=== PATIENT | female | born 1945 | race Caucasian/White ===

== ENCOUNTER → 2017-11-20 11:19 | Outpatient (BNVA) | payer MEDICARE, SELFPAY | PROVIDERS: PCP Nurse Practitioner Family; Visit Provider Surgery | DX: D64.9 Anemia, unspecified (principal); K31.89 Other diseases of stomach and duodenum | CPT/HCPCS: 99212 ==

== ENCOUNTER 2017-12-06 09:11 | Outpatient (CLI) | payer MEDICARE, SELFPAY ==
[2017-12-06 10:09] LABS: Abs Immature Grans 0.01 k/cumm (0.0-0.09); Absolute Basophil Count 0.03 k/cumm (0.0-0.2); Absolute Eosinophil Count 0.07 k/cumm (0.0-0.7); Absolute Lymphocyte Count 1.39 k/cumm (1.2-3.4); Absolute Monocyte Count 0.58 k/cumm (0.11-0.7); Absolute Neutrophil Count 5.96 k/cumm (1.2-6.7); Basophils % 0.4; Eosinophils % 0.9; HGB 12.4 g/dL (12.0-15.5); Immature Grans % 0.1; Lymphocytes % 17.3; Mean Corpuscular Hemoglobin 28.9 pg (27.0-33.0); Mean Corpuscular Volume 93.2 fL (80-95); Mean Platelet Volume 9.9 fL (8.0-11.0); Monocytes % 7.2; Neutrophils % 74.1; Platelet Count 228 x1000/uL (130-400); RBC 4.29 m/cumm (4.00-5.20); RBC Distribution Width 13.8 % (11.7-14.6); White Blood Cell Count 8.04 k/cumm (4.4-10.8)
[2017-12-06 10:49] LABS: Iron 101 ug/dL (50-175); Total Iron Binding Capacity 350 ug/dL (250-450); Transferrin Sat 29 % (15-50)
[2017-12-06 11:02] LABS: Ferritin 69 ng/mL (8-388)
== END 2017-12-06 09:31 ==
PROVIDERS: PCP Nurse Practitioner Family; Visit Provider Nurse Practitioner Family
DX: D50.9 Iron deficiency anemia, unspecified (principal)
CPT/HCPCS: 36415; 82728; 83540; 83550; 85025

== ENCOUNTER 2017-12-07 00:27 | Outpatient (CLI) | payer MEDICARE, SELFPAY ==
--- NOTE | 2017-12-07 14:25 | DI.MAMMO_ITS ---
SYMPTOM/DIAGNOSIS: SCREENING FOR BREAST CANCER, Z12.31 MAMMOGRAMS: Mammograms were interpreted according to the usual protocol including computer analysis with CAD system, tomosynthesis and C view imaging. Comparison is with the prior examinations. No masses or microcalcifications are seen. There is nothing to suggest malignancy. IMPRESSION: Negative mammogram. Routine screening is recommended. Category 1 , breast density B. MQSA ASSESSMENT OF FINDINGS: Negative. Category 1. Patient will receive a letter notifying them of these results. BI-RADS category B. There are scattered areas of fibroglandular density.
== END 2017-12-07 00:47 ==
PROVIDERS: PCP Nurse Practitioner Family; Visit Provider Nurse Practitioner Family
DX: Z12.31 Encounter for screening mammogram for malignant neoplasm of breast (principal)
CPT/HCPCS: 77063; 77067

== ENCOUNTER 2018-06-06 08:46 | Outpatient (CLI) | payer MEDICARE, SELFPAY ==
[2018-06-06 09:16] LABS: RBC 4.21 m/cumm (4.00-5.20); White Blood Cell Count 8.28 k/cumm (4.4-10.8)
[2018-06-06 09:17] LABS: Abs Immature Grans 0.02 k/cumm (0.0-0.09); Absolute Basophil Count 0.03 k/cumm (0.0-0.2); Absolute Eosinophil Count 0.04 k/cumm (0.0-0.7); Absolute Lymphocyte Count 1.41 k/cumm (1.2-3.4); Absolute Monocyte Count 0.55 k/cumm (0.11-0.7); Absolute Neutrophil Count 6.23 k/cumm (1.2-6.7); Basophils % 0.4; Eosinophils % 0.5; HCT 38.4 % (36.0-46.0); Immature Grans % 0.2; Mean Corp. HGB Concentration 31.3 g/dL (32.0-36.0); Mean Corpuscular Hemoglobin 28.5 pg (27.0-33.0); Mean Corpuscular Volume 91.2 fL (80-95); Mean Platelet Volume 9.7 fL (8.0-11.0); Monocytes % 6.6; Neutrophils % 75.3; Platelet Count 228 x1000/uL (130-400)
[2018-06-06 10:22] LABS: Iron 84 ug/dL (50-175); Total Iron Binding Capacity 332 ug/dL (250-450); Transferrin Sat 25 % (15-50)
[2018-06-06 10:35] LABS: Ferritin 68 ng/mL (8-388)
== END 2018-06-06 09:06 ==
PROVIDERS: PCP Nurse Practitioner Family; Visit Provider Nurse Practitioner Family
DX: D50.9 Iron deficiency anemia, unspecified (principal)
CPT/HCPCS: 36415; 82728; 83540; 83550; 85025

== ENCOUNTER 2018-11-04 08:44 | Outpatient (CLI) | payer MEDICARE, SELFPAY | END 2018-11-04 09:04 | PROVIDERS: PCP Nurse Practitioner Family; Visit Provider Internal Medicine Interventional Cardiology | DX: Z95.3 Presence of xenogenic heart valve (principal); I48.0 Paroxysmal atrial fibrillation; Z79.01 Long term (current) use of anticoagulants; I42.9 Cardiomyopathy, unspecified; I50.9 Heart failure, unspecified; I13.0 Hypertensive heart and chronic kidney disease with heart failure and stage 1 through stage 4 chronic kidney disease, or unspecified chronic kidney disease; N18.9 Chronic kidney disease, unspecified | CPT/HCPCS: 93005; 93010; 99213 ==

== ENCOUNTER 2018-12-06 07:41 | Outpatient (CLI) | payer MEDICARE, SELFPAY ==
[2018-12-06 08:42] LABS: HCT 39.9 % (36.0-46.0); HGB 12.9 g/dL (12.0-15.5)
[2018-12-06 09:12] LABS: Hemoglobin A1C 6.1 % (4.5-6.2)
[2018-12-06 09:49] LABS: Anion Gap 9.8 mmol/L (3-11); BUN 19 mg/dL (7-18); CO2 28.2 mmol/L (21.0-32.0); CREATININE 1.15 mg/dL (0.55-1.02); Calcium 8.8 mg/dL (8.5-10.1); Calculated LDL 60 mg/dL; Chloride 105 mmol/L (98-107); Cholesterol 133 mg/dL (50-200); Estimated GFR 46.52 (mL/min/1.73m2); Glucose 126 mg/dL (70-100); HDL Cholesterol 46 mg/dL (40-60); Potassium 4.1 mmol/L (3.5-5.1); Sodium 143 mmol/L (136-145); Triglyceride 135 mg/dL (30-150)
== END 2018-12-06 08:01 ==
PROVIDERS: PCP Nurse Practitioner Family; Visit Provider Nurse Practitioner Family
DX: I10 Essential (primary) hypertension (principal); E78.5 Hyperlipidemia, unspecified; R73.01 Impaired fasting glucose; Z51.81 Encounter for therapeutic drug level monitoring
CPT/HCPCS: 36415; 80048; 80061; 83036; 85014; 85018

== ENCOUNTER 2019-12-08 01:56 | Outpatient (CLI) | payer MEDICARE, OTHER, SELFPAY ==
--- NOTE | 2019-12-08 07:16 | DI.MAMMO_ITS ---
EXAM: MAMMO SCREENING CLINICAL HISTORY: screening,z12.39 TECHNIQUE: Mammograms were interpreted according to the usual protocol including computer analysis w [employer] CAD system, tomosynthesis and C-view imaging. COMPARISON: 2010 through 2017 FINDINGS: The breasts are composed of scattered fibroglandular densities, Breast Density category B. No suspicious masses or suspicious microcalcifications are seen. Two biopsy marker clips are seen in the upper outer quadrant of the right breast. No skin thickening or abnormal axillary lymph nodes are seen. There has been no significant change from prior exams. IMPRESSION: BI-RADS Category 1, Negative mammogram Yearly screening mammography is recommended. Breast Density - Category B, scattered fibroglandular densities. A negative radiographic report should not delay biopsy if a dominant or clinically suspicious mass is present. Up to ten percent of cancers are not identified on mammography. A negative report may reinforce clinical impression. Adenosis and dense breasts may obscure an underlying neoplasm. False positive reports average 6 to 10%. Patient will receive a letter notifying them of these results.
== END 2019-12-08 02:16 ==
PROVIDERS: PCP Nurse Practitioner Family; Visit Provider Nurse Practitioner Family
DX: Z12.31 Encounter for screening mammogram for malignant neoplasm of breast (principal)
CPT/HCPCS: 77063; 77067

== ENCOUNTER 2020-01-22 02:18 | Outpatient (CLI) | payer MEDICARE, OTHER, SELFPAY ==
[2020-01-22 07:40] LABS: HGB 12.4 g/dL (11.2-15.7); MCH 29.8 pg (27.0-33.0); MCHC 32.6 % (32.0-36.0); MCV 91.3 fL (80-95); MPV 9.4 fL (8.0-11.0); Platelet Count 277 10^3/uL (130-400); RBC 4.16 10^6/uL (3.93-5.22); RDW 13.2 % (11.7-14.6); WBC 9.01 10^3/uL (4.4-10.8)
[2020-01-22 07:55] LABS: Hemoglobin A1C 5.7 % (<5.7)
[2020-01-22 08:30] LABS: ALT 22 U/L (14-59); AST 17 U/L (15-37); Albumin 4.4 g/dL (3.4-5.0); Alkaline Phosphatase 70 U/L (46-116); Anion Gap 1.3 mmol/L (3-11); BUN 32 mg/dL (7-18); Bilirubin, Total 0.5 mg/dL (0.2-1.0); CO2 29.7 mmol/L (21.0-32.0); CREATININE 1.21 mg/dL (0.55-1.02); Calculated LDL 79 mg/dL (<100); Chloride 102 mmol/L (98-107); Cholesterol 163 mg/dL (<200); Estimated GFR 43.74 (mL/min/1.73m2); Glucose 102 mg/dL (74-106); HDL Cholesterol 53 mg/dL (40-60); Sodium 133 mmol/L (136-145); Total Protein 7.5 g/dL (6.4-8.2); Triglyceride 155 mg/dL (<150)
== END 2020-01-22 02:38 ==
PROVIDERS: PCP Nurse Practitioner Family; Visit Provider Nurse Practitioner Family
DX: I10 Essential (primary) hypertension (principal); E78.5 Hyperlipidemia, unspecified; R73.01 Impaired fasting glucose
CPT/HCPCS: 36415; 80053; 80061; 85027; 83036

== ENCOUNTER 2020-04-01 12:18 | Inpatient (IN) | payer MEDICARE, OTHER, SELFPAY ==
[2020-04-01] VITALS (88 sets, daily range): BP systolic 76–143; BP diastolic 48–124; PULSE 72–156; RESP 13–34; TEMP 36.3–36.5; O2SAT 94–100
--- NOTE | 2020-04-01 12:15 | RT.EKG_ITS ---
APPROVED REPORT Exam: Resting ECG Patient Location: E HR:150 bpm ECG Measurements Heart Rate 150 AXIS MT 68 P 0 QRSd 97 QRS 39 QT 313 T 142 QTc 495 Conclusion Supraventricular tachycardia...V-rate>(220-age), QRSd<120 Nonspecific T abnormalities, lateral leads...T <-0.10mV, I aVL V5 V6. P waves visible, SVT? Regular rhythm. T wave inversion in I and aVL. No STEMI.
[2020-04-01 12:47] LABS: Abs Immature Grans 0.03 10^3/uL (0.0-0.06); Absolute Basophil Count 0.05 10^3/uL (0.0-0.2); Absolute Eosinophil Count 0.01 10^3/uL (0.0-0.7); Absolute Lymphocyte Count 2.42 10^3/uL (1.2-3.4); Absolute Monocyte Count 0.81 10^3/uL (0.1-0.8); Basophils % 0.4; Eosinophils % 0.1; HCT 37.1 % (36.0-46.0); HGB 11.8 g/dL (11.2-15.7); Immature Grans % 0.2; Lymphocytes % 20.1; MCH 29.7 pg (27.0-33.0); MCHC 31.8 % (32.0-36.0); MCV 93.5 fL (80-95); MPV 9.8 fL (8.0-11.0); Monocytes % 6.7; Neutrophils % 72.5; Nucleated RBC 0 %; Platelet Count 296 10^3/uL (130-400); RBC 3.97 10^6/uL (3.93-5.22); RDW-SD 44.7 fL; WBC 12.05 10^3/uL (4.4-10.8)
[2020-04-01 12:49] LABS: Absolute Neutrophil Count 8.74 10^3/uL (1.2-6.7)
--- NOTE | 2020-04-01 13:00 | RT.EKG_ITS ---
APPROVED REPORT Exam: Resting ECG Patient Location: E HR:150 bpm ECG Measurements Heart Rate 150 AXIS UT 77 P 0 QRSd 99 QRS 0 QT 308 T 153 QTc 487 Conclusion Supraventricular tachycardia...V-rate>(220-age), QRSd<120 ST elevation secondary to high heart rate. SVT vs atrial flutter. No STEMI.
[2020-04-01 13:02] LABS: ALT 54 U/L (14-59); AST 37 U/L (15-37); Albumin 4.2 g/dL (3.4-5.0); Alkaline Phosphatase 82 U/L (46-116); Anion Gap 10.3 mmol/L (3-11); BUN 27 mg/dL (7-18); Bilirubin, Total 0.7 mg/dL (0.2-1.0); CO2 24.7 mmol/L (21.0-32.0); CREATININE 1.52 mg/dL (0.55-1.02); Calcium 8.9 mg/dL (8.5-10.1); Chloride 104 mmol/L (98-107); Estimated GFR 33.62 (mL/min/1.73m2); Glucose 130 mg/dL (74-106); Potassium 3.8 mmol/L (3.5-5.1); Sodium 139 mmol/L (136-145); Total Protein 7.6 g/dL (6.4-8.2); Troponin I < 0.05 ng/mL (<0.06)
[2020-04-01] MEDS: Adenosine 6 MG/2 ML VIAL ×3 (13:05→13:14)
[2020-04-01] MEDS: Metoprolol 5 MG/5 ML VIAL IVP (13:15)
[2020-04-01 13:18] LABS: INR 1.3 (0.9-1.1); PTT Activated 24.6 sec (21.0-27.5); Prothrombin Time 13.2 sec (9.3-11.0)
--- NOTE | 2020-04-01 13:35 | W.ED.GENAD ---
Discharge Plan Disposition Patient Disposition: [facility] INPATIENT Condition: Stable Discharge Details Clinical Impression: Atrial fibrillation with rapid ventricular response Admit Date/Time: 04/01/20 15:00 Admit Provider: Vinay Enriquez Attending Provider: Vinay Enriquez Primary Care Provider: Jessica Ochoa ED Provider: Katalina Cedeno Discharge Data Discharge Date/Time-TO BE ENTERED AT DEPARTURE: 04/01/20 16:15 Medical Decision Making 74-year-old female with a history of atrial fibrillation on metoprolol and apixaban, CHF, hyperlipidemia, aortic valve replacement, hypertension with diarrhea and weakness for the past 2 days sent by the PCP office for tachycardia into the 150s and ST depressions on EKG in the office today. EKG on arrival notes a rate of 150, questionable SVT but no acute ST ischemic findings. Heart rate 150 blood pressure within normal limits. Attempted modified Valsalva at bedside without change in heart rate. Patient was given 6 mg and 12 mg x 1 then 12 mg x 1 of adenosine with very brief decrease in heart rate but then increased back up to 150s. A dose of 5 mg metoprolol IV given without change. Case discussed with Dr. Naidu who reviewed EKGs and states that this possibly could be a flutter. She states patient has had resistant atrial flutter and fibrillation that has previously been treated with amiodarone by Dr. Chiang. She recommends continued beta-blockers or Cardizem. A dose of 50 mg Cardizem x1 given without change in heart rate. We will start a Cardizem drip. A bedside guaiac done which noted dark brown stool but negative for blood. Screening labs obtained. Blood cell count 12. INR 1.3. Troponin negative. Urinalysis notes 5-10 WBCs, urine culture sent. CXR notes Upper limits of normal heart, pulmonary venous congestion and prominent interstitial markings raising the question of fluid overload/congestive heart failure. Please correlate clinically. Patient has no complaint of shortness of breath, chest pain with normal lung exam, oxygen saturation and no leg swelling clinically do not suspect fluid overload. Patient had very brief decrease in heart rate to 110s while on Cardizem drip but this increased back up to 140s. Her blood pressure continued to trend down to as low as a systolic of 89 and Cardizem drip was stopped. She initially had already been given V 15 mg Cardizem and then once her blood pressure improved she was given the other half of 7.5 mg but this did not improve her heart rate. Attempted to reach cardiology but Dr. aNidu has gone for the day. Case discussed with hospitalist and informed him that we have been unable to decrease her heart rate and her blood pressure is soft. It was discussed that she may need amiodarone restarted as she has been on this in the past for atrial flutter and fibrillation that has been resistant to other medications. Just prior to transfer to the floor, blood pressure 110/78. She has been on the Cardizem drip at 5 mg an hour. We will increase to 7.5 mg. Medical Records Medical records reviewed: Yes I reviewed the patient's medical records. Imaging Data Radiologic Study: Radiologist's impression: XR PORTABLE CHEST AP CLINICAL HISTORY: tachycardia, r/o acute disease TECHNIQUE: 2D digital imaging was performed. COMPARISON: CR CHEST 2 VIEWS PA,LAT from 08/28/2017 FINDINGS: MEDIASTINUM: Normal. HEART: Upper limits of normal. There again seen cardiac valvular replacement. PULMONARY VASCULATURE: There is prominence of the pulmonary vasculature. LUNGS: There is prominence of the interstitium bilaterally. PLEURAL SPACE: No pleural effusion or pneumothorax. BONE:Within normal limits for the patient's age. OTHER FINDINGS:Normal. IMPRESSION: Upper limits of normal heart, pulmonary venous congestion and prominent interstitial markings raising the question of fluid overload/congestive heart failure. Please correlate clinically. Lab Data Lab results reviewed: Yes I reviewed the patient's lab results. Labs: 04/01/20 13:40 Urine - Reflex from Ua Urine Culture - Pending Laboratory Tests Range/Units 04/01/20 04/01/20 04/01/20 12:40 12:40 12:40 WBC (4.4-10.8) 10^3/uL 12.05 H RBC (3.93-5.22) 10^6/uL 3.97 Hgb (11.2-15.7) g/dL 11.8 Hct (36.0-46.0) % 37.1 MCV (80-95) fL 93.5 MCH (27.0-33.0) pg 29.7 MCHC (32.0-36.0) % 31.8 L RDW (11.7-14.6) % 13.0 Plt Count (130-400) 10^3/uL 296 MPV (8.0-11.0) fL 9.8 Immature Gran % 0.2 Neutrophils % 72.5 Lymphocytes % 20.1 Monocytes % 6.7 Eosinophils % 0.1 Basophils % 0.4 Nucleated RBC % % 0 Absolute Neutrophils (1.2-6.7) 10^3/uL 8.74 H Absolute Lymphocytes (1.2-3.4) 10^3/uL 2.42 Absolute Monocytes (0.1-0.8) 10^3/uL 0.81 H Absolute Eosinophils (0.0-0.7) 10^3/uL 0.01 Absolute Basophils (0.0-0.2) 10^3/uL 0.05 PT (9.3-11.0) sec 13.2 H INR (0.9-1.1) 1.3 H APTT (21.0-27.5) sec 24.6 Sodium (136-145) mmol/L 139 Potassium (3.5-5.1) mmol/L 3.8 Chloride (98-107) mmol/L 104 Carbon Dioxide (21.0-32.0) mmol/L 24.7 Anion Gap (3-11) mmol/L 10.3 BUN (7-18) mg/dL 27 H Creatinine (0.55-1.02) mg/dL 1.52 H Estimated GFR/1.73 m2 (mL/min/1.73m2) 33.62 Glucose (74-106) mg/dL 130 H Calcium (8.5-10.1) mg/dL 8.9 Magnesium (1.8-2.4) mg/dL 2.0 Total Bilirubin (0.2-1.0) mg/dL 0.7 AST (15-37) U/L 37 ALT (14-59) U/L 54 Alkaline Phosphatase (46-116) U/L 82 Troponin I (<0.06) ng/mL < 0.05 Total Protein (6.4-8.2) g/dL 7.6 Albumin (3.4-5.0) g/dL 4.2 Urine Color (Yellow) Urine Clarity (Clear) Urine pH (5-8) Ur Specific [place] (1.005-1.025) Urine Protein (Negative) mg/dL Urine Ketones (Negative) mg/dL Urine Blood (Negative) Urine Nitrite (Negative) Urine Bilirubin (Negative) Urine Urobilinogen (Up TO 0.2) EU/dL Ur Leukocyte Esterase (Negative) Urine RBC (0-2) HPF Urine WBC (0-5) HPF Ur Epithelial Cells (Negative) HPF Urine Crystals (Negative) HPF Urine Bacteria (Negative) HPF Urine Casts (Negative) LPF Urine Mucus (Negative) Urine Other (Negative) Ur Culture Indicated? Urine Glucose (Negative) mg/dL Range/Units 04/01/20 13:40 WBC (4.4-10.8) 10^3/uL RBC (3.93-5.22) 10^6/uL Hgb (11.2-15.7) g/dL Hct (36.0-46.0) % MCV (80-95) fL MCH (27.0-33.0) pg MCHC (32.0-36.0) % RDW (11.7-14.6) % Plt Count (130-400) 10^3/uL MPV (8.0-11.0) fL Immature Gran % Neutrophils % Lymphocytes % Monocytes % Eosinophils % Basophils % Nucleated RBC % % Absolute Neutrophils (1.2-6.7) 10^3/uL Absolute Lymphocytes (1.2-3.4) 10^3/uL Absolute Monocytes (0.1-0.8) 10^3/uL Absolute Eosinophils (0.0-0.7) 10^3/uL Absolute Basophils (0.0-0.2) 10^3/uL PT (9.3-11.0) sec INR (0.9-1.1) APTT (21.0-27.5) sec Sodium (136-145) mmol/L Potassium (3.5-5.1) mmol/L Chloride (98-107) mmol/L Carbon Dioxide (21.0-32.0) mmol/L Anion Gap (3-11) mmol/L BUN (7-18) mg/dL Creatinine (0.55-1.02) mg/dL Estimated GFR/1.73 m2 (mL/min/1.73m2) Glucose (74-106) mg/dL Calcium (8.5-10.1) mg/dL Magnesium (1.8-2.4) mg/dL Total Bilirubin (0.2-1.0) mg/dL AST (15-37) U/L ALT (14-59) U/L Alkaline Phosphatase (46-116) U/L Troponin I (<0.06) ng/mL Total Protein (6.4-8.2) g/dL Albumin (3.4-5.0) g/dL Urine Color (Yellow) Yellow Urine Clarity (Clear) Clear Urine pH (5-8) 6.0 Ur Specific [place] (1.005-1.025) 1.025 Urine Protein (Negative) mg/dL 100 H Urine Ketones (Negative) mg/dL Negative Urine Blood (Negative) Negative Urine Nitrite (Negative) Negative Urine Bilirubin (Negative) Negative Urine Urobilinogen (Up TO 0.2) EU/dL 0.2 Ur Leukocyte Esterase (Negative) Small H Urine RBC (0-2) HPF 0-2 Urine WBC (0-5) HPF 5-10 Ur Epithelial Cells (Negative) HPF Few Urine Crystals (Negative) HPF Negative Urine Bacteria (Negative) HPF Moderate Urine Casts (Negative) LPF Negative Urine Mucus (Negative) Negative Urine Other (Negative) Few renal Ur Culture Indicated? Yes Urine Glucose (Negative) mg/dL Negative ECG Data Attestation: I personally reviewed and interpreted this ECG (s) as follows: Interpretation: #1 --Rate of 150. Rhythm appears regular. P waves visible. Read as SVT. No obvious sawtooth pattern. T wave inversion in [address]VL[address] No [address] ischemic findings. #2 --Rate of 150, rhythm appears regular, P waves visible. No sawtooth pattern. T wave inversion in 1 and aVL. Questionable increase in ST in V2 but no STEMI. NM 77. QRS 99. QTc 47. HPI General Mode of arrival: ambulatory. Date/Time Provider Initiated Documentation: 04/01/20 12:21. Limitations to Documentation: no limitations. Information obtained by: patient. HPI Narrative: Pt is a 74yo F who presents to the ED with a complaint of watery brown diarrhea and generalized weakness for the past 3 days. Patient was seen at the primary care doctor's office with a complaint today and was noted to have a heart rate in the 140s to 150s and was sent here for further evaluation. An EKG was done which noted ST depression. Patient does admit to some nausea but denies any concerns of fever, chest pain, shortness of breath, vomiting, abdominal pain, urinary symptoms, recent travel, recent known sick contacts. She denies any recent antibiotics. She states today she noted that it seemed like her stools were black but she denies any bright red rectal bleeding. Patient is on apixaban for her history of atrial fibrillation. Related Data Home Medications Medication Instructions Recorded Confirmed acetaminophen 500 mg PO Q6H PRN 08/12/14 04/01/20 biotin 10,000 mcg PO DAILY 09/20/15 04/01/20 calcium carbonate [Calcium 500] 1,000 mg PO DAILY 08/28/17 04/01/20 cholecalciferol (vitamin D3) 1,000 unit PO DAILY cap 08/28/17 04/01/20 varicella-zoster glycoE [id number] 50 mcg IM .COMPLEX #1 each 12/06/17 01/29/20 adj(PF) 50 mcg/0.5 mL IM susp, kit aspirin 81 mg tablet,delayed 81 mg PO DAILY 12/05/18 04/01/20 release sertraline 25 mg tablet 25 mg PO DAILY #90 tab-cap 03/21/19 04/01/20 metoprolol tartrate 25 mg tablet 25 mg PO BID #180 tab-cap 04/08/19 04/01/20 losartan 25 mg tablet 25 mg PO DAILY #90 tab-cap 04/25/19 04/01/20 ascorbate calcium (vitamin C) 500 500 mg PO DAILY 07/31/19 04/01/20 mg tablet hydralazine 25 mg tablet 25 mg PO BID #180 tab-cap 08/07/19 04/01/20 potassium chloride 10 mEq 10 meq PO DAILY #90 tab-cap 08/28/19 04/01/20 tablet,extended release atorvastatin 20 mg tablet 20 mg PO DAILY #90 tab-cap 09/15/19 04/01/20 furosemide 20 mg tablet 20 mg PO BID #180 tab-cap 09/15/19 04/01/20 apixaban 5 mg tablet 5 mg PO BID #180 tab-cap 01/29/20 04/01/20 Previous Rx's Medication Instructions Recorded varicella-zoster glycoE [id number] 50 mcg IM .COMPLEX #1 each 12/06/17 adj(PF) 50 mcg/0.5 mL IM susp, kit sertraline 25 mg tablet 25 mg PO DAILY #90 tab-cap 03/21/19 metoprolol tartrate 25 mg tablet 25 mg PO BID #180 tab-cap 04/08/19 losartan 25 mg tablet 25 mg PO DAILY #90 tab-cap 04/25/19 hydralazine 25 mg tablet 25 mg PO BID #180 tab-cap 08/07/19 potassium chloride 10 mEq 10 meq PO DAILY #90 tab-cap 08/28/19 tablet,extended release atorvastatin 20 mg tablet 20 mg PO DAILY #90 tab-cap 09/15/19 furosemide 20 mg tablet 20 mg PO BID #180 tab-cap 09/15/19 apixaban 5 mg tablet 5 mg PO BID #180 tab-cap 01/29/20 Allergies Allergy/AdvReac Type Severity Reaction Status Date / Time dofetilide AdvReac Severe Prolonged Unverified 04/01/20 11:37 QTc heparin AdvReac Severe thrombocyto Unverified 04/01/20 11:37 penia lisinopril AdvReac Cough Unverified 04/01/20 11:37 General Stated Complaint: GI Bleed MARIS: 3 Review of Systems All systems reviewed & are unremarkable except as noted in HPI and below Constitutional Constitutional: Reports as per HPI, Denies chills, Denies fever(s) and Reports weakness Eyes Eyes: Denies blurry vision ENT Ears, Nose, Mouth, and Throat: Denies dizziness, Denies sore throat and Denies throat swelling Cardiovascular Cardiovascular: Denies chest pain and Denies dyspnea Respiratory Respiratory: Denies cough and Denies dyspnea Gastrointestinal Gastrointestinal: Denies abdominal pain, Reports diarrhea and Denies vomiting Genitourinary Genitourinary: Denies hematuria and Denies dysuria Musculoskeletal Musculoskeletal: Denies back pain and Denies numbness Integumentary/Breasts Skin/Breast: Denies lesions and Denies rash Neurologic Neurologic: Denies dizziness, Denies localized weakness, Denies numbness and Reports weakness Allergic/Immunologic Allergic/Immunologic: Denies throat swelling [facility] Medical History Aortic regurgitation a. moderate by echo 12/2011 S/p repair Atrial fibrillation (07/31/14) S/p MAZE. adverse rxn dofetilide; amiodarone begun 08/2014 Switched to apixaban by cardiology (Dr. 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) due to rheumatic valvular disease, dx'ed 1990s per pt Duodenal ulcer Hospitalization for GI bleed 08/2017 Duodenal ulcer (09/05/17) Hospitalization 08/2017 for acute GI bleed Essential hypertension Family history of breast cancer Family history of colon cancer History of abnormal mammogram HLD (hyperlipidemia) Hyperlipidemia (05/12/13) LDL 144 2012; Risk calculated 13.3% soft CV risk; CV risk 06/2014: 11.6% IFG (impaired fasting glucose) (08/21/15) Insomnia, unspecified (06/01/11) 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 Chiang) following hospitalization for GI bleed Mitral regurgitation Rheumatic; s/p repair Osteopenia (06/14/17) 06/14/17 DEXA: femoral neck T-score -1.1 WHO FRAX score: 10-year major osteoporotic fx risk of 8.9% and hip fx risk of 0.9% --> tx with Ca/vitamin D Restrictive lung disease (05/03/16) apt with Dr. Us [facility] pulmonary Rheumatic heart disease S/P aortic valve and mitral valve replacement (~07/2014) [facility]. Severe AR & MR, bovine prosthesis. 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) Surgical History Biopsy of breast (~2008) Left breast [facility] Colonoscopy - MAC (08/28/17) EGD - MAC (08/28/17) History of section (~1976) History of toe surgery (~2003) Removal of bone chip Radiofrequency Maze Procedure (08/04/14) done at [facility] Replacement of aortic valve (08/04/14) AV and MV both replaced with tissue valves at [facility] S/P aortic valve and mitral valve replacement (08/04/14) Bovine prosthetic valves, plus MAZE, [facility] Valve Replacement (08/04/14) Both AV and Mitral Valve replacement at [facility] plus MAZE; Tissue valves Family History Mother , Age 87, peritonitis Diabetes Essential hypertension Breast cancer Father , Age 45, colon cancer Colon cancer Sister Heart disease [place] at age 49 Brother Diabetes Colon cancer Brother No problems noted. Brother Heart disease CABG Other Family history of colon cancer Social History Smoking/Tobacco Use Status: Former Tobacco Use Smoking risk assessment performed?: Yes Alcohol Intake: former Drug use: Never Substance use type: does not use Counseling given: No Counseling provided: none Adopted: No Caregiver/Support person: No Foster care: No Housing: house Number of Children: 1 number of grandchildren: 2 Communication Needs: None Education Level: high school Do you need help understanding health information?: Rarely Pets and animals: No Current gender identity: female What type of physical activity do you participate in: walking Duration: 60-90 minutes/day Frequency: daily Seatbelt use: always Helmet use: No Drive intox or ride w/intox dumpster driver: No Water heater temp set <120 deg: Yes Working smoke detector in home: No Fire extinguisher in home: No Carbon monox detector in home: No Firearms in home: No Do you feel safe at home: Yes Do you feel safe in your relationship?: Yes Exam Const General: cooperative, healthy appearing and no acute distress HENMT Head: normal to inspection Face and sinus: normal facial exam Eyes General: appearance normal, both eyes and all related structures EOM: EOM intact bilaterally Neck Neck: normal visual inspection and No submandibular swelling Lymphatic: no lymphadenopathy noted Chest Chest: normal inspection of the chest and no tenderness Resp Effort & Inspection: normal respiratory effort and able to speak in complete sentences Auscultation: clear to auscultation bilaterally Cardio Rate: regular rate Rhythm: regular rhythm GI Inspection: normal to inspection Palpation: soft, not firm, not rigid and nontender Auscultation: normal bowel sounds Skin General skin exam: no rashes or lesions noted Neuro General: patient alert, patient awake and patient oriented x3 Cognition: normal cognition Speech: speech normal Motor: muscle tone normal throughout Sensory Exam: no sensory deficits noted Extrem General: normal to inspection, full ROM, capillary refill normal, no calf tenderness bilaterally and no edema Psych Appearance: grossly normal Mental Status: mental status grossly normal Speech and Movement: speech and movement normal Affect: normal affect Course Vital Signs Vital signs: Vital Signs Temperature 97.7 F 04/01/20 12:23 Pulse 152 H 04/01/20 12:23 Blood Pressure 127/80 04/01/20 12:23 Pulse Oximetry 94 04/01/20 12:23 Temperature 97.7 F 04/01/20 12:23 Temperature Source Oral 04/01/20 12:23 Pulse 150 H 04/01/20 13:15 Respiratory Effort Non-Labored 04/01/20 12:48 Blood Pressure 119/79 04/01/20 13:15 Blood Pressure Position Sitting 04/01/20 12:23 Pulse Oximetry 94 04/01/20 12:23 Oxygen Delivery Method Room Air 04/01/20 12:23 Oxygen Flow Rate 0 04/01/20 12:23 Lab/Test Results Lab/Test Results: Laboratory Tests Range/Units 04/01/20 04/01/20 04/01/20 12:40 12:40 12:40 WBC (4.4-10.8) 10^3/uL 12.05 H RBC (3.93-5.22) 10^6/uL 3.97 Hgb (11.2-15.7) g/dL 11.8 Hct (36.0-46.0) % 37.1 MCV (80-95) fL 93.5 MCH (27.0-33.0) pg 29.7 MCHC (32.0-36.0) % 31.8 L RDW (11.7-14.6) % 13.0 Plt Count (130-400) 10^3/uL 296 MPV (8.0-11.0) fL 9.8 Immature Gran % 0.2 Neutrophils % 72.5 Lymphocytes % 20.1 Monocytes % 6.7 Eosinophils % 0.1 Basophils % 0.4 Nucleated RBC % % 0 Absolute Neutrophils (1.2-6.7) 10^3/uL 8.74 H Absolute Lymphocytes (1.2-3.4) 10^3/uL 2.42 Absolute Monocytes (0.1-0.8) 10^3/uL 0.81 H Absolute Eosinophils (0.0-0.7) 10^3/uL 0.01 Absolute Basophils (0.0-0.2) 10^3/uL 0.05 PT (9.3-11.0) sec 13.2 H INR (0.9-1.1) 1.3 H APTT (21.0-27.5) sec 24.6 Sodium (136-145) mmol/L 139 Potassium (3.5-5.1) mmol/L 3.8 Chloride (98-107) mmol/L 104 Carbon Dioxide (21.0-32.0) mmol/L 24.7 Anion Gap (3-11) mmol/L 10.3 BUN (7-18) mg/dL 27 H Creatinine (0.55-1.02) mg/dL 1.52 H Estimated GFR/1.73 m2 (mL/min/1.73m2) 33.62 Glucose (74-106) mg/dL 130 H Calcium (8.5-10.1) mg/dL 8.9 Magnesium (1.8-2.4) mg/dL 2.0 Total Bilirubin (0.2-1.0) mg/dL 0.7 AST (15-37) U/L 37 ALT (14-59) U/L 54 Alkaline Phosphatase (46-116) U/L 82 Troponin I (<0.06) ng/mL < 0.05 Total Protein (6.4-8.2) g/dL 7.6 Albumin (3.4-5.0) g/dL 4.2
--- NOTE | 2020-04-01 13:45 | DI.RAD_ITS ---
EXAM: XR PORTABLE CHEST AP CLINICAL HISTORY: tachycardia, r/o acute disease TECHNIQUE: 2D digital imaging was performed. COMPARISON: CR CHEST 2 VIEWS PA,LAT from 08/28/2017 FINDINGS: MEDIASTINUM: Normal. HEART: Upper limits of normal. There again seen cardiac valvular replacement. PULMONARY VASCULATURE: There is prominence of the pulmonary vasculature. LUNGS: There is prominence of the interstitium bilaterally. PLEURAL SPACE: No pleural effusion or pneumothorax. BONE:Within normal limits for the patient's age. OTHER FINDINGS:Normal. IMPRESSION: Upper limits of normal heart, pulmonary venous congestion and prominent interstitial markings raising the question of fluid overload/congestive heart failure. Please correlate clinically. DATA REPOSITORY: RADIATION DOSE DELIVERED:
[2020-04-01 13:56] LABS: Bilirubin Negative (Negative); Blood Negative (Negative); Clarity Clear (Clear); Glucose Negative (Negative); Ketones Negative (Negative); Leukocyte Esterase Small (Negative); Nitrite Negative (Negative); Specific Gravity 1.025 (1.005-1.025); Urobilinogen 0.2 EU/dL (Up TO 0.2)
[2020-04-01] MEDS: dilTIAZem 25 MG/5 ML VIAL 15 MG IVP (14:00)
[2020-04-01 14:08] LABS: Bacteria Moderate HPF (Negative); C & S Indicated? Yes; Casts Negative LPF (Negative); Crystals Negative HPF (Negative); Epithelial Cells Few HPF (Negative); Mucus Negative (Negative); Other Cells Few Renal (Negative); RBC 0-2 HPF (0-2)
[2020-04-01] MEDS: Normal Saline 1,000 ML 125 ML IV (14:10)
[2020-04-01] MEDS: dilTIAZem 125 MG in Normal Saline 100 ML IV (14:10)
[2020-04-01] MEDS: dilTIAZem 25 MG/5 ML VIAL 10 MG IVP (14:43)
[2020-04-01] MEDS: Digoxin 0.5 MG/2 ML AMP 0.3 MG IVP (17:29)
--- NOTE | 2020-04-01 18:15 | W.PM.HP.N ---
Date of service: 04/01/20 Time of Service: 18:15 Assessment and Plan Assessment and plan (1) Restrictive lung disease: Status: Chronic Assessment and plan: No current medications. Oxygenating on RA (2) Hyperlipidemia: Status: Chronic Assessment and plan: Cont Lipitor Qualifiers: Hyperlipidemia type: unspecified Qualified Code(s): E78.5 - Hyperlipidemia, unspecified (3) Atrial flutter: Status: Acute Assessment and plan: Diltazem drip. Valsalva maneuvers decrease HR but only very temporarily. Digoxin loading initiated. Pt w/o CP, palpitations. (4) Pulmonary edema: Status: Acute Assessment and plan: She is on lasix 20mg po BID. No SOA. (5) UTI (urinary tract infection): Status: Acute Assessment and plan: Culture pending. Cont ceftriaxone. History of Present Illness History of Present Illness Chief Complaint: Weakness and loose stools Narrative: This is a 74 yo female with a PMH of Afib, CHF, restrictive lung disease, Insomnia, impaired fasting glucose, CKD. She presented at the prompting of her PCP with c/o diarrhea and generalized weakness for 3 days. Her HR at her PCP was in the 140-150's. She denied CP, palpitations, SOA. No F/C, cough, N/V/abd pain. No dysuria/frequency. EKG indicated possible SVT. Adenosine 6mg given, followed july 12mg x 2 w/o improvement in her HR except for a very brief period. A dose of 5mg IV metoprolol given w/o results. Dr. Naidu with cardiology was contacted by the ED physician and suggested this could be aflutter. She recommended continued BB or CCB. A dose of Cardizem given w/o improvement. A cardizem drip was then initiated and she was admitted to the ICU. K and Mg were normal. WBC count was elevated at 12.05. CXR showed pulmonary vasc congestion / prominent interstitial markings. UA positive and sent for cx. Troponin negative. Review of Systems All systems reviewed & are unremarkable except as noted in HPI and below [facility] Medical History Aortic regurgitation a. moderate by echo 12/2011 S/p repair Atrial fibrillation (07/31/14) S/p MAZE. adverse rxn dofetilide; amiodarone begun 08/2014 Switched to apixaban by cardiology (Dr. 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) due to rheumatic valvular disease, dx'ed 1990s per pt Duodenal ulcer Hospitalization for GI bleed 08/2017 Duodenal ulcer (09/05/17) Hospitalization 08/2017 for acute GI bleed Essential hypertension Family history of breast cancer Family history of colon cancer History of abnormal mammogram HLD (hyperlipidemia) Hyperlipidemia (05/12/13) LDL 144 2012; Risk calculated 13.3% soft CV risk; CV risk 06/2014: 11.6% IFG (impaired fasting glucose) (08/21/15) Insomnia, unspecified (06/01/11) halfway current use of anticoagulant therapy (08/15/14) [facility] for afib 08/2017: Switched from Warfarin to apixaban by cardiology (Dr. Chiang) following hospitalization for GI bleed Mitral regurgitation Rheumatic; s/p repair Osteopenia (06/14/17) 06/14/17 DEXA: femoral neck T-score -1.1 WHO FRAX score: 10-year major osteoporotic fx risk of 8.9% and hip fx risk of 0.9% --> tx with Ca/vitamin D Restrictive lung disease (05/03/16) apt with Dr. Us [facility] pulmonary Rheumatic heart disease S/P aortic valve and mitral valve replacement (~07/2014) [facility]. Severe AR & MR, bovine prosthesis. 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 Colonoscopy - MAC (08/28/17) EGD - MAC (08/28/17) History of section (~1976) History of toe surgery (~2003) Removal of bone chip Radiofrequency Maze Procedure (08/04/14) done at [facility] Replacement of aortic valve (08/04/14) AV and MV both replaced with tissue valves at [facility] S/P aortic valve and mitral valve replacement (08/04/14) Bovine prosthetic valves, plus MAZE, [facility] Valve Replacement (08/04/14) Both AV and Mitral Valve replacement at [facility] plus MAZE; Tissue valves Family History Mother , Age 87, peritonitis Diabetes Essential hypertension Breast cancer Father , Age 45, colon cancer Colon cancer Sister Heart disease [place] at age 49 Brother Diabetes Colon cancer Brother No problems noted. Brother Heart disease CABG Other Family history of colon cancer Social History Smoking/Tobacco Use Status: Former Tobacco Use Smoking risk assessment performed?: Yes Alcohol Intake: former Drug use: Never Substance use type: does not use Counseling given: No Counseling provided: none Adopted: No Caregiver/Support person: No Foster care: No Housing: house Number of Children: 1 number of grandchildren: 2 Communication Needs: None Education Level: high school Do you need help understanding health information?: Rarely Pets and animals: No Current gender identity: female What type of physical activity do you participate in: walking Duration: 60-90 minutes/day Frequency: daily Seatbelt use: always Helmet use: No Drive 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 or ride w/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 Water heater temp set <120 deg: Yes Working smoke detector in home: No Fire extinguisher in home: No Carbon monox detector in home: No Firearms in home: No Do you feel safe at home: Yes Do you feel safe in your relationship?: Yes Meds Home Medications and Allergies Home Medications Medication Instructions Recorded Confirmed Type acetaminophen 500 mg PO Q6H PRN 08/12/14 04/01/20 History biotin 10,000 mcg PO DAILY 09/20/15 04/01/20 History calcium carbonate [Calcium 500] 1,000 mg PO DAILY 08/28/17 04/01/20 History cholecalciferol (vitamin D3) 1,000 unit PO DAILY cap 08/28/17 04/01/20 History varicella-zoster glycoE [id number] 50 mcg IM .COMPLEX #1 each 12/06/17 01/29/20 Rx adj(PF) 50 mcg/0.5 mL IM susp, kit aspirin 81 mg tablet,delayed 81 mg PO DAILY 12/05/18 04/01/20 History release sertraline 25 mg tablet 25 mg PO DAILY #90 tab-cap 03/21/19 04/01/20 Rx metoprolol tartrate 25 mg tablet 25 mg PO BID #180 tab-cap 04/08/19 04/01/20 Rx losartan 25 mg tablet 25 mg PO DAILY #90 tab-cap 04/25/19 04/01/20 Rx ascorbate calcium (vitamin C) 500 500 mg PO DAILY 07/31/19 04/01/20 History mg tablet hydralazine 25 mg tablet 25 mg PO BID #180 tab-cap 08/07/19 04/01/20 Rx potassium chloride 10 mEq 10 meq PO DAILY #90 tab-cap 08/28/19 04/01/20 Rx tablet,extended release atorvastatin 20 mg tablet 20 mg PO DAILY #90 tab-cap 09/15/19 04/01/20 Rx furosemide 20 mg tablet 20 mg PO BID #180 tab-cap 09/15/19 04/01/20 Rx apixaban 5 mg tablet 5 mg PO BID #180 tab-cap 01/29/20 04/01/20 Rx Allergies Allergy/AdvReac Type Severity Reaction Status Date / Time dofetilide AdvReac Severe Prolonged Unverified 04/01/20 11:37 QTc heparin AdvReac Severe thrombocyto Unverified 04/01/20 11:37 penia lisinopril AdvReac Cough Unverified 04/01/20 11:37 Exam Const General: cooperative and no acute distress Nutritional Appearance: average body habitus Orientation: alert and oriented x3 Eyes General: appearance normal, both eyes and all related structures Sclera: sclerae normal Pupils: PERRL Resp Effort & Inspection: normal respiratory effort Auscultation: clear to auscultation bilaterally Cardio Rate: tachycardic Rhythm: regular rhythm Heart Sounds: S1 normal and S2 normal GI Palpation: soft and nontender Skin General skin exam: no rashes or lesions noted Extrem General: no pedal edema and no calf tenderness Psych Appearance: grossly normal Mental Status: mental status grossly normal Speech and Movement: speech and movement normal Results Labs Result diagrams: 04/01/20 12:40 04/01/20 12:40 Labs: Laboratory Results - last 24 hr 04/01/20 04/01/20 04/01/20 12:40 12:40 12:40 WBC 12.05 H RBC 3.97 Hgb 11.8 Hct 37.1 MCV 93.5 MCH 29.7 MCHC 31.8 L RDW 13.0 Plt Count 296 MPV 9.8 Immature Gran % 0.2 Neutrophils % 72.5 Lymphocytes % 20.1 Monocytes % 6.7 Eosinophils % 0.1 Basophils % 0.4 Nucleated RBC % 0 Absolute Neutrophils 8.74 H Absolute Lymphocytes 2.42 Absolute Monocytes 0.81 H Absolute Eosinophils 0.01 Absolute Basophils 0.05 PT 13.2 H INR 1.3 H APTT 24.6 Sodium 139 Potassium 3.8 Chloride 104 Carbon Dioxide 24.7 Anion Gap 10.3 BUN 27 H Creatinine 1.52 H Estimated GFR/1.73 m2 33.62 Glucose 130 H Calcium 8.9 Magnesium 2.0 Total Bilirubin 0.7 AST 37 ALT 54 Alkaline Phosphatase 82 Troponin I < 0.05 Total Protein 7.6 Albumin 4.2 Urine Color Urine Clarity Urine pH Ur Specific [place] Urine Protein Urine Ketones Urine Blood Urine Nitrite Urine Bilirubin Urine Urobilinogen Ur Leukocyte Esterase Urine RBC Urine WBC Ur Epithelial Cells Urine Crystals Urine Bacteria Urine Casts Urine Mucus Urine Other Ur Culture Indicated? Urine Glucose 04/01/20 13:40 WBC RBC Hgb Hct MCV MCH MCHC RDW Plt Count MPV Immature Gran % Neutrophils % Lymphocytes % Monocytes % Eosinophils % Basophils % Nucleated RBC % Absolute Neutrophils Absolute Lymphocytes Absolute Monocytes Absolute Eosinophils Absolute Basophils PT INR APTT Sodium Potassium Chloride Carbon Dioxide Anion Gap BUN Creatinine Estimated GFR/1.73 m2 Glucose Calcium Magnesium Total Bilirubin AST ALT Alkaline Phosphatase Troponin I Total Protein Albumin Urine Color Yellow Urine Clarity Clear Urine pH 6.0 Ur Specific [place] 1.025 Urine Protein 100 H Urine Ketones Negative Urine Blood Negative Urine Nitrite Negative Urine Bilirubin Negative Urine Urobilinogen 0.2 Ur Leukocyte Esterase Small H Urine RBC 0-2 Urine WBC 5-10 Ur Epithelial Cells Few Urine Crystals Negative Urine Bacteria Moderate Urine Casts Negative Urine Mucus Negative Urine Other Few renal Ur Culture Indicated? Yes Urine Glucose Negative Last Vital Signs Temp 36.5 C 04/01/20 17:04 Pulse 145 H 04/01/20 17:29 Resp 16 04/01/20 17:04 BP 94/58 L 04/01/20 15:45 Pulse Ox 97 04/01/20 17:04 COVID-19 Screening Have you, or household traveled for leisure in last 14 days?: No Had IN PERSON contact w/suspected or confirmed C-19 person: No
[2020-04-01 19:39] LABS: NT-proBNP 6580 pg/mL (<300)
[2020-04-01] MEDS: cefTRIAXone 1 GM/50 ML BAG IVPB (19:47)
[2020-04-01] MEDS: Apixaban 5 MG TAB PO (20:13)
[2020-04-01] MEDS: Furosemide 20 MG TAB PO (20:13)
[2020-04-01] MEDS: Digoxin 0.5 MG/2 ML AMP 0.125 MG IVP (23:58)
[2020-04-02] VITALS (87 sets, daily range): BP systolic 86–132; BP diastolic 44–99; PULSE 67–149; RESP 16–31; TEMP 36.3–36.6; O2SAT 96–98
[2020-04-02] MEDS: dilTIAZem 125 MG in Normal Saline 100 ML IV (00:25)
[2020-04-02 00:38] LABS: COVID-19 RT-PCR UVMMC Result Negative (Negative)
[2020-04-02] MEDS: Normal Saline 1,000 ML 125 ML IV (00:46)
[2020-04-02] MEDS: Digoxin 0.5 MG/2 ML AMP 0.125 MG IVP (05:31)
[2020-04-02] MEDS: dilTIAZem 125 MG in Normal Saline 100 ML 15 MG IV (07:15)
[2020-04-02] MEDS: Atorvastatin 20 MG TAB PO (09:25)
[2020-04-02] MEDS: Apixaban 5 MG TAB PO ×2 (09:25→19:15)
[2020-04-02] MEDS: Aspirin E.C. 81 MG TABEC PO (09:25)
[2020-04-02] MEDS: Calcium Carbonate 1.25 GM TAB PO (09:26)
[2020-04-02] MEDS: Sertraline 25 MG TAB PO (09:26)
[2020-04-02] MEDS: Potassium Chloride 10 MEQ TABCR PO (09:26)
[2020-04-02] MEDS: Cholecalciferol (Vitamin D3) 1,000 UNIT TAB 1000 UNITS PO (09:26)
[2020-04-02] MEDS: Furosemide 20 MG TAB PO ×2 (09:26→19:15)
[2020-04-02] MEDS: Metoprolol 25 MG TAB PO ×2 (10:06→17:34)
--- NOTE | 2020-04-02 10:32 | CCONE_ITS ---
Date of service: 04/02/20 Time of Service: 10:32 Assessment and Plan Assessment and plan (1) Atrial flutter: Status: Acute (2) Atrial fibrillation with rapid ventricular response: Status: Acute (3) S/P aortic valve and mitral valve replacement: Status: Chronic (4) Pulmonary edema: Status: Acute (5) [employer] current use of anticoagulant therapy: Status: Chronic Assessment and plan: Patient's heart rate is improved but not entirely controlled. At this point I would recommend restarting amiodarone. I would advise amiodarone 400 mg twice daily for 1 week, then 200 mg twice daily for 2 weeks, then down to 200 mg daily Other rate control medication such as metoprolol should be continued. I would not recommend long-term use of digoxin She should continue apixaban for stroke prevention She should follow with Dr. Chiang within 1 to 2 weeks post discharge. This was discussed and the patient will try and arrange an appointment For the opportunity to participate in the care of this patient History of Present Illness History of Present Illness Chief Complaint: Atrial flutter Narrative: This is a 74-year-old woman who was admitted to the hospital because of atrial flutter with an uncontrolled rate. She has a longstanding and moderately complicated cardiac history which includes rheumatic heart disease, mitral and aortic valve replacement done in 2015 at the [facility], with associated Maze procedure and left atrial appendage amputation. She does not have any history of coronary artery disease. She does have a history of prior atrial flutter/fibrillation with very difficult to control rates. In 2014 she was given amiodarone and achieved chemical cardioversion to sinus rhythm. She previously did not tolerate dofetilide because of a prolonged QT interval. She was maintained on amiodarone until approximately 2017 when it was discontinued. She had no further documented a trial flutter until this presentation. She has no symptoms referable to the dysrhythmia in terms of palpitations dizziness or lightheadedness and never did in the past She presented to primary care because of general malaise and diarrhea. She was found to have a heart rate of 150, EKG confirmed atrial flutter and she was sent to the ER. She has been treated with rate control strategy and her heart rate currently is running between 101 110 though she is still in atrial flutter/fibrillation. She feels much better than yesterday She has been followed by Dr. Chiang, currently in [facility]. She had an echocardiogram there last week and is scheduled to see him next week Consults Consult date: 04/02/20 Requesting physician: Vinay Enriuqez Review of Systems Constitutional Constitutional: Reports weakness and Reports other Cardiovascular Cardiovascular: Denies chest pain, Denies chest pain at rest, Denies rapid heart rate, Denies palpitations, Denies dyspnea on exertion, Denies orthopnea and Denies paroxysmal nocturnal dyspnea Respiratory Respiratory: Denies dyspnea on exertion Gastrointestinal Gastrointestinal: Reports diarrhea Neurologic Neurologic: Reports weakness Endocrine Endocrine: Denies palpitations [facility] Medical History Aortic regurgitation a. moderate by echo 12/2011 S/p repair Atrial fibrillation (07/31/14) S/p MAZE. adverse rxn dofetilide; amiodarone begun 08/2014 Switched to apixaban by cardiology (Dr. 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) due to rheumatic valvular disease, dx'ed 1990s per pt Duodenal ulcer Hospitalization for GI bleed 08/2017 Duodenal ulcer (09/05/17) Hospitalization 08/2017 for acute GI bleed Essential hypertension Family history of breast cancer Family history of colon cancer History of abnormal mammogram HLD (hyperlipidemia) Hyperlipidemia (05/12/13) LDL 144 2012; Risk calculated 13.3% soft CV risk; CV risk 06/2014: 11.6% IFG (impaired fasting glucose) (08/21/15) Insomnia, unspecified (06/01/11) halfway current use of anticoagulant therapy (08/15/14) [facility] for afib 08/2017: Switched from Warfarin to apixaban by cardiology (Dr. Chiang) following hospitalization for GI bleed Mitral regurgitation Rheumatic; s/p repair Osteopenia (06/14/17) 06/14/17 DEXA: femoral neck T-score -1.1 WHO FRAX score: 10-year major osteoporotic fx risk of 8.9% and hip fx risk of 0.9% --> tx with Ca/vitamin D Restrictive lung disease (05/03/16) apt with Dr. Us [facility] pulmonary Rheumatic heart disease S/P aortic valve and mitral valve replacement (~07/2014) [facility]. Severe AR & MR, bovine prosthesis. 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) Surgical History Biopsy of breast (~2008) Left breast [facility] Colonoscopy - MAC (08/28/17) EGD - MAC (08/28/17) History of section (~1976) History of toe surgery (~2003) Removal of bone chip Radiofrequency Maze Procedure (08/04/14) done at [facility] Replacement of aortic valve (08/04/14) AV and MV both replaced with tissue valves at [facility] S/P aortic valve and mitral valve replacement (08/04/14) Bovine prosthetic valves, plus MAZE, [facility] Valve Replacement (08/04/14) Both AV and Mitral Valve replacement at [facility] plus MAZE; Tissue valves Family History Mother , Age 87, peritonitis Diabetes Essential hypertension Breast cancer Father , Age 45, colon cancer Colon cancer Sister Heart disease [place] at age 49 Brother Diabetes Colon cancer Brother No problems noted. Brother Heart disease CABG Other Family history of colon cancer Social History Smoking/Tobacco Use Status: Former Tobacco Use Smoking risk assessment performed?: Yes Alcohol Intake: former Drug use: Never Substance use type: does not use Counseling given: No Counseling provided: none Adopted: No Caregiver/Support person: No Foster care: No Housing: house Number of Children: 1 number of grandchildren: 2 Communication Needs: None Education Level: high school Do you need help understanding health information?: Rarely Pets and animals: No Current gender identity: female What type of physical activity do you participate in: walking Duration: 60-90 minutes/day Frequency: daily Seatbelt use: always Helmet use: No Drive intox or ride w/intox 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 Water heater temp set <120 deg: Yes Working smoke detector in home: No Fire extinguisher in home: No Carbon monox detector in home: No Firearms in home: No Do you feel safe at home: Yes Do you feel safe in your relationship?: Yes Exam Narrative Exam Narrative: Well-developed well-nourished looks younger than stated age no acute distress Eyes Pupils: PERRL EOM: EOM intact bilaterally Neck Other: No neck vein distention, no V waves, normal carotid upstrokes no bruits appreciated Resp Auscultation: clear to auscultation bilaterally Cardio Jugular venous pressure: no JVD Other: Irregular mildly tachycardic 2/6 systolic ejection quality murmur Skin Other: Warm and dry Extrem Other: No peripheral edema Results Last Vital Signs Temp 36.3 C L 04/02/20 04:24 Pulse 120 H 04/02/20 05:31 Resp 18 04/02/20 05:30 BP 91/70 L 04/02/20 05:31 Pulse Ox 96 04/02/20 04:24 Labs Result diagrams: 04/01/20 12:40 04/01/20 12:40 Labs: Laboratory Results - last 24 hr 04/01/20 04/01/20 04/01/20 12:40 12:40 12:40 WBC 12.05 H RBC 3.97 Hgb 11.8 Hct 37.1 MCV 93.5 MCH 29.7 MCHC 31.8 L RDW 13.0 Plt Count 296 MPV 9.8 Immature Gran % 0.2 Neutrophils % 72.5 Lymphocytes % 20.1 Monocytes % 6.7 Eosinophils % 0.1 Basophils % 0.4 Nucleated RBC % 0 Absolute Neutrophils 8.74 H Absolute Lymphocytes 2.42 Absolute Monocytes 0.81 H Absolute Eosinophils 0.01 Absolute Basophils 0.05 PT 13.2 H INR 1.3 H APTT 24.6 Sodium 139 Potassium 3.8 Chloride 104 Carbon Dioxide 24.7 Anion Gap 10.3 BUN 27 H Creatinine 1.52 H Estimated GFR/1.73 m2 33.62 Glucose 130 H Calcium 8.9 Magnesium 2.0 Total Bilirubin 0.7 AST 37 ALT 54 Alkaline Phosphatase 82 Troponin I < 0.05 NT-Pro-B Natriuret Pep Total Protein 7.6 Albumin 4.2 Urine Color Urine Clarity Urine pH Ur Specific [place] Urine Protein Urine Ketones Urine Blood Urine Nitrite Urine Bilirubin Urine Urobilinogen Ur Leukocyte Esterase Urine RBC Urine WBC Ur Epithelial Cells Urine Crystals Urine Bacteria Urine Casts Urine Mucus Urine Other Ur Culture Indicated? Urine Glucose SARS-CoV-2 (PCR) Nasopharyn COVID-19 PCR Ref Test Perform Site 04/01/20 04/01/20 04/01/20 12:40 13:40 15:20 WBC RBC Hgb Hct MCV MCH MCHC RDW Plt Count MPV Immature Gran % Neutrophils % Lymphocytes % Monocytes % Eosinophils % Basophils % Nucleated RBC % Absolute Neutrophils Absolute Lymphocytes Absolute Monocytes Absolute Eosinophils Absolute Basophils PT INR APTT Sodium Potassium Chloride Carbon Dioxide Anion Gap BUN Creatinine Estimated GFR/1.73 m2 Glucose Calcium Magnesium Total Bilirubin AST ALT Alkaline Phosphatase Troponin I NT-Pro-B Natriuret Pep 6580 H Total Protein Albumin Urine Color Yellow Urine Clarity Clear Urine pH 6.0 Ur Specific [place] 1.025 Urine Protein 100 H Urine Ketones Negative Urine Blood Negative Urine Nitrite Negative Urine Bilirubin Negative Urine Urobilinogen 0.2 Ur Leukocyte Esterase Small H Urine RBC 0-2 Urine WBC 5-10 Ur Epithelial Cells Few Urine Crystals Negative Urine Bacteria Moderate Urine Casts Negative Urine Mucus Negative Urine Other Few renal Ur Culture Indicated? Yes Urine Glucose Negative SARS-CoV-2 (PCR) Negative Nasopharyn COVID-19 PCR Not Applicable Ref Test Perform Site [facility] lab
[2020-04-02] MEDS: Normal Saline 1,000 ML 30 ML IV (11:47)
[2020-04-02] MEDS: Amiodarone 200 MG TAB 400 MG PO ×2 (11:47→19:15)
--- NOTE | 2020-04-02 13:30 | RT.EKG_ITS ---
APPROVED REPORT Exam: Resting ECG Patient Location: I HR:73 bpm ECG Measurements Heart Rate 73 AXIS NJ 208 P 244 QRSd 89 QRS 48 QT 376 T 226 QTc 413 Conclusion atrial flutter , rate decreased since previous Nonspecific ST-T changes Low voltage, extremity leads...all extremity leads <0.5mV Consider anteroseptal infarct...Q >30mS, dimin R, V1-V2
--- NOTE | 2020-04-02 14:15 | CHAPLAIN ---
Maira was resting in bed when I visited. She said she's feeling better as test are being completed and she getting information back about next steps. She's in touch with her sister and daughter and has been able to have three-way conversations with them.
--- NOTE | 2020-04-02 14:47 | PGE_ITS ---
Date of Service Date of service: 04/02/20 Time of Service: 08:06 Assessment and Plan Assessment and plan (1) UTI (urinary tract infection): Status: Acute Assessment and plan: Ruled out: culture growing mixed gram neg and gram pos fanny both in 10,000-50,000 cfu range. Stop Rocephin. (2) Pulmonary edema: Status: Acute Assessment and plan: Diastolic CHF likely driven by aflutter. Echo on 02/25/2020 at [facility] showed an EF of 55-65%. Bioprosthetic aortic valve and mitral valve. PA pressure est at 25-30 mmHg. Diastolic function was unable to be assessed due to mitral valve prosthesis. Cont home dose of lasix; 20mg po BID. Holding losartan d/t low to low normal BP. (3) Atrial flutter: Status: Acute Assessment and plan: On diltiazem drip and s/p loading dose of digoxin. HR slowed into the low 100's, then she converted to Afib with a rate in the 90's to low 100's. Cardiology consulted and Amiodarone 400mg po BID initiated. She later converted to NSR. Her metoprolol has been held but will resume. Cont Apixaban for AC Amiodarone dosinmg BID for 1 week, then 200mg BID for 2 weeks, then 200mg daily. She is followed by Dr Chiang at [facility]; f/u after d/c in 1-2 weeks. (4) Restrictive lung disease: Status: Chronic Assessment and plan: Stable. (5) Essential hypertension: Status: Chronic Assessment and plan: Losartan and metoprolol have been held d/t BP in the 100-110's range. Restart metoprolol tonight. Monitor. Subjective Subjective Patient reports: no new complaints, tolerating a regular diet and afebrile; denies nausea, vomiting and shortness of breath Interval history since last seen: Denies CP. Denies palpitations, racing heart. No dysuria/frequency. Exam Narrative Exam Narrative: Sitting in chair. Pleasant and conversant. Const General: cooperative and no acute distress Nutritional Appearance: average body habitus Orientation: alert and oriented x3 Neck Neck: full ROM and no JVD Resp Effort & Inspection: normal respiratory effort Auscultation: clear to auscultation bilaterally Cardio Other: Irreg Irreg. Rate in the 90's to low 100's. GI Palpation: soft and nontender Skin General skin exam: no rashes or lesions noted Extrem General: no pedal edema and no calf tenderness Objective Last Vital Signs Temp 36.3 C L 04/02/20 13:02 Pulse 67 04/02/20 14:03 Resp 27 H 04/02/20 14:03 BP 112/49 L 04/02/20 14:03 Pulse Ox 96 04/02/20 04:24 Laboratory Results - last 24 hr 04/01/20 04/01/20 12:40 15:20 NT-Pro-B Natriuret Pep 6580 H SARS-CoV-2 (PCR) Negative Nasopharyn COVID-19 PCR Not Applicable Ref Test Perform Site [facility] lab
--- NOTE | 2020-04-02 16:58 | PDOC.CMIN ---
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 Her sister and daughter reside locally and are supportive. She is independent at baseline. CURRENT FUNCTIONAL STATUS:: Maiar is up independently in her room with standby assist. CM attempted multiple times to connect with Maira without success. Has patient been provided with info about the portal/API?: No Did the patient sign up for the portal?: No CODE STATUS:: Full Code INSURANCE COVERAGE / FINANCIAL ISSUES[facility] CURRENT HOME/COMMUNITY SERVICES/EQUIPMENT:: None, currently. PRIMARY CARE PHYSICIAN:: Jessica Ochoa NP POTENTIAL DISCHARGE NEEDS:: Follow up appointments, likely outpatient follow up with Cardiology. PATIENT/FAMILY EDUCATION NEEDS:: Review discharge instructions, discuss Ask Me Three. ANTICIPATED BARRIERS TO DISCHARGE:: None identified. TRANSPORTATION:: Via private vehicle with family. PLAN:: Maira will return home when ready per MD. She will follow up with her PCP and plan of care as prescribed. She will transport via private vehicle with family.
[2020-04-02] MEDS: Metoprolol 5 MG/5 ML VIAL IVP (21:09)
[2020-04-02] MEDS: Normal Saline Flush 10 ML SYR IVP ×2 (21:09→23:16)
[2020-04-02] MEDS: Verapamil 5 MG/2 ML VIAL IVP (23:15)
[2020-04-02] MEDS: Verapamil 80 MG TAB 40 MG PO (23:26)
[2020-04-03] VITALS (66 sets, daily range): BP systolic 104–160; BP diastolic 45–129; PULSE 51–118; RESP 16–31; TEMP 36–36.7; O2SAT 91–98
--- NOTE | 2020-04-03 05:45 | RT.EKG_ITS ---
APPROVED REPORT Exam: Resting ECG Patient Location: I HR:61 bpm ECG Measurements Heart Rate 61 AXIS SC 186 P 63 QRSd 90 QRS 55 QT 383 T [id number] QTc 388 Conclusion Sinus rhythm...normal P axis, V-rate 60- 99 Low voltage, extremity leads...all extremity leads <0.5mV Nonspecific T abnormalities, lateral leads...T <-0.10mV, I aVL V5 V6
[2020-04-03] MEDS: Normal Saline Flush 10 ML SYR IVP ×5 (07:51→16:10)
--- NOTE | 2020-04-03 08:16 | NUR.NOTE ---
research instrumentation technician draws morning labs.Nursing Note:
--- NOTE | 2020-04-03 08:22 | PGE_ITS ---
Date of Service Date of service: 04/03/20 Time of Service: 13:57 Assessment and Plan Assessment and plan (1) Atrial flutter: Status: Acute Assessment and plan: Presently in NSR, though did require switching to verapamil with continuation of amiodarone. Continue cardiac monitoring. Can likely be transferred to medsurg floor later today. (2) Pulmonary edema: Status: Acute Assessment and plan: Agree that this is likely being driven by rapid ventricular response. Echo on 02/25/2020 at [facility] w/ EF of 55-65%. PA pressures 25- 30 mmHg. Continue home lasix (20 mg PO BID). Agree with continuing to hold losartan. (3) UTI (urinary tract infection): Status: Ruled-out Assessment and plan: Ruled out; off of abx (4) Restrictive lung disease: Status: Chronic Assessment and plan: Stable. Follow up as outpatient (5) Essential hypertension: Status: Chronic Assessment and plan: BPs ok with verapamil on board. Not requiring additional BP meds at this time. Continue to monitor. (6) DVT prophylaxis: Status: Acute Assessment and plan: On therapeutic eliquis (7) Discharge planning issues: Status: Acute Assessment and plan: Full code. Can likely be transferred out of ICU later today. 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 Subjective Subjective Interval history since last seen: Ms Mcdermott states she is feeling well, but she is worried that her Afib will recur and does not feel ready to go home today yet. Denies dizziness, chest pain, shortness of breath, nausea, vomiting. Aflutter to 142 overnight. Metoprolol IV did not work, but IV Verapamil did. She was initiated on PO verapamil. Converted to NSR at midnight. 5 beat run of VTach at 3:15 am. Doing well. BNP 6580. On PO lasix. 750 cc out overnight. Allergic to heparin: reaction anaphylaxis. No diarrhea. VSS 127/63, 93% on RA. HR 68-70s. Exam Narrative Exam Narrative: General: Very pleasant middle-aged female, A&Ox3, looks comfortable sitting at the edge of the bed, very slightly dyspneic HEENT: EOMI, MMM Heart: RRR, + JT Lungs: CTAB/diminished at B bases Abdomen: soft, nontender, nondistended Extremities: trace edema BLEs Objective Last Vital Signs Temp 36.0 C L 04/03/20 07:59 Pulse 68 04/03/20 07:59 Resp 16 04/03/20 07:59 BP 127/63 04/03/20 07:59 Pulse Ox 93 04/03/20 07:59
[2020-04-03 08:32] LABS: Abs Immature Grans 0.02 10^3/uL (0.0-0.06); Absolute Basophil Count 0.05 10^3/uL (0.0-0.2); Absolute Eosinophil Count 0.06 10^3/uL (0.0-0.7); Absolute Lymphocyte Count 1.52 10^3/uL (1.2-3.4); Absolute Monocyte Count 0.64 10^3/uL (0.1-0.8); Absolute Neutrophil Count 7.73 10^3/uL (1.2-6.7); Basophils % 0.5; Eosinophils % 0.6; HCT 32.3 % (36.0-46.0); HGB 10.4 g/dL (11.2-15.7); Immature Grans % 0.2; Lymphocytes % 15.2; MCHC 32.2 % (32.0-36.0); MCV 93.1 fL (80-95); MPV 9.5 fL (8.0-11.0); Monocytes % 6.4; Neutrophils % 77.1; Nucleated RBC 0 %; Platelet Count 245 10^3/uL (130-400); RBC 3.47 10^6/uL (3.93-5.22); RDW 13.2 % (11.7-14.6); RDW-SD 44.4 fL; WBC 10.02 10^3/uL (4.4-10.8)
[2020-04-03 08:53] LABS: Anion Gap 11.9 mmol/L (3-11); CO2 23.1 mmol/L (21.0-32.0); CREATININE 1.26 mg/dL (0.55-1.02); Calcium 8.6 mg/dL (8.5-10.1); Chloride 107 mmol/L (98-107); Estimated GFR 41.74 (mL/min/1.73m2); Glucose 124 mg/dL (74-106); Magnesium 1.9 mg/dL (1.8-2.4); Potassium 3.7 mmol/L (3.5-5.1); Sodium 142 mmol/L (136-145); TSH (W/Ref FT4) 2.26 uIU/mL (0.36-3.74)
[2020-04-03 09:00] LABS: BUN 18 mg/dL (7-18); Troponin I < 0.05 ng/mL (<0.06)
[2020-04-03] MEDS: Amiodarone 200 MG TAB 400 MG PO ×2 (09:37→19:43)
[2020-04-03] MEDS: Apixaban 5 MG TAB PO ×2 (09:38→19:43)
[2020-04-03] MEDS: Furosemide 20 MG TAB PO ×2 (09:39→16:09)
[2020-04-03] MEDS: Cholecalciferol (Vitamin D3) 1,000 UNIT TAB 1000 UNITS PO (09:39)
[2020-04-03] MEDS: Aspirin E.C. 81 MG TABEC PO (09:39)
[2020-04-03] MEDS: Calcium Carbonate 1.25 GM TAB PO (09:39)
[2020-04-03] MEDS: Atorvastatin 20 MG TAB PO (09:39)
[2020-04-03] MEDS: Sertraline 25 MG TAB PO (09:40)
[2020-04-03] MEDS: Potassium Chloride 10 MEQ TABCR PO (09:40)
[2020-04-03] MEDS: Verapamil 80 MG TAB 40 MG PO ×3 (09:40→19:43)
--- NOTE | 2020-04-03 10:04 | NUR.NOTE ---
Patient speaks with her daughter on the phone much to her delight.Nursing Note:
--- NOTE | 2020-04-03 11:22 | PDOC.CMPRO ---
- If Service Date Differs Date of service: 04/03/20 Time of Service: 11:22 Care Management Progress Note S/O: Maira was sitting up in bed when CM met with her. She was pleasant and engaged readily with CM. Maira informed CM that she would be staying one more night and that she was happy about that. She stated that she wants to be sure her heart rate is controlled since she has afib. Maira also informed CM that although she lives alone, that her daughter offered to stay with for for a couple of days when she returns home and that she would likely accept her offer. A: Maira is a 74 year old woman admitted on 04/01/20 with Afib/flutter with RVR P:Maira will likely return home with no new services when ready. She will follow up with her PCP and plan of care as prescribed. Maira will transport via private vehicle with family. CM will continue to support Maira and assess for discharge planning needs.
--- NOTE | 2020-04-03 12:04 | NUR.NOTE ---
Patient is set up with her lunch tray. MD changes next Lasix dose from 20:00 to 16:00.Nursing Note:
--- NOTE | 2020-04-03 14:44 | NUR.NOTE ---
Dressing is taken down on left AC IV. Hub is tightened and tape applied to secure IV. IV flushes well. Sheets changed out on patient's bed. Patient comfortable in bed. Vital signs are stable.
[2020-04-04] VITALS (24 sets, daily range): BP systolic 114–125; BP diastolic 51–77; PULSE 63–91; RESP 13–27; TEMP 36.4; O2SAT 91–97
[2020-04-04 06:41] LABS: Abs Immature Grans 0.04 10^3/uL (0.0-0.06); Absolute Basophil Count 0.04 10^3/uL (0.0-0.2); Absolute Eosinophil Count 0.06 10^3/uL (0.0-0.7); Absolute Lymphocyte Count 2.09 10^3/uL (1.2-3.4); Absolute Monocyte Count 0.74 10^3/uL (0.1-0.8); Absolute Neutrophil Count 6.62 10^3/uL (1.2-6.7); Basophils % 0.4; Eosinophils % 0.6; HCT 32.5 % (36.0-46.0); HGB 10.6 g/dL (11.2-15.7); Immature Grans % 0.4; Lymphocytes % 21.8; MCH 30.1 pg (27.0-33.0); MCHC 32.6 % (32.0-36.0); MCV 92.3 fL (80-95); MPV 9.6 fL (8.0-11.0); Monocytes % 7.7; Neutrophils % 69.1; Nucleated RBC 0 %; Platelet Count 245 10^3/uL (130-400); RBC 3.52 10^6/uL (3.93-5.22); RDW 13.5 % (11.7-14.6); WBC 9.59 10^3/uL (4.4-10.8)
[2020-04-04 06:51] LABS: Anion Gap 11.1 mmol/L (3-11); BUN 18 mg/dL (7-18); CO2 24.9 mmol/L (21.0-32.0); CREATININE 1.32 mg/dL (0.55-1.02); Calcium 8.6 mg/dL (8.5-10.1); Chloride 106 mmol/L (98-107); Estimated GFR 39.56 (mL/min/1.73m2); Glucose 100 mg/dL (74-106); Magnesium 1.9 mg/dL (1.8-2.4); Potassium 3.2 mmol/L (3.5-5.1); Sodium 142 mmol/L (136-145)
[2020-04-04] MEDS: Potassium Chloride 20 MEQ TABCR 40 MEQ PO ×2 (08:05→13:20)
[2020-04-04] MEDS: Verapamil 80 MG TAB 40 MG PO ×2 (08:06→13:20)
[2020-04-04] MEDS: Apixaban 5 MG TAB PO (08:07)
[2020-04-04] MEDS: Cholecalciferol (Vitamin D3) 1,000 UNIT TAB 1000 UNITS PO (08:07)
[2020-04-04] MEDS: Atorvastatin 20 MG TAB PO (08:08)
[2020-04-04] MEDS: Calcium Carbonate 1.25 GM TAB PO (08:08)
[2020-04-04] MEDS: Sertraline 25 MG TAB PO (08:09)
[2020-04-04] MEDS: Furosemide 20 MG TAB PO (08:09)
[2020-04-04] MEDS: Aspirin E.C. 81 MG TABEC PO (08:10)
[2020-04-04] MEDS: Amiodarone 200 MG TAB 400 MG PO (08:17)
--- NOTE | 2020-04-04 09:52 | W.PM.DS.N ---
Date of service: 04/04/20 Time of Service: 09:53 DS: Diagnosis Discharge Diagnosis (1) Atrial fibrillation with rapid ventricular response: Status: Resolved (2) Atrial flutter: Status: Resolved (3) Pulmonary edema: Status: Resolved Asessment and Plan: rate dependent CHF (4) Restrictive lung disease: Status: Chronic (5) Essential hypertension: Status: Chronic (6) Hypokalemia: Status: Acute (7) CKD (chronic kidney disease) stage 3, GFR 30-59 ml/min: Status: Chronic (8) COVID-19 ruled out by laboratory testing: Status: Acute (9) UTI (urinary tract infection): Status: Ruled-out Discharge Plan Disposition Patient Disposition: HOME Condition: Stable Discharge Details Reason For Visit: ATRIAL FIBRILLATION W/ RVR, DIARRHEA, GENERALIZED Admit Date/Time: 04/01/20 15:00 Admit Provider: Vinay Enriquez Attending Provider: Vinay Enriquez Primary Care Provider: Jessica Ochoa [place] [facility] Hospital Course: Ms Mcdermott is a 74 year old female with PMHx of Atrial fibrillation s/p Maze procedure, on apixaban and metoprolol as outpatient, as well as h/o of bioprosthetic aortic and mitral valve replacements, HTN, CKD 3, hyperlipidemia, who was admitted to [facility] ICU under the hospitalist service on 04/01/2020 after presenting with rapid Atrial flutter/fibrillation with failure to respond to adenosine, IV metoprolol and diltiazem in the ED. The patient was started on diltiazem drip, to which she also did not respond. She did slow down somewhat with digoxin. She was evaluated by cardiology, who recommended loading her with amiodarone orally and continuing metoprolol. The patient's rapid aflutter recurred, however, again not responding to IV metoprolol and verapamil was initiated with adequate rate control, following which the patient converted to NSR on 04/03/2019. There was evidence of mild rate-dependent pulmonary edema (EF 55-65% on echo in 02/2020), which resolved with diuresis. She has remained in NSR since being initiated on verapamil and is being discharged home today on combination of amiodarone and verapamil, as metoprolol appeared to have little effect. She is being discharged home with a cardiac event recorder and follow up with Dr Chiang in 1-2 weeks. Her oral hydralazine was discontinued and should not be restarted (could result in reflex tachycardia). Her losartan was also discontinued as her BP does not require an additional agent at this time. Her potassium was repleted at our facility but will need outpatient follow up on 04/06/2019 to ensure that supplementation with 20 MEQ daily is enough, now that her ARB is discontinued. The patient is medically ready for discharge home today. Care for patient as well as completion of her discharge summary on day of discharge took 45 minutes. Home Meds and New Rx's Prescriptions: New amiodarone 200 mg Tablet See Rx Instructions .ROUTE .COMPLEX Qty: 56 RF: 0 verapamil 40 mg tablet 40 mg PO TID Qty: 90 RF: 0 potassium chloride 20 mEq tablet extended release 20 meq PO DAILY Qty: 10 RF: 0 Continued ascorbate calcium (vitamin C) 500 mg tablet 500 mg PO DAILY RF: 0 Shingrix (PF) 50 mcg/0.5 mL suspension for reconstitution 50 mcg IM .COMPLEX Qty: 1 RF: 1 aspirin 81 mg tablet,delayed release (DR/EC) 81 mg PO DAILY RF: 0 Eliquis 5 mg tablet 5 mg PO BID Qty: 180 RF: 3 acetaminophen 500 MG tablet 500 mg PO Q6H PRN RF: 0 biotin 10,000 MCG capsule 10,000 mcg PO DAILY RF: 0 cholecalciferol (vitamin D3) 1,000 UNIT capsule 1,000 unit PO DAILY RF: 0 atorvastatin 20 mg tablet 20 mg PO DAILY Qty: 90 RF: 3 furosemide [Lasix] 20 mg tablet 20 mg PO BID Qty: 180 RF: 3 sertraline 25 mg tablet 25 mg PO DAILY Qty: 90 RF: 3 calcium carbonate [Calcium 500] 500 MG tablet 1,000 mg PO DAILY RF: 0 Discontinued metoprolol tartrate 25 mg tablet 25 mg PO BID Qty: 180 RF: 3 losartan 25 mg tablet 25 mg PO DAILY Qty: 90 RF: 3 hydralazine 25 mg tablet 25 mg PO BID Qty: 180 RF: 3 potassium chloride 10 mEq tablet extended release 10 meq PO DAILY Qty: 90 RF: 3 Discharge Instructions Instructions: Verapamil (By mouth), Amiodarone (By mouth), A-fib (Atrial Fibrillation) (DC) Additional Instructions: Return to the hospital with any fever, bleeding, chest pain, palpitations, malaise/feeling like your Afib has returned, shortness of breath. Follow up with your PCP and with Dr Chiang in 1-2 weeks. Blood work 04/06/2019, results to PCP. Call to make a lab bloodwork appointment first! Referrals: Jessica Ochoa NP [Primary Care Provider] - Erik Chiang MD [MD NON-[facility] STAFF PHYSICIAN] - Activity:: Activity as Tolerated Equipment/Supplies:: cardiac event recorder Diet:: heart healthy Discharge Orders Discharge Orders: Discharge Order (Routine); Ordered 04/04/20 Ordered By: Denita Pacheco Other Ambulatory Orders: Basic Metabolic Panel (Routine) Timeframe: 20200406 Facility: [facility] - Location: Laboratory Outpatient Ordered By: Denita Pacheco Cardiac Event Recorder (Outpt) (ONCE) Timeframe: 20200405 Facility: [facility] - Location: Respiratory Therapy Ordered By: Denita Pacheco DS: Summary Status at Discharge Functional status at discharge: independent ambulation Overall status at discharge: patient is back to baseline Mental Status: mental status grossly normal Speech and Movement: speech and movement normal Mood: congruent mood Affect: normal affect Exam Narrative Exam Narrative: General: Very pleasant middle-aged female, A&Ox3, looks well laying flat in bed, no dyspnea/tachypnea HEENT: EOMI, MMM Heart: RRR, + JT Lungs: CTAB Abdomen: soft, nontender, nondistended Extremities: no edema BLEs Psych Mental Status: mental status grossly normal Speech and Movement: speech and movement normal Mood: congruent mood Affect: normal affect DS: Data Vitals/I&O Vitals and I&O: Vital Signs Temperature 36.4 C L 04/04/20 08:31 Temperature Source Temporal Artery Scan 04/04/20 08:31 Pulse 78 04/04/20 08:31 Pulse 67 04/04/20 07:04 Respiratory Rate 13 04/04/20 08:31 Respiratory Effort Non-Labored 04/04/20 08:31 Respiratory Depth Normal 04/04/20 08:31 Respiratory Pattern Normal 04/04/20 08:31 Blood Pressure 123/51 L 04/04/20 08:31 Blood Pressure Mean 75 04/04/20 08:31 Blood Pressure Position Supine 04/04/20 08:31 Pulse Oximetry 97 04/04/20 08:31 Oxygen Delivery Method Room Air 04/04/20 08:31 Oxygen Flow Rate 0 04/04/20 08:31 Pain Level 0 04/04/20 08:31 Intake & Output 04/03/20 04/03/20 04/04/20 11:59 23:59 11:59 Intake Total 480 / 920 440 / 920 370 / 370 Output Total 450 / 1450 1000 / 1450 400 / 400 Balance 30 / -530 -560 / -530 -30 / -30 Weight 67.2 kg 66.6 kg Intake: IV Oral 480 / 920 440 / 920 360 / 360 Output: Urine 450 / 1450 1000 / 1450 400 / 400 Other: Urine Color Yellow Pale Light Tiffany Urine Appearance Clear Clear Clear Urine Odor Normal None None Comment voids on commode-urine clear tiffany voids on commode-urine clear tiffany Stool Occult Blood Negative Stool Size Moderate Stool Characteristics Soft Formed Voiding Methods Bedside Commode Toilet Bedside Commode Data Completed and Pending Completed studies during hospitalization [Text1]: CXR 04/01/2020: Upper limits of normal heart, pulmonary venous congestion and prominent interstitial markings raising the question of fluid overload/congestive heart failure. Please correlate clinically. Labs on day of discharge: Labs from last 24 hours 04/04/20 04/04/20 06:20 06:20 WBC 9.59 RBC 3.52 L Hgb 10.6 L Hct 32.5 L MCV 92.3 MCH 30.1 MCHC 32.6 RDW 13.5 Plt Count 245 MPV 9.6 Immature Gran % 0.4 Neutrophils % 69.1 Lymphocytes % 21.8 Monocytes % 7.7 Eosinophils % 0.6 Basophils % 0.4 Nucleated RBC % 0 Absolute Neutrophils 6.62 Absolute Lymphocytes 2.09 Absolute Monocytes 0.74 Absolute Eosinophils 0.06 Absolute Basophils 0.04 Sodium 142 Potassium 3.2 L Chloride 106 Carbon Dioxide 24.9 Anion Gap 11.1 H BUN 18 Creatinine 1.32 H Estimated GFR/1.73 m2 39.56 Glucose 100 Calcium 8.6 Magnesium 1.9 PFSH Medical History Aortic regurgitation a. moderate by echo 12/2011 S/p repair Atrial fibrillation (07/31/14) S/p MAZE. adverse rxn dofetilide; amiodarone begun 08/2014 Switched to apixaban by cardiology (Dr. 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) due to rheumatic valvular disease, dx'ed 1990s per pt Duodenal ulcer Hospitalization for GI bleed 08/2017 Duodenal ulcer (09/05/17) Hospitalization 08/2017 for acute GI bleed Essential hypertension Family history of breast cancer Family history of colon cancer History of abnormal mammogram HLD (hyperlipidemia) Hyperlipidemia (05/12/13) LDL 144 2012; Risk calculated 13.3% soft CV risk; CV risk 06/2014: 11.6% IFG (impaired fasting glucose) (08/21/15) Insomnia, unspecified (06/01/11) shelter current use of anticoagulant therapy (08/15/14) [facility] for afib 08/2017: Switched from Warfarin to apixaban by cardiology (Dr. Chiang) following hospitalization for GI bleed Mitral regurgitation Rheumatic; s/p repair Osteopenia (06/14/17) 06/14/17 DEXA: femoral neck T-score -1.1 WHO FRAX score: 10-year major osteoporotic fx risk of 8.9% and hip fx risk of 0.9% --> tx with Ca/vitamin D Restrictive lung disease (05/03/16) apt with Dr. Us [facility] pulmonary Rheumatic heart disease S/P aortic valve and mitral valve replacement (~07/2014) [facility]. Severe AR & MR, bovine prosthesis. 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) Surgical History Biopsy of breast (~2008) Left breast [facility] [place] Colonoscopy - MAC (08/28/17) EGD - MAC (08/28/17) History of section (~1976) History of toe surgery (~2003) Removal of bone chip Radiofrequency Maze Procedure (08/04/14) done at [facility] Replacement of aortic valve (08/04/14) AV and MV both replaced with tissue valves at [facility] S/P aortic valve and mitral valve replacement (08/04/14) Bovine prosthetic valves, plus MAZE, [facility] Valve Replacement (08/04/14) Both AV and Mitral Valve replacement at [facility] plus MAZE; Tissue valves Family History Mother , Age 87, peritonitis Diabetes Essential hypertension Breast cancer Father , Age 45, colon cancer Colon cancer Sister Heart disease [place] at age 49 Brother Diabetes Colon cancer Brother No problems noted. Brother Heart disease CABG Other Family history of colon cancer Social History Smoking/Tobacco Use Status: Former Tobacco Use Smoking risk assessment performed?: Yes Alcohol Intake: former Drug use: Never Substance use type: does not use Counseling given: No Counseling provided: none Adopted: No Caregiver/Support person: No Foster care: No Housing: house Number of Children: 1 number of grandchildren: 2 Communication Needs: None Education Level: high school Do you need help understanding health information?: Rarely Pets and animals: No Current gender identity: female What type of physical activity do you participate in: walking Duration: 60-90 minutes/day Frequency: daily Seatbelt use: always Helmet use: No Drive intox or ride w/intox courtesy driver: No Water heater temp set <120 deg: Yes Working smoke detector in home: No Fire extinguisher in home: No Carbon monox detector in home: No Firearms in home: No Do you feel safe at home: Yes Do you feel safe in your relationship?: Yes
--- NOTE | 2020-04-04 13:50 | PDOC.CMDIS ---
- If Service Date Differs Date of service: 04/04/20 Time of Service: 13:50 LACE Index Scoring Tool - Questions: Length of Stay (in days): 3 Acuity (Admit via E.D.?): Yes Comorbidities: Liver or Renal Disease E.D. Visits: 1 - Answers: Total Score: 12 Risk of Readmission: High Risk Care Management Discharge Reason for Hospitalization: Afib with RVR, generalized weakness Discharge Plan: Maira will return home with no new services. 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 Maira will transport via private vehicle with family. Patient/Family Education Needs: Review discharge instructions, discuss Ask Me Three, explain limitations
== END 2020-04-04 14:05 | disposition home or self-care (01) | DRG 308 ==
LOC: ER 16:16 → ICU 16:19
PROVIDERS: Internal Medicine; Admitting Provider Family Medicine; Emergency Provider Physician Assistant; PCP Nurse Practitioner Family; Visit Provider Family Medicine
DX: I48.92 Unspecified atrial flutter (principal); I50.31 Acute diastolic (congestive) heart failure; I13.0 Hypertensive heart and chronic kidney disease with heart failure and stage 1 through stage 4 chronic kidney disease, or unspecified chronic kidney disease; I48.91 Unspecified atrial fibrillation; I50.9 Heart failure, unspecified; E78.5 Hyperlipidemia, unspecified; Z95.2 Presence of prosthetic heart valve; N18.30 Chronic kidney disease, stage 3 unspecified; E87.6 Hypokalemia; R53.1 Weakness; R19.7 Diarrhea, unspecified; G47.00 Insomnia, unspecified; R73.01 Impaired fasting glucose; J98.4 Other disorders of lung; Z79.01 Long term (current) use of anticoagulants; F17.210 Nicotine dependence, cigarettes, uncomplicated; Z11.52 Encounter for screening for COVID-19
CPT/HCPCS: 36415; 80048; 80053; 93005; 93270; 96361; 96365; 96366; 96375; 96376; 99222; 99223; 99232; 99239; 99253; 99285; U0003; 71045; 81003; 81015; 83735; 83880; 84443; 84484; 85025; 85610; 85730; 87086; 93010; J0153; J0696; J1160

== ENCOUNTER → 2020-04-02 09:02 | Outpatient (BNVA) | payer MEDICARE, OTHER, SELFPAY ==
--- NOTE | 2020-05-25 08:44 | W.CARDEVENT ---
Date of service: 05/25/20 Time of Service: 08:44 Cardiac Event Recorder Referring Provider:: Denita Pacheco Indications:: Paroxysmal atrial fibrillation Cardiac Event Note: This is a 30-day event monitor ordered for paroxysmal atrial fibrillation Rhythm throughout with sinus There were rare ventricular ectopic beats and 1 5 beat run of nonsustained ventricular tachycardia There was no atrial fibrillation There were no pauses ;there was no high-grade AV block
== END ==
PROVIDERS: PCP Nurse Practitioner Family; Referring Provider Nurse Practitioner Family; Visit Provider Internal Medicine Cardiovascular Disease
DX: R69 Illness, unspecified (principal)

== ENCOUNTER 2020-04-06 04:03 | Outpatient (CLI) | payer MEDICARE, OTHER, SELFPAY ==
[2020-04-06 09:41] LABS: Anion Gap 9.5 mmol/L (3-11); BUN 18 mg/dL (7-18); CO2 26.5 mmol/L (21.0-32.0); CREATININE 1.28 mg/dL (0.55-1.02); Calcium 9.3 mg/dL (8.5-10.1); Chloride 104 mmol/L (98-107); Estimated GFR 40.99 (mL/min/1.73m2); Glucose 104 mg/dL (74-106); Potassium 3.9 mmol/L (3.5-5.1); Sodium 140 mmol/L (136-145)
== END 2020-04-06 04:23 ==
PROVIDERS: PCP Nurse Practitioner Family; Visit Provider Internal Medicine
DX: E87.6 Hypokalemia (principal); N18.30 Chronic kidney disease, stage 3 unspecified
CPT/HCPCS: 36415; 80048

== ENCOUNTER 2020-05-25 08:44 | Outpatient (CLI) | payer MEDICARE, OTHER, SELFPAY | END 2020-05-25 08:45 | LOC: CARDO 05-26 10:25 | PROVIDERS: PCP Nurse Practitioner Family; Referring Provider Internal Medicine; Visit Provider Internal Medicine Cardiovascular Disease | DX: I48.0 Paroxysmal atrial fibrillation (principal); I47.2 Ventricular tachycardia; I49.3 Ventricular premature depolarization | CPT/HCPCS: 93272 ==

== ENCOUNTER 2020-06-02 09:17 | Outpatient (CLI) | payer MEDICARE, OTHER, SELFPAY ==
[2020-06-03 14:23] LABS: COVID-19 RT-PCR UVMMC Result Negative (Negative)
== END 2020-06-02 09:18 | disposition home or self-care (01) ==
PROVIDERS: PCP Nurse Practitioner Family; Visit Provider Nurse Practitioner Family
DX: Z20.822 Contact with and (suspected) exposure to COVID-19 (principal)
CPT/HCPCS: U0003; U0005

== ENCOUNTER 2020-06-07 03:40 | Outpatient (CLI) | payer MEDICARE, OTHER, SELFPAY ==
[2020-06-08 13:50] LABS: COVID-19 RT-PCR UVMMC Result Negative (Negative)
== END 2020-06-07 03:41 | disposition home or self-care (01) ==
LOC: LBO 03:40
PROVIDERS: PCP Nurse Practitioner Family; Visit Provider Nurse Practitioner Family
DX: Z20.822 Contact with and (suspected) exposure to COVID-19 (principal)
CPT/HCPCS: U0003; U0005

== ENCOUNTER 2020-07-12 02:38 | Outpatient (CLI) | payer MEDICARE, OTHER, SELFPAY ==
[2020-07-12 08:06] LABS: Abs Immature Grans 0.01 10^3/uL (0.0-0.06); Absolute Basophil Count 0.06 10^3/uL (0.0-0.2); Absolute Eosinophil Count 0.02 10^3/uL (0.0-0.7); Absolute Lymphocyte Count 1.84 10^3/uL (1.2-3.4); Absolute Monocyte Count 0.43 10^3/uL (0.1-0.8); Absolute Neutrophil Count 4.84 10^3/uL (1.2-6.7); Basophils % 0.8; Eosinophils % 0.3; HCT 39.5 % (36.0-46.0); Immature Grans % 0.1; Lymphocytes % 25.6; MCH 27.6 pg (27.0-33.0); MCHC 30.4 % (32.0-36.0); MCV 90.8 fL (80-95); MPV 9.3 fL (8.0-11.0); Neutrophils % 67.2; Nucleated RBC 0 %; Platelet Count 289 10^3/uL (130-400); RBC 4.35 10^6/uL (3.93-5.22); RDW 13.8 % (11.7-14.6); RDW-SD 46.1 fL
[2020-07-12 09:06] LABS: ALT 27 U/L (14-59); AST 23 U/L (15-37); Albumin 4.5 g/dL (3.4-5.0); Alkaline Phosphatase 86 U/L (46-116); Anion Gap 11.2 mmol/L (3-11); BUN 29 mg/dL (7-18); Bilirubin, Total 0.5 mg/dL (0.2-1.0); CO2 30.8 mmol/L (21.0-32.0); CREATININE 1.6 mg/dL (0.55-1.02); Calcium 9.3 mg/dL (8.5-10.1); Chloride 105 mmol/L (98-107); Estimated GFR 31.68 (mL/min/1.73m2); Glucose 109 mg/dL (74-106); Magnesium 2.2 mg/dL (1.8-2.4); Sodium 147 mmol/L (136-145); TSH (W/Ref FT4) 10.78 uIU/mL (0.36-3.74)
[2020-07-12 09:26] LABS: FREE T4 0.92 ng/dL (0.76-1.46)
== END 2020-07-12 02:39 | disposition home or self-care (01) ==
LOC: LBO 02:38
PROVIDERS: PCP Nurse Practitioner Family; Visit Provider Nurse Practitioner Family
DX: D50.9 Iron deficiency anemia, unspecified (principal); I10 Essential (primary) hypertension; I50.9 Heart failure, unspecified; E87.6 Hypokalemia; I48.0 Paroxysmal atrial fibrillation; Z79.899 Other long term (current) drug therapy
CPT/HCPCS: 36415; 80053; 83735; 84439; 84443; 85025

== ENCOUNTER 2020-09-16 02:48 | Outpatient (CLI) | payer MEDICARE, OTHER, SELFPAY ==
[2020-09-16 12:18] LABS: TSH (W/Ref FT4) 4.73 uIU/mL (0.36-3.74)
== END 2020-09-16 02:49 | disposition home or self-care (01) ==
LOC: LBO 02:49
PROVIDERS: PCP Nurse Practitioner Family; Visit Provider Nurse Practitioner Family
DX: N18.9 Chronic kidney disease, unspecified (principal); E87.6 Hypokalemia; R73.01 Impaired fasting glucose; E78.5 Hyperlipidemia, unspecified; E03.9 Hypothyroidism, unspecified
CPT/HCPCS: 36415; 80048; 80061; 83036; 84439; 84443

== ENCOUNTER 2020-10-14 04:35 | Outpatient (CLI) | payer MEDICARE, OTHER, SELFPAY ==
[2020-10-14 11:41] LABS: TSH (W/Ref FT4) 4.97 uIU/mL (0.36-3.74)
[2020-10-14 11:57] LABS: FREE T4 1.26 ng/dL (0.76-1.46)
== END 2020-10-14 04:36 | disposition home or self-care (01) ==
LOC: LBO 04:35
PROVIDERS: PCP Nurse Practitioner Family; Visit Provider Nurse Practitioner Family
DX: E03.9 Hypothyroidism, unspecified (principal)
CPT/HCPCS: 36415; 84439; 84443

== ENCOUNTER 2020-10-26 03:34 | Outpatient (CLI) | payer MEDICARE, OTHER, SELFPAY ==
[2020-10-26 11:50] LABS: Abs Immature Grans 0.02 10^3/uL (0.0-0.06); Absolute Basophil Count 0.03 10^3/uL (0.0-0.2); Absolute Eosinophil Count 0.01 10^3/uL (0.0-0.7); Absolute Lymphocyte Count 1.14 10^3/uL (1.2-3.4); Absolute Monocyte Count 0.39 10^3/uL (0.1-0.8); Absolute Neutrophil Count 5.85 10^3/uL (1.2-6.7); Basophils % 0.4; Eosinophils % 0.1; HCT 30.6 % (36.0-46.0); Immature Grans % 0.3; Lymphocytes % 15.3; MCH 25.1 pg (27.0-33.0); MCHC 29.4 % (32.0-36.0); MCV 85.5 fL (80-95); Monocytes % 5.2; Neutrophils % 78.7; Nucleated RBC 0 %; Platelet Count 317 10^3/uL (130-400); RBC 3.58 10^6/uL (3.93-5.22); RDW 14.2 % (11.7-14.6); RDW-SD 44.1 fL; WBC 7.44 10^3/uL (4.4-10.8)
[2020-10-26 13:23] LABS: Iron 23 ug/dL (50-170); Total Iron Binding Capacity 445 ug/dL (250-450); Transferrin Sat 5 % (15-50)
[2020-10-26 13:49] LABS: Vitamin B12 266 pg/mL (193-986)
== END 2020-10-26 03:35 | disposition home or self-care (01) ==
LOC: LBO 03:35
PROVIDERS: PCP Nurse Practitioner Family; Visit Provider Family Medicine
DX: D50.9 Iron deficiency anemia, unspecified (principal)
CPT/HCPCS: 36415; 82607; 83540; 83550; 85025

== ENCOUNTER 2020-11-04 02:33 | Outpatient (RCR) | payer MEDICARE, OTHER, SELFPAY ==
[2020-11-04] MEDS: IRON SUCROSE COMPLEX 300 MG in Normal Saline 250 ML 176.667 MG IVPB (08:09)
[2020-11-04] MEDS: Normal Saline Flush 10 ML SYR IVP (08:13)
== END 2020-11-09 23:59 | disposition home or self-care (01) ==
LOC: INF 02:33
PROVIDERS: PCP Nurse Practitioner Family; Visit Provider Family Medicine
DX: D50.9 Iron deficiency anemia, unspecified (principal)
CPT/HCPCS: 96365; 96366; J1756

== ENCOUNTER 2020-11-18 02:18 | Outpatient (RCR) | payer MEDICARE, OTHER, SELFPAY ==
[2020-11-11] MEDS: Normal Saline Flush 10 ML SYR IVP (08:07)
[2020-11-11] MEDS: IRON SUCROSE COMPLEX 300 MG in Normal Saline 250 ML 176.667 MG IVPB (08:07)
[2020-11-18] MEDS: Normal Saline Flush 10 ML SYR IVP (07:54)
[2020-11-18] MEDS: IRON SUCROSE COMPLEX 300 MG in Normal Saline 250 ML 176.667 MG IVPB (08:04)
[2020-11-18 11:13] LABS: Iron 742 ug/dL (50-170); Total Iron Binding Capacity 709 ug/dL (250-450); Transferrin Sat 105 % (15-50)
== END 2020-12-09 23:59 | disposition home or self-care (01) ==
LOC: INF 02:18
PROVIDERS: PCP Nurse Practitioner Family; Visit Provider Family Medicine
DX: D50.9 Iron deficiency anemia, unspecified (principal)
CPT/HCPCS: 36415; 96365; 96366; 83540; 83550; J1756

== ENCOUNTER 2020-12-30 02:47 | Outpatient (CLI) | payer MEDICARE, OTHER, SELFPAY ==
[2020-12-30 13:26] LABS: HCT 37.4 % (36.0-46.0); HGB 11.1 g/dL (11.2-15.7)
[2020-12-30 14:26] LABS: Iron 40 ug/dL (50-170); Total Iron Binding Capacity 355 ug/dL (250-450); Transferrin Sat 11 % (15-50)
[2020-12-30 14:44] LABS: Ferritin 100 ng/mL (8-252)
== END 2020-12-30 02:48 | disposition home or self-care (01) ==
LOC: LBO 02:47
PROVIDERS: PCP Nurse Practitioner Family; Visit Provider Nurse Practitioner Family
DX: D50.9 Iron deficiency anemia, unspecified (principal)
CPT/HCPCS: 36415; 82728; 83540; 83550; 85014; 85018

== ENCOUNTER 2021-01-22 09:42 | Emergency (ER) | payer MEDICARE, OTHER, SELFPAY ==
[2021-01-22] VITALS (15 sets, daily range): BP systolic 131–159; BP diastolic 58–76; PULSE 68–87; RESP 14–33; TEMP 36.8; O2SAT 96–99
--- NOTE | 2021-01-22 09:45 | RT.EKG_ITS ---
APPROVED REPORT Exam: Resting ECG Reason for Exam: left side rib pain Patient Location: E HR:78 bpm ECG Measurements Heart Rate 78 AXIS SD 92 P 0 QRSd 118 QRS 49 QT 433 T 125 QTc 493 Conclusion Sinus rhythm...normal P axis, V-rate 60- 99 Incomplete left bundle branch block...QRSd>110mS, terminal axis(-90,-1) new incomplete LBBB compared to 04/01
[2021-01-22] MEDS: Aspirin 81 MG CHEW 243 MG CH (10:18)
[2021-01-22 10:26] LABS: HCT 41.4 % (36.0-46.0); HGB 12.2 g/dL (11.2-15.7); MCH 26.5 pg (27.0-33.0); MCHC 29.5 % (32.0-36.0); RDW-SD 60.2 fL; WBC 9.79 10^3/uL (4.4-10.8)
[2021-01-22 10:27] LABS: Abs Immature Grans 0.03 10^3/uL (0.0-0.06); Absolute Basophil Count 0.06 10^3/uL (0.0-0.2); Absolute Eosinophil Count 0.01 10^3/uL (0.0-0.7); Absolute Lymphocyte Count 1.47 10^3/uL (1.2-3.4); Absolute Monocyte Count 0.54 10^3/uL (0.1-0.8); Absolute Neutrophil Count 7.69 10^3/uL (1.2-6.7); Basophils % 0.6; Eosinophils % 0.1; Immature Grans % 0.3; MPV 9.4 fL (8.0-11.0); Monocytes % 5.5; Neutrophils % 78.5; Platelet Count 353 10^3/uL (130-400); RDW 18.2 % (11.7-14.6)
--- NOTE | 2021-01-22 10:32 | W.ED.GENAD ---
Discharge Plan Disposition Patient Disposition: HOME Condition: Stable Discharge Details Clinical Impression: Chest pain, Left bundle branch block (LBBB) Primary Care Provider: Jessica Ochoa ED Provider: Dg Mcclellan Home Meds and New Rx's Prescriptions: Continued ascorbate calcium (vitamin C) 500 mg tablet 500 mg PO DAILY RF: 0 polyethylene glycol 3350 [Miralax] 17 gram/dose powder 17 g PO DAILY PRNRF: 0 melatonin 5 mg tablet 5 mg PO HS PRNRF: 0 Shingrix (PF) 50 mcg/0.5 mL suspension for reconstitution 50 mcg IM .COMPLEX Qty: 1 RF: 1 aspirin 81 mg tablet,delayed release (DR/EC) 81 mg PO DAILY RF: 0 pramipexole 0.125 mg tablet 0.125 mg PO QHS PRN (Reason: restless legs) Qty: 90 RF: 0 acetaminophen 500 MG tablet 500 mg PO Q6H PRN RF: 0 biotin 10,000 MCG capsule 10,000 mcg PO DAILY RF: 0 cholecalciferol (vitamin D3) 1,000 UNIT capsule 1,000 unit PO DAILY RF: 0 verapamil 40 mg tablet 40 mg PO TID Qty: 90 RF: 0 amiodarone 200 mg tablet 200 mg PO DAILY Qty: 30 RF: 0 atorvastatin 20 mg tablet 20 mg PO DAILY Qty: 90 RF: 3 sertraline 25 mg tablet 25 mg PO DAILY Qty: 90 RF: 3 pantoprazole 40 mg tablet,delayed release (DR/EC) 40 mg PO DAILY Qty: 90 RF: 3 Eliquis 5 mg tablet 5 mg PO BID Qty: 180 RF: 3 potassium chloride 20 mEq tablet extended release 20 meq PO DAILY Qty: 90 RF: 1 furosemide [Lasix] 20 mg tablet 20 mg PO BID Qty: 180 RF: 3 levothyroxine 25 mcg tablet 25 mcg PO DAILY Qty: 90 RF: 3 calcium carbonate [Calcium 500] 500 MG tablet 1,000 mg PO DAILY RF: 0 pantoprazole 40 mg tablet,delayed release (DR/EC) 40 mg PO QAM RF: 0 Discharge Instructions Instructions: Chest Pain (ED) Additional Instructions: Your work-up in the ER does not reveal any obvious emergent process. Please watch for new or worsening symptoms and return to the ER for any concerns. As we discussed, I strongly recommend you contact your infant childcare provider on Sunday to discuss your symptoms, new left bundle branch block, and need for outpatient stress test and further evaluation. We also discussed contacting her primary care provider for your ongoing symptoms because of this is not cardiac in nature then further evaluation, potential referral to GI, etc. may be indicated Medical Decision Making Is a 75-year-old female, on Eliquis, past medical history of A. fib, aortic and mitral valve replacement, presenting to the ER for left inferior chest wall pain that began on January 15 well receiving an iron infusion. She states the pain is dull, achy, a 4 out of 10, constant, worse with coughing. She has no other concerns at this time. Has taken [id number] Tylenol without relief of her symptoms. Clinically she appears well, nontoxic, hemodynamically stable. Patient did already take a single baby aspirin, will give an additional 3 at this time. Chest is unremarkable, no evidence of trauma, rash. Chest is nontender to palpation. Given the duration of her symptoms I do believe a single troponin is sufficient for cardiac rule out, will also obtain D-dimer however she is already on Eliquis so low suspicion for PE. We will also obtain a Covid swab. States that she had endoscopy approximately 4 months ago. Patient denies drinking alcohol, denies history of pancreatitis. Laboratory values are unremarkable for any obvious emergent process. White blood cell count of 9.79 hemoglobin 12.2 hematocrit 41.4 353. INR 1.3, D-dimer normal at 312. Electrolytes unremarkable, BUN 24, denies black tarry stools or bright red blood in her stools, creatinine 1.6 with a GFR of 31.0. This appears near her baseline. Glucose 100 magnesium 2.4 troponin less than 0.05. Lipase 222. Covid negative. Chest x-ray unremarkable for obvious emergent process. Upon reevaluation patient states that while she is lying here in the ER stretcher she is actually asymptomatic, 0 out of 10 pain. We discussed her benign work-up here in the ER. We did discuss her new left bundle branch block. Patient states that she is asymptomatic currently and is comfortable being discharged home. We discussed the importance of contacting her infant childcare provider on Sunday to discuss her newfound left bundle branch block and need for outpatient reevaluation including a outpatient stress test. Patient understands this and has additional questions or concerns. Strict discharge and return precautions provided. This documentation was generated using [employer] system, please disregard any oddities of phrase or misspellings. Medical Records Medical records reviewed: Yes I reviewed the patient's medical records. Imaging Data Radiologic Study: Attestation: I personally reviewed and interpreted this imaging study as follows: Imaging: X-Ray Radiologist's impression: PROCEDURE INFORMATION: Exam: XR Chest Exam date and time: 01/22/2021 10:13 AM Age: 75 years old Clinical indication: Other: L chest and rib pain TECHNIQUE: Imaging protocol: XR of the chest. Views: 2 views. COMPARISON: CR XR PORTABLE CHEST AP 04/01/2020 1:52 PM FINDINGS: Lungs: Mild pulmonary vascular prominence. No convincing consolidation. Pleural spaces: No pneumothorax. No sizable pleural effusion. Heart/Mediastinum: Similar/stable cardiomediastinal silhouette. Bones/joints: No acute displaced fracture. Other findings: Similar surgical changes project over the chest. IMPRESSION: Mild pulmonary vascular congestion without other acute cardiopulmonary findings Lab Data Lab results reviewed: Yes I reviewed the patient's lab results. Labs: Laboratory Tests Range/Units 01/22/21 01/22/21 01/22/21 10:15 10:15 10:15 WBC (4.4-10.8) 10^3/uL 9.79 RBC (3.93-5.22) 10^6/uL 4.60 Hgb (11.2-15.7) g/dL 12.2 Hct (36.0-46.0) % 41.4 MCV (80-95) fL 90.0 MCH (27.0-33.0) pg 26.5 L MCHC (32.0-36.0) % 29.5 L RDW (11.7-14.6) % 18.2 H Plt Count (130-400) 10^3/uL 353 MPV (8.0-11.0) fL 9.4 Immature Gran % 0.3 Neutrophils % 78.5 Lymphocytes % 15.0 Monocytes % 5.5 Eosinophils % 0.1 Basophils % 0.6 Nucleated RBC % % 0 Absolute Neutrophils (1.2-6.7) 10^3/uL 7.69 H Absolute Lymphocytes (1.2-3.4) 10^3/uL 1.47 Absolute Monocytes (0.1-0.8) 10^3/uL 0.54 Absolute Eosinophils (0.0-0.7) 10^3/uL 0.01 Absolute Basophils (0.0-0.2) 10^3/uL 0.06 PT (9.3-11.0) sec 12.9 H INR (0.9-1.1) 1.3 H APTT (21.0-27.5) sec 27.6 H D-Dimer (<500) ng/mlFEU 312 Sodium (136-145) mmol/L 141 Potassium (3.5-5.1) mmol/L 4.2 Chloride (98-107) mmol/L 102 Carbon Dioxide (21.0-32.0) mmol/L 28.6 Anion Gap (3-11) mmol/L 10.4 BUN (7-18) mg/dL 24 H Creatinine (0.55-1.02) mg/dL 1.6 H Estimated GFR/1.73 m2 (mL/min/1.73m2) 31.60 Glucose (74-106) mg/dL 100 Calcium (8.5-10.1) mg/dL 9.3 Magnesium (1.8-2.4) mg/dL 2.4 Total Bilirubin (0.2-1.0) mg/dL 0.4 AST (15-37) U/L 32 ALT (14-59) U/L 40 Alkaline Phosphatase (46-116) U/L 88 Troponin I (<0.06) ng/mL < 0.05 Total Protein (6.4-8.2) g/dL 9.0 H Albumin (3.4-5.0) g/dL 4.4 Lipase (73-393) U/L 222 COVID-19 Source SARS-CoV-2 (PCR) (Negative) Range/Units 01/22/21 10:45 WBC (4.4-10.8) 10^3/uL RBC (3.93-5.22) 10^6/uL Hgb (11.2-15.7) g/dL Hct (36.0-46.0) % MCV (80-95) fL MCH (27.0-33.0) pg MCHC (32.0-36.0) % RDW (11.7-14.6) % Plt Count (130-400) 10^3/uL MPV (8.0-11.0) fL Immature Gran % Neutrophils % Lymphocytes % Monocytes % Eosinophils % Basophils % Nucleated RBC % % Absolute Neutrophils (1.2-6.7) 10^3/uL Absolute Lymphocytes (1.2-3.4) 10^3/uL Absolute Monocytes (0.1-0.8) 10^3/uL Absolute Eosinophils (0.0-0.7) 10^3/uL Absolute Basophils (0.0-0.2) 10^3/uL PT (9.3-11.0) sec INR (0.9-1.1) APTT (21.0-27.5) sec D-Dimer (<500) ng/mlFEU Sodium (136-145) mmol/L Potassium (3.5-5.1) mmol/L Chloride (98-107) mmol/L Carbon Dioxide (21.0-32.0) mmol/L Anion Gap (3-11) mmol/L BUN (7-18) mg/dL Creatinine (0.55-1.02) mg/dL Estimated GFR/1.73 m2 (mL/min/1.73m2) Glucose (74-106) mg/dL Calcium (8.5-10.1) mg/dL Magnesium (1.8-2.4) mg/dL Total Bilirubin (0.2-1.0) mg/dL AST (15-37) U/L ALT (14-59) U/L Alkaline Phosphatase (46-116) U/L Troponin I (<0.06) ng/mL Total Protein (6.4-8.2) g/dL Albumin (3.4-5.0) g/dL Lipase (73-393) U/L COVID-19 Source Nasal/Nares SARS-CoV-2 (PCR) (Negative) Negative ECG Data Attestation: I personally reviewed and interpreted this ECG (s) as follows: Interpretation: Please see official report by Dr. Youssef. Sinus rhythm, ventricular of 78. Incomplete left bundle branch block. No STEMI. When comparing previous EKG, the left bundle branch block appears to be new HPI General Mode of arrival: ambulatory. Date/Time Provider Initiated Documentation: 01/22/21 09:49. Limitations to Documentation: no limitations. Information obtained by: patient. HPI Narrative: This is a 75-year-old female, past medical history that includes aortic regurgitation, A. fib, takes Eliquis daily, CKD, CHF, hypertension, hyperlipidemia, hypothyroidism, iron deficiency anemia, rheumatic heart disease, status post aortic and mitral valve replacement 6 years ago, presenting to the ER reporting that on January 15 will receiving an iron infusion for her iron deficiency anemia she developed inferior left chest wall pain which has been constant ever since. Reports the pain is a dull ache, 4 out of 10. Nothing makes it better, has tried [id number] Tylenol. The only thing that makes it worse is coughing. Patient is a former smoker, reports baseline mild dry cough, cough is unchanged. Denies any radiation of her pain. Patient is fully vaccinated against Covid. Scheduled for her booster shots on 04 February. She denies recent illness or trauma. No recent sick contacts. Denies headache, visual change, neck pain, shortness of breath, productive cough, abdominal pain, nausea, vomiting, change in bowel or bladder function, history of DVT or PE, pain or swelling in her extremities. Related Data Home Medications Medication Instructions Recorded Confirmed acetaminophen 500 mg PO Q6H PRN 08/12/14 01/22/21 biotin 10,000 mcg PO DAILY 09/20/15 01/22/21 calcium carbonate [Calcium 500] 1,000 mg PO DAILY 08/28/17 01/22/21 cholecalciferol (vitamin D3) 1,000 unit PO DAILY cap 08/28/17 01/22/21 varicella-zoster glycoE vacc-AS01B 50 mcg IM .COMPLEX #1 each 12/06/17 10/25/20 adj(PF) 50 mcg/0.5 mL IM susp, kit aspirin 81 mg tablet,delayed 81 mg PO DAILY 12/05/18 01/22/21 release ascorbate calcium (vitamin C) 500 500 mg PO DAILY 07/31/19 01/22/21 mg tablet amiodarone 200 mg tablet 200 mg PO DAILY #30 tab 04/23/20 01/22/21 verapamil 40 mg tablet 40 mg PO TID #90 tab 04/23/20 01/22/21 melatonin 5 mg tablet 5 mg PO HS PRN 07/29/20 01/22/21 polyethylene glycol 3350 17 17 g PO DAILY PRN 07/29/20 01/22/21 gram/dose oral powder apixaban 5 mg tablet 5 mg PO BID #180 tab-cap 09/07/20 01/22/21 atorvastatin 20 mg tablet 20 mg PO DAILY #90 tab-cap 09/07/20 01/22/21 pantoprazole 40 mg tablet,delayed 40 mg PO DAILY #90 tab-cap 09/07/20 01/22/21 release sertraline 25 mg tablet 25 mg PO DAILY #90 tab-cap 09/07/20 01/22/21 potassium chloride 20 mEq 20 meq PO DAILY #90 tab 09/14/20 01/22/21 tablet,extended release furosemide 20 mg tablet 20 mg PO BID #180 tab-cap 09/15/20 01/22/21 levothyroxine 25 mcg tablet 25 mcg PO DAILY #90 tab-cap 12/06/20 01/22/21 pramipexole 0.125 mg tablet 0.125 mg PO QHS PRN #90 tab 01/13/21 01/13/21 pantoprazole 40 mg PO QAM 01/22/21 01/22/21 Previous Rx's Medication Instructions Recorded varicella-zoster glycoE vacc-AS01B 50 mcg IM .COMPLEX #1 each 12/06/17 adj(PF) 50 mcg/0.5 mL IM susp, kit amiodarone 200 mg tablet 200 mg PO DAILY #30 tab 04/23/20 verapamil 40 mg tablet 40 mg PO TID #90 tab 04/23/20 apixaban 5 mg tablet 5 mg PO BID #180 tab-cap 09/07/20 atorvastatin 20 mg tablet 20 mg PO DAILY #90 tab-cap 09/07/20 pantoprazole 40 mg tablet,delayed 40 mg PO DAILY #90 tab-cap 09/07/20 release sertraline 25 mg tablet 25 mg PO DAILY #90 tab-cap 09/07/20 potassium chloride 20 mEq 20 meq PO DAILY #90 tab 09/14/20 tablet,extended release furosemide 20 mg tablet 20 mg PO BID #180 tab-cap 09/15/20 levothyroxine 25 mcg tablet 25 mcg PO DAILY #90 tab-cap 12/06/20 pramipexole 0.125 mg tablet 0.125 mg PO QHS PRN #90 tab 01/13/21 Allergies Allergy/AdvReac Type Severity Reaction Status Date / Time heparin Allergy Severe thrombocytopenia, Verified 01/22/21 09:53 anaphylaxis dofetilide AdvReac Severe Prolonged Verified 01/22/21 09:53 QTc lisinopril AdvReac Cough Verified 01/22/21 09:53 General Stated Complaint: Chest/Rib MARIS: 3 Review of Systems Constitutional Constitutional: Denies fatigue, Denies fever(s), Denies headache(s) and Denies weakness Eyes Eyes: Denies change in vision ENT Ears, Nose, Mouth, and Throat: Denies headache(s) and Denies neck pain Cardiovascular Cardiovascular: Reports chest pain and Denies dyspnea Respiratory Respiratory: Reports cough and Denies dyspnea Gastrointestinal Gastrointestinal: Denies abdominal pain, Denies nausea and Denies vomiting Genitourinary Genitourinary: Denies dysuria Musculoskeletal Musculoskeletal: Denies neck pain Integumentary/Breasts Skin/Breast: Denies rash Neurologic Neurologic: Denies headache(s) and Denies weakness Endocrine Endocrine: Denies fatigue [facility] Medical History Aortic regurgitation a. moderate by echo 12/2011 S/p repair Atrial fibrillation (07/31/14) S/p MAZE; adverse rxn dofetilide; amiodarone begun 08/2014, again 03/2020; 08/2017 Switched to apixaban by cardiology (Dr. 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 Chiang) following hospitalization for GI bleed Mitral regurgitation Rheumatic; s/p repair Osteopenia (06/14/17) 06/14/17 DEXA: femoral neck T-score -1.1 WHO FRAX score: 10-year major osteoporotic fx risk of 8.9% and hip fx risk of 0.9% --> tx with Ca/vitamin D Restless leg syndrome due to iron deficiency anemia Restrictive lung disease (05/03/16) apt with Dr. Us [facility] pulmonary Rheumatic heart disease S/P aortic valve and mitral valve replacement (~07/2014) [facility]. Severe AR & MR, bovine prosthesis. 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) Surgical History Biopsy of breast (~2008) Left breast [facility] [place] Colonoscopy - MAC (08/28/17) EGD - MAC (08/28/17) History of section (~1976) History of toe surgery (~2003) Removal of bone chip Radiofrequency Maze Procedure (08/04/14) done at [facility] [[email or web address]] Replacement of aortic valve (08/04/14) AV and MV both replaced with tissue valves at [facility] [[email or web address]] S/P aortic valve and mitral valve replacement (08/04/14) Bovine prosthetic valves, plus MAZE, [facility] Valve Replacement (08/04/14) Both AV and Mitral Valve replacement at [facility] [[email or web address]] plus MAZE; Tissue valves Family History Mother , Age 87, peritonitis Diabetes Essential hypertension Breast cancer Father , Age 45, colon cancer Colon cancer Sister Heart disease NH at age 49 Brother Diabetes Colon cancer Brother No problems noted. Brother Heart disease CABG Other Family history of colon cancer Social History Smoking/Tobacco Use Status: Former Tobacco Use Smoking risk assessment performed?: Yes Alcohol Intake: former Drug use: Never Substance use type: does not use Counseling given: No Counseling provided: none Adopted: No Caregiver/Support person: No Foster care: No Housing: house Number of Children: 1 number of grandchildren: 2 Communication Needs: None Education Level: high school Do you need help understanding health information?: Rarely Pets and animals: No Current gender identity: female What type of physical activity do you participate in: walking Duration: 60-90 minutes/day Frequency: daily Seatbelt use: always Helmet use: No Drive intox or ride w/intox sprinkler driver: No Water heater temp set <120 deg: Yes Working smoke detector in home: No Fire extinguisher in home: No Carbon monox detector in home: No Firearms in home: No Do you feel safe at home: Yes Do you feel safe in your relationship?: Yes Exam Const General: cooperative, healthy appearing, comfortable and no acute distress Orientation: alert, awake and oriented x3 HENMT Head: normal to inspection, normocephalic and atraumatic Face and sinus: normal facial exam Mouth: moist mucous membranes Throat: posterior oropharynx normal Eyes General: appearance normal, both eyes and all related structures Conjunctivae: conjunctivae normal Neck Neck: normal visual inspection, full ROM, trachea midline and supple Chest Chest: normal inspection of the chest and normal palpation of entire chest wall Resp Effort & Inspection: normal respiratory effort and able to speak in complete sentences Auscultation: clear to auscultation bilaterally Cardio Rate: regular rate Rhythm: regular rhythm GI Inspection: normal to inspection Palpation: soft, not firm, no guarding, no pulsatile masses and nontender Auscultation: normal bowel sounds Back/Spine/Pelvis Back: No back tenderness Skin General skin exam: no rashes or lesions noted Neuro General: patient alert, patient awake, patient oriented x3, moves all extremities and no focal motor deficits Cognition: normal cognition Speech: speech normal Gait: normal gait Motor: muscle tone normal throughout Sensory Exam: no sensory deficits noted Extrem General: normal to inspection, full ROM, capillary refill normal, no pedal edema and no calf tenderness Psych Appearance: grossly normal Mental Status: mental status grossly normal Course Vital Signs Vital signs: Vital Signs Temperature 36.8 C 01/22/21 09:45 Pulse 80 01/22/21 09:45 Respiratory Rate 18 01/22/21 09:45 Blood Pressure 159/67 H 01/22/21 09:45 Pulse Oximetry 98 01/22/21 09:45 Temperature 36.8 C 01/22/21 09:45 Temperature Source Skin 01/22/21 09:45 Pulse 71 01/22/21 10:16 Pulse 74 01/22/21 10:20 Respiratory Rate 21 01/22/21 10:20 Respiratory Effort 01/22/21 10:07 Respiratory Depth Normal 01/22/21 10:07 Respiratory Pattern Normal 01/22/21 10:07 Blood Pressure 144/65 H 01/22/21 10:16 Blood Pressure Mean 85 01/22/21 10:16 Pulse Oximetry 97 01/22/21 10:20 Oxygen Delivery Method Room Air 01/22/21 09:45 Oxygen Flow Rate 0 01/22/21 09:45 Pain Level 4 01/22/21 10:07 Comment using aspercreme 01/22/21 09:45 Lab/Test Results Lab/Test Results: Laboratory Tests Range/Units 01/22/21 10:15 WBC (4.4-10.8) 10^3/uL 9.79 RBC (3.93-5.22) 10^6/uL 4.60 Hgb (11.2-15.7) g/dL 12.2 Hct (36.0-46.0) % 41.4 MCV (80-95) fL 90.0 MCH (27.0-33.0) pg 26.5 L MCHC (32.0-36.0) % 29.5 L RDW (11.7-14.6) % 18.2 H Plt Count (130-400) 10^3/uL 353 MPV (8.0-11.0) fL 9.4 Immature Gran % 0.3 Neutrophils % 78.5 Lymphocytes % 15.0 Monocytes % 5.5 Eosinophils % 0.1 Basophils % 0.6 Absolute Neutrophils (1.2-6.7) 10^3/uL 7.69 H Absolute Lymphocytes (1.2-3.4) 10^3/uL 1.47 Absolute Monocytes (0.1-0.8) 10^3/uL 0.54 Absolute Eosinophils (0.0-0.7) 10^3/uL 0.01 Absolute Basophils (0.0-0.2) 10^3/uL 0.06
--- NOTE | 2021-01-22 10:42 | DI.RAD_ITS ---
Exam(s) XR CHEST 2V PA LATERAL EXAM: XR CHEST 2V PA LATERAL CLINICAL HISTORY: L chest/rib pain TECHNIQUE: 2D digital imaging was performed of the chest. Two images were obtained. PA and lateral views were obtained. COMPARISON: CR XR PORTABLE CHEST AP from 04/01/2020 FINDINGS: MEDIASTINUM: Normal. HEART: Normal. Stable cardiac valves. PULMONARY VASCULATURE: Mild pulmonary vascular congestion. LUNGS: No focal consolidating infiltrates. PLEURAL SPACE: No pleural effusion or pneumothorax. BONE:Within normal limits for the patient's age. Sternal wires are again seen. OTHER FINDINGS:Normal. IMPRESSION: Mild pulmonary vascular congestion. DATA REPOSITORY: RADIATION DOSE DELIVERED:
[2021-01-22 10:45] LABS: INR 1.3 (0.9-1.1); PTT Activated 27.6 sec (21.0-27.5); Prothrombin Time 12.9 sec (9.3-11.0)
[2021-01-22 10:50] LABS: Source Nasal/Nares
--- NOTE | 2021-01-22 10:52 | DI.VRAD_ITS ---
PROCEDURE INFORMATION: Exam: XR Chest Exam date and time: 01/22/2021 10:13 AM Age: 75 years old Clinical indication: Other: L chest and rib pain TECHNIQUE: Imaging protocol: XR of the chest. Views: 2 views. COMPARISON: CR XR PORTABLE CHEST AP 04/01/2020 1:52 PM FINDINGS: Lungs: Mild pulmonary vascular prominence. No convincing consolidation. Pleural spaces: No pneumothorax. No sizable pleural effusion. Heart/Mediastinum: Similar/stable cardiomediastinal silhouette. Bones/joints: No acute displaced fracture. Other findings: Similar surgical changes project over the chest. IMPRESSION: Mild pulmonary vascular congestion without other acute cardiopulmonary findings. Dictated and Authenticated by: Jarrod Atkins MD. Ordering:FIDE Conte MD
[2021-01-22 10:56] LABS: D-Dimer 312 ng/mlFEU (<500)
[2021-01-22 10:58] LABS: ALT 40 U/L (14-59); AST 32 U/L (15-37); Albumin 4.4 g/dL (3.4-5.0); Alkaline Phosphatase 88 U/L (46-116); Anion Gap 10.4 mmol/L (3-11); BUN 24 mg/dL (7-18); Bilirubin, Total 0.4 mg/dL (0.2-1.0); CO2 28.6 mmol/L (21.0-32.0); CREATININE 1.6 mg/dL (0.55-1.02); Calcium 9.3 mg/dL (8.5-10.1); Chloride 102 mmol/L (98-107); Glucose 100 mg/dL (74-106); Magnesium 2.4 mg/dL (1.8-2.4); Potassium 4.2 mmol/L (3.5-5.1); Sodium 141 mmol/L (136-145); Troponin I < 0.05 ng/mL (<0.06)
[2021-01-22 11:51] LABS: Lipase 222 U/L (73-393)
[2021-01-22 11:55] LABS: Nucleated RBC 0 %
[2021-01-22 12:07] LABS: COVID-19 PCR Negative (Negative)
== END 2021-01-22 12:26 | disposition home or self-care (01) ==
PROVIDERS: Emergency Provider Physician Assistant; PCP Nurse Practitioner Family
DX: I44.7 Left bundle-branch block, unspecified (principal); R07.89 Other chest pain; Z20.822 Contact with and (suspected) exposure to COVID-19
CPT/HCPCS: 36415; 80053; 83690; 87635; 93005; 99284; 71046; 83735; 84484; 85025; 85379; 85610; 85730; 93010

== ENCOUNTER 2021-02-02 02:09 | Outpatient (RCR) | payer MEDICARE, OTHER, SELFPAY ==
[2021-01-20] MEDS: Normal Saline Flush 10 ML SYR IVP (08:29)
[2021-01-20] MEDS: IRON SUCROSE COMPLEX 300 MG in Normal Saline 250 ML 176.667 MG IVPB (08:41)
[2021-01-28] MEDS: Normal Saline Flush 10 ML SYR IVP (08:29)
[2021-01-28] MEDS: IRON SUCROSE COMPLEX 300 MG in Normal Saline 250 ML 176.667 MG IVPB (08:38)
[2021-02-02] MEDS: Normal Saline Flush 10 ML SYR IVP (08:06)
[2021-02-02] MEDS: IRON SUCROSE COMPLEX 300 MG in Normal Saline 250 ML 176.667 MG IVPB (08:06)
[2021-02-02 10:23] LABS: Iron 738 ug/dL (50-170); Total Iron Binding Capacity 652 ug/dL (250-450)
== END 2021-02-08 23:59 | disposition home or self-care (01) ==
LOC: INF 02:09
PROVIDERS: PCP Nurse Practitioner Family; Visit Provider Family Medicine
DX: D50.9 Iron deficiency anemia, unspecified (principal)
CPT/HCPCS: 36415; 96365; 96366; 83540; 83550; J1756

== ENCOUNTER 2021-02-22 03:01 | Outpatient (CLI) | payer MEDICARE, OTHER, SELFPAY ==
[2021-02-22 11:30] LABS: Abs Immature Grans 0.02 10^3/uL (0.0-0.06); Absolute Basophil Count 0.04 10^3/uL (0.0-0.2); Absolute Eosinophil Count 0.01 10^3/uL (0.0-0.7); Absolute Lymphocyte Count 0.83 10^3/uL (1.2-3.4); Absolute Monocyte Count 0.35 10^3/uL (0.1-0.8); Absolute Neutrophil Count 6.85 10^3/uL (1.2-6.7); Basophils % 0.5; Eosinophils % 0.1; HCT 41.1 % (36.0-46.0); HGB 12.5 g/dL (11.2-15.7); Immature Grans % 0.2; Lymphocytes % 10.2; MCH 28.5 pg (27.0-33.0); MCHC 30.4 % (32.0-36.0); MCV 93.6 fL (80-95); MPV 9.1 fL (8.0-11.0); Monocytes % 4.3; Neutrophils % 84.7; Nucleated RBC 0 %; Platelet Count 255 10^3/uL (130-400); RBC 4.39 10^6/uL (3.93-5.22); RDW 18.3 % (11.7-14.6); RDW-SD 63.3 fL
[2021-02-22 12:08] LABS: ALT 39 U/L (14-59); AST 41 U/L (15-37); Albumin 3.8 g/dL (3.4-5.0); Alkaline Phosphatase 80 U/L (46-116); Bilirubin, Direct 0.2 mg/dL (0.0-0.2); Bilirubin, Total 0.6 mg/dL (0.2-1.0); NT-proBNP 3110 pg/mL (<300); TSH 3.35 uIU/mL (0.36-3.74); Total Protein 7.8 g/dL (6.4-8.2); Troponin I 54 ng/L (<or=60)
== END 2021-02-22 03:02 | disposition home or self-care (01) ==
LOC: LBO 03:01
PROVIDERS: PCP Nurse Practitioner Family; Visit Provider Internal Medicine Interventional Cardiology
DX: R06.00 Dyspnea, unspecified (principal)
CPT/HCPCS: 36415; 80076; 83880; 84443; 84484; 85025

== ENCOUNTER 2021-02-22 03:19 | Outpatient (CLI) | payer MEDICARE, OTHER, SELFPAY ==
[2021-02-22] MEDS: Inhaler, Assist Device 1 EACH MC (11:11)
[2021-02-22] MEDS: Albuterol HFA 18 GM 200 PUFF INH IH (11:11)
--- NOTE | 2021-02-22 12:18 | W.PFT ---
Date of service: 02/22/21 Time of Service: 10:01 Pulmonary Function Test Result Requesting Provider Erik Chiang Indications: Amiodarone use with recent FERMIN Interpretation Spirometry: There is no airflow limitation. There is no significant bronchodilator response. Lung Volumes: Lung volumes are low-normal. Diffusion Capacity: Diffusion is reduced. Airway Pressure: Airways resistance is normal. Impression Reduced diffusion with borderline TLC. There is no comparison PFT's I see from baseline, but these findings could be concerning for amiodarone pulmonary toxicity if there is an absence of other pulmonary disease (such as pulmonary vascular disease). Clinical Correlation therefore is recommended.
== END 2021-02-22 03:20 | disposition home or self-care (01) ==
LOC: RT 03:19
PROVIDERS: PCP Nurse Practitioner Family; Visit Provider Internal Medicine Interventional Cardiology
DX: Z79.899 Other long term (current) drug therapy (principal); R06.09 Other forms of dyspnea; Z87.891 Personal history of nicotine dependence; R94.2 Abnormal results of pulmonary function studies
CPT/HCPCS: 94060; 94726; 94729

== ENCOUNTER 2021-02-28 00:55 | Outpatient (CLI) | payer MEDICARE, OTHER, SELFPAY ==
--- NOTE | 2021-02-28 08:45 | DI.NM_ITS ---
APPROVED REPORT Exam: Pharmacologic Patient Location: Out-Patient Room/Bed: Ordering Provider:ROS EASTON MD Contact Number: [phone] BMI: 24.37 Baseline Rhythm: Sinus Rhythm Comment: HX incomplete LBBB Indications: Afib, cardiomyopathy Medical History Medical History: Pulmonary hypertension, incomplete LBBB, hypothyroidism rheumaic mitral regurgitatio n, restrictive lung disease, osteopenia, hyperlipidemia, hypertension, CHF, AFib Cardiac Medications: Verapamil, sacubitril,l valsartan, parmipexole, pantoprazole, levothyroxine, fur osemide, atorvastatin, aspirin, apixaban, amiodarone Allergies: Heparin, dofetilide, lisinopril Cardiac Risk Factors: Hypertension, hyperlipidemia, family hx Previous Cardiac Procedures: Aortic valve and mitral valve replacement Pretest Chest Pain Characteristics: None Exercise History: Physically active Physical Disabilities: None Lung Sounds: Clear to auscultation Heart Sounds: Regular Stress Test Details Test: Pharmacologic stress was paired with low level exercise. Reason for pharmacologic stress test: changed from exercise stress test due to difficulty monitorin g EKG. Nuclear Acquisition: Rest Tc-99m/Stress Tc-99m 1 day Rest Isotope: Tc-99m Sestamibi. Dose: 10.0 Date: 02/28/2021 Injection Time: 0900 Stress Isotope: Tc-99m Sestamibi. Dose: 32.0 Date: 02/28/2021 Injection Time: 32.0 HR Resting HR Supine: 71 bpm Max Heart Rate (APMHR): 147.259152 bpm Resting HR Standin bpm Target HR (85% APMHR): 124.042316 bpm Max HR Achieved: 111 bpm % of APMHR: 75.51 Recovery HR: 83 bpm BP Resting BP Supine: 144/72 mmHg Resting BP Standin/72 mmHg Max BP: 148/72 mmHg Recovery BP: 148/72 mmHg ECG Resting ECG: Sinus Rhythm, LBBB Ectopy: Rare PAC Stress ECG: Sinus Tachycardia, LBBB ST Change: Nondiagnostic LBBB Arrhythmia: Rare PAC Recovery ECG: Sinus Rhythm, LBBB Recovery ST Change: Nondiagnostic LBBB Recovery Arrhythmia: None Clinical Stress Symptoms: Dyspnea Exercise capacity: 6.18 METs Rate Pressure Product: [id number] Stress ECG Conclusion 1. The resting electrocardiogram showed left bundle branch block 2. The patient underwent pharmacologic stress with regadenoson paired with low-level exercise 3. Peak heart rate achieved was 72% of predicted for age 4. Electrocardiographically the test was nondiagnostic due to resting ST-T abnormalities, LBBB, and i nadequate heart rate Stress Test Summary STAGE Time (mins) Speed (mph) Grade (%) HR BP SYMPTOMS METS Supine 71 144/72 Standing 80 148/72 SpO2 94% 1 3 1.7 10 106 140/70 Mild SOB, SpO2 88% 4.6 1 min post Lexiscan injection 102 144/68 SpO2 94% 3 min post Lexiscan injection 85 148/70 SOB resolved, SpO2 94% 6 min post Lexiscan injection 83 148/72 SpO2 95% Pt with hx SR w/ incomplete LBBB. Began with William protocol, transitioned from exercise stress test t o pharmacologic due to difficulty monitoring EKG. MPI Conclusion Normal myocardial perfusion without evidence of ischemia or prior infarction EF 39%, global hypokinesis Radiologist Interpretation Radiologist agrees with Movie Shot Camera Operator's Interpretation. Radiologist Interpretation by: Prachi Tirado MD Interpretation Date/Time: 02/28/2021 16:42:23
[2021-02-28] MEDS: Regadenoson 0.4 MG/5 ML SYR IVP (10:53)
== END 2021-02-28 01:15 ==
PROVIDERS: PCP Nurse Practitioner Family; Visit Provider Internal Medicine Interventional Cardiology
DX: I48.0 Paroxysmal atrial fibrillation (principal); I42.9 Cardiomyopathy, unspecified; I44.7 Left bundle-branch block, unspecified; I10 Essential (primary) hypertension; E78.5 Hyperlipidemia, unspecified; Z82.49 Family history of ischemic heart disease and other diseases of the circulatory system; R94.31 Abnormal electrocardiogram [ECG] [EKG]; R94.39 Abnormal result of other cardiovascular function study
CPT/HCPCS: 78452; 93016; 93018; 93017; J2785

== ENCOUNTER 2021-04-19 02:11 | Outpatient (CLI) | payer MEDICARE, OTHER, SELFPAY ==
[2021-04-19 09:53] LABS: Abs Immature Grans 0.04 10^3/uL (0.0-0.06); Absolute Basophil Count 0.05 10^3/uL (0.0-0.2); Absolute Eosinophil Count 0.01 10^3/uL (0.0-0.7); Absolute Lymphocyte Count 0.81 10^3/uL (1.2-3.4); Absolute Monocyte Count 0.38 10^3/uL (0.1-0.8); Absolute Neutrophil Count 8.38 10^3/uL (1.2-6.7); Basophils % 0.5; Eosinophils % 0.1; HCT 37.5 % (36.0-46.0); HGB 11.6 g/dL (11.2-15.7); Immature Grans % 0.4; Lymphocytes % 8.4; MCH 29.1 pg (27.0-33.0); MCHC 30.9 % (32.0-36.0); MPV 9.6 fL (8.0-11.0); Monocytes % 3.9; Neutrophils % 86.7; Nucleated RBC 0 %; Platelet Count 250 10^3/uL (130-400); RBC 3.99 10^6/uL (3.93-5.22); RDW 15.4 % (11.7-14.6); RDW-SD 54.1 fL; WBC 9.67 10^3/uL (4.4-10.8)
[2021-04-19 10:02] LABS: Hemoglobin A1C 5.9 % (<5.7)
[2021-04-19 11:30] LABS: Anion Gap 13.7 mmol/L (3-11); BUN 20 mg/dL (7-18); CO2 27.3 mmol/L (21.0-32.0); CREATININE 1.3 mg/dL (0.55-1.02); Calcium 8.9 mg/dL (8.5-10.1); Chloride 103 mmol/L (98-107); Estimated GFR 40.15 (mL/min/1.73m2); Glucose 117 mg/dL (74-106); Potassium 3.6 mmol/L (3.5-5.1); Sodium 144 mmol/L (136-145)
[2021-04-19 11:36] LABS: Iron 61 ug/dL (50-170); Total Iron Binding Capacity 292 ug/dL (250-450); Transferrin Sat 21 % (15-50)
[2021-04-19 12:00] LABS: Calculated LDL 67 mg/dL (<100); Cholesterol 147 mg/dL (<200); Ferritin 252 ng/mL (8-252); HDL Cholesterol 50 mg/dL (40-60); TSH (W/Ref FT4) 3.56 uIU/mL (0.36-3.74); Triglyceride 153 mg/dL (<150)
== END 2021-04-19 02:12 | disposition home or self-care (01) ==
LOC: LBO 02:11
PROVIDERS: Internal Medicine Interventional Cardiology; PCP Nurse Practitioner Family; Visit Provider Nurse Practitioner Family
DX: D50.9 Iron deficiency anemia, unspecified (principal); R73.01 Impaired fasting glucose; E78.5 Hyperlipidemia, unspecified; E03.9 Hypothyroidism, unspecified; I50.9 Heart failure, unspecified
CPT/HCPCS: 36415; 80048; 80061; 82728; 83036; 83540; 83550; 84443; 85025

== ENCOUNTER 2021-06-02 02:27 | Outpatient (CLI) | payer MEDICARE, OTHER, SELFPAY ==
--- NOTE | 2021-06-02 07:45 | DI.CT_ITS ---
Exam(s) CT CHEST HIGH RESOLUTION EXAM: CT CHEST HIGH RESOLUTION CLINICAL HISTORY: ? amiodarone pulmonary toxicity,Z79.899,DYSPNEA,REDUCED RV FUNCTION,LOWER. TECHNIQUE: Imaging protocol: Axial computed tomography images were obtained and coronal and sagittal reformatted images were created and reviewed. COMPARISON: No exams were available for comparison FINDINGS: Tracheobronchial tree: Patent where visualized. Pulmonary parenchyma: No consolidation or dominant measurable mass. No architectural distortion. Ther e are several noncalcified predominantly peripheral pulmonary nodules present. The largest is in the left lower lobe and measures 8.4 mm. There are calcified nodules seen in the lungs. Minimal interst itial thickening is seen in the lung bases. Mediastinum and Bailey: There are enlarged lymph nodes in the mediastinum. The largest is anterior to the rylan and measures 2.3 x 1.2 cm. The esophagus is unremarkable. Thyroid gland: Unremarkable. Pleura: No effusion or pneumothorax. Heart: Mild cardiomegaly. Coronary artery calcification is present. Mitral and aortic valve replace ments are present. No pericardial effusion. Aorta: Thoracic aorta non-dilated. Atherosclerosis. Upper abdomen: The liver is diffusely hyperdense. Cholelithiasis is present. Lymph nodes: No significant axillary adenopathy. Soft tissues: Unremarkable. Bones:Within normal limits for the patient's age. Sternal wires are in place. There is an old nonun ited left rib fracture. IMPRESSION: 1. Several predominantly peripheral focal areas of consolidation. Infectious or inflammatory nodule s hould be considered. Neoplasm cannot be excluded. Minimal interstitial thickening is seen in the tay g bases. 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 RADIATION DOSE DELIVERED: 404.64mGy.cm Total DLP 404.64mGy.cm Total DLP DATA REPOSITORY: All CT scans at this facility are submitted to the National Radiology Data Registry (NRDR) Dose Index Registry (DIR) with the [employer] ([employer]). RADIATION OPTIMIZATION: All CT scans at this facility use at least one of these dose optimization te chniques: automated exposure control; mA and/or kV adjustment per patient size (includes targeted exa ms where dose is matched to clinical indication); or iterative reconstruction.
== END 2021-06-02 02:47 ==
PROVIDERS: PCP Nurse Practitioner Family; Visit Provider Student in an Organized Health Care Education/Training Program
DX: Z79.899 Other long term (current) drug therapy (principal); R06.00 Dyspnea, unspecified; R91.8 Other nonspecific abnormal finding of lung field
CPT/HCPCS: 71250

== ENCOUNTER 2021-07-25 02:29 | Outpatient (CLI) | payer MEDICARE, OTHER, SELFPAY ==
--- NOTE | 2021-07-25 06:45 | DI.CT_ITS ---
Exam(s) CT CHEST WO EXAM: CT CHEST WO CLINICAL HISTORY: f/u nodules and LAD on last scan,r91.1. TECHNIQUE: Imaging protocol: Axial computed tomography images were obtained and coronal and sagittal reformatted images were created and reviewed. COMPARISON: CT CT CHEST HIGH RESOLUTION from 06/02/2021 FINDINGS: Tracheobronchial tree: Patent where visualized. Pulmonary parenchyma: There again seen calcified granulomas in the lungs. There has been a significa nt improvement in the nodular opacities in the lungs compared to 06/02/2021. They have decreased in s ize and number. The nodule in the left lower lobe has resolved. The largest nodule is in the right middle lobe and is unchanged measuring 0.6 cm. There is again seen mild interstitial disease. Mediastinum and Bailey: There are stable enlarged lymph nodes in the mediastinum. The esophagus is unr emarkable. Thyroid gland: Unremarkable. Pleura: No effusion or pneumothorax. Heart: Mild cardiomegaly. Coronary artery calcifications are present. No pericardial effusion. Mitr al and aortic valvular replacements are noted. Aorta: Thoracic aorta non-dilated. Atherosclerosis. Upper abdomen: Unremarkable. Lymph nodes: Within normal limits. Soft tissues: Unremarkable. Bones:Within normal limits for the patient's age. Old healed left rib fracture. Sternal wires are i n place. IMPRESSION: 1. Interval decrease in size and number of the pulmonary nodules since 06/02/2021. 2. Stable enlarged mediastinal lymph nodes. 3. Cardiomegaly, coronary artery calcifications and atherosclerosis. RADIATION DOSE DELIVERED: 380.49mGy.cm Total DLP 380.49mGy.cm Total DLP DATA REPOSITORY: All CT scans at this facility are submitted to the National Radiology Data Registry (NRDR) Dose Index Registry (DIR) with the [employer] ([employer]). RADIATION OPTIMIZATION: All CT scans at this facility use at least one of these dose optimization te chniques: automated exposure control; mA and/or kV adjustment per patient size (includes targeted exa ms where dose is matched to clinical indication); or iterative reconstruction.
== END 2021-07-25 02:49 ==
PROVIDERS: PCP Nurse Practitioner Family; Visit Provider Student in an Organized Health Care Education/Training Program
DX: R91.8 Other nonspecific abnormal finding of lung field (principal); R59.0 Localized enlarged lymph nodes; I51.7 Cardiomegaly; I25.10 Atherosclerotic heart disease of native coronary artery without angina pectoris
CPT/HCPCS: 71250

== ENCOUNTER 2021-08-30 09:34 | Inpatient (IN) | payer MEDICARE, OTHER, SELFPAY ==
[2021-08-30] VITALS (37 sets, daily range): BP systolic 110–147; BP diastolic 49–84; PULSE 61–83; RESP 12–26; TEMP 36.6–37.1; O2SAT 94–100
--- NOTE | 2021-08-30 09:30 | RT.EKG_ITS ---
APPROVED REPORT Exam: Resting ECG Reason for Exam: sob Patient Location: E HR:73 bpm ECG Measurements Heart Rate 73 AXIS PA 207 P 25 QRSd 112 QRS 51 QT 449 T 120 QTc 496 Conclusion Sinus rhythm...normal P axis, V-rate 60- 99 Incomplete left bundle branch block...QRSd>110mS, terminal axis(-90,-1). Sinus. Normal axis. Incomplete LBBB. No significant change from previous. No STEMI. I have reviewed and interpreted ECG and agree with software generated interpretation.
--- NOTE | 2021-08-30 09:45 | DI.RAD_ITS ---
Exam(s) XR PORTABLE CHEST AP EXAM: XR PORTABLE CHEST AP CLINICAL HISTORY: SOB TECHNIQUE: 2D digital imaging was performed. COMPARISON: CR,XR XR CHEST 2V PA LATERAL from 01/22/[address] CHEST WO from 07/25/2021 FINDINGS: LUNGS: Mildly increased interstitial markings, mild vascular prominence and peribronchial thickening, suspicious for mild CHF. No pleural abnormality seen. HEART: Enlarged. Status post mitral and aortic valve prostheses. Sternal wires. AORTA: Normal. BONES: Unremarkable for age. Soft tissues: Unremarkable. IMPRESSION: Cardiomegaly and mild CHF. DATA REPOSITORY: RADIATION DOSE DELIVERED:
[2021-08-30 09:54] LABS: Source Nasal/Nares
--- NOTE | 2021-08-30 09:56 | W.ED.GENAD ---
Discharge Plan Disposition Patient Disposition: STILL A PATIENT Condition: Serious Discharge Details Chief Complaint: SOB Clinical Impression: Non-ST elevation IN (NSTEMI), CHF (congestive heart failure) Primary Care Provider: Jessica Ochoa ED Provider: Dg Mcclellan Washburn Meds and New Rx's Prescriptions: No Action ascorbate calcium (vitamin C) 500 mg tablet 500 mg PO DAILY pramipexole 0.125 mg tablet 0.125 mg PO QHS PRN (Reason: restless legs) Qty: 90 0RF ferrous sulfate 325 mg (65 mg iron) tablet 325 mg PO DAILY Qty: 90 3RF Rx Instructions: Take with water or juice on an empty stomach cholecalciferol (vitamin D3) 1,000 UNIT capsule 1,000 unit PO DAILY amiodarone 200 mg tablet 200 mg PO DAILY Qty: 30 0RF atorvastatin 20 mg tablet 20 mg PO DAILY Qty: 90 3RF sertraline 25 mg tablet 25 mg PO DAILY Qty: 90 3RF pantoprazole 40 mg tablet,delayed release (DR/EC) 40 mg PO DAILY Qty: 90 3RF Rx Instructions: Take 40 mg daily once daily in the morning at least 30-60 minutes before first meal of the day Eliquis 5 mg tablet 5 mg PO BID Qty: 180 3RF furosemide [Lasix] 20 mg tablet 20 mg PO BID Qty: 180 3RF levothyroxine 25 mcg tablet 25 mcg PO DAILY Qty: 90 3RF Rx Instructions: Administer in the morning on an empty stomach, at least 30-60 minutes before food Entresto 24-26 mg tablet 1 tab PO BID Rx Instructions: [facility] Cardiology verapamil 40 mg tablet 40 mg PO TID Rx Instructions: [facility] Cardiology calcium carbonate [Calcium 500] 500 MG tablet 1,000 mg PO DAILY Medical Decision Making This is a 75-year-old female, past medical history of pulmonary hypertension, left bundle branch block, hypothyroidism, anemia, status post aortic and mitral valve replacement, hyperlipidemia, CHF, chronic renal disease, A. fib, on apixaban, presenting to the ER reporting ongoing shortness of breath that has been going on for approximately a 1 week which is worse with exertion. Patient states that she sees a street supervisor, Dr. Chiang in [facility]. She tells me that while she lives at home alone, her daughter typically helps her with her medical needs and will be out of town starting so she wanted to come to the ER while she had a ride to be sure that there is nothing else going on. She denies recent illness or trauma, sick exposure, chest pain or shortness of breath. No pain or swelling in her legs. Has been taking all of her medications as directed. Patient tells me that her street supervisor has set her up for an outpatient Holter monitor which has not been applied yet and she is getting a CPAP for bedtime tomorrow. Laboratory values reveal a white blood cell count of 8.37, hemoglobin 9.5, hematocrit 31.3, this anemia does not appear far from her baseline. INR 1.3 D-dimer 407, will not pursue CTA of the chest. Electrolytes unremarkable, creatinine 1.3 with a GFR of 40.15, this appears to be near baseline. Troponin of 100. BNP of 4126. We will provide 80 IV Lasix and full dose p.o. aspirin. COVID-negative. Chest x-ray mild chf with cardiomegaly. EKG faxed to [facility] and requested a transfer-consultation. I was told they had no beds available and were not putting any list out but we could call back tomorrow regarding transfer, they were happy to consult. I then spoke with [facility] and was told unless the patient was critical, on pressors or intubated they did not have the capacity to transfer either I discussed the at 1122 with a TAVIA Luna from [facility]. She felt as though medical management with heparin drip, echo, serial troponins were reasonable at our facility and then we could revisit the situation tomorrow regarding transfer and potential urgent catheterization. Patient denies any chest pain whatsoever, only reports dyspnea with exertion I reviewed the patient's allergies it appears as though she has a severe allergy to heparin, heparin was held. Case discussed with our hospitalist team, Dr. Mcghee. He is agreeable to admission, I will write bridging orders to admit to the ICU. Will obtain repeat troponin now rather than at the 3-hour alf and we will not pursue heparin drip Plan discussed with patient and family. Patient is asymptomatic at this time This documentation was generated using QuickProNotesation system, please disregard any oddities of phrase or misspellings. Medical Records Medical records reviewed: Yes I reviewed the patient's medical records. Imaging Data Radiologic Study: Attestation: I personally reviewed and interpreted this imaging study as follows: Imaging: X-Ray Radiologist's impression: EXAM: XR PORTABLE CHEST AP CLINICAL HISTORY: SOB TECHNIQUE: 2D digital imaging was performed. COMPARISON: CR,XR XR CHEST 2V PA LATERAL from 01/22/[address] CHEST WO from 07/25/2021 FINDINGS: LUNGS: Mildly increased interstitial markings, mild vascular prominence and peribronchial thickening, suspicious for mild CHF. No pleural abnormality seen. HEART: Enlarged. Status post mitral and aortic valve prostheses. Sternal wires. AORTA: Normal. BONES: Unremarkable for age. Soft tissues: Unremarkable. IMPRESSION: Cardiomegaly and mild CHF. Lab Data Lab results reviewed: Yes I reviewed the patient's lab results. Labs: Laboratory Tests Range/Units 08/30/21 08/30/21 08/30/21 09:46 10:00 10:00 WBC (4.4-10.8) 10^3/uL 8.37 RBC (3.93-5.22) 10^6/uL 3.27 L Hgb (11.2-15.7) g/dL 9.5 L Hct (36.0-46.0) % 31.3 L MCV (80-95) fL 96 H MCH (27.0-33.0) pg 29.1 MCHC (32.0-36.0) % 30.4 L RDW (11.7-14.6) % 13.9 Plt Count (130-400) 10^3/uL 202 MPV (8.0-11.0) fL 9.6 Immature Gran % 0.5 Neutrophils % 84.7 Lymphocytes % 9.0 Monocytes % 5.1 Eosinophils % 0.2 Basophils % 0.5 Nucleated RBC % (0.0-0.3) % 0.0 Absolute Neutrophils (1.2-6.7) 10^3/uL 7.09 H Absolute Lymphocytes (1.2-3.4) 10^3/uL 0.75 L Absolute Monocytes (0.1-0.8) 10^3/uL 0.43 Absolute Eosinophils (0.0-0.7) 10^3/uL 0.02 Absolute Basophils (0.0-0.2) 10^3/uL 0.04 PT (9.3-11.0) sec INR (0.9-1.1) APTT (21.0-27.5) sec D-Dimer (<500) ng/mlFEU Sodium (136-145) mmol/L 141 Potassium (3.5-5.1) mmol/L 3.9 Chloride (98-107) mmol/L 104 Carbon Dioxide (21.0-32.0) mmol/L 26.9 Anion Gap (3-11) mmol/L 10.1 BUN (7-18) mg/dL 24 H Creatinine (0.55-1.02) mg/dL 1.3 H Estimated GFR/1.73 m2 (mL/min/1.73m2) 40.15 Glucose (74-106) mg/dL 100 Calcium (8.5-10.1) mg/dL 8.4 L Magnesium (1.8-2.4) mg/dL 2.2 Total Bilirubin (0.2-1.0) mg/dL 0.4 AST (15-37) U/L 27 ALT (14-59) U/L 34 Alkaline Phosphatase (46-116) U/L 76 Troponin I (<or=60) ng/L 100 H* NT-Pro-B Natriuret Pep (<300) pg/mL 4126 H Total Protein (6.4-8.2) g/dL 7.4 Albumin (3.4-5.0) g/dL 3.8 COVID-19 Source Nasal/Nares SARS-CoV-2 (PCR) (Negative) Negative Range/Units 08/30/21 08/30/21 10:00 11:53 WBC (4.4-10.8) 10^3/uL RBC (3.93-5.22) 10^6/uL Hgb (11.2-15.7) g/dL Hct (36.0-46.0) % MCV (80-95) fL MCH (27.0-33.0) pg MCHC (32.0-36.0) % RDW (11.7-14.6) % Plt Count (130-400) 10^3/uL MPV (8.0-11.0) fL Immature Gran % Neutrophils % Lymphocytes % Monocytes % Eosinophils % Basophils % Nucleated RBC % (0.0-0.3) % Absolute Neutrophils (1.2-6.7) 10^3/uL Absolute Lymphocytes (1.2-3.4) 10^3/uL Absolute Monocytes (0.1-0.8) 10^3/uL Absolute Eosinophils (0.0-0.7) 10^3/uL Absolute Basophils (0.0-0.2) 10^3/uL PT (9.3-11.0) sec 12.5 H INR (0.9-1.1) 1.3 H APTT (21.0-27.5) sec 26.7 D-Dimer (<500) ng/mlFEU 407 Sodium (136-145) mmol/L Potassium (3.5-5.1) mmol/L Chloride (98-107) mmol/L Carbon Dioxide (21.0-32.0) mmol/L Anion Gap (3-11) mmol/L BUN (7-18) mg/dL Creatinine (0.55-1.02) mg/dL Estimated GFR/1.73 m2 (mL/min/1.73m2) Glucose (74-106) mg/dL Calcium (8.5-10.1) mg/dL Magnesium (1.8-2.4) mg/dL Total Bilirubin (0.2-1.0) mg/dL AST (15-37) U/L ALT (14-59) U/L Alkaline Phosphatase (46-116) U/L Troponin I (<or=60) ng/L 96 H* NT-Pro-B Natriuret Pep (<300) pg/mL Total Protein (6.4-8.2) g/dL Albumin (3.4-5.0) g/dL COVID-19 Source SARS-CoV-2 (PCR) (Negative) ECG Data Attestation: I personally reviewed and interpreted this ECG (s) as follows: Interpretation: Please see official read by Dr. Cedeno. Sinus rhythm, ventricular rate of 73. Incomplete left bundle branch HPI General Mode of arrival: ambulatory. Date/Time Provider Initiated Documentation: 08/30/21 09:44. Limitations to Documentation: no limitations. Information obtained by: patient. History of Present Illness 75 year old F presents to the emergency department with the chief complaint of SOB, described as mild, with intensity rated at 3. Quality is described as other (SOB, no pain), and is localized to the chest. Patient reports no radiation. Patient started experiencing this week(s) (1) and it has been constant. No relieving factors improve symptom(s), Other factors that worsen symptoms (Physical activity) . Patient notes no other symptoms.. Patient did receive the following treatments prior to arrival, none Related Data Home Medications Medication Instructions Recorded Confirmed calcium carbonate 500 mg calcium 1,000 mg PO DAILY 08/28/17 08/30/21 (1,250 mg) tablet (Calcium 500) cholecalciferol (vitamin D3) 25 1,000 unit PO DAILY 08/28/17 08/30/21 mcg (1,000 unit) capsule ascorbate calcium (vitamin C) 500 500 mg PO DAILY 07/31/19 08/30/21 mg tablet amiodarone 200 mg tablet 200 mg PO DAILY #30 tabs 04/23/20 08/30/21 apixaban 5 mg tablet (Eliquis) 5 mg PO BID #180 tab-caps 09/07/20 08/30/21 atorvastatin 20 mg tablet 20 mg PO DAILY #90 tab-caps 09/07/20 08/30/21 pantoprazole 40 mg tablet,delayed 40 mg PO DAILY #90 tab-caps 09/07/20 08/30/21 release sertraline 25 mg tablet 25 mg PO DAILY #90 tab-caps 09/07/20 08/30/21 furosemide 20 mg tablet (Lasix) 20 mg PO BID #180 tab-caps 09/15/20 08/30/21 levothyroxine 25 mcg tablet 25 mcg PO DAILY #90 tab-caps 12/06/20 08/30/21 pramipexole 0.125 mg tablet 0.125 mg PO QHS PRN restless legs 01/13/21 08/30/21 #90 tabs sacubitril 24 mg-valsartan 26 mg 1 tab PO BID 02/18/21 08/30/21 tablet (Entresto) verapamil 40 mg tablet 40 mg PO TID 02/21/21 08/30/21 ferrous sulfate 325 mg (65 mg 325 mg PO DAILY #90 tab-caps 04/21/21 08/30/21 iron) tablet Previous Rx's Medication Instructions Recorded amiodarone 200 mg tablet 200 mg PO DAILY #30 tabs 04/23/20 apixaban 5 mg tablet (Eliquis) 5 mg PO BID #180 tab-caps 09/07/20 atorvastatin 20 mg tablet 20 mg PO DAILY #90 tab-caps 09/07/20 pantoprazole 40 mg tablet,delayed 40 mg PO DAILY #90 tab-caps 09/07/20 release sertraline 25 mg tablet 25 mg PO DAILY #90 tab-caps 09/07/20 furosemide 20 mg tablet (Lasix) 20 mg PO BID #180 tab-caps 09/15/20 levothyroxine 25 mcg tablet 25 mcg PO DAILY #90 tab-caps 12/06/20 pramipexole 0.125 mg tablet 0.125 mg PO QHS PRN restless legs 01/13/21 #90 tabs ferrous sulfate 325 mg (65 mg 325 mg PO DAILY #90 tab-caps 04/21/21 iron) tablet Allergies Allergy/AdvReac Type Severity Reaction Status Date / Time heparin Allergy Severe thrombocytopenia, Verified 08/30/21 09:44 anaphylaxis dofetilide AdvReac Severe Prolonged Verified 08/30/21 09:44 QTc lisinopril AdvReac Cough Verified 08/30/21 09:44 General Stated Complaint: SOB MARIS: 3 Review of Systems Constitutional Constitutional: Denies fatigue, Denies fever(s), Denies headache(s) and Denies weakness ENT Ears, Nose, Mouth, and Throat: Denies headache(s) and Denies neck pain Cardiovascular Cardiovascular: Denies chest pain, Reports dyspnea, Reports dyspnea on exertion and Denies orthopnea Respiratory Respiratory: Denies cough, Reports dyspnea and Reports dyspnea on exertion Gastrointestinal Gastrointestinal: Denies abdominal pain, Denies nausea and Denies vomiting Genitourinary Genitourinary: Denies dysuria Musculoskeletal Musculoskeletal: Denies back pain, Denies neck pain, Denies numbness, Denies stiffness and Denies tingling Integumentary/Breasts Skin/Breast: Denies rash Neurologic Neurologic: Denies headache(s), Denies numbness, Denies tingling and Denies weakness Endocrine Endocrine: Denies fatigue Hematologic/Lymphatic Hematologic/Lymphatic: Reports easy bleeding and Reports easy bruising PFSH All Active Problems (Updated 08/30/21 @ 13:23 by TAVIA Macias) Non-ST elevation IN (NSTEMI) (Acute) CHF (congestive heart failure) (Chronic) Mediastinal lymphadenopathy (Acute) Pulmonary nodule (Acute) Mild obstructive sleep apnea (Chronic 05/12/20) severe in REM sleep, significan nocturnal hypoxemia, sleep fragmentation and increased airway resistance flow pattern. On amiodarone therapy (Acute) Restless legs (Chronic 10/29/20) Pulmonary hypertension (Acute) Chest pain (Acute) Left bundle branch block (LBBB) (Acute) Hypothyroidism (Chronic) 2/2 amiodarone Iron deficiency anemia (Chronic) 05/20/2020 EGD & 07/06/2020 colonoscopy ([facility]): no source for iron deficiency; recommend following studies & consider small bowel capsule study if anemia worsens Vulvar atrophy (Chronic 01/13/16) S/P aortic valve and mitral valve replacement (Chronic 08/04/14) Bovine prosthetic valves, plus MAZE, [facility] Osteopenia (Chronic 06/14/17) 06/14/17 DEXA: femoral neck T-score -1.1 WHO FRAX score: 10-year major osteoporotic fx risk of 8.9% and hip fx risk of 0.9% --> tx with Ca/vitamin D manager terminal current use of anticoagulant therapy (Chronic 08/15/14) [facility] for afib 08/2017: Switched from Warfarin to apixaban by cardiology (Dr. 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 Chiang) following hospitalization for GI bleed (no afib during cardiac monitoring during hospitalization) Medical History Aortic regurgitation a. moderate by echo 12/2011 S/p repair Duodenal ulcer (09/05/17) Hospitalization 08/2017 for acute GI bleed Mitral regurgitation Rheumatic; s/p repair Rheumatic heart disease Tobacco use disorder Tubular adenoma of colon (08/30/17) Surgical History Biopsy of breast (~2008) Left breast [facility] Colonoscopy - MAC (08/28/17) EGD - MAC (08/28/17) History of section (~1976) History of toe surgery (~2003) Removal of bone chip Radiofrequency Maze Procedure (08/04/14) done at [facility] [place] Replacement of aortic valve (08/04/14) AV and MV both replaced with tissue valves at [facility] [place] S/P aortic valve and mitral valve replacement (~07/2014) [facility]. Severe AR & MR, bovine prosthesis. Family History Mother , Age 87, peritonitis Diabetes Essential hypertension Breast cancer Father , Age 45, colon cancer Colon cancer Sister Heart disease [place] at age 49 Brother Diabetes Colon cancer Brother No problems noted. Brother Heart disease CABG Other Family history of colon cancer Social History Smoking/Tobacco Use Status: Former Tobacco Use tobacco type: cigarettes Quit Date: 03/12/94 Smoking risk assessment performed?: Yes Alcohol Intake: former Drug use: Never Substance use type: does not use Counseling given: No Counseling provided: none Adopted: No Caregiver/Support person: No Foster care: No Household members: none Housing: house Number of Children: 1 number of grandchildren: 2 Communication Needs: None Education Level: high school Do you need help understanding health information?: Rarely current occupation: Retired Pets and animals: No Current gender identity: female What is your relationship status?: Panel score (0-1 are the most socially isolated patients): 0 What type of physical activity do you participate in: walking Duration: 60-90 minutes/day Frequency: daily Seatbelt use: always Helmet use: No Drive intox or ride w/intox racecar driver: No Water heater temp set <120 deg: Yes Working smoke detector in home: No Fire extinguisher in home: No Carbon monox detector in home: No Firearms in home: No Do you feel safe at home: Yes Do you feel safe in your relationship?: Yes Exam Const General: cooperative, healthy appearing, comfortable and no acute distress Orientation: alert and awake [facility] Head: normal to inspection, normocephalic and atraumatic Face and sinus: normal facial exam Mouth: moist mucous membranes Throat: posterior oropharynx normal Eyes General: appearance normal, both eyes and all related structures Conjunctivae: conjunctivae normal Neck Neck: normal visual inspection, full ROM, trachea midline and supple Resp Effort & Inspection: normal respiratory effort and able to speak in complete sentences Auscultation: clear to auscultation bilaterally Cardio Rate: regular rate Rhythm: regular rhythm GI Palpation: soft, not firm, no guarding, no pulsatile masses and nontender Back/Spine/Pelvis Back: No back tenderness Skin General skin exam: no rashes or lesions noted Neuro General: patient alert, patient awake, moves all extremities and no focal motor deficits Cognition: normal cognition Speech: speech normal Gait: normal gait Motor: muscle tone normal throughout Sensory Exam: no sensory deficits noted Extrem General: normal to inspection, full ROM, capillary refill normal, no pedal edema and no calf tenderness Psych Appearance: grossly normal Mental Status: mental status grossly normal Course Vital Signs Vital signs: Vital Signs Temperature 36.6 C 08/30/21 09:39 Pulse 81 08/30/21 09:39 Respiratory Rate 20 08/30/21 09:39 Blood Pressure 147/67 H 08/30/21 09:39 Pulse Oximetry 100 08/30/21 09:39 Temperature 36.6 C 08/30/21 09:39 Temperature Source Temporal Artery Scan 08/30/21 09:39 Pulse 81 08/30/21 09:39 Respiratory Rate 20 08/30/21 09:43 Respiratory Effort 08/30/21 09:43 Respiratory Depth Normal 08/30/21 09:43 Respiratory Pattern Normal 08/30/21 09:43 Blood Pressure 147/67 H 08/30/21 09:39 Blood Pressure Position Sitting 08/30/21 09:39 Pulse Oximetry 100 08/30/21 09:39 Oxygen Delivery Method Room Air 08/30/21 09:39 Oxygen Flow Rate 0 08/30/21 09:39 Pain Level 0 08/30/21 09:39 Lab/Test Results Lab/Test Results: Laboratory Tests Range/Units 08/30/21 09:46 COVID-19 Source Nasal/Nares Critical Care Time Critical Care Time Critical Care Time: Yes Total Critical Care Time: 45 Attestation: Upon my evaluation, this patient had a high probability of clinically significant, life-threatening deterioration due to their current medical conditions, which required my direct attention, intervention, and personal management. I have personally provided greater than 30 minutes of critical care time exclusive of the time spend on separately billable procedures. Time includes obtaining a history, examining the patient, pulse oximetry, review of laboratory data, radiology results, discussion with consultants, arranging urgent treatment with development of a management plan, evaluation of patient's response to treatment, and monitoring for potential decompensation. Interventions were performed as documented above.
[2021-08-30 10:05] LABS: Abs Immature Grans 0.04 10^3/uL (0.0-0.06); Absolute Basophil Count 0.04 10^3/uL (0.0-0.2); Absolute Eosinophil Count 0.02 10^3/uL (0.0-0.7); Absolute Lymphocyte Count 0.75 10^3/uL (1.2-3.4); Absolute Monocyte Count 0.43 10^3/uL (0.1-0.8); Absolute Neutrophil Count 7.09 10^3/uL (1.2-6.7); Basophils % 0.5; Eosinophils % 0.2; HCT 31.3 % (36.0-46.0); HGB 9.5 g/dL (11.2-15.7); Immature Grans % 0.5; MCH 29.1 pg (27.0-33.0); MCHC 30.4 % (32.0-36.0); MCV 96 fL (80-95); MPV 9.6 fL (8.0-11.0); Monocytes % 5.1; Neutrophils % 84.7; Platelet Count 202 10^3/uL (130-400); RBC 3.27 10^6/uL (3.93-5.22); RDW 13.9 % (11.7-14.6); RDW-SD 48.8 fL; WBC 8.37 10^3/uL (4.4-10.8)
[2021-08-30 10:19] LABS: INR 1.3 (0.9-1.1); PTT Activated 26.7 sec (21.0-27.5); Prothrombin Time 12.5 sec (9.3-11.0)
[2021-08-30 10:46] LABS: ALT 34 U/L (14-59); AST 27 U/L (15-37); Albumin 3.8 g/dL (3.4-5.0); Alkaline Phosphatase 76 U/L (46-116); Anion Gap 10.1 mmol/L (3-11); BUN 24 mg/dL (7-18); Bilirubin, Total 0.4 mg/dL (0.2-1.0); CO2 26.9 mmol/L (21.0-32.0); CREATININE 1.3 mg/dL (0.55-1.02); Calcium 8.4 mg/dL (8.5-10.1); Chloride 104 mmol/L (98-107); D-Dimer 407 ng/mlFEU (<500); Estimated GFR 40.15 (mL/min/1.73m2); Glucose 100 mg/dL (74-106); Magnesium 2.2 mg/dL (1.8-2.4); NT-proBNP 4126 pg/mL (<300); Potassium 3.9 mmol/L (3.5-5.1); Sodium 141 mmol/L (136-145); Total Protein 7.4 g/dL (6.4-8.2)
[2021-08-30 10:46] LABS: COVID-19 PCR Negative (Negative)
[2021-08-30 10:50] LABS: Troponin I 100 ng/L (<or=60)
[2021-08-30] MEDS: Aspirin 81 MG CHEW 324 MG CH (10:57)
[2021-08-30] MEDS: Furosemide 100 MG/10 ML VIAL 80 MG IVP ×2 (11:22→17:50)
[2021-08-30 12:27] LABS: Troponin I 96 ng/L (<or=60)
--- NOTE | 2021-08-30 12:52 | PDOC.ERCMIN ---
- If Service Date Differs Date of service: 08/30/21 Time of Service: 12:52 Care Management Initial Assess REASON FOR HOSPITALIZATION:: NSTEMI, CHF PAST MEDICAL HISTORY/PAST SURGICAL HISTORY:: All Active Problems: Mediastinal lymphadenopathy (Acute), Pulmonary nodule (Acute), Mild obstructive sleep apnea (Chronic 05/12/20) - severe in REM sleep, significan nocturnal hypoxemia, sleep fragmentation and increased airway resistance flow pattern., On amiodarone therapy (Acute),. Restless legs (Chronic 10/29/20), Pulmonary hypertension (Acute), Chest pain (Acute), Left bundle branch block (LBBB) (Acute), Hypothyroidism (Chronic) - 2/2 amiodarone, Iron deficiency anemia (Chronic) - 05/20/2020 EGD & 07/06/2020 [place] no source for iron deficiency; recommend following studies & consider small bowel capsule study if anemia worsens, Vulvar atrophy (Chronic 01/13/16), S/P aortic valve and mitral valve replacement (Chronic 08/04/14) - Bovine prosthetic valves, plus MAZE, [facility], Osteopenia (Chronic 06/14/17) - 06/14/17 DEXA: femoral neck T-score -1.1, WHO FRAX score: 10-year major osteoporotic fx risk of 8.9% and hip fx risk of 0.9% --> tx with Ca/vitamin D, group home current use of anticoagulant therapy (Chronic 08/15/14) - [facility] for afib 08/2017: Switched from Warfarin to apixaban by cardiology (Dr. Chiang) following hospitalization for GI bleed, Insomnia, unspecified (Chronic 06/01/11), IFG (impaired fasting glucose) (Chronic 08/21/15), Hyperlipidemia (Chronic 05/12/13) - LDL 144 2012; Risk calculated 13.3% soft CV risk; CV risk 06/2014: 11.6%, Essential hypertension (Chronic),. 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 Chiang) following hospitalization for GI bleed (no afib during cardiac monitoring during hospitalization). Medical History: Aortic regurgitation - a. moderate by echo 12/2011,. S/p repair, Duodenal ulcer (09/05/17) - Hospitalization 08/2017 for acute GI bleed, Mitral regurgitation - Rheumatic; s/p repair, Rheumatic heart disease, Tobacco use disorder, and Tubular adenoma of colon (08/30/17). Surgical History: Biopsy of breast (~2008) - [place] breast [facility] Colonoscopy - MAC (08/28/17), EGD - MAC (08/28/17), History of section (~1976), History of toe surgery (~2003) - Removal of bone chip,. Radiofrequency Maze Procedure (08/04/14) - done at [facility], Replacement of aortic valve (08/04/14) - AV and MV both replaced with tissue valves at [facility], and S/P aortic valve and mitral valve replacement (~07/2014) -. [facility]. Severe AR & MR, bovine prosthesis. PREVIOUS FUNCTIONAL STATUS/SOCIAL/FAMILY SUPPORTS:: Maira lives alone in [facility]. Her sister, Iris, and only child, Lawanda, live locally and are supportive. 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 Maira now occupies her time by going to her grandchildren's events, walking on her treadwill, watching television, and reading. Maira drives and is independent with her ADLs at baseline. CURRENT FUNCTIONAL STATUS:: Maira is lying in bed when CM comes to meet [facility] her. Her daughter, Lawanda, is present in the room. Maira is pleasant and easily engages in conversation. She shares that one of her grandchildren is in college and the other one just graduated 8th grade. ADVANCE DIRECTIVES:: On file; daughter Lawanda Ortiz is appointed as Health Care Agent. Has patient been provided with info about the portal/API?: Yes Did the patient sign up for the portal?: Yes (Previously enrolled.) CODE STATUS:: Full Code INSURANCE COVERAGE / FINANCIAL ISSUES:: [place] and Medicare. CURRENT HOME/COMMUNITY SERVICES/EQUIPMENT:: No current home/community services. Maira owns a cane but doesn't use it. She also has an EKG cardio machine and blood pressure monitor. PRIMARY CARE PHYSICIAN:: Jessica Ochoa NP ([facility]). POTENTIAL DISCHARGE NEEDS:: Follow up appointments with PCP, social media job titles, and pulmonology and outpatient Holter monitor. PATIENT/FAMILY EDUCATION NEEDS:: Review of discharge instructions including medications and limitations; discuss Ask Me Three and self management. ANTICIPATED BARRIERS TO DISCHARGE:: None anticipated at this time. TRANSPORTATION:: Via private vehicle with family. PLAN:: Maira will likely discharge home with no new services when medically cleared by provider. She will follow up with her PCP, cardiology, pulmonology, and plan of care as prescribed. She will be transported home via private vehicle by either her sister or daughter when ready. CM will continue to follow.
--- NOTE | 2021-08-30 16:00 | W.PM.HP.N ---
Date of service: 08/30/21 Time of Service: 16:00 Assessment and Plan Assessment and plan (1) CHF (congestive heart failure): Status: Chronic Assessment and plan: This appears to be an acute exacerbation of her chronic heart failure. She has a known cardiomyopathy. Last echocardiogram was from 05/18/2021 and demonstrated global systolic dysfunction with an ejection fraction of 30 to 35% with global hypokinesia and severe hypokinesis of the anteroseptum. She has diastolic dysfunction with elevated left-sided filling pressures. Global peak systolic strain is -8.7%. RV was normal in size and function was mildly reduced with mild global hypokinesis of the RV. She had mildly dilated left atrium normal right atrial size. Bioprosthetic aortic valve showed normal function with a peak velocity of 3.4 m/s and a mean gradient of 26 mm with mild aortic insufficiency. Her bioprosthetic mitral valve replacement and normal function as well. She has mild tricuspid regurgitation with a PAP of 30 to 40 mm. Is unclear as to what caused her acute decompensation over the last 3 days. She denies any dietary indiscretions and has had no recent change in her medications and reportedly is taking her medications faithfully. She has had a mild increase in her troponin levels but not at a threshold that I would expect for ACS. We will continue to give her IV diuretics continue her current goal directed therapy with Entresto and add spironolactone. Unclear as to why she is not on beta-sanjay but I will try to have a discussion with Dr. Chiang tomorrow perhaps beta-blockers were unable to control her atrial fibrillation rate thus necessitating verapamil. (2) Elevated troponin I level: Status: Acute Assessment and plan: I suspect her elevated troponin levels were secondary to stress-induced ischemia from CHF. Will obtain echocardiogram in the morning to evaluate LV function wall motion abnormalities and also to look at her valvular function. (3) Iron deficiency anemia: Status: Chronic Assessment and plan: patient has had prior EGD (05/20/20) and c-scope (07/06/20) [place] [facility] [place] no source of her anemia. It has been recommended to her to have a capsule endoscopy. Given that her anemia has worsened, I think this is contributing to her acute CHF. She has had no visible hematochezia but has regular dark black stools since she has been on oral iron. Qualifiers: Iron deficiency anemia type: unspecified iron deficiency Qualified Code(s): D50.9 - Iron deficiency anemia, unspecified (4) S/P aortic valve and mitral valve replacement: Status: Chronic Assessment and plan: check echo in the a.m. (5) Atrial fibrillation: Status: Chronic Assessment and plan: currently in sinus rhythm; continue amiodarone, verapamil and apixaban Qualifiers: Atrial fibrillation type: unspecified Qualified Code(s): I48.91 - Unspecified atrial fibrillation (6) Essential hypertension: Status: Chronic Assessment and plan: controlled w/ above meds for CHF and afib (7) Mild obstructive sleep apnea: Status: Chronic Assessment and plan: I will ask RT to apply CPAP (8) Hyperlipidemia: Status: Chronic Assessment and plan: cont. atorvastatin; last lipid profile done 04/19/21 and LDL was 67, HDL 50, TG 153 Qualifiers: Hyperlipidemia type: unspecified Qualified Code(s): E78.5 - Hyperlipidemia, unspecified (9) Hypothyroidism: Status: Chronic Assessment and plan: last TSH was normal in April. continue current dose Qualifiers: Hypothyroidism type: due to medication Qualified Code(s): E03.2 - Hypothyroidism due to medicaments and other exogenous substances (10) Restless legs: Status: Chronic Assessment and plan: continue Mirapex (11) Pulmonary nodule: Status: Acute Assessment and plan: patient is followed by Dr. Delgado. Patient states that she referred her to [facility] [place] see about a biopsy under [facility]. See Dr. Delgado's office note from 06/13/21. Patient has had decreased DLCO and borderline TLC and there was concern for amiodarone toxicity which can mimick pulmonary nodules similar to metasatic lesions (also the patient has lymphadenopathy which would not be caused by amiodarone). This was the reason for referral to [facility] given her cardiac co-morbidities. History of Present Illness History of Present Illness Chief Complaint: dyspnea Narrative: 75 yr old female w/ PMH of RHD s/p AVR, MVR, afib s/p MAZE procedure (2015 @ [facility], [place], [place]), followed by opto mechanical engineer, Dr. Erik Chiang who had her scheduled for follow up laboratory monitor. She is chronically anticoagulated on apixaban and maintained on amiodarone for rhythm control. She presents to the ED w/ 3 days of dyspnea on exertion w/out chest pain. No associated palpitations, syncope, fever, chills or cough. She has DEONNA but has not gotten her CPAP yet (was scheduled to get tomorrow). She has chronic iron deficiency anemia and takes oral iron w/ dark stools but denies any hematochezia or hematemsis. Work-up in the emergency department included EKG, chest x-ray, routine labs including CBC, CMP, troponin I level, proBNP. EKG demonstrated sinus rhythm with incomplete left bundle branch block with no evidence for STEMI. Labs were significant for normocytic normochromic anemia with hemoglobin 9.5 g which is a decrease from her last CBC in April 2021 when her hemoglobin was 11.6. proBNP of 4100, troponin I level was elevated at 100 ng/L but serial troponin levels have plateaued. Follow-up levels were 96 and 102. CMP was remarkable for mild prerenal azotemia with a BUN 24 creatinine 1.3 normal LFTs. Chest x-ray was remarkable for cardiomegaly and mild vascular prominence and peribronchial thickening suspicious for mild CHF. No pleural abnormality seen no infiltrates were seen. Patient was treated in the emergency department with Lasix 80 mg IV push and she is now admitted to the ICU as an ACS rule out and treatment of acute congestive heart failure. Review of Systems Constitutional Constitutional: Reports as per HPI ENT Ears, Nose, Mouth, and Throat: Reports system reviewed and no additional complaints, except as documented and Reports other (Wears dentures) Cardiovascular Cardiovascular: Reports system reviewed and no additional complaints, except as documented Respiratory Respiratory: Reports as per HPI Gastrointestinal Gastrointestinal: Denies abdominal pain, Reports melena (not tarry but stools are black from iron), Denies hematochezia, Denies coffee ground emesis and Denies diarrhea Genitourinary Genitourinary: Reports system reviewed and no additional complaints, except as documented Musculoskeletal Musculoskeletal: Reports system reviewed and no additional complaints, except as documented Integumentary/Breasts Skin/Breast: Reports system reviewed and no additional complaints, except as documented Neurologic Neurologic: Reports system reviewed and no additional complaints, except as documented Endocrine Endocrine: Reports system reviewed and no additional complaints, except as documented Hematologic/Lymphatic Hematologic/Lymphatic: Reports system reviewed and no additional complaints, except as documented Allergic/Immunologic Allergic/Immunologic: Reports system reviewed and no additional complaints, except as documented PFSH All Active Problems (Updated 08/30/21 @ 17:45 by Dg Mcghee MD) Elevated troponin I level (Acute) Non-ST elevation [place] (NSTEMI) (Acute) CHF (congestive heart failure) (Chronic) Mediastinal lymphadenopathy (Acute) Pulmonary nodule (Acute) Mild obstructive sleep apnea (Chronic 05/12/20) severe in REM sleep, significan nocturnal hypoxemia, sleep fragmentation and increased airway resistance flow pattern. On amiodarone therapy (Acute) Restless legs (Chronic 10/29/20) Pulmonary hypertension (Acute) Chest pain (Acute) Left bundle branch block (LBBB) (Acute) Hypothyroidism (Chronic) 2/2 amiodarone Iron deficiency anemia (Chronic) 05/20/2020 EGD & 07/06/2020 [place] no source for iron deficiency; recommend following studies & consider small bowel capsule study if anemia worsens Vulvar atrophy (Chronic 01/13/16) S/P aortic valve and mitral valve replacement (Chronic 08/04/14) Bovine prosthetic valves, plus MAZE, [facility] Osteopenia (Chronic 06/14/17) 06/14/17 DEXA: femoral neck T-score -1.1 WHO FRAX score: 10-year major osteoporotic fx risk of 8.9% and hip fx risk of 0.9% --> 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 Chiang) following hospitalization for GI bleed (no afib during cardiac monitoring during hospitalization) Medical History Aortic regurgitation a. moderate by echo 12/2011 S/p repair Duodenal ulcer (09/05/17) Hospitalization 08/2017 for acute GI bleed Mitral regurgitation Rheumatic; s/p repair Rheumatic heart disease Tobacco use disorder Tubular adenoma of colon (08/30/17) Surgical History Biopsy of breast (~2008) [place] [facility] Colonoscopy - MAC (08/28/17) EGD - MAC (08/28/17) History of section (~1976) History of toe surgery (~2003) Removal of bone chip Radiofrequency Maze Procedure (08/04/14) done at [facility] Replacement of aortic valve (08/04/14) AV and MV both replaced with tissue valves at [facility] S/P aortic valve and mitral valve replacement (~07/2014) [facility]. Severe AR & MR, bovine prosthesis. Family History Mother , Age 87, peritonitis Diabetes Essential hypertension Breast cancer Father , Age 45, colon cancer Colon cancer Sister Heart disease [place] at age 49 Brother Diabetes Colon cancer Brother No problems noted. Brother Heart disease CABG Other Family history of colon cancer Social History Smoking/Tobacco Use Status: Former Tobacco Use tobacco type: cigarettes Quit Date: 03/12/94 Smoking risk assessment performed?: Yes Alcohol Intake: former Drug use: Never Substance use type: does not use Counseling given: No Counseling provided: none Adopted: No Caregiver/Support person: No Foster care: No Household members: none Housing: house Number of Children: 1 number of grandchildren: 2 Communication Needs: None Education Level: high school Do you need help understanding health information?: Rarely current occupation: Retired Pets and animals: No Current gender identity: female What is your relationship status?: Panel score (0-1 are the most socially isolated patients): 0 What type of physical activity do you participate in: walking Duration: 60-90 minutes/day Frequency: daily Seatbelt use: always Helmet use: No Drive intox or ride w/intox haul truck driver: No Water heater temp set <120 deg: Yes Working smoke detector in home: No Fire extinguisher in home: No Carbon monox detector in home: No Firearms in home: No Do you feel safe at home: Yes Do you feel safe in your relationship?: Yes Meds Allergies and Home Medications Allergies Allergy/AdvReac Type Severity Reaction Status Date / Time heparin Allergy Severe thrombocytopenia, Verified 08/30/21 09:44 anaphylaxis dofetilide AdvReac Severe Prolonged Verified 08/30/21 09:44 QTc lisinopril AdvReac Cough Verified 08/30/21 09:44 Home Medications Medication Instructions Recorded Confirmed Type calcium carbonate 500 mg calcium 1,000 mg PO DAILY 08/28/17 08/30/21 History (1,250 mg) tablet (Calcium 500) cholecalciferol (vitamin D3) 25 1,000 unit PO DAILY 08/28/17 08/30/21 History mcg (1,000 unit) capsule ascorbate calcium (vitamin C) 500 500 mg PO DAILY 07/31/19 08/30/21 History mg tablet amiodarone 200 mg tablet 200 mg PO DAILY #30 tabs 04/23/20 08/30/21 Rx apixaban 5 mg tablet (Eliquis) 5 mg PO BID #180 tab-caps 09/07/20 08/30/21 Rx atorvastatin 20 mg tablet 20 mg PO DAILY #90 tab-caps 09/07/20 08/30/21 Rx pantoprazole 40 mg tablet,delayed 40 mg PO DAILY #90 tab-caps 09/07/20 08/30/21 Rx release sertraline 25 mg tablet 25 mg PO DAILY #90 tab-caps 09/07/20 08/30/21 Rx furosemide 20 mg tablet (Lasix) 20 mg PO BID #180 tab-caps 09/15/20 08/30/21 Rx levothyroxine 25 mcg tablet 25 mcg PO DAILY #90 tab-caps 12/06/20 08/30/21 Rx pramipexole 0.125 mg tablet 0.125 mg PO QHS PRN restless legs 01/13/21 08/30/21 Rx #90 tabs sacubitril 24 mg-valsartan 26 mg 1 tab PO BID 02/18/21 08/30/21 History tablet (Entresto) verapamil 40 mg tablet 40 mg PO TID 02/21/21 08/30/21 History ferrous sulfate 325 mg (65 mg 325 mg PO DAILY #90 tab-caps 04/21/21 08/30/21 Rx iron) tablet Exam Narrative Exam Narrative: Thin white female lying in bed in no acute respiratory distress she is alert and oriented per his place and circumstance not requiring any supplemental oxygen not using accessory respiratory muscles. She is able to carry on a full conversation. Neck is supple nontender no JVD no thyromegaly no cervical adenopathy. HEENT is unremarkable she does wear glasses and has upper and lower dentures. Pupils equally round reactive to light accommodation extra motion intact fundi were not examined nares is moist no epistaxis oropharynx noninjected no exudate Lungs with bibasilar rales no rhonchi or wheezes Heart is regular with an S3 gallop Abdomen soft nondistended nontender normal bowel sounds no organomegaly Lower extremities without peripheral cyanosis or edema no calf tenderness or swelling she has normal range of motion normal strength. Neuro exam grossly intact no focal cranial nerve deficits no focal motor or sensory deficits DTRs not tested Results Imaging Chest x-ray: image reviewed EKG: image reviewed Labs Result diagrams: 08/30/21 10:00 08/30/21 10:00 Labs: Laboratory Results - last 24 hr 08/30/21 08/30/21 08/30/21 09:46 10:00 10:00 WBC 8.37 RBC 3.27 L Hgb 9.5 L Hct 31.3 L MCV 96 H MCH 29.1 MCHC 30.4 L RDW 13.9 Plt Count 202 MPV 9.6 Immature Gran % 0.5 Neutrophils % 84.7 Lymphocytes % 9.0 Monocytes % 5.1 Eosinophils % 0.2 Basophils % 0.5 Nucleated RBC % 0.0 Absolute Neutrophils 7.09 H Absolute Lymphocytes 0.75 L Absolute Monocytes 0.43 Absolute Eosinophils 0.02 Absolute Basophils 0.04 PT INR APTT D-Dimer Sodium 141 Potassium 3.9 Chloride 104 Carbon Dioxide 26.9 Anion Gap 10.1 BUN 24 H Creatinine 1.3 H Estimated GFR/1.73 m2 40.15 Glucose 100 Calcium 8.4 L Magnesium 2.2 Total Bilirubin 0.4 AST 27 ALT 34 Alkaline Phosphatase 76 Troponin I 100 H* NT-Pro-B Natriuret Pep 4126 H Total Protein 7.4 Albumin 3.8 COVID-19 Source Nasal/Nares SARS-CoV-2 (PCR) Negative 08/30/21 08/30/21 10:00 11:53 WBC RBC Hgb Hct MCV MCH MCHC RDW Plt Count MPV Immature Gran % Neutrophils % Lymphocytes % Monocytes % Eosinophils % Basophils % Nucleated RBC % Absolute Neutrophils Absolute Lymphocytes Absolute Monocytes Absolute Eosinophils Absolute Basophils PT 12.5 H INR 1.3 H APTT 26.7 D-Dimer 407 Sodium Potassium Chloride Carbon Dioxide Anion Gap BUN Creatinine Estimated GFR/1.73 m2 Glucose Calcium Magnesium Total Bilirubin AST ALT Alkaline Phosphatase Troponin I 96 H* NT-Pro-B Natriuret Pep Total Protein Albumin COVID-19 Source SARS-CoV-2 (PCR) Last Vital Signs Temp 37.1 C 08/30/21 14:00 Pulse 67 08/30/21 14:02 Resp 12 08/30/21 14:02 BP 135/84 08/30/21 14:02 Pulse Ox 97 08/30/21 14:02
[2021-08-30 16:56] LABS: Troponin I 102 ng/L (<or=60)
[2021-08-30] MEDS: Normal Saline Flush 10 ML SYR IVP (17:51)
[2021-08-30] MEDS: Sacubitril/Valsartan 24 mg/26 mg TAB 1 EACH PO (19:52)
[2021-08-30] MEDS: Apixaban 5 MG TAB PO (19:52)
[2021-08-30] MEDS: Verapamil 80 MG TAB 40 MG PO (22:00)
[2021-08-31] VITALS (23 sets, daily range): BP systolic 96–130; BP diastolic 48–77; PULSE 59–94; RESP 15–69; TEMP 35.6–36.5; O2SAT 17–100
[2021-08-31] MEDS: Levothyroxine 25 MCG TAB PO (05:55)
[2021-08-31 06:20] LABS: Abs Immature Grans 0.01 10^3/uL (0.0-0.06); Absolute Basophil Count 0.04 10^3/uL (0.0-0.2); Absolute Eosinophil Count 0.02 10^3/uL (0.0-0.7); Absolute Lymphocyte Count 1.04 10^3/uL (1.2-3.4); Absolute Neutrophil Count 5.57 10^3/uL (1.2-6.7); Basophils % 0.6; Eosinophils % 0.3; HCT 33.1 % (36.0-46.0); HGB 10.4 g/dL (11.2-15.7); Immature Grans % 0.1; Lymphocytes % 14.7; MCH 29.1 pg (27.0-33.0); MCHC 31.4 % (32.0-36.0); MCV 93 fL (80-95); MPV 9.7 fL (8.0-11.0); Monocytes % 5.6; Neutrophils % 78.7; Platelet Count 222 10^3/uL (130-400); RBC 3.58 10^6/uL (3.93-5.22); RDW 13.8 % (11.7-14.6); RDW-SD 46.9 fL; WBC 7.08 10^3/uL (4.4-10.8)
[2021-08-31 06:43] LABS: Anion Gap 9.6 mmol/L (3-11); BUN 23 mg/dL (7-18); CO2 29.4 mmol/L (21.0-32.0); CREATININE 1.4 mg/dL (0.55-1.02); Calcium 8.9 mg/dL (8.5-10.1); Chloride 102 mmol/L (98-107); Estimated GFR 36.86 (mL/min/1.73m2); Glucose 100 mg/dL (74-106); Potassium 3.8 mmol/L (3.5-5.1); Sodium 141 mmol/L (136-145)
[2021-08-31 07:49] LABS: Lab Add On Test DONE
[2021-08-31] MEDS: Verapamil 80 MG TAB 40 MG PO ×3 (08:00→21:02)
[2021-08-31] MEDS: Furosemide 100 MG/10 ML VIAL 80 MG IVP ×2 (08:00→15:46)
--- NOTE | 2021-08-31 08:00 | PGE_ITS ---
Date of Service Date of service: 08/31/21 Time of Service: 08:00 Assessment and Plan Assessment and plan (1) CHF (congestive heart failure): Status: Chronic Assessment and plan: Chronic HFrEF last echocardiogram 05/18/2021 demonstrated global systolic dysfunction LVEF 30 to 35% with severe hypokinesis of the anteroseptum. She also has diastolic dysfunction. Previous echo cardiogram demonstrated normal bioprosthetic aortic valve and mitral valve replacement. Continue Lasix 80 mg IV every 12 hours, add spironolactone, add Jardiance, continue entresto. check follow-up echocardiogram to evaluate for worsening LV function and to assess valve function. Discussed case later today with Dr. Erik Chiang her primary semiconductor dies loader at [facility] time spent interviewing and examining patient, discussion of goals of care with hospital team (care management, nursing and consulting professionals) was 30 minutes. (2) Elevated troponin I level: Status: Acute Assessment and plan: I suspect her elevated troponin levels were secondary to stress-induced ischemia from CHF. Will obtain echocardiogram today to evaluate LV function wall motion abnormalities and also to look at her valvular function. (3) Iron deficiency anemia: Status: Chronic Assessment and plan: continue iron supplementation. she should have SB capsule endoscopy. will irvin mend this to her PCP upon dc from [facility] (had negative EGD and C-scope last year, she may need to have these repeated for insurance to authorize the capsule endoscopy Qualifiers: Iron deficiency anemia type: unspecified iron deficiency Qualified Code(s): D50.9 - Iron deficiency anemia, unspecified (4) S/P aortic valve and mitral valve replacement: Status: Chronic Assessment and plan: check echo today (5) Atrial fibrillation: Status: Chronic Assessment and plan: currently in sinus rhythm; continue amiodarone, verapamil and apixaban; patient had been tried on BB in the past. Qualifiers: Atrial fibrillation type: unspecified Qualified Code(s): I48.91 - Unspecified atrial fibrillation (6) Essential hypertension: Status: Chronic Assessment and plan: controlled w/ above meds for CHF and afib (7) Mild obstructive sleep apnea: Status: Chronic Assessment and plan: patient did well w/ CPAP lat night (8) Hyperlipidemia: Status: Chronic Assessment and plan: cont. atorvastatin; last lipid profile done 04/19/21 and LDL was 67, HDL 50, TG 153 Qualifiers: Hyperlipidemia type: unspecified Qualified Code(s): E78.5 - Hyperlipidemia, unspecified (9) Hypothyroidism: Status: Chronic Assessment and plan: last TSH was normal in April. continue current dose Qualifiers: Hypothyroidism type: due to medication Qualified Code(s): E03.2 - Hypothyroidism due to medicaments and other exogenous substances (10) Restless legs: Status: Chronic Assessment and plan: continue Mirapex (11) Pulmonary nodule: Status: Acute Assessment and plan: patient is followed by Dr. Delgado. Patient states that she referred her to [facility] to see about a biopsy under EBUS. See Dr. Delgado's office note from 06/13/21. Patient has had decreased DLCO and borderline TLC and there was concern for amiodarone toxicity which can mimick pulmonary nodules similar to metasatic lesions (also the patient has lymphadenopathy which would not be caused by amiodarone). This was the reason for referral to [facility] given her cardiac co- morbidities. Subjective Subjective Patient reports: no new complaints and feels better; denies shortness of breath Interval history since last seen: Patient denies any chest pain or dyspnea. She feels much better today. Her net negative balance was almost 2 L negative yesterday. Currently on Lasix 80 mg IV every 12 hours. I have added Jardiance to her goal-directed therapy for her CHF. She is scheduled for an echocardiogram this morning. Afterwards I will discuss her case with her semiconductor dies loader Dr. Erik Chiang. Patient's troponins have plateaued the last level being 100. I do not think she needs any further troponin levels checked. I will discuss with Dr. Chiang her prior ischemic work- up. Presumably she had a cardiac catheterization before the valve replacements. She is not meeting ICU criteria and therefore will be moved out to medical/surgical floor. We will transition her over to oral diuretics after today. Exam Narrative Exam Narrative: Lanre is alert and oriented x3 sitting up eating her breakfast. Not using accessory respiratory muscles. Lungs with some coarse adventitious breath sounds but no wheezing and or rales are improved. Heart is regular rate and rhythm she has a soft systolic murmur over the aortic outflow tract. S3 gallop heard yesterday is no longer present. Abdomen soft nontender Extremities without edema Objective Last Vital Signs Temp 36.8 C 08/30/21 20:00 Pulse 63 08/31/21 06:00 Resp 27 H 08/31/21 06:01 BP 130/51 L 08/31/21 06:00 Pulse Ox 97 08/31/21 05:00 Laboratory Results - last 24 hr 08/30/21 08/30/21 08/30/21 09:46 10:00 10:00 WBC 8.37 RBC 3.27 L Hgb 9.5 L Hct 31.3 L MCV 96 H MCH 29.1 MCHC 30.4 L RDW 13.9 Plt Count 202 MPV 9.6 Immature Gran % 0.5 Neutrophils % 84.7 Lymphocytes % 9.0 Monocytes % 5.1 Eosinophils % 0.2 Basophils % 0.5 Nucleated RBC % 0.0 Absolute Neutrophils 7.09 H Absolute Lymphocytes 0.75 L Absolute Monocytes 0.43 Absolute Eosinophils 0.02 Absolute Basophils 0.04 PT INR APTT D-Dimer Sodium 141 Potassium 3.9 Chloride 104 Carbon Dioxide 26.9 Anion Gap 10.1 BUN 24 H Creatinine 1.3 H Estimated GFR/1.73 m2 40.15 Glucose 100 Calcium 8.4 L Magnesium 2.2 Total Bilirubin 0.4 AST 27 ALT 34 Alkaline Phosphatase 76 Troponin I 100 H* NT-Pro-B Natriuret Pep 4126 H Total Protein 7.4 Albumin 3.8 COVID-19 Source Nasal/Nares SARS-CoV-2 (PCR) Negative Add-On Test Request 08/30/21 08/30/21 08/30/21 10:00 11:53 15:50 WBC RBC Hgb Hct MCV MCH MCHC RDW Plt Count MPV Immature Gran % Neutrophils % Lymphocytes % Monocytes % Eosinophils % Basophils % Nucleated RBC % Absolute Neutrophils Absolute Lymphocytes Absolute Monocytes Absolute Eosinophils Absolute Basophils PT 12.5 H INR 1.3 H APTT 26.7 D-Dimer 407 Sodium Potassium Chloride Carbon Dioxide Anion Gap BUN Creatinine Estimated GFR/1.73 m2 Glucose Calcium Magnesium Total Bilirubin AST ALT Alkaline Phosphatase Troponin I 96 H* 102 H* NT-Pro-B Natriuret Pep Total Protein Albumin COVID-19 Source SARS-CoV-2 (PCR) Add-On Test Request 08/31/21 08/31/21 08/31/21 05:43 05:43 05:43 WBC 7.08 RBC 3.58 L Hgb 10.4 L Hct 33.1 L MCV 93 MCH 29.1 MCHC 31.4 L D RDW 13.8 Plt Count 222 MPV 9.7 Immature Gran % 0.1 Neutrophils % 78.7 Lymphocytes % 14.7 Monocytes % 5.6 Eosinophils % 0.3 Basophils % 0.6 Nucleated RBC % 0.0 Absolute Neutrophils 5.57 Absolute Lymphocytes 1.04 L Absolute Monocytes 0.40 Absolute Eosinophils 0.02 Absolute Basophils 0.04 PT INR APTT D-Dimer Sodium 141 Potassium 3.8 Chloride 102 Carbon Dioxide 29.4 Anion Gap 9.6 BUN 23 H Creatinine 1.4 H Estimated GFR/1.73 m2 36.86 Glucose 100 Calcium 8.9 Magnesium Total Bilirubin AST ALT Alkaline Phosphatase Troponin I 100 H* NT-Pro-B Natriuret Pep Total Protein Albumin COVID-19 Source SARS-CoV-2 (PCR) Add-On Test Request DONE
[2021-08-31] MEDS: Sacubitril/Valsartan 24 mg/26 mg TAB 1 EACH PO ×2 (08:01→21:01)
[2021-08-31] MEDS: Amiodarone 200 MG TAB PO (08:01)
[2021-08-31] MEDS: Empaglifozin 10 MG TAB PO (08:01)
[2021-08-31] MEDS: Spironolactone 25 MG TAB PO (08:01)
[2021-08-31] MEDS: Ferrous Sulfate 325 MG TAB PO (08:02)
[2021-08-31] MEDS: Atorvastatin 20 MG TAB PO (08:02)
[2021-08-31] MEDS: Apixaban 5 MG TAB PO ×2 (08:02→21:02)
[2021-08-31] MEDS: Cholecalciferol (Vitamin D3) 1,000 UNIT TAB 1000 UNITS PO (08:02)
[2021-08-31] MEDS: Ascorbic Acid 500 MG TAB PO (08:03)
--- NOTE | 2021-08-31 08:10 | CMPROGNOTE_ITS ---
- If Service Date Differs Date of service: 08/31/21 Time of Service: 08:10 Care Management Progress Note S/O: Maira was lying in bed visiting with her daughter Lawanda when CM met with her. She is alert, oriented, pleasant and easy to engage in conversation. She had an ECHO this morning, results are pending. A: 75 year old female admitted to [facility] on 08/30/21 for NSTEMI, CHF P: Maira will likely discharge home with no new services when medically cleared by provider. She will follow up with her PCP, cardiology, pulmonology, and plan of care as prescribed. She will be transported home via private vehicle by either her sister or daughter when ready. CM will continue to follow.
[2021-08-31] MEDS: Sertraline 25 MG TAB PO (08:12)
[2021-08-31] MEDS: Pantoprazole 40 MG TABCR PO (08:14)
[2021-08-31 08:41] LABS: Hemoglobin A1C 5.7 % (<5.7)
[2021-08-31] MEDS: Calcium Carbonate 1.25 GM TAB PO (12:59)
--- NOTE | 2021-08-31 13:11 | PHACLINREV_ITS ---
Pharmacy Admission Review - Admission Clinical Review (Last Reviewed 08/30/21 @ 16:00 by Dg Mcghee MD) Elevated troponin I level (Acute) Non-ST elevation DE (NSTEMI) (Acute) Pulmonary nodule (Acute) heparin Allergy (Severe, Verified 08/30/21 09:44) thrombocytopenia, anaphylaxis dofetilide Adverse Reaction (Severe, Verified 08/30/21 09:44) Prolonged QTc lisinopril Adverse Reaction (Verified 08/30/21 09:44) Cough Resuscitation Status Full Code Height 5 ft 1 in Weight 41.9 kg - Renal Dosing Renal Dosing: BUN 23 mg/dL (7-18) H 08/31/21 05:43 Creatinine 1.4 mg/dL (0.55-1.02) H 08/31/21 05:43 Medications needing adjustments: Intervened List of meds needing interventions: eCrCl 23.7 ml/min, eGFR 36.86 ml/min, SCr 1.4 -- borderline for renal dose adjustment of eliquis, will watch closely - Anticoagulation Anticoagulation: Hgb 10.4 g/dL (11.2-15.7) L 08/31/21 05:43 Hct 33.1 % (36.0-46.0) L 08/31/21 05:43 Plt Count 222 10^3/uL (130-400) 08/31/21 05:43 INR 1.3 (0.9-1.1) H 08/30/21 10:00 Creatinine 1.4 mg/dL (0.55-1.02) H 08/31/21 05:43 Therapeutic Anticoagulation: Reviewed Medications: Apixaban - Opiate Usage Evaluate Pain Scale/Pains Meds: N/A - Relevant Labs Sodium 141 mmol/L (136-145) 08/31/21 05:43 Potassium 3.8 mmol/L (3.5-5.1) 08/31/21 05:43 Chloride 102 mmol/L (98-107) 08/31/21 05:43 Magnesium 2.2 mg/dL (1.8-2.4) 08/30/21 10:00 Electrolytes, C-Reactive P, ESR: Reviewed - DM Control DM Control: Glucose 100 mg/dL (74-106) 08/31/21 05:43 Hemoglobin A1c 5.7 % (<5.7) 08/31/21 05:43 Insulin Dosing: N/A - Heart Failure/DE Heart Failure/DE: Troponin I 100 ng/L (<or=60) H* 08/31/21 05:43 NT-Pro-B Natriuret Pep 4126 pg/mL (<300) H 08/30/21 10:00 EF%, AMILCAR's, B-Blockers, Diuretics: Reviewed - BP Control BP Control: Blood Pressure 123/52 Blood Pressure 115/77 Blood Pressure 123/59 Blood Pressure 130/51 Blood Pressure 130/53 Blood Pressure 128/51 Blood Pressure 122/50 Blood Pressure 122/48 If elevated: Reviewed - Qtc Review If Elevated: Reviewed List meds needing interventions: QTc 497 on admission - IV to PO Switch IV Medications: Reviewed - Home Meds Home Med List reviewed: Intervened Relevent Home Meds Not ordered & why?: Previously had been taking entresto only once a day but dose was recordered as BID, spoke with MD and due to worsening aortic stenosis it is best this is increased to BID, advised to enrollment counselor patient about change in dose upon discharge as this will differ from what her bottle at home says. Of note: was previously on hydralazine 25mg BID; ALL HOME MEDS ORDERED - Current meds Current Medication Order Review: Reviewed
[2021-08-31 14:45] LABS: Troponin I 100 ng/L (<or=60)
--- NOTE | 2021-08-31 15:13 | NUR.NOTE ---
Nursing Note: At 1438 Patient was brought out of the ICU to the med surg floor. Patient oriented to the room and call light.
[2021-08-31] MEDS: Normal Saline Flush 10 ML SYR IVP (15:46)
--- NOTE | 2021-08-31 16:12 | CHAPLAIN ---
I visited Maira when she was in the ICU. She thanked me for visiting but was not interested in a further visit. She daughter was with her.
[2021-08-31] MEDS: Pramipexole 0.25 MG TAB 0.125 MG PO (21:23)
[2021-09-01] VITALS: PULSE 63
[2021-09-01 03:21] VITALS: BP 107/69; PULSE 62; RESP 18; TEMP 37; O2SAT 96
[2021-09-01] MEDS: Levothyroxine 25 MCG TAB PO (05:49)
[2021-09-01 07:09] VITALS: PULSE 68
[2021-09-01 07:39] VITALS: BP 117/63; PULSE 72; RESP 20; TEMP 36.5; O2SAT 98
[2021-09-01] MEDS: Sertraline 25 MG TAB PO (07:42)
[2021-09-01] MEDS: Torsemide 20 MG TAB PO (07:42)
[2021-09-01] MEDS: Normal Saline Flush 10 ML SYR IVP (07:42)
[2021-09-01] MEDS: Sacubitril/Valsartan 24 mg/26 mg TAB 1 EACH PO (07:42)
[2021-09-01] MEDS: Spironolactone 25 MG TAB PO (07:43)
[2021-09-01] MEDS: Ascorbic Acid 500 MG TAB PO (07:43)
[2021-09-01] MEDS: Apixaban 5 MG TAB PO (07:43)
[2021-09-01] MEDS: Pantoprazole 40 MG TABCR PO (07:43)
[2021-09-01] MEDS: Verapamil 80 MG TAB 40 MG PO (07:43)
[2021-09-01] MEDS: Empaglifozin 10 MG TAB PO (07:43)
[2021-09-01] MEDS: Ferrous Sulfate 325 MG TAB PO (07:43)
[2021-09-01] MEDS: Amiodarone 200 MG TAB PO (07:43)
[2021-09-01] MEDS: Atorvastatin 20 MG TAB PO (07:43)
[2021-09-01] MEDS: Cholecalciferol (Vitamin D3) 1,000 UNIT TAB 1000 UNITS PO (07:43)
--- NOTE | 2021-09-01 09:00 | PDOC.CMPRO ---
- If Service Date Differs Date of service: 09/01/21 Time of Service: 09:00 Care Management Progress Note S/O: A: 75 year old female admitted to [facility] on 08/30/21 for NSTEMI, CHF P: Maira will likely discharge home with no new services when medically cleared by provider. She will follow up with her PCP, cardiology, pulmonology, and plan of care as prescribed. She will be transported home via private vehicle by either her sister or daughter when ready. CM will continue to follow.
--- NOTE | 2021-09-01 09:30 | DSE_ITS ---
Date of service: 09/01/21 Time of Service: 09:30 DS: Diagnosis Discharge Diagnosis (1) CHF (congestive heart failure): Status: Chronic (2) Elevated troponin I level: Status: Acute (3) Iron deficiency anemia: Status: Chronic (4) S/P aortic valve and mitral valve replacement: Status: Chronic (5) Atrial fibrillation: Status: Chronic (6) Essential hypertension: Status: Chronic (7) Mild obstructive sleep apnea: Status: Chronic (8) Hyperlipidemia: Status: Chronic (9) Hypothyroidism: Status: Chronic (10) Restless legs: Status: Chronic (11) Pulmonary nodule: Status: Acute Discharge Plan Disposition Patient Disposition: HOME Condition: Improving Discharge Details Reason For Visit: NSTEMI,CHF Admit Date/Time: 08/30/21 12:05 Admit Provider: Dg Mcghee Attending Provider: Dg Mcghee Primary Care Provider: Don,[facility] Hospital Course Hospital Course: Maira is a 75 year old female patient with a past medical history of bioprosthetic Aortic Valve replacement, mitral valve replacement, Afib, hypertension, hperlipidemia, hypothyroidism, and chronic iron deficiency anemia. She is followed by Dr. Chiang, cardiology. She is on apixaban and takes amiodarone for rhythm control. On 08/30/2021 she presented to the emergency department at [facility] with the complaint of a 3 day history of difficulty breathing with exertion. She denied chest pain, palpitations, light headedness, nausea or diaphoresis. She tested negative for Covid 19. and denied any recent illnesses. She has DEONNA, but does not have a CPAP machine at home. She is seeing the sleep clinic regarding this. In the emergency department she was in sinus rhythm with a left bundle branch block (not new). Noted is her hemoglobin was down to 9.5 g from the one done in April this year, 11.6 g. She had an elevated pro-BNP and troponin. Serial troponins were flat (around 100 ng/L). Her CXR was negative from pneumonia, showing cardiomegally and congestive heart failure. She was diuresed in the emergency department and admitted to the ICU. She ruled out for ACS. In the ICU she was treated for congestive heart failure with diuretics and CPAP. An echocardiogram was done. She was found to have aortic and mitral valve regurgitaiton and an ejection fraction 30% and interpreted to have severe stenosis of the bioprosthetic aortic valve. Discussion with Dr Chiang occurred and a plan of care was implemented. A referral to [facility] for interventional cardiology regarding the aortic valve, cardiac catheterization and thoracic pagan rgery was made. Per conversation with Dr Chiang, we will discontinue lasix, start torsemide and spironolactone, start Jardiance, do follow up labs in one week. She is encouraged to reschedule her sleep appointment. Time Spent on care for patient as well as completion of discharge summary took 60 minutes on the day of discharge. Discussed with Dr Pacheco. Home Meds and New Rx's Prescriptions: New torsemide 20 mg Tablet 20 mg PO DAILY Qty: 14 0RF spironolactone 25 mg Tablet 25 mg PO DAILY Qty: 14 0RF Jardiance 10 mg Tablet 10 mg PO QAM Qty: 30 0RF Continued ascorbate calcium (vitamin C) 500 mg tablet 500 mg PO DAILY pramipexole 0.125 mg tablet 0.125 mg PO QHS PRN (Reason: restless legs) Qty: 90 0RF ferrous sulfate 325 mg (65 mg iron) tablet 325 mg PO DAILY Qty: 90 3RF Rx Instructions: Take with water or juice on an empty stomach cholecalciferol (vitamin D3) 1,000 UNIT capsule 1,000 unit PO DAILY amiodarone 200 mg tablet 200 mg PO DAILY Qty: 30 0RF atorvastatin 20 mg tablet 20 mg PO DAILY Qty: 90 3RF sertraline 25 mg tablet 25 mg PO DAILY Qty: 90 3RF pantoprazole 40 mg tablet,delayed release (DR/EC) 40 mg PO DAILY Qty: 90 3RF Rx Instructions: Take 40 mg daily once daily in the morning at least 30-60 minutes before first meal of the day Eliquis 5 mg tablet 5 mg PO BID Qty: 180 3RF levothyroxine 25 mcg tablet 25 mcg PO DAILY Qty: 90 3RF Rx Instructions: Administer in the morning on an empty stomach, at least 30-60 minutes before food Entresto 24-26 mg tablet 1 tab PO BID Rx Instructions: [facility] Cardiology verapamil 40 mg tablet 40 mg PO TID Rx Instructions: [facility] Cardiology calcium carbonate [Calcium 500] 500 MG tablet 1,000 mg PO DAILY Discontinued furosemide [Lasix] 20 mg tablet 20 mg PO BID Qty: 180 3RF Discharge Instructions Instructions: Heart Attack (GEN), Heart Healthy Diet (GEN), COPD (Chronic Obst ructive Pulmonary Disease) (GEN) Stand Alone Forms: Nursing Discharge Form Referrals: [facility] [Outside] (Dr Chiang Cardiology [facility]- they will call with an appt) CARDIOLOGY,[facility] [OTHER] - (Referral sent) Geovanna Delgado MD [ [facility] STAFF PHYSICIAN] - 09/14/21 11:00 am Jessica Ochoa NP [Primary Care Provider] - 09/14/21 12:45 pm Activity:: Activity as Tolerated Equipment/Supplies:: No Equipment Needed Diet:: Low Sodium Discharge Orders Discharge Orders: Discharge Order (Routine); Ordered 09/01/21 Ordered By: Oly Kilpatrick Ambulatory Orders: Basic Metabolic Panel (Routine) Timeframe: [id number] Facility: [facility] - Location: Laboratory Outpatient - [facility] Ordered By: Denita Pacheco Discharge Data Discharge Date/Time-TO BE ENTERED AT DEPARTURE: 09/01/21 12:50 DS: Summary Time Spent with Patient providing and/or coordinating discharge services: Less than 30 minutes Status at Discharge Functional status at discharge: independent ambulation Overall status at discharge: patient is back to baseline Mental Status: mental status grossly normal Speech and Movement: speech and movement normal Mood: congruent mood Affect: normal affect Exam Narrative Exam Narrative: Maira is eating lunch, alert and oriented x3. Breathing 14 BPM, no accessory use, lungs are clear bilaterally. Heart reg rate and rhythm Abdomen soft nontender Extremities without edema Psych Mental Status: mental status grossly normal Speech and Movement: speech and movement normal Mood: congruent mood Affect: normal affect DS: Data Vitals/I&O Vitals and I&O: Vital Signs Temperature 36.5 C 09/01/21 07:39 Temperature Source Tympanic 09/01/21 07:39 Pulse 72 09/01/21 07:39 Pulse Rhythm Regular 09/01/21 07:45 Pulse 68 08/31/21 13:15 Respiratory Rate 20 09/01/21 07:39 Respiratory Effort Non-Labored 09/01/21 07:45 Respiratory Depth Normal 09/01/21 07:45 Respiratory Pattern Normal 09/01/21 07:45 Blood Pressure 117/63 09/01/21 07:39 Blood Pressure Mean 65 08/31/21 13:15 Blood Pressure Position Supine 08/31/21 08:51 Pulse Oximetry 98 09/01/21 07:39 Oxygen Delivery Method Room Air 09/01/21 07:39 Oxygen Flow Rate 0 09/01/21 07:39 Fraction of Inspired Oxygen (FIO2) 21 08/31/21 07:30 Pain Level 0 09/01/21 07:39 Intake & Output 08/31/21 08/31/21 09/01/21 11:59 23:59 11:59 Intake Total 1140 / 1610 470 / 1610 510 / 510 Output Total 625 / 1125 500 / 1125 Balance 515 / 485 -30 / 485 510 / 510 Weight 41.9 kg 56.3 kg Intake: IV Oral 1140 / 1610 470 / 1610 500 / 500 Output: Urine 625 / 1125 500 / 1125 Other: Urine Color Yellow Yellow Urine Appearance Clear Clear Clear Urine Odor Normal Comment Patient has history of chronic renal disease. Patient voiding independently as needed. Stool Size Small Stool Characteristics Formed Voiding Methods Bedside Commode Toilet Toilet Data Completed and Pending Labs on day of discharge: Labs from last 24 hours 09/01/21 08/31/21 05:35 05:43 Sodium Pending Potassium Pending Chloride Pending Carbon Dioxide Pending Anion Gap Pending BUN Pending Creatinine Pending Estimated GFR/1.73 m2 Pending Glucose Pending Calcium Pending Troponin I 100 H* PFSH All Active Problems (Updated 08/30/21 @ 17:45 by Dg Mcghee MD) Elevated troponin I level (Acute) Non-ST elevation ND (NSTEMI) (Acute) CHF (congestive heart failure) (Chronic) Mediastinal lymphadenopathy (Acute) Pulmonary nodule (Acute) Mild obstructive sleep apnea (Chronic 05/12/20) severe in REM sleep, significan nocturnal hypoxemia, sleep fragmentation and increased airway resistance flow pattern. On amiodarone therapy (Acute) Restless legs (Chronic 10/29/20) Pulmonary hypertension (Acute) Chest pain (Acute) Left bundle branch block (LBBB) (Acute) Hypothyroidism (Chronic) 2/2 amiodarone Iron deficiency anemia (Chronic) 05/20/2020 EGD & 07/06/2020 colonoscopy ([facility] no source for iron deficiency; recommend following studies & consider small bowel capsule study if anemia worsens Vulvar atrophy (Chronic 01/13/16) S/P aortic valve and mitral valve replacement (Chronic 08/04/14) Bovine prosthetic valves, plus MAZE, [facility] Osteopenia (Chronic 06/14/17) 06/14/17 DEXA: femoral neck T-score -1.1 WHO FRAX score: 10-year major osteoporotic fx risk of 8.9% and hip fx risk of 0.9% --> tx with Ca/vitamin D care home current use of anticoagulant therapy (Chronic 08/15/14) [facility] for afib 08/2017: Switched from Warfarin to apixaban by cardiology (Dr. 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 Chiang) following hospitalization for GI bleed (no afib during cardiac monitoring during hospitalization) Medical History Aortic regurgitation a. moderate by echo 12/2011 S/p repair Duodenal ulcer (09/05/17) Hospitalization 08/2017 for acute GI bleed Mitral regurgitation Rheumatic; s/p repair Rheumatic heart disease Tobacco use disorder Tubular adenoma of colon (08/30/17) Surgical History Biopsy of breast (~2008) Left breast [facility] Colonoscopy - MAC (08/28/17) EGD - MAC (08/28/17) History of section (~1976) History of toe surgery (~2003) Removal of bone chip Radiofrequency Maze Procedure (08/04/14) done at [facility] Replacement of aortic valve (08/04/14) AV and MV both replaced with tissue valves at [facility] S/P aortic valve and mitral valve replacement (~07/2014) [facility]. Severe AR & MR, bovine prosthesis. Family History Mother , Age 87, peritonitis Diabetes Essential hypertension Breast cancer Father , Age 45, colon cancer Colon cancer Sister Heart disease ND at age 49 Brother Diabetes Colon cancer Brother No problems noted. Brother Heart disease CABG Other Family history of colon cancer Social History Smoking/Tobacco Use Status: Former Tobacco Use tobacco type: cigarettes Quit Date: 03/12/94 Smoking risk assessment performed?: Yes Alcohol Intake: former Drug use: Never Substance use type: does not use Counseling given: No Counseling provided: none Adopted: No Caregiver/Support person: No Foster care: No Household members: none Housing: house Number of Children: 1 number of grandchildren: 2 Communication Needs: None Education Level: high school Do you need help understanding health information?: Rarely current occupation: Retired Pets and animals: No Current gender identity: female What is your relationship status?: Panel score (0-1 are the most socially isolated patients): 0 What type of physical activity do you participate in: walking Duration: 60-90 minutes/day Frequency: daily Seatbelt use: always Helmet use: No Drive intox or ride w/intox lifter/driver: No Water heater temp set <120 deg: Yes Working smoke detector in home: No Fire extinguisher in home: No Carbon monox detector in home: No Firearms in home: No Do you feel safe at home: Yes Do you feel safe in your relationship?: Yes
[2021-09-01 10:01] LABS: Anion Gap 10.2 mmol/L (3-11); BUN 36 mg/dL (7-18); CO2 29.8 mmol/L (21.0-32.0); CREATININE 1.8 mg/dL (0.55-1.02); Calcium 9.2 mg/dL (8.5-10.1); Chloride 98 mmol/L (98-107); Estimated GFR 27.58 (mL/min/1.73m2); Glucose 123 mg/dL (74-106); Potassium 3.8 mmol/L (3.5-5.1); Sodium 138 mmol/L (136-145)
[2021-09-01] MEDS: Calcium Carbonate 1.25 GM TAB PO (10:01)
--- NOTE | 2021-09-01 10:48 | PDOC.CMDIS ---
- If Service Date Differs Date of service: 09/01/21 Time of Service: 10:48 LACE Index Scoring Tool - Questions: Length of Stay (in days): 2 Acuity (Admit via E.D.?): Yes Comorbidities: Previous M.I., Congestive Heart Failure, Mild Liver/Renal Disease E.D. Visits: 2 - Answers: Total Score: 12 Risk of Readmission: High Risk Care Management Discharge Reason for Hospitalization: NSTEMI, CHF Discharge Plan: Maira is discharged home with no new [facility] services via private vehicle with family. New RX's were transmitted to [facility]. Maira will follow up with her [place] [facility] Dr. Chiang ([facility] clinic, office to call) and [facility] ( sent a referral). Maira will also follow up with Dr. Corrigan/Pulmonology and her PCP on 09/14/21, as scheduled. Repeat labs will be done in 7 days. Patient/Family Education Needs: Review discharge instructions, limitations, medications and plan to follow up with community providers. ask me three.
[2021-09-01 11:26] VITALS: BP 104/66; PULSE 74; RESP 18; TEMP 36; O2SAT 95
== END 2021-09-01 12:50 | disposition home or self-care (01) | DRG 291 ==
LOC: ER 13:23 → ICU 13:53 → MS 08-31 15:06
PROVIDERS: Admitting Provider Internal Medicine; Emergency Provider Physician Assistant; PCP Nurse Practitioner Family; Visit Provider Internal Medicine
DX: I13.0 Hypertensive heart and chronic kidney disease with heart failure and stage 1 through stage 4 chronic kidney disease, or unspecified chronic kidney disease (principal); I50.43 Acute on chronic combined systolic (congestive) and diastolic (congestive) heart failure; I01.8 Other acute rheumatic heart disease; I42.9 Cardiomyopathy, unspecified; R74.8 Abnormal levels of other serum enzymes; D50.9 Iron deficiency anemia, unspecified; N18.9 Chronic kidney disease, unspecified; E78.5 Hyperlipidemia, unspecified; R73.01 Impaired fasting glucose; G47.00 Insomnia, unspecified; I35.0 Nonrheumatic aortic (valve) stenosis; I27.20 Pulmonary hypertension, unspecified; I44.7 Left bundle-branch block, unspecified; I48.91 Unspecified atrial fibrillation; E03.2 Hypothyroidism due to medicaments and other exogenous substances; G25.81 Restless legs syndrome; M85.88 Other specified disorders of bone density and structure, other site; R91.1 Solitary pulmonary nodule; G47.33 Obstructive sleep apnea (adult) (pediatric); R59.0 Localized enlarged lymph nodes; T46.2X5A Adverse effect of other antidysrhythmic drugs, initial encounter; Z88.8 Allergy status to other drugs, medicaments and biological substances; Z79.01 Long term (current) use of anticoagulants; Z95.3 Presence of xenogenic heart valve; Z87.891 Personal history of nicotine dependence
CPT/HCPCS: 36415; 80048; 80053; 87635; 93005; 96374; 99291; 71045; 83036; 83735; 83880; 84484; 85025; 85379; 85610; 85730; 93010; 93306; 94660; 99223; 99232; 99238; J1940

== ENCOUNTER 2021-09-08 02:25 | Outpatient (CLI) | payer MEDICARE, OTHER, SELFPAY ==
[2021-09-08 12:43] LABS: Anion Gap 9.3 mmol/L (3-11); BUN 45 mg/dL (7-18); CO2 30.7 mmol/L (21.0-32.0); Calcium 9.3 mg/dL (8.5-10.1); Chloride 105 mmol/L (98-107); Estimated GFR 24.36 (mL/min/1.73m2); Glucose 105 mg/dL (74-106); Potassium 4.8 mmol/L (3.5-5.1); Sodium 145 mmol/L (136-145)
== END 2021-09-08 02:26 | disposition home or self-care (01) ==
LOC: LBO 02:25
PROVIDERS: PCP Nurse Practitioner Family; Visit Provider Internal Medicine
DX: I50.9 Heart failure, unspecified (principal)
CPT/HCPCS: 36415; 80048

== ENCOUNTER 2021-09-23 01:02 | Outpatient (RCR) | payer MEDICARE, OTHER, SELFPAY ==
[2021-09-19] MEDS: IRON SUCROSE COMPLEX 200 MG in Normal Saline 100 ML 440 MG IVPB (13:02)
[2021-09-19] MEDS: Normal Saline Flush 10 ML SYR IVP (13:02)
[2021-09-19 13:20] LABS: HCT 42.7 % (36.0-46.0)
[2021-09-23] MEDS: IRON SUCROSE COMPLEX 200 MG in Normal Saline 100 ML 440 MG IVPB (09:59)
[2021-09-23] MEDS: Normal Saline Flush 10 ML SYR IVP (10:31)
[2021-09-23 10:50] LABS: Iron 65 ug/dL (50-170)
== END 2021-10-09 23:59 | disposition home or self-care (01) ==
LOC: INF 01:02
PROVIDERS: PCP Nurse Practitioner Family; Visit Provider Family Medicine
DX: D50.9 Iron deficiency anemia, unspecified (principal)
CPT/HCPCS: 96365; 83540; 85014; 85018; J1756

== ENCOUNTER 2021-12-08 06:08 | Inpatient (IN) | payer MEDICARE, OTHER, SELFPAY ==
[2021-12-08] VITALS (88 sets, daily range): BP systolic 114–137; BP diastolic 67–91; PULSE 79–93; RESP 12–31; TEMP 36.5–36.6; O2SAT 92–100
--- NOTE | 2021-12-08 06:19 | W.ED.GENAD ---
Discharge Plan Disposition Patient Disposition: [facility] INPATIENT Condition: Serious Discharge Details Clinical Impression: Acute exacerbation of CHF (congestive heart failure), Left lower lobe pneumonia Admit Date/Time: 12/08/21 09:35 Admit Provider: Vinay Enriquez Attending Provider: iVnay Enriquez Primary Care Provider: Jessica Ochoa ED Provider: Iam Youssef Discharge Data Discharge Date/Time-TO BE ENTERED AT DEPARTURE: 12/08/21 14:39 Medical Decision Making Patient here with increased dyspnea at rest after being released from rehab 2 days ago with mild dyspnea on exertion only. She underwent repeat aortic and mitral valve replacement in October as well as pacemaker/defibrillator placement. She is having no chest pain. She has developed a little bit of a cough. She has some rales and diminished breath sounds at the left base. IV is in place. She is 100% oxygenation on nasal cannula and feels better. She is paced on the monitor. EKG, chest x-ray, laboratory studies ordered. Patient's EKG is paced. Her laboratory studies are more or less baseline. Her white count is slightly elevated at 12.6. Her hemoglobin is slightly low at 10.7 but hematocrit is normal. She has chronic kidney disease which is stable. Electrolytes are normal. Some mild elevation of her LFTs. High-sensitivity troponin at 68 which is probably clinically insignificant. Her BN P is markedly elevated at 21,394 with priors being less than 10,000. Her INR is slightly subtherapeutic at 1.9. COVID swab is negative. Chest x-ray is still pending but things appear to be pointing toward CHF. Lab Data Lab results reviewed: Yes I reviewed the patient's lab results. ECG Data Attestation: I personally reviewed and interpreted this ECG (s) as follows: Prior ECG tracings: available for review Interpretation: See EKG HPI General Mode of arrival: ambulatory. Date/Time Provider Initiated Documentation: 12/08/21 06:18. Limitations to Documentation: no limitations. Information obtained by: patient, family and RN notes reviewed. HPI Narrative: Patient presents to ED with shortness of breath. Patient underwent aortic and mitral valve replacement in October at [facility]. She also had pacemaker defibrillator placed. She has been rehabilitating and was discharged from rehab 2 days ago. She was doing relatively well with some shortness of breath on exertion. Overnight she has developed shortness of breath at rest. She denies any type of chest pain or pressure. She has had no fever. She has developed a cough that would is mild. She has no leg pain or leg swelling. She is on Coumadin status post valve replacements. She feels better on nasal cannula oxygen here. Related Data Home Medications Medication Instructions Recorded Confirmed ascorbate calcium (vitamin C) 500 500 mg PO DAILY 07/31/19 12/11/21 mg tablet ferrous sulfate 325 mg (65 mg 325 mg PO DAILY #90 tab-caps 04/21/21 12/11/21 iron) tablet sertraline 25 mg tablet 25 mg PO DAILY #90 tab-caps 09/03/21 12/11/21 pantoprazole 40 mg tablet,delayed See Rx Instructions .Route 09/13/21 12/11/21 release .COMPLEX #90 tabs spironolactone 25 mg tablet 25 mg PO DAILY #90 tabs 09/14/21 12/11/21 atorvastatin 20 mg tablet 20 mg PO DAILY #90 tab-caps 11/30/21 12/11/21 Lactobacillus acidophilus 1 cap PO BID 12/07/21 12/11/21 acetaminophen 325 mg tablet 650 mg PO Q6H PRN fever or pain 12/07/21 12/11/21 amiodarone 200 mg tablet 200 mg PO DAILY 12/07/21 12/11/21 aspirin 81 mg chewable tablet 81 mg PO DAILY 12/07/21 12/11/21 calcium citrate 200 mg 1 tab PO DAILY 12/07/21 12/11/21 calcium-vitamin D3 6.25 mcg (250 unit) tablet hydroxyzine HCl 10 mg tablet 10 mg PO QID PRN 12/07/21 12/11/21 melatonin 3 mg capsule 3 mg PO HS 12/07/21 12/11/21 polyethylene glycol 3350 4.25 gram 4.25 g PO DAILY PRN constipation 12/07/21 12/11/21 oral powder packet sennosides 8.6 mg-docusate sodium 1 tab-cap PO BID PRN constipation 12/07/21 12/11/21 50 mg tablet (Senna with Docusate Sodium) thiamine HCl (vitamin B1) 100 mg 200 mg PO DAILY 12/07/21 12/11/21 tablet torsemide 20 mg tablet 40 mg PO .QOD 12/07/21 12/11/21 warfarin 2 mg tablet 2 mg PO .COMPLEX 12/07/21 12/11/21 warfarin 3 mg tablet 3 mg PO .COMPLEX 12/07/21 12/11/21 metoprolol succinate 50 mg 1 tab PO DAILY 12/11/21 12/11/21 tablet,extended release 24 hr Previous Rx's Medication Instructions Recorded ferrous sulfate 325 mg (65 mg 325 mg PO DAILY #90 tab-caps 04/21/21 iron) tablet sertraline 25 mg tablet 25 mg PO DAILY #90 tab-caps 09/03/21 pantoprazole 40 mg tablet,delayed See Rx Instructions .Route 09/13/21 release .COMPLEX #90 tabs spironolactone 25 mg tablet 25 mg PO DAILY #90 tabs 09/14/21 atorvastatin 20 mg tablet 20 mg PO DAILY #90 tab-caps 11/30/21 Allergies Allergy/AdvReac Type Severity Reaction Status Date / Time heparin Allergy Severe thrombocytopenia, Verified 12/08/21 06:19 anaphylaxis dofetilide AdvReac Severe Prolonged Verified 12/08/21 06:19 QTc lisinopril AdvReac Cough Verified 12/08/21 06:19 General MARIS: 3 Review of Systems Narrative: 12/23 Review of Systems completed and is negative except as stated above in HPI (Systems reviewed: Const, Eyes, ENT, Resp, CV, GI, , MSK, Skin, Neuro) PFSH All Active Problems (Updated 12/14/21 @ 10:48 by Denita Pacheco MD) Acute on chronic systolic CHF (congestive heart failure) (Acute) Right homonymous hemianopsia (Acute) Delirium (Acute) Advance care planning (Acute) Discharge planning issues (Acute) Acute exacerbation of CHF (congestive heart failure) (Acute) Left lower lobe pneumonia (Acute) Heart failure with reduced ejection fraction (Acute) Prosthetic aortic valve stenosis (Acute) Elevated troponin I level (Acute) Non-ST elevation GA (NSTEMI) (Acute) Mediastinal lymphadenopathy (Acute) Pulmonary nodule (Acute) Mild obstructive sleep apnea (Chronic 05/12/20) severe in REM sleep, significan nocturnal hypoxemia, sleep fragmentation and increased airway resistance flow pattern. 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 moderate by echo 12/2011 S/p repair Atrial fibrillation (07/31/14) S/p MAZE; adverse rxn dofetilide; amiodarone begun 08/2014, again 03/2020; 08/2017 Switched to apixaban by cardiology (Dr. 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 Severe AR & MR, Repeat at [facility] in 10/2021 Family History Mother , Age 87, peritonitis Diabetes Essential hypertension Breast cancer Father , Age 45, colon cancer Colon cancer Sister Heart disease GA at age 49 Brother Diabetes Colon cancer Brother No problems noted. Brother Heart disease CABG Other Family history of colon cancer Social History Smoking/Tobacco Use Status: Former Tobacco Use tobacco type: cigarettes Quit Date: 03/12/94 Smoking risk assessment performed?: Yes Alcohol Intake: former Drug use: Never Substance use type: does not use Counseling given: No Counseling provided: none Adopted: No Caregiver/Support person: No Foster care: No Household members: none Housing: house Number of Children: 1 number of grandchildren: 2 Communication Needs: None Education Level: high school Do you need help understanding health information?: Rarely current occupation: Retired Pets and animals: No Current gender identity: female What is your relationship status?: Panel score (0-1 are the most socially isolated patients): 0 What type of physical activity do you participate in: walking Duration: 60-90 minutes/day Frequency: daily Seatbelt use: always Helmet use: No Drive intox or 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 HEENT: NC/AT. Normal facial exam. Eyes: Normal conjunctiva and sclera. Neck: Supple. Trachea midline. Lungs: Patient is tachypneic but in no distress. She has some slight crackles and diminished breath sounds at the left base. Cor: RRR with murmur. Good radial pulses. GI: Soft. NT/ND. No guarding or rebound. Neuro: A+O x 3. Normal speech, mentation, gait. Cranial nerves II - XII grossly intact. No gross motor or sensory deficit. Ext: No C/C/E. No calf tenderness. Skin: Warm and dry without rash. Sign Out Sign Out Data: Sign Out Comment: pending CXR and disposition - likely admit for CHF Last updated by Hector Laboy MD at 12/08/21 08:20
--- NOTE | 2021-12-08 06:30 | RT.EKG_ITS ---
APPROVED REPORT Exam: Resting ECG Reason for Exam: SOB Patient Location: E HR:81 bpm ECG Measurements Heart Rate 81 AXIS CA 96 P 56 QRSd 164 QRS 256 QT 502 T 71 QTc 583 Conclusion Atrial-ventricular dual-paced rhythm I have reviewed and interpreted ECG and agree with software generated interpretation.
[2021-12-08 06:51] LABS: Abs Immature Grans 0.04 10^3/uL (0.0-0.06); Absolute Eosinophil Count 0.03 10^3/uL (0.0-0.7); Absolute Lymphocyte Count 1.58 10^3/uL (1.2-3.4); Absolute Monocyte Count 0.68 10^3/uL (0.1-0.8); Basophils % 0.8; Eosinophils % 0.2; HCT 36.4 % (36.0-46.0); HGB 10.7 g/dL (11.2-15.7); Immature Grans % 0.3; Lymphocytes % 12.5; MCHC 29.4 % (32.0-36.0); MCV 92 fL (80-95); Monocytes % 5.4; Neutrophils % 80.8; Platelet Count 290 10^3/uL (130-400); RBC 3.96 10^6/uL (3.93-5.22); RDW 17.4 % (11.7-14.6); RDW-SD 58.4 fL; WBC 12.61 10^3/uL (4.4-10.8)
[2021-12-08 06:52] LABS: Absolute Neutrophil Count 10.19 10^3/uL (1.2-6.7)
[2021-12-08 07:06] LABS: ALT 60 U/L (14-59); AST 43 U/L (15-37); Albumin 3.4 g/dL (3.4-5.0); Alkaline Phosphatase 154 U/L (46-116); Anion Gap 9.7 mmol/L (3-11); BUN 27 mg/dL (7-18); Bilirubin, Total 1.2 mg/dL (0.2-1.0); CO2 30.3 mmol/L (21.0-32.0); CREATININE 1.7 mg/dL (0.55-1.02); Calcium 9.1 mg/dL (8.5-10.1); Chloride 101 mmol/L (98-107); Estimated GFR 31.27 (mL/min/1.73m2); Glucose 112 mg/dL (74-106); Potassium 3.9 mmol/L (3.5-5.1); Sodium 141 mmol/L (136-145); Total Protein 7.6 g/dL (6.4-8.2)
[2021-12-08 07:08] LABS: Troponin I 68 ng/L (<or=60)
[2021-12-08 07:23] LABS: COVID-19 PCR Negative (Negative); Influenza A PCR Negative (Negative); Influenza B PCR Negative (Negative); RSV PCR Negative (Negative)
[2021-12-08 07:27] LABS: NT-proBNP 21394 pg/mL (<300)
[2021-12-08 07:29] LABS: INR 1.9 (0.9-1.1); Prothrombin Time 18.6 sec (9.3-11.0)
[2021-12-08 07:34] LABS: Source Nasopharynx
--- NOTE | 2021-12-08 08:27 | DI.RAD_ITS ---
Exam(s) XR CHEST 2V PA LATERAL EXAM: XR CHEST 2V PA LATERAL CLINICAL HISTORY: SOB TECHNIQUE: 2D digital imaging was performed of the chest. Two images were obtained. PA and lateral views were obtained. COMPARISON: CR,XR XR CHEST 2V PA LATERAL from 01/22/2021 FINDINGS: MEDIASTINUM: Normal. HEART: The patient has both the mitral and aortic valve. Transvenous pacing wires are in good positi on. PULMONARY VASCULATURE: Normal. LUNGS: There is a left basilar infiltrate. PLEURAL SPACE: There is a small left pleural effusion. BONE:Within normal limits for the patient's age. OTHER FINDINGS:Normal. IMPRESSION: 1. Left basilar infiltrate and small left pleural effusion suspicious for pneumonia. 2. Results of this exam have been verbally communicated with provider. DATA REPOSITORY: RADIATION DOSE DELIVERED:
--- NOTE | 2021-12-08 08:58 | W.EDPROG ---
Date of service: 12/08/21 Time of Service: 08:59 Medical Decision Making Care was signed out by Dr. Laboy with plan to follow-up on chest x-ray and disposition patient. Chest x-ray was reviewed and interpreted by me: cponcern for effusion left greater than right Labs reviewed and BNP is elevated. Presentation consistent with acute CHF exacerbation. Will give Lasix 20 mg IV. 930 --I spoke with radiologist on chest x-ray and is concerned about left lower lobe infiltrate favoring pneumonia with associated effusion. I spoke with the patient and her daughter who noted that while at [facility] she was treated for sepsis, unknown source, completed treatment with Zosyn and vancomycin 919. Plan to initiate treatment for healthcare acquired pneumonia with vancomycin and Zosyn. I called and spoke with the hospitalist, Dr. Jackson, discussed ED presentation and course, he agrees with treatment and will admit the patient for further treatment. Lab Data Lab results reviewed: Yes I reviewed the patient's lab results. Labs: Laboratory Tests Range/Units 12/08/21 12/08/21 12/08/21 06:25 06:25 06:25 WBC (4.4-10.8) 10^3/uL 12.61 H RBC (3.93-5.22) 10^6/uL 3.96 Hgb (11.2-15.7) g/dL 10.7 L Hct (36.0-46.0) % 36.4 MCV (80-95) fL 92 MCH (27.0-33.0) pg 27.0 MCHC (32.0-36.0) % 29.4 L RDW (11.7-14.6) % 17.4 H Plt Count (130-400) 10^3/uL 290 MPV (8.0-11.0) fL 10.0 Immature Gran % 0.3 Neutrophils % 80.8 Lymphocytes % 12.5 Monocytes % 5.4 Eosinophils % 0.2 Basophils % 0.8 Nucleated RBC % (0.0-0.3) % 0.0 Absolute Neutrophils (1.2-6.7) 10^3/uL 10.19 H Absolute Lymphocytes (1.2-3.4) 10^3/uL 1.58 Absolute Monocytes (0.1-0.8) 10^3/uL 0.68 Absolute Eosinophils (0.0-0.7) 10^3/uL 0.03 Absolute Basophils (0.0-0.2) 10^3/uL 0.10 PT Cancelled INR Cancelled Sodium (136-145) mmol/L 141 Potassium (3.5-5.1) mmol/L 3.9 Chloride (98-107) mmol/L 101 Carbon Dioxide (21.0-32.0) mmol/L 30.3 Anion Gap (3-11) mmol/L 9.7 BUN (7-18) mg/dL 27 H Creatinine (0.55-1.02) mg/dL 1.7 H Est GFR (CKD-EPI 2020) (mL/min/1.73m2) 31.27 Glucose (74-106) mg/dL 112 H Calcium (8.5-10.1) mg/dL 9.1 Magnesium (1.8-2.4) mg/dL 2.0 Total Bilirubin (0.2-1.0) mg/dL 1.2 H AST (15-37) U/L 43 H ALT (14-59) U/L 60 H Alkaline Phosphatase (46-116) U/L 154 H Troponin I (<or=60) ng/L 68 H* NT-Pro-B Natriuret Pep (<300) pg/mL 36481 H Total Protein (6.4-8.2) g/dL 7.6 Albumin (3.4-5.0) g/dL 3.4 COVID-19 Source SARS-CoV-2 (PCR) (Negative) Influenza Type A (PCR) (Negative) Influenza Type B (PCR) (Negative) RSV (PCR) (Negative) Range/Units 12/08/21 12/08/21 06:40 07:13 WBC (4.4-10.8) 10^3/uL RBC (3.93-5.22) 10^6/uL Hgb (11.2-15.7) g/dL Hct (36.0-46.0) % MCV (80-95) fL MCH (27.0-33.0) pg MCHC (32.0-36.0) % RDW (11.7-14.6) % Plt Count (130-400) 10^3/uL MPV (8.0-11.0) fL Immature Gran % Neutrophils % Lymphocytes % Monocytes % Eosinophils % Basophils % Nucleated RBC % (0.0-0.3) % Absolute Neutrophils (1.2-6.7) 10^3/uL Absolute Lymphocytes (1.2-3.4) 10^3/uL Absolute Monocytes (0.1-0.8) 10^3/uL Absolute Eosinophils (0.0-0.7) 10^3/uL Absolute Basophils (0.0-0.2) 10^3/uL PT 18.6 H INR 1.9 H Sodium (136-145) mmol/L Potassium (3.5-5.1) mmol/L Chloride (98-107) mmol/L Carbon Dioxide (21.0-32.0) mmol/L Anion Gap (3-11) mmol/L BUN (7-18) mg/dL Creatinine (0.55-1.02) mg/dL Est GFR (CKD-EPI 2020) (mL/min/1.73m2) Glucose (74-106) mg/dL Calcium (8.5-10.1) mg/dL Magnesium (1.8-2.4) mg/dL Total Bilirubin (0.2-1.0) mg/dL AST (15-37) U/L ALT (14-59) U/L Alkaline Phosphatase (46-116) U/L Troponin I (<or=60) ng/L NT-Pro-B Natriuret Pep (<300) pg/mL Total Protein (6.4-8.2) g/dL Albumin (3.4-5.0) g/dL COVID-19 Source Nasopharynx SARS-CoV-2 (PCR) (Negative) Negative Influenza Type A (PCR) (Negative) Negative Influenza Type B (PCR) (Negative) Negative RSV (PCR) (Negative) Negative Sign Out Sign Out Data: Sign Out Comment: pending CXR and disposition - likely admit for CHF Last updated by Hector Laboy MD at 12/08/21 08:20 Discharge Plan Disposition Patient Disposition: [facility] INPATIENT Condition: Serious Discharge Details Clinical Impression: Acute exacerbation of CHF (congestive heart failure), Left lower lobe pneumonia Primary Care Provider: Jessica Ochoa ED Provider: Iam Youssef Home Meds and New Rx's Prescriptions: No Action ascorbate calcium (vitamin C) 500 mg tablet 500 mg PO DAILY spironolactone 25 mg tablet 25 mg PO DAILY Qty: 90 3RF ferrous sulfate 325 mg (65 mg iron) tablet 325 mg PO DAILY Qty: 90 3RF Rx Instructions: Take with water or juice on an empty stomach sertraline 25 mg tablet 25 mg PO DAILY Qty: 90 3RF pantoprazole 40 mg tablet,delayed release (DR/EC) See Rx Instructions .ROUTE .COMPLEX Qty: 90 3RF Dose Instruction: TAKE 1 TABLET ONCE DAILY IN THE MORNING AT LEAST 30 TO 60 MINUTES BEFORE FIRST MEAL OF THE DAY Rx Instructions: TAKE 1 TABLET ONCE DAILY IN THE MORNING AT LEAST 30 TO 60 MINUTES BEFORE FIRST MEAL OF THE DAY metoprolol tartrate 50 mg tablet 50 mg PO DAILY atorvastatin 20 mg tablet 20 mg PO DAILY Qty: 90 3RF warfarin 2 mg tablet 2 mg PO .COMPLEX Rx Instructions: 2 mg orally M,,,,,Sun; warfarin 3 mg tablet 3 mg PO .COMPLEX Rx Instructions: 3 mg orally Sunday; aspirin 81 mg tablet,chewable 81 mg PO DAILY thiamine HCl (vitamin B1) 100 mg tablet 200 mg PO DAILY torsemide 20 mg tablet 40 mg PO .QOD amiodarone 200 mg tablet 200 mg PO DAILY biotin 5 mg tablet 2.5 mg PO calcium citrate-vitamin D3 200 mg-6.25 mcg (250 unit) tablet 1 tab PO DAILY Lactobacillus acidophilus PO BID melatonin 3 mg capsule 3 mg PO HS acetaminophen 325 mg tablet 650 mg PO ONCE PRN (Reason: fever or pain) sennosides-docusate sodium [Senna with Docusate Sodium] 8.6-50 mg tablet 1 tab-cap PO BID PRN (Reason: constipation) hydroxyzine HCl 10 mg tablet 10 mg PO QID PRN polyethylene glycol 3350 4.25 gram powder in packet 4.25 g PO DAILY PRN (Reason: constipation)
[2021-12-08] MEDS: Furosemide 20 MG/2 ML VIAL IVP (09:02)
[2021-12-08] MEDS: PIPERACILLIN/TAZO 4.5 GM in Normal Saline 100 ML IVPB (09:38)
--- NOTE | 2021-12-08 10:08 | NUR.NOTE ---
Nursing Note: PT TO BR VIA W/C, NO NEW COMPLAINTS.
[2021-12-08 10:18] LABS: Lab Add On Test DONE
[2021-12-08] MEDS: VANCOMYCIN 1,500 MG in Normal Saline 250 ML 166.6666 MG IVPB (10:22)
[2021-12-08 11:09] LABS: Procalcitonin 0.2 ng/mL
[2021-12-08] MEDS: Furosemide 100 MG/10 ML VIAL 80 MG IVP ×2 (12:43→20:24)
[2021-12-08] MEDS: Normal Saline Flush 10 ML SYR IVP ×2 (12:44→20:27)
--- NOTE | 2021-12-08 12:52 | DI.US_ITS ---
APPROVED REPORT EXAM: Comprehensive 2D, Doppler, and color-flow Echocardiogram Patient Location: In-Patient Room/Bed: [id number] Cloth Opener Hand: Amie Salazar RDCS (AE) Indications: Chronic CHF, Post bivalvular replacement, Pacemaker/Defibrillator Other Information Study Quality: Poor. Technically limited study due to body habitus, inability to position patient exa m done supine bedside. Conclusion Technically limited study The left ventricle is grossly normal in size and wall thickness. LV function is severely reduced. E stimated ejection fraction is 20-25% The right ventricle is not well visualized Both atria appear normal in size There is a bioprosthetic aortic valve. Mean gradient is 6.4 mmHg There is a prosthetic mitral valve. Calculated mitral valve area is 1.36 cm?? Normal tricuspid valve with mild regurgitation and estimated right ventricular systolic pressure is 4 0 mmHg Compared to an echocardiogram at [facility] from November 29 , aortic valve gradient is similar. Rig ht ventricular systolic pressure has decreased from 47 to 40 mmHg Wall motion Left Ventricle The left ventricle is normal size. Left ventricular systolic function is severely decreased. There is normal left ventricular wall thickness. There is no ventricular septal defect visualized. LVEF is 20 -25%. Right Ventricle Right ventricle is not well visualized. Right ventricular systolic function could not be assessed. Th e RVSP is 40.2mmHg. Atria The left atrium size is normal. The right atrium size is normal. The interatrial septum is intact wit h no evidence for an atrial septal defect. Aortic Valve No aortic regurgitation is present. Bioprosthetic aortic valve is present. Mitral Valve There is no mitral valve regurgitation noted. Bioprosthetic mitral valve is present. Tricuspid Valve The tricuspid valve is normal in structure. There is no tricuspid valve stenosis. Mild tricuspid regu rgitation. Pulmonic Valve The pulmonary valve is normal in structure. There is no pulmonic valvular stenosis. Trace pulmonic re gurgitation. Great Vessels The aortic root is normal in size. Ascending aorta is not well visualized. Aortic arch is not well vi sualized. The IVC collapses <50% with inspiration. Pericardium There is no pericardial effusion. 2D Dimensions IVSD d PLAX 0.85 cm F: 0.6-1.0 LV Vol A2C d MOD 85.7 mL LVPW d PLAX 0.85 cm F: 0.6 - 1.0 LV Vol A4C d MOD 103.4 mL LVID d PLAX 4.42 cm F: 3.8 - 5.2 LV EF A4C MOD 21.3 % LVDs 4.00 cm F: 2.2 - 3.5 LV EF A2C MOD 24.1 % Ao Root d 2.33 cm F: 2.7 - 3.3 LV EF Biplane MOD 22.8 % LV EF Teichholz 19.0 % SV 22.16 mL LVEF (Holloway's) 22.80 % F: 54 - 74 SV Index 13.95 mL/m2 LV Volume 79.19 mL F: 46 - 106 LV Volume Index 50.12 mL/m2 F: 29 - 61 LV Vol Biplane MOD 97.2 mL FS 8.55 % M-Mode TAPSE 1.29 cm (M/F) >1.7 LV Diastology MV E Vmax 1.12 (0.4-1.3 m/s) Aortic Valve LVOT Area 2.85 cm2 AoV Area Vmax 1.93 cm2 LVOT Vmax 1.04 m/s AoV Area/ BSA (Vmax) 1.21 cm2/m2 LVOT Mean Johnny. 0.65 m/s ALBERTO Mean Johnny. 1.49 cm2 LVOT Peak Grad 4.3 mmHg ALBERTO Mean Johnny. Index 0.94 cm2/m2 LVOT Mean Grad 2.0 mmHg LVOT VTI 0.162 m LVOT Diam s 1.90 cm AoV Vmax 1.54 m/s Velocity Ratio 0.67 AoV Mean Johnny. 1.24 m/s AoV Peak Grad 9.5 mmHg LVOT SV 46.26 mL AoV Mean Grad 6.4 mmHg AoV VTI 0.328 m AoV Area VTI 1.41 cm2 AoV Area/ BSA (VTI) 0.89 cm/m2 Mitral Valve MV DT 192 (160-240 msec) MV PHT 56 msec MV Area PHT 3.96 cm2 MV VTI 0.340 m MV Area VTI 1.36 (4.0-6.0 cm2) Pulmonary Valve PV Vmax 0.93 (0.5-1.5 m/s) RVOT Peak Gr. 1.66 mmHg PV Peak Grad 3.5 mmHg RVOT Mean Gr. 0.90 mmHg PV Mean Grad 1.6 mmHg RVOT VTI 0.104 m PV VTI 0.151 m RVOT Vmax 0.64 m/s Tricuspid Valve TR Peak Grad 32.2 mmHg TR Vmax 2.84 m/s RA Pressure 8.00 mmHg RVSP (TR) 40.2 mmHg
--- NOTE | 2021-12-08 16:59 | NUR.NOTE ---
Nursing Note: Patient's daughter, Lawanda, states patient was diagnosed with vascular dementia.
--- NOTE | 2021-12-08 18:35 | HPE_ITS ---
Date of service: 12/08/21 Time of Service: 18:36 Assessment and Plan Assessment and plan (1) Acute exacerbation of CHF (congestive heart failure): Status: Acute Assessment and plan: Know HFrEF Echocardigram shows EF of 20-25% Daughter states echo at [facility] during last admission showed EF of 18%. IV lasix. She is on metoprolol. Consider jardiance and/or Entresto. Palliative care consult. Low Na diet. Monitor wt., I's&O's (2) Left lower lobe pneumonia: Status: Acute Assessment and plan: Findings on CXR could be residual from previous PNA. However, she does have a mild WBC elevation and a modest procal elevation of 0.2 Her dyspnea is certainly related to CHF exacerbation, but PNA could be redeveloping. Cont Zosyn and monitor WBC count and procal. (3) Cardiomyopathy, unspecified: Assessment and plan: H/O rheumatic heart disease. Valvular component; s/p second aortic and mitral valve replacements. (4) Essential hypertension: Assessment and plan: Well controlled. Cont metoprolol. Also on spironolactone which will be continued. Also take lasix; currently utilizing IV lasix for CHF exacerbation. (5) Hypothyroidism: Assessment and plan: Cont replacement tx. Qualifiers: Hypothyroidism type: due to medication Qualified Code(s): E03.2 - Hypothyroidism due to medicaments and other exogenous substances History of Present Illness History of Present Illness Chief Complaint: Shortness of breath Narrative: This is a 76 yo female with a PMH of cardiomyopathy, CHF with reduced EF, mitral and aortic valve disorders, pulmonary hypertension, Fe def anemia. She She is s/p second replacements of aortic and mitral valves in October at [facility]. Pacemaker/defibrillator also placed. She discharged to [facility] rehab from there where she developed pneumonia / sepsis. She discharged from rehab 2 days prior to this admission. She had been experiencing some ongoing dyspnea with exertion, then in the night prior to date of admission developed dyspnea at rest. No fever. She denied CP/palpitations. + mild cough w/ sputum. In the ED her RA O2 saturations were in the low 90's. She was placed on O2 per NC and felt better. Lab showed a marginally elevated WBC count of 12.6. Hgb 10.7. Lytes normal. Troponin 68[place] [address]. INR 1.9. COVID negative. EKG A-V dual paced. CXR showed left basilar infiltrate and small left pleural effusion. In the ED she was given 20mg IV lasix, started on Zosyn and administered a dose of vancomycin to cover for possible early healthcare associated PNA. Her daughter noted that during her rehab stay she had periods of confusion. CT head obtained and dx of likely vascular dementia given. An outpt MRI and neurology telemedicine visit are scheduled. Review of Systems All systems reviewed & are unremarkable except as noted in HPI and below PFSH All Active Problems Acute exacerbation of CHF (congestive heart failure) (Acute) Left lower lobe pneumonia (Acute) Heart failure with reduced ejection fraction (Acute) Prosthetic aortic valve stenosis (Acute) Elevated troponin I level (Acute) Non-ST elevation [place] (NSTEMI) (Acute) Mediastinal lymphadenopathy (Acute) Pulmonary nodule (Acute) Mild obstructive sleep apnea (Chronic 05/12/20) severe in REM sleep, significan nocturnal hypoxemia, sleep fragmentation and increased airway resistance flow pattern. On amiodarone therapy (Acute) Restless legs (Chronic 10/29/20) Pulmonary hypertension (Acute) Chest pain (Acute) Left bundle branch block (LBBB) (Acute) Iron deficiency anemia (Chronic) 05/20/2020 EGD & 07/06/2020 colonoscopy ([facility]): no source for iron deficiency; recommend following studies & consider small bowel capsule study if anemia worsens Vulvar atrophy (Chronic 01/13/16) S/P aortic valve and mitral valve replacement (Chronic 08/04/14) Bovine prosthetic valves, plus MAZE, [facility] Osteopenia (Chronic 06/14/17) 06/14/17 DEXA: femoral neck T-score -1.1 WHO FRAX score: 10-year major osteoporotic fx risk of 8.9% and hip fx risk of 0.9% --> tx with Ca/vitamin D [facility] current use of anticoagulant therapy (Chronic 08/15/14) [facility] for afib 08/2017: Switched from Warfarin to apixaban by cardiology (Dr. 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 moderate by echo 12/2011 S/p repair Atrial fibrillation (07/31/14) S/p MAZE; adverse rxn dofetilide; amiodarone begun 08/2014, again 03/2020; 08/2017 Switched to apixaban by cardiology (Dr. 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 Severe AR & MR, Repeat at [facility] in 10/2021 Family History Mother , Age 87, peritonitis Diabetes Essential hypertension Breast cancer Father , Age 45, colon cancer Colon cancer Sister Heart disease VA at age 49 Brother Diabetes Colon cancer Brother No problems noted. Brother Heart disease CABG Other Family history of colon cancer Social History Smoking/Tobacco Use Status: Former Tobacco Use tobacco type: cigarettes Quit Date: 03/12/94 Smoking risk assessment performed?: Yes Alcohol Intake: former Drug use: Never Substance use type: does not use Counseling given: No Counseling provided: none Adopted: No Caregiver/Support person: No Foster care: No Household members: none Housing: house Number of Children: 1 number of grandchildren: 2 Communication Needs: None Education Level: high school Do you need help understanding health information?: Rarely current occupation: Retired Pets and animals: No Current gender identity: female What is your relationship status?: Panel score (0-1 are the most socially isolated patients): 0 What type of physical activity do you participate in: walking Duration: 60-90 minutes/day Frequency: daily Seatbelt use: always Helmet use: No Drive intox or ride w/intox vending route driver: No Water heater temp set <120 deg: Yes Working smoke detector in home: No Fire extinguisher in home: No Carbon monox detector in home: No Firearms in home: No Do you feel safe at home: Yes Do you feel safe in your relationship?: Yes Meds Allergies and Home Medications Allergies Allergy/AdvReac Type Severity Reaction Status Date / Time heparin Allergy Severe thrombocytopenia, Verified 12/08/21 06:19 anaphylaxis dofetilide AdvReac Severe Prolonged Verified 12/08/21 06:19 QTc lisinopril AdvReac Cough Verified 12/08/21 06:19 Home Medications Medication Instructions Recorded Confirmed Type ascorbate calcium (vitamin C) 500 500 mg PO DAILY 07/31/19 12/08/21 History mg tablet ferrous sulfate 325 mg (65 mg 325 mg PO DAILY #90 tab-caps 04/21/21 12/08/21 Rx iron) tablet sertraline 25 mg tablet 25 mg PO DAILY #90 tab-caps 09/03/21 12/08/21 Rx pantoprazole 40 mg tablet,delayed See Rx Instructions .Route 09/13/21 12/08/21 Rx release .COMPLEX #90 tabs spironolactone 25 mg tablet 25 mg PO DAILY #90 tabs 09/14/21 12/08/21 Rx metoprolol tartrate 50 mg tablet 50 mg PO DAILY 10/27/21 12/08/21 History atorvastatin 20 mg tablet 20 mg PO DAILY #90 tab-caps 11/30/21 12/08/21 Rx Lactobacillus acidophilus PO BID 12/07/21 History acetaminophen 325 mg tablet 650 mg PO ONCE PRN fever or pain 12/07/21 12/08/21 History amiodarone 200 mg tablet 200 mg PO DAILY 12/07/21 12/08/21 History aspirin 81 mg chewable tablet 81 mg PO DAILY 12/07/21 12/08/21 History biotin 5 mg tablet 2.5 mg PO 12/07/21 History calcium citrate 200 mg 1 tab PO DAILY 12/07/21 12/08/21 History calcium-vitamin D3 6.25 mcg (250 unit) tablet hydroxyzine HCl 10 mg tablet 10 mg PO QID PRN 12/07/21 12/08/21 History melatonin 3 mg capsule 3 mg PO HS 12/07/21 12/08/21 History polyethylene glycol 3350 4.25 gram 4.25 g PO DAILY PRN constipation 12/07/21 12/08/21 History oral powder packet sennosides 8.6 mg-docusate sodium 1 tab-cap PO BID PRN constipation 12/07/21 12/08/21 History 50 mg tablet (Senna with Docusate Sodium) thiamine HCl (vitamin B1) 100 mg 200 mg PO DAILY 12/07/21 12/08/21 History tablet torsemide 20 mg tablet 40 mg PO .QOD 12/07/21 12/08/21 History warfarin 2 mg tablet 2 mg PO .COMPLEX 12/07/21 12/08/21 History warfarin 3 mg tablet 3 mg PO .COMPLEX 12/07/21 12/08/21 History Exam Narrative Exam Narrative: Frail appearing but pleasant, interactive in NAD Const General: cooperative Nutritional Appearance: thin Orientation: alert, oriented to person and oriented to place Eyes General: appearance normal, both eyes and all related structures Sclera: sclerae normal Neck Neck: normal visual inspection and no JVD Resp Effort & Inspection: normal respiratory effort and able to speak in complete sentences Auscultation: rales (faint. Bases. L>R) Cardio Rate: regular rate Rhythm: regular rhythm Heart Sounds: S1 normal, S2 normal and murmur GI Palpation: soft, no guarding and nontender Skin General skin exam: no rashes or lesions noted Extrem General: no pedal edema and no calf tenderness Psych Appearance: grossly normal Speech and Movement: speech clear Mood: congruent mood Affect: normal affect Results Labs Result diagrams: 12/09/21 05:15 12/09/21 05:15 Labs: Laboratory Results - last 24 hr 12/08/21 12/08/21 12/08/21 06:25 06:25 06:25 WBC 12.61 H RBC 3.96 Hgb 10.7 L Hct 36.4 MCV 92 MCH 27.0 MCHC 29.4 L RDW 17.4 H Plt Count 290 MPV 10.0 Immature Gran % 0.3 Neutrophils % 80.8 Lymphocytes % 12.5 Monocytes % 5.4 Eosinophils % 0.2 Basophils % 0.8 Nucleated RBC % 0.0 Absolute Neutrophils 10.19 H Absolute Lymphocytes 1.58 Absolute Monocytes 0.68 Absolute Eosinophils 0.03 Absolute Basophils 0.10 PT Cancelled INR Cancelled Sodium 141 Potassium 3.9 Chloride 101 Carbon Dioxide 30.3 Anion Gap 9.7 BUN 27 H Creatinine 1.7 H Est GFR (CKD-EPI 2020) 31.27 Glucose 112 H Calcium 9.1 Magnesium 2.0 Total Bilirubin 1.2 H AST 43 H ALT 60 H Alkaline Phosphatase 154 H Troponin I 68 H* NT-Pro-B Natriuret Pep 56225 H Total Protein 7.6 Albumin 3.4 Procalcitonin COVID-19 Source SARS-CoV-2 (PCR) Influenza Type A (PCR) Influenza Type B (PCR) RSV (PCR) Add-On Test Request 12/08/21 12/08/21 12/08/21 06:25 06:25 06:40 WBC RBC Hgb Hct MCV MCH MCHC RDW Plt Count MPV Immature Gran % Neutrophils % Lymphocytes % Monocytes % Eosinophils % Basophils % Nucleated RBC % Absolute Neutrophils Absolute Lymphocytes Absolute Monocytes Absolute Eosinophils Absolute Basophils PT INR Sodium Potassium Chloride Carbon Dioxide Anion Gap BUN Creatinine Est GFR (CKD-EPI 2020) Glucose Calcium Magnesium Total Bilirubin AST ALT Alkaline Phosphatase Troponin I NT-Pro-B Natriuret Pep Total Protein Albumin Procalcitonin 0.2 COVID-19 Source Nasopharynx SARS-CoV-2 (PCR) Negative Influenza Type A (PCR) Negative Influenza Type B (PCR) Negative RSV (PCR) Negative Add-On Test Request DONE 12/08/21 07:13 WBC RBC Hgb Hct MCV MCH MCHC RDW Plt Count MPV Immature Gran % Neutrophils % Lymphocytes % Monocytes % Eosinophils % Basophils % Nucleated RBC % Absolute Neutrophils Absolute Lymphocytes Absolute Monocytes Absolute Eosinophils Absolute Basophils PT 18.6 H INR 1.9 H Sodium Potassium Chloride Carbon Dioxide Anion Gap BUN Creatinine Est GFR (CKD-EPI 2020) Glucose Calcium Magnesium Total Bilirubin AST ALT Alkaline Phosphatase Troponin I NT-Pro-B Natriuret Pep Total Protein Albumin Procalcitonin COVID-19 Source SARS-CoV-2 (PCR) Influenza Type A (PCR) Influenza Type B (PCR) RSV (PCR) Add-On Test Request Last Vital Signs Temp 36.5 C 12/08/21 11:40 Pulse 82 12/08/21 11:40 Resp 28 H 12/08/21 10:45 BP 131/78 12/08/21 10:45 Pulse Ox 99 12/08/21 10:30
[2021-12-08] MEDS: PIPERACILLIN/TAZO 3.375 GM in Normal Saline 50 ML IVPB (20:26)
[2021-12-08] MEDS: Warfarin 1 MG TAB 2 MG PO (21:57)
[2021-12-08] MEDS: Lidocaine 2% Jelly 6 ML SYR (21:57)
[2021-12-09] VITALS (68 sets, daily range): BP systolic 95–146; BP diastolic 66–85; PULSE 78–97; RESP 13–32; TEMP 36.1–37.1; O2SAT 86–96
[2021-12-09] MEDS: PIPERACILLIN/TAZO 3.375 GM in Normal Saline 50 ML IVPB ×4 (02:13→20:30)
[2021-12-09 06:20] LABS: Abs Immature Grans 0.04 10^3/uL (0.0-0.06); Absolute Basophil Count 0.11 10^3/uL (0.0-0.2); Absolute Eosinophil Count 0.03 10^3/uL (0.0-0.7); Absolute Lymphocyte Count 0.93 10^3/uL (1.2-3.4); Absolute Monocyte Count 0.55 10^3/uL (0.1-0.8); Absolute Neutrophil Count 9.04 10^3/uL (1.2-6.7); Eosinophils % 0.3; HCT 32.5 % (36.0-46.0); HGB 9.9 g/dL (11.2-15.7); Immature Grans % 0.4; Lymphocytes % 8.7; MCH 27.3 pg (27.0-33.0); MCHC 30.5 % (32.0-36.0); MCV 90 fL (80-95); MPV 10.3 fL (8.0-11.0); Monocytes % 5.1; Neutrophils % 84.5; Platelet Count 246 10^3/uL (130-400); RBC 3.63 10^6/uL (3.93-5.22); RDW 17.3 % (11.7-14.6); RDW-SD 56.4 fL
[2021-12-09 06:41] LABS: INR 1.8 (0.9-1.1); Prothrombin Time 17.9 sec (9.3-11.0)
[2021-12-09 06:51] LABS: ALT 47 U/L (14-59); AST 40 U/L (15-37); Albumin 3.3 g/dL (3.4-5.0); Alkaline Phosphatase 138 U/L (46-116); Anion Gap 10.8 mmol/L (3-11); BUN 24 mg/dL (7-18); Bilirubin, Total 1.2 mg/dL (0.2-1.0); CO2 29.2 mmol/L (21.0-32.0); CREATININE 1.7 mg/dL (0.55-1.02); Chloride 103 mmol/L (98-107); Estimated GFR 31.27 (mL/min/1.73m2); Glucose 91 mg/dL (74-106); Magnesium 1.9 mg/dL (1.8-2.4); Potassium 3.3 mmol/L (3.5-5.1); Sodium 143 mmol/L (136-145)
--- NOTE | 2021-12-09 08:08 | RESPIRATORY ---
Patient does have home CPAP unit for DEONNA and does not have any home O2. RT discussed with patient about using a home unit, patient is not interested in using a hospital unit nor has anyone who can bring the device in.
--- NOTE | 2021-12-09 08:40 | NUR.NOTE ---
12/09/21: Daughter arrived in unit at 0820 to visit with patient. Patient agitated & daughter left room upset. Daughter stated she called her aunt to help keep the patient calm. Daughter relayed that she and another family member have been caring for patient at home since she was discharged from [facility] and it had become increasingly difficult to redirect patient when shse became agitated. Daughter voiced concern about not being able to continue caring for patient at home. 0830: patient sister in to visit. Patient calm. Directed sister to [facility] to talk with patient's daughter. Relayed to patient's nurse Eduardo Crews RN that daughter & sister in waiting room and wanted to talk with caremanagement and physician. Eduardo Crews RN notified care management. Dr. Enriquez in to evaluate patient. 0840. Dr. Enriquez talking with patient's family. He updated them ho wthe patient is doing physicallly. Palliative consult was confirmed and he answered their questions. Nursing Note:
--- NOTE | 2021-12-09 09:19 | PDOC.CMIN ---
- If Service Date Differs Date of service: 12/09/21 Time of Service: 09:19 Care Management Initial Assess REASON FOR HOSPITALIZATION:: Acute exacerbation of CHF, Left lower lobe pneumonia PAST MEDICAL HISTORY/PAST SURGICAL HISTORY:: All Active Problems . Acute exacerbation of CHF (congestive heart failure) (Acute). Left lower lobe pneumonia (Acute). Heart failure with reduced ejection fraction (Acute). Prosthetic aortic valve stenosis (Acute). Elevated troponin I level (Acute). Non-ST elevation [place] (NSTEMI) (Acute). Mediastinal lymphadenopathy (Acute). Pulmonary nodule (Acute). Mild obstructive sleep apnea (Chronic 05/12/20). severe in REM sleep, significan nocturnal hypoxemia, sleep fragmentation and increased airway resistance flow pattern. On amiodarone therapy (Acute). Restless legs (Chronic 10/29/20). Pulmonary hypertension (Acute). Chest pain (Acute). Left bundle branch block (LBBB) (Acute). Iron deficiency anemia (Chronic). 05/20/2020 EGD & 07/06/2020 colonoscopy ([facility]): no source for iron deficiency; recommend following studies & consider small bowel capsule study if anemia worsens. Vulvar atrophy (Chronic 01/13/16). S/P aortic valve and mitral valve replacement (Chronic 08/04/14). Bovine prosthetic valves, plus MAZE, [facility]. Osteopenia (Chronic 06/14/17). 06/14/17 DEXA: femoral neck T-score -1.1. WHO FRAX score: 10-year major osteoporotic fx risk of 8.9% and hip fx risk of 0.9% --> tx with Ca/vitamin D. intermission coordinator current use of anticoagulant therapy (Chronic 08/15/14). [facility] for afib. 08/2017: Switched from Warfarin to apixaban by cardiology (Dr. Chiang) following hospitalization for GI bleed. Insomnia, unspecified (Chronic 06/01/11). IFG (impaired fasting glucose) (Chronic 08/21/15). Congestive heart failure (Chronic ~1989). 2/2 rheumatic valvular disease; most recent echo 02/10/2021: EF 35%. 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 Medical History . Aortic regurgitation. a. moderate by echo 12/2011. S/p repair. Atrial fibrillation (07/31/14). S/p MAZE; adverse rxn dofetilide; amiodarone begun 08/2014, again 03/2020; 08/2017 Switched to apixaban by cardiology (Dr. Chiang) following hospitalization for GI bleed (no afib during cardiac monitoring during hospitalization). Cardiomyopathy, unspecified. CHF (congestive heart failure). Chronic kidney disease. Duodenal ulcer (09/05/17). Hospitalization 08/2017 for acute GI bleed. Essential hypertension. Hyperlipidemia (05/12/13). LDL 144 2012; Risk calculated 13.3% soft CV risk; CV risk 06/2014: 11.6%. Hypothyroidism. / amiodarone. Mitral regurgitation. Rheumatic; s/p repair. Rheumatic heart disease. Tubular adenoma of colon (08/30/17). Surgical History . Biopsy of breast (~2008). Left breast [facility]. Colonoscopy - MAC (08/28/17). EGD - MAC (08/28/17). History of cardiac cath (09/28/21). History of section (~1976). History of toe surgery (~2003). Removal of bone chip. Pacemaker. Radiofrequency Maze Procedure (08/04/14). done at [facility]. S/P aortic valve and mitral valve replacement (~07/2014). [facility]. Severe AR & MR,. Repeat at [facility] in 10/2021 PREVIOUS FUNCTIONAL STATUS/SOCIAL/FAMILY SUPPORTS:: Maira lives alone in [place]. Her sister, Iris, and only child, Lawanda, live locally and are supportive. 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 Maira no longer drives, and has required assistance at home since she was [facility]. CURRENT FUNCTIONAL STATUS:: Maira is lying in bed when CM met with her. She is awake, alert and appropriate. Maira is not open to discharging to a SNF as she feels that she has enough family support. She identifies her daughter Lawanda as her primary support person. CM spoke with Lawanda and Maira's sister Michelle this morning about discharge planning needs. Between Lawanda and her [id number], Maira has had 24/7 caregiver support since her discharge from [facility]. Lawanda is planning on hiring caregivers and creating a schedule. CM provided Lawanda with local resources. Per Lawanda Maira would not be interested in the [facility] because she is not a social person. Lawanda's goal is to have Maira reside at home for as long as possible. ADVANCE DIRECTIVES:: On file, [facility] is Anita Celis. Agent is Iris Armenta. Has patient been provided with info about the portal/API?: Yes Did the patient sign up for the portal?: Yes (Prior to admission) CODE STATUS:: Full Code INSURANCE COVERAGE / FINANCIAL ISSUES:: Medicare. [place] [employer] [place] CURRENT HOME/COMMUNITY SERVICES/EQUIPMENT:: Odalis reeder [facility] RN services PRIMARY CARE PHYSICIAN:: Jessica Ochoa ([facility]) POTENTIAL DISCHARGE NEEDS:: Follow up appointments with PCP, consulting services manager, and pulmonology. Resumption of [facility] RN Services. Assessment for increased community support: CM provided patients daughter with caregiver resources. PATIENT/FAMILY EDUCATION NEEDS:: Review of discharge instructions including medications and limitations; discuss [employer] Me [employer] and self management. TRANSPORTATION:: Via private vehicle with family. PLAN:: Maira will likely discharge home with resumption of [facility] RN services when medically cleared by provider. Palliative consult is ordered. She will likely need increased caregiver support. CM provided pts daughter Lawanda with resources. Maira will follow up with her PCP, cardiology, pulmonology, and plan of care as prescribed. She will be transported home via private vehicle by family when ready. CM will continue to follow.
--- NOTE | 2021-12-09 09:34 | OT.INNT ---
Occupational Therapy Notes 12/09/21 OT consult received and pts chart was reviewed. OT attempted consult which pt was agitated when OT arrived. She was not willing to perform her ADLs or do any assessment until she sees her son in law per pt report. OT was unable to complete assessment today and will attempt again. Ava Varela, OTR/L
[2021-12-09] MEDS: Furosemide 100 MG/10 ML VIAL 40 MG IVP (10:25)
[2021-12-09] MEDS: Normal Saline Flush 10 ML SYR IVP ×3 (10:25→20:31)
[2021-12-09] MEDS: Pantoprazole 40 MG TABCR PO (10:26)
[2021-12-09] MEDS: Sacubitril/Valsartan 24 mg/26 mg TAB 1 EACH PO ×2 (10:26→20:30)
[2021-12-09] MEDS: Spironolactone 25 MG TAB PO (10:26)
[2021-12-09] MEDS: Atorvastatin 20 MG TAB PO (10:27)
[2021-12-09] MEDS: Thiamine 100 MG TAB 200 MG PO (10:27)
[2021-12-09] MEDS: Sertraline 25 MG TAB PO (10:27)
[2021-12-09] MEDS: Ascorbic Acid 500 MG TAB PO (10:27)
--- NOTE | 2021-12-09 10:36 | PGE_ITS ---
Date of Service Date of service: 12/09/21 Time of Service: 10:37 Assessment and Plan Assessment and plan (1) Acute exacerbation of CHF (congestive heart failure): Status: Acute Assessment and plan: Know HFrEF Echocardigram shows EF of 20-25% Daughter states [place] [facility] [place] showed EF of 18%. IV lasix. She is on metoprolol. Start Entresto for goal directed therapy. Monitor tolerance of BP. Palliative care consult. Low Na diet. Monitor wt., I's&O's (2) Left lower lobe pneumonia: Status: Acute Assessment and plan: Findings on CXR could be residual from previous PNA. However, she does have a mild WBC elevation and a modest procal elevation of 0.2 Her dyspnea is certainly related to CHF exacerbation, but PNA could be redeveloping. Cont Zosyn. WBC count normalized. (3) Cardiomyopathy, unspecified: Assessment and plan: H/O rheumatic heart disease. Valvular component; s/p second aortic and mitral valve replacements. (4) Essential hypertension: Assessment and plan: Well controlled. Cont metoprolol. Also on spironolactone which will be continued. Also take lasix; currently utilizing IV lasix for CHF exacerbation. (5) Hypothyroidism: Assessment and plan: Cont replacement tx. Qualifiers: Hypothyroidism type: due to medication Qualified Code(s): E03.2 - Hypothyroidism due to medicaments and other exogenous substances (6) Discharge planning issues: Status: Acute Assessment and plan: Discussed with daughter and sister. They are the caretakers for her since she was discharged from rehab. Previously she lived independently. They voice concerns for being able to manage her care. She frustrates them when she refuses to dress or eat, etc. Palliative and care management involved. Subjective Subjective Patient reports: no new complaints and afebrile; denies nausea, vomiting or shortness of breath (when at rest) Exam Narrative Exam Narrative: Frail appearing but pleasant, interactive in NAD Const General: cooperative and no acute distress Nutritional Appearance: thin Orientation: alert and oriented to person Eyes General: appearance normal, both eyes and all related structures Sclera: sclerae normal Neck Neck: normal visual inspection and no JVD Resp Effort & Inspection: normal respiratory effort and able to speak in complete sentences Auscultation: rales (faint. Bases. ) Cardio Rate: regular rate Rhythm: regular rhythm Heart Sounds: S1 normal, S2 normal and murmur GI Palpation: soft, no guarding and nontender Skin General skin exam: no rashes or lesions noted Extrem General: no pedal edema and no calf tenderness Psych Appearance: grossly normal Speech and Movement: speech clear Mood: congruent mood Affect: normal affect Objective Last Vital Signs Temp 36.5 C 12/08/21 11:40 Pulse 81 12/09/21 04:01 Resp 19 12/09/21 06:10 BP 114/69 12/09/21 04:01 Pulse Ox 94 12/09/21 08:30 Laboratory Results - last 24 hr 12/08/21 12/09/21 12/09/21 06:25 05:15 05:15 WBC 10.70 RBC 3.63 L Hgb 9.9 L Hct 32.5 L MCV 90 MCH 27.3 MCHC 30.5 L RDW 17.3 H Plt Count 246 MPV 10.3 Immature Gran % 0.4 Neutrophils % 84.5 Lymphocytes % 8.7 Monocytes % 5.1 Eosinophils % 0.3 Basophils % 1.0 Nucleated RBC % 0.0 Absolute Neutrophils 9.04 H Absolute Lymphocytes 0.93 L Absolute Monocytes 0.55 Absolute Eosinophils 0.03 Absolute Basophils 0.11 PT INR Sodium 143 Potassium 3.3 L Chloride 103 Carbon Dioxide 29.2 Anion Gap 10.8 BUN 24 H Creatinine 1.7 H Est GFR (CKD-EPI 2020) 31.27 Glucose 91 Calcium 9.0 Magnesium 1.9 Total Bilirubin 1.2 H AST 40 H ALT 47 Alkaline Phosphatase 138 H Total Protein 7.0 Albumin 3.3 L Procalcitonin 0.2 12/09/21 05:15 WBC RBC Hgb Hct MCV MCH MCHC RDW Plt Count MPV Immature Gran % Neutrophils % Lymphocytes % Monocytes % Eosinophils % Basophils % Nucleated RBC % Absolute Neutrophils Absolute Lymphocytes Absolute Monocytes Absolute Eosinophils Absolute Basophils PT 17.9 H INR 1.8 H Sodium Potassium Chloride Carbon Dioxide Anion Gap BUN Creatinine Est GFR (CKD-EPI 2020) Glucose Calcium Magnesium Total Bilirubin AST ALT Alkaline Phosphatase Total Protein Albumin Procalcitonin
--- NOTE | 2021-12-09 13:20 | NUR.NOTE ---
Nursing Note: At 12:30, patient brought from ICU to med surg. Patient and family oriented to room 211. All questions patient had were answered.
--- NOTE | 2021-12-09 14:40 | CHAPLAIN ---
Maira was up in the chair when I visited. She was recently moved from the ICU to Med/Surg and she's happy about that. I explained my role and offered support.
--- NOTE | 2021-12-09 15:24 | IN_ITS ---
Date of service: 12/09/21 Time of Service: 15:00 PT Notes Visit Reasons: Acute Systolic Congestive Heart Failure Inpatient Physical Therapy Evaluation Date: December 09, 2021 Referring Doctor: Vinay Enriquez PT Orders: PT CONSULT Precautions: Standard, Fall Patient Profile/Admitting Diagnosis: Maira is a 76 year old female admitted secondary to acute exacerbation of CHF, Left lower lobe pneumonia. PMHX: (Updated 12/08/21 @ 09:05 by Iam Youssef MD) Acute exacerbation of CHF (congestive heart failure) (Acute) Heart failure with reduced ejection fraction (Acute) Prosthetic aortic valve stenosis (Acute) Elevated troponin I level (Acute) Non-ST elevation TN (NSTEMI) (Acute) Mediastinal lymphadenopathy (Acute) Pulmonary nodule (Acute) Mild obstructive sleep apnea (Chronic 05/12/20) severe in REM sleep, significan nocturnal hypoxemia, sleep fragmentation and increased airway resistance flow pattern. On amiodarone therapy (Acute) Restless legs (Chronic 10/29/20) Pulmonary hypertension (Acute) Chest pain (Acute) Left bundle branch block (LBBB) (Acute) Iron deficiency anemia (Chronic) 05/20/2020 EGD & 07/06/2020 [place] no source for iron deficiency; recommend following studies & consider small bowel capsule study if anemia worsens Vulvar atrophy (Chronic 01/13/16) S/P aortic valve and mitral valve replacement (Chronic 08/04/14) Bovine prosthetic valves, plus MAZE, [facility] Osteopenia (Chronic 06/14/17) 06/14/17 DEXA: femoral neck T-score -1.1 WHO FRAX score: 10-year major osteoporotic fx risk of 8.9% and hip fx risk of 0.9% --> tx with Ca/vitamin D skilled nursing current use of anticoagulant therapy (Chronic 08/15/14) [facility] for afib 08/2017: Switched from Warfarin to apixaban by cardiology (Dr. 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 moderate by echo 12/2011 S/p repair Atrial fibrillation (07/31/14) S/p MAZE; adverse rxn dofetilide; amiodarone begun 08/2014, again 03/2020; 08/2017 Switched to apixaban by cardiology (Dr. 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 Severe AR & MR, Repeat at [facility] in 10/2021 Social History/Home Situation: Maira lives in a private home on one level. She declines any stairs to enter. She notes she does not drive anymore. She has a sister and a daughter that live close by and assist her with transportation and anything she needs. She has required assistance at home since [facility]. Maira notes she has been utilizing a walker while at home. Current Functional Limitations: Decreased activity tolerance Equipment Owned/DME: Walker, cane, shower chair, electric lift chair Subjective: Maira notes that she is feeling better however remains tired. She has not been able to get a lot of rest since admission. Objective: General Observation: telemetry, IV access R UE Mental Status: Alert and oriented x3. Pain: Declines any pain Vital Signs: 98/65 mmHg; 80 bpm, 92% on room air O2 saturation ROM: Right Upper Extremity: Demonstrates full active elbow, forearm, wrist and digit mobility. Unable to assess shoulder mobility due to precautions Left Upper Extremity: Demonstrates full active elbow, forearm, wrist and digit mobility. Unable to assess shoulder mobility due to precautions Right Lower Extremity: Demonstrates WFL AROM R LE Left Lower Extremity: Demonstrates WFL AROM L LE Strength: Right Upper Extremity: Good functional grasp. Left Upper Extremity: Good functional grasp Right Lower Extremity: Demonstrates grossly full R LE strength Left Lower Extremity: Demonstrates grossly full L LE strength Bed Mobility/Transfers: Supine-sit: independent Sit-supine: independent Sit-stand: Supervision Stand-sit: Supervision Gait: N/A Balance: Static Sitting: Normal Dynamic Sitting: Normal Static Standing: Fair- increased sway Dynamic Standing: Poor Special Tests: Mobility Limitations Standardized Measure [facility] AM-PAC 6 clicks Basic Mobility Inpatient Short Form: Raw Score: 21 CMS Score: 29% Informed Consent/Education: Patient instructed in purpose of PT consult and plan of care. Assessment: Patient is a 76 year old female referred to physical therapy services with the diagnosis of acute exacerbation of CHF, Left lower lobe pneumonia. Patient presents with clinical signs and symptoms consistent with diagnosis, as demonstrated by the following impairment level findings: decreased functional endurance, limited overhead joint mobility due to precautions, generalized weakness. Impairments are contributing to the following functional limitations: decreased activity tolerance, decreased functional endurance Patient is assessed as a Moderate 44464 complexity based on the following: History: As above Examination: As above Presentation: Evolving Decision Making: Moderate Goals: Goals X1 week 1. Supine-Sit independent 2. Sit-Supine independent 3. Sit-Stand independent 4. Stand-Sit independent 5. Bed-Chair independent 6. Chair-Bed independent 7. Gait 100 ft or greater supervision with least restrictive assistive device as needed Plan of Care/Treatment Plan: 1-2x/day, 7 days/week x 1 week. Plan of care has been reviewed with the HEEL SPRAYER providing the service under Physical Therapy direction. Initiate Physical Therapy intervention for strengthening, bed mobility, transfers, gait, stairs, balance training, use of assistive device. DISCHARGE RECOMMENDATIONS: Home with continued services via Home Health. TREATMENT CODE/TIME: 70803, 25 minutes, 15:00 PM CONSTANZA Awan [facility] Disclaimer: This note was created using [employer] voice recognition software. It was reviewed for major content. However, there may be multiple small discrepancies and errors due to the voice recognition aspects of the software.
[2021-12-09] MEDS: Melatonin 3 MG TAB PO (22:48)
[2021-12-10] VITALS (9 sets, daily range): BP systolic 92–114; BP diastolic 59–74; PULSE 79–87; RESP 14–18; TEMP 36–37.2; O2SAT 84–98
[2021-12-10] MEDS: PIPERACILLIN/TAZO 3.375 GM in Normal Saline 50 ML IVPB ×4 (01:02→20:06)
[2021-12-10] MEDS: Warfarin 1 MG TAB 2 MG PO ×2 (01:02→20:06)
[2021-12-10 06:19] LABS: Prothrombin Time 19.1 sec (9.3-11.0)
[2021-12-10] MEDS: Normal Saline Flush 10 ML SYR IVP ×2 (07:45→11:14)
[2021-12-10] MEDS: Sacubitril/Valsartan 24 mg/26 mg TAB 1 EACH PO ×2 (07:48→20:06)
[2021-12-10] MEDS: Thiamine 100 MG TAB 200 MG PO (07:48)
[2021-12-10] MEDS: Ascorbic Acid 500 MG TAB PO (07:48)
[2021-12-10] MEDS: Atorvastatin 20 MG TAB PO (07:48)
[2021-12-10] MEDS: Torsemide 20 MG TAB PO (07:48)
[2021-12-10] MEDS: Metoprolol CR 50 MG TABCR PO (07:48)
[2021-12-10] MEDS: Sertraline 25 MG TAB PO (07:49)
[2021-12-10] MEDS: Pantoprazole 40 MG TABCR PO (07:49)
[2021-12-10] MEDS: Aspirin 81 MG CHEW PO (07:49)
[2021-12-10] MEDS: Spironolactone 25 MG TAB PO (07:49)
[2021-12-10 10:44] LABS: Anion Gap 8.1 mmol/L (3-11); BUN 18 mg/dL (7-18); CO2 30.9 mmol/L (21.0-32.0); CREATININE 1.5 mg/dL (0.55-1.02); Calcium 8.4 mg/dL (8.5-10.1); Chloride 106 mmol/L (98-107); Estimated GFR 36.34 (mL/min/1.73m2); Glucose 107 mg/dL (74-106); Sodium 145 mmol/L (136-145)
[2021-12-10 10:47] LABS: Potassium 2.9 mmol/L (3.5-5.1)
[2021-12-10 10:57] LABS: Lab Add On Test DONE
[2021-12-10 11:11] LABS: Magnesium 1.9 mg/dL (1.8-2.4)
[2021-12-10] MEDS: Potassium Chloride 20 MEQ TABCR 40 MEQ PO (11:13)
[2021-12-10] MEDS: POTASSIUM CHLORIDE 20 MEQ/100 ML BAG 50 MEQ IVPB (11:14)
--- NOTE | 2021-12-10 11:24 | PTTR_ITS ---
Date of service: 12/10/21 Time of Service: 10:50 PT Notes Visit Reasons: Acute Systolic Congestive Heart Failure Inpatient Physical Therapy Treatment Note [facility] Date: December 10, 2021 PRECAUTIONS:Standard SUBJECTIVE: Maira notes she is feeling better. Has a little more energy today. OBJECTIVE: PAIN: Declines pain BED MOBILITY/TRANSFERS Rolling L/R: Independent Supine-sit: Independent Sit-supine: Independent Sit-stand: CGA Stand-sit: CGA Bed-Chair: CGA Chair-bed: CGA GAIT Assistive Device: None utilized bed to chair-does have a walker and SPC at home Weight bearing: Full Assist: CGA Distance: bed to chair. Also completed standard machine stitcher place bed side marching with manageable symptoms Deviation: Minimal to no sway in comparison to yesterday. VITALS: 97% on 2 liters via nasal canula THEREX: Completed LE strengthening in supine and seated positions to include SLR x10, heel slides x10, seated hip flexion x10, seated hip adduction x10, seated hip abduction x10, Ankle pumps x10, LAQ x10. All exercises completed bilaterally without complaints. ASSESSMENT: Tolerated treatment well. Improved static standing balance. Improved functional transfers. PLAN: Continue with POC as per tolerance TREATMENT CODE/TIME: [id number] minutes, [id number] minutes 30 minutes, 10:50-11:20 am CONSTANZA Awan [place] [facility]
[2021-12-10] MEDS: POTASSIUM CHLORIDE 20 MEQ/100 ML BAG 35 MEQ IVPB (14:59)
--- NOTE | 2021-12-10 18:57 | W.PM.PROGNOT ---
Date of Service Date of service: 12/10/21 Time of Service: 18:57 Assessment and Plan Assessment and plan (1) Acute exacerbation of CHF (congestive heart failure): Status: Acute Assessment and plan: Chronic systolic CHF w/ LVEF of 20-25% by echo. Currently on toprol XL 50 mg PO daily, as well as entresto, atorvastatin, torsemide and aldactone. Recheck proBNP. Consider increasing torsemide. Palliative care consulted. Contiue a Low sodium diet. Monitor strict I/Os and daily weights. Wean O2 as tolerated. (2) Left lower lobe pneumonia: Status: Acute Assessment and plan: Continue zosyn. I do not like worsening oxygen requirement. Add IS. Repeat CXR in am. (3) Cardiomyopathy, unspecified: Assessment and plan: H/O rheumatic heart disease s/p second aortic and mitral valve replacements. As above (4) Essential hypertension: Assessment and plan: Bps borderline low today. We may have to adjust doses of medications to permit more effective diuresis. (5) Hypothyroidism: Assessment and plan: Continue levothyroxine. Qualifiers: Hypothyroidism type: due to medication Qualified Code(s): E03.2 - Hypothyroidism due to medicaments and other exogenous substances (6) Discharge planning issues: Status: Acute Assessment and plan: Full code Palliative and care management on board. Plan is for the patient to go home with caretakers. Oxygen, should it be required, would be new. Subjective Subjective Interval history since last seen: Ms Mcdermott states that she is feeling well today. She denies dizziness, chest pain, shortness of breath, nausea, abdominal pain. She states she is not normally on oxygen. Today she is requiring 2L of O2 and saturating 91%. Exam Narrative Exam Narrative: General: Pleasant elderly female who is sitting up in a chair, A&Ox3, NAD HEENT: EOMI, MMM Heart: RRR, no m/r/g Lungs: CTAB (diminished breath sounds B) Abdomen: soft, nontender, nondistended Extremities: no edema BLEs Objective Last Vital Signs Temp 36.8 C 12/10/21 17:05 Pulse 87 12/10/21 17:05 Resp 16 12/10/21 17:05 BP 92/59 L 12/10/21 17:05 Pulse Ox 91 L 12/10/21 17:05 Laboratory Results - last 24 hr 12/10/21 12/10/21 12/10/21 05:58 10:27 10:27 PT 19.1 H INR 2.0 H Sodium 145 Potassium 2.9 L Chloride 106 Carbon Dioxide 30.9 Anion Gap 8.1 BUN 18 Creatinine 1.5 H Est GFR (CKD-EPI 2020) 36.34 Glucose 107 H Calcium 8.4 L Magnesium Add-On Test Request DONE 12/10/21 10:27 PT INR Sodium Potassium Chloride Carbon Dioxide Anion Gap BUN Creatinine Est GFR (CKD-EPI 2020) Glucose Calcium Magnesium 1.9 Add-On Test Request
[2021-12-10] MEDS: Melatonin 3 MG TAB PO (21:33)
[2021-12-11] MEDS: PIPERACILLIN/TAZO 3.375 GM in Normal Saline 50 ML IVPB ×3 (02:16→14:42)
[2021-12-11] MEDS: Normal Saline Flush 10 ML SYR IVP ×5 (02:16→20:30)
[2021-12-11 04:00] VITALS: BP 107/74; PULSE 81; RESP 14; TEMP 36.9; O2SAT 96
[2021-12-11 06:59] LABS: Abs Immature Grans 0.03 10^3/uL (0.0-0.06); Absolute Basophil Count 0.12 10^3/uL (0.0-0.2); Absolute Eosinophil Count 0.17 10^3/uL (0.0-0.7); Absolute Lymphocyte Count 1.02 10^3/uL (1.2-3.4); Absolute Monocyte Count 0.53 10^3/uL (0.1-0.8); Absolute Neutrophil Count 8.22 10^3/uL (1.2-6.7); Basophils % 1.2; Eosinophils % 1.7; HCT 35.2 % (36.0-46.0); HGB 10.2 g/dL (11.2-15.7); Immature Grans % 0.3; Lymphocytes % 10.1; MCH 26.4 pg (27.0-33.0); MCV 91 fL (80-95); MPV 10.1 fL (8.0-11.0); Monocytes % 5.3; Neutrophils % 81.4; Platelet Count 300 10^3/uL (130-400); RBC 3.86 10^6/uL (3.93-5.22); RDW-SD 56.9 fL; WBC 10.09 10^3/uL (4.4-10.8)
[2021-12-11 07:19] LABS: INR 2.1 (0.9-1.1); Prothrombin Time 19.8 sec (9.3-11.0)
[2021-12-11 07:29] LABS: Anion Gap 7.7 mmol/L (3-11); BUN 19 mg/dL (7-18); CO2 28.3 mmol/L (21.0-32.0); CREATININE 1.5 mg/dL (0.55-1.02); Calcium 8.9 mg/dL (8.5-10.1); Chloride 106 mmol/L (98-107); Estimated GFR 36.34 (mL/min/1.73m2); Glucose 100 mg/dL (74-106); NT-proBNP 7822 pg/mL (<300); Sodium 142 mmol/L (136-145)
[2021-12-11 07:32] VITALS: BP 122/74; PULSE 81; RESP 16; TEMP 37; O2SAT 98
[2021-12-11 07:39] LABS: Procalcitonin 0.2 ng/mL
[2021-12-11] MEDS: Pantoprazole 40 MG TABCR PO (07:46)
[2021-12-11] MEDS: Ascorbic Acid 500 MG TAB PO (07:46)
[2021-12-11] MEDS: Atorvastatin 20 MG TAB PO (07:47)
[2021-12-11] MEDS: Sertraline 25 MG TAB PO (07:47)
[2021-12-11] MEDS: Sacubitril/Valsartan 24 mg/26 mg TAB 1 EACH PO ×2 (07:47→20:30)
[2021-12-11] MEDS: Thiamine 100 MG TAB 200 MG PO (07:47)
[2021-12-11] MEDS: Torsemide 20 MG TAB PO (07:48)
[2021-12-11] MEDS: Spironolactone 25 MG TAB PO (07:48)
[2021-12-11] MEDS: Aspirin 81 MG CHEW PO (07:48)
[2021-12-11] MEDS: Metoprolol CR 50 MG TABCR PO (07:48)
--- NOTE | 2021-12-11 08:00 | DI.RAD_ITS ---
Exam(s) XR PORTABLE CHEST AP EXAM: XR PORTABLE CHEST AP CLINICAL HISTORY: follow up pneumonia. TECHNIQUE: 2D digital imaging was performed. COMPARISON: CR XR CHEST 2V PA LATERAL from 12/08/2021 FINDINGS: Single AP portable view. Sternotomy wires. Left subclavian pacemaker. Prosthetic mitral valve and atrial clip again noted. Heart size unchanged in the mediastinum is not widened. Persistent infiltrate in the left lung base and size of the left pleural effusion is unchanged. Small right pleural effusion now evident, more so than previous. Pulmonary venous hypertension patte rn but no airspace pulmonary edema. IMPRESSION: Persistent infiltrate and left pleural effusion. New small right pleural effusion. Cardiac findings as above. DATA REPOSITORY: RADIATION DOSE DELIVERED:
--- NOTE | 2021-12-11 10:09 | DI.VRAD_ITS ---
PROCEDURE INFORMATION: Exam: XR Chest Exam date and time: 12/11/2021 8:12 AM Age: 76 years old Clinical indication: Other: F/u pneumonia TECHNIQUE: Imaging protocol: Radiologic exam of the chest. Views: 1 view. COMPARISON: CR XR CHEST 2V PA LATERAL 12/08/2021 8:13 AM FINDINGS: Tubes, catheters and devices: Left subclavian pacer/AICD with leads overlying the heart. Lungs: Lungs are slightly more hypoinflated. Increasing interstitial prominence. Increasing left basilar consolidation. Pleural spaces: Slightly increased pulmonary effusions. Heart/Mediastinum: Stable heart and mediastinum. Bones/joints: Unchanged bones. IMPRESSION: 1. Apparent worsening of edema and effusions. 2. Left basilar consolidation may represent atelectasis or pneumonia. Dictated and Authenticated by: Trudi Villalobos MD. Ordering:JESI Barger MD
--- NOTE | 2021-12-11 10:33 | TELEP.MEDR_ITS ---
Date of service: 12/11/21 Time of Service: 10:33 Telepharmacy Home Med Rec Allergies Allergies: heparin Allergy (Severe, Verified 12/08/21 06:19) thrombocytopenia, anaphylaxis dofetilide Adverse Reaction (Severe, Verified 12/08/21 06:19) Prolonged QTc lisinopril Adverse Reaction (Verified 12/08/21 06:19) Cough Interview Person Interviewed: * Daughter (Lawanda) Quality Quality of Interview/Accuracy of Medication List: Poor Sources Sources used to compile medication list: [employer] Medication List and Other (List provided to Lawanda from [facility]) Changes made to Home Medication List: ADDITIONS: * None DELETIONS: * None CHANGES: * None Additional Notes Additional Notes: * Per Lawanda, patient has been at [facility] for rehab from 11/15-12/06/21. The med list she read to me was from [facility] * Metoprolol- the list that Lawanda had read metoprolol XL 50mg PO daily, however per [facility]'s eMR, she was most recently on metoprolol tartrate 25mg PO q8hr Recommended Changes Recommended Changes(reason for recommendation): * None Attestation: The home medication list is now updated to the best of my knowledge and is ready to be reconciled by the provider. Please contact the TelePharmacy Medication Reconciliation Pharmacist at for any questions.
--- NOTE | 2021-12-11 10:33 | TELEP.MEDREC ---
Date of service: 12/11/21 Time of Service: 10:33 Telepharmacy Home Med Rec Allergies Allergies: heparin Allergy (Severe, Verified 12/08/21 06:19) thrombocytopenia, anaphylaxis dofetilide Adverse Reaction (Severe, Verified 12/08/21 06:19) Prolonged QTc lisinopril Adverse Reaction (Verified 12/08/21 06:19) Cough Interview Person Interviewed: Daughter (Lawanda) Quality Quality of Interview/Accuracy of Medication List: Poor Sources Sources used to compile medication list: I Had Cancer Medication List and Other (List provided to Lawanda from [facility]) Changes made to Home Medication List: ADDITIONS: None DELETIONS: None CHANGES: None Additional Notes Additional Notes: Per Lawanda, patient has been at [facility] for rehab from 11/15-12/06/21. The med list she read to me was from [facility] Metoprolol- the list that Lawanda had read metoprolol XL 50mg PO daily, however per [facility]'s eMR, she was most recently on metoprolol tartrate 25mg PO q8hr Recommended Changes Recommended Changes(reason for recommendation): None Attestation: The home medication list is now updated to the best of my knowledge and is ready to be reconciled by the provider. Please contact the TelePharmacy Medication Reconciliation Pharmacist at for any questions.
--- NOTE | 2021-12-11 10:44 | PT.INTREAT ---
PT Notes Visit Reasons: Acute Systolic Congestive Heart Failure Inpatient Physical Therapy Treatment Note [facility] Date: 12/11/21 PRECAUTIONS:C-Diff SUBJECTIVE: Pt reports that she is doing well today. OBJECTIVE: Sit-stand: CGA Stand-sit: CGA GAIT Assistive Device: FWW Weight bearing: Full Assist: CGA Distance: Marching in place x 3 with seated rest in between. 25 reps with marching. THEREX: seated shoulder horizontal abd in small range and rowing LE LAQ x 20, abd x 20, seated marching x 10 ASSESSMENT: Pt tolerated today's session well. Discussed light hold on walker to not apply too much pressure on chest. PLAN: Cont as per PT POC. TREATMENT CODE/TIME: 10:15-10:40 (25) DIPIKA AKINS
[2021-12-11 11:08] VITALS: BP 103/69; PULSE 86; RESP 16; TEMP 36.4; O2SAT 96
[2021-12-11] MEDS: Furosemide 20 MG/2 ML VIAL IVP (12:30)
--- NOTE | 2021-12-11 15:11 | PGE_ITS ---
Date of Service Date of service: 12/11/21 Time of Service: 15:11 Assessment and Plan Assessment and plan (1) Acute exacerbation of CHF (congestive heart failure): Status: Acute Assessment and plan: Acute on chronic systolic CHF w/ LVEF of 20-25% by echo. Given worsening appearance of pulmonary edema on CXR, I have intensified diuresis and started IV lasix. Currently on toprol XL 50 mg PO daily, as well as entresto, atorvastatin, and aldactone. Palliative care consulted. Continue a Low sodium diet. Monitor strict I/Os and daily weights. Wean O2 as tolerated. (2) Left lower lobe pneumonia: Status: Acute Assessment and plan: Continue zosyn. Encourage IS. (3) Cardiomyopathy, unspecified: Assessment and plan: H/O rheumatic heart disease s/p second aortic and mitral valve replacements. As above (4) Essential hypertension: Assessment and plan: BP stable. Continue current medications. (5) Hypothyroidism: Assessment and plan: Continue levothyroxine. Qualifiers: Hypothyroidism type: due to medication Qualified Code(s): E03.2 - Hypothyroidism due to medicaments and other exogenous substances (6) Discharge planning issues: Status: Acute Assessment and plan: Full code Palliative and care management on board. Plan is for the patient to go home with caretakers. Oxygen, should it be required, would be new. Subjective Subjective Interval history since last seen: Ms Mcdermott is on RA when I came to see her. She is not feeling short of breath. She is not sure if she is supposed to be on oxygen. Denies dizziness, chest pain, n ausea, discomfort of any kind. Exam Narrative Exam Narrative: General: Pleasant elderly female who is sitting up in a chair, A&Ox3 (has difficulty getting the date right at first), NAD, on room air HEENT: EOMI, MMM Heart: RRR, no m/r/g Lungs: CTAB Abdomen: soft, nontender, nondistended Extremities: no edema BLEs Objective Last Vital Signs Temp 36.4 C L 12/11/21 11:08 Pulse 86 12/11/21 11:08 Resp 16 12/11/21 11:08 BP 103/69 12/11/21 11:08 Pulse Ox 96 12/11/21 11:08 Laboratory Results - last 24 hr 12/11/21 12/11/21 12/11/21 06:31 06:31 06:31 WBC RBC Hgb Hct MCV MCH MCHC RDW Plt Count MPV Immature Gran % Neutrophils % Lymphocytes % Monocytes % Eosinophils % Basophils % Nucleated RBC % Absolute Neutrophils Absolute Lymphocytes Absolute Monocytes Absolute Eosinophils Absolute Basophils PT 19.8 H INR 2.1 H Sodium 142 Potassium 4.0 D Chloride 106 Carbon Dioxide 28.3 Anion Gap 7.7 BUN 19 H Creatinine 1.5 H Est GFR (CKD-EPI 2020) 36.34 Glucose 100 Calcium 8.9 Magnesium 2.0 NT-Pro-B Natriuret Pep 7822 H Procalcitonin 0.2 12/11/21 06:31 WBC 10.09 RBC 3.86 L Hgb 10.2 L Hct 35.2 L MCV 91 MCH 26.4 L MCHC 29.0 L RDW 17.0 H Plt Count 300 MPV 10.1 Immature Gran % 0.3 Neutrophils % 81.4 Lymphocytes % 10.1 Monocytes % 5.3 Eosinophils % 1.7 Basophils % 1.2 Nucleated RBC % 0.0 Absolute Neutrophils 8.22 H Absolute Lymphocytes 1.02 L Absolute Monocytes 0.53 Absolute Eosinophils 0.17 Absolute Basophils 0.12 PT INR Sodium Potassium Chloride Carbon Dioxide Anion Gap BUN Creatinine Est GFR (CKD-EPI 2020) Glucose Calcium Magnesium NT-Pro-B Natriuret Pep Procalcitonin Objective Narrative Objective Narrative: CXR: 1. Apparent worsening of edema and effusions. 2. Left basilar consolidation may represent atelectasis or pneumonia.
[2021-12-11 15:22] VITALS: BP 115/76; PULSE 88; RESP 16; TEMP 36.8; O2SAT 94
[2021-12-11] MEDS: Furosemide 40 MG/4 ML VIAL IVP (17:01)
[2021-12-11 20:11] LABS: C Diff PCR Negative (Negative)
--- NOTE | 2021-12-11 20:12 | W.PALLCONSUL ---
Date of service: 12/12/21 Time of Service: 08:08 History of Present Illness History of Present Illness Chief Complaint: Mental status changes Narrative: I am seeing Maira at the request of Dr. Pacheco. Maira is a 76-year-old woman who had a anastasia course recently she had heart valve replacement, long hospitalization at [facility], she then went to [facility] for rehab. Her daughters she had an acute change of mental status and did have a CT scan of the head. They were told that she had vascular dementia. She ended up being discharged home and within 36 hours admitted to [facility]. When I walked in the room she had her bags packed and was expecting to go home. She could tell me about the valve repairs, the possible UTI, and that she was able to work with PT and ambulate appropriately. I did talk to her about CODE STATUS as she was admitted as a full code. She did not feel that she wanted CPR, but due to some mental status inconsistencies I recommended that we meet with her daughters later today. She was in agreement with this. When I met with her daughters later in the day, they state that their mother is very different now than what she was 6 days ago. They state her mental status has changed and she is acting as if she has dementia, but they had a recent telehealth visit with a neurologist from [facility] who states that she does not have vascular dementia. That neurologist stated that she had a stroke. Family is very confused about what is actually going on with Maira. They would like some clarity on this issue. Maira had done necessary papers prior to her last valve surgery. She has a well and also did advance directives. She did not do a COLST form. The daughters are aware of a COLST form and was hoping to get this done when she went to see her PCP soon. Both daughters realize the position that their mom is in at this point and feels strongly that she should not have CPR. Please note Lawanda is her DPOA. They understand that she has an ejection fracture of 20 to 25%. They also know that she may have a UTI and a left lower lobe pneumonia. Consults Consult date: 12/12/21 Requesting physician: Denita Pacheco Assessment and Plan Assessment and plan (1) Advance care planning: Status: Acute Assessment and plan: I spoke with Maira about CPR. She feels that she has all figured out do it if you think it will help and do not do it if you do not think it will help. I explained to her we needed to be more definite with a yes or no because as it is now she is a yes do everything. I did speak with her daughter Lawanda and Lawanda will be at the hospital sometime between 430 and 530 and we can discuss the COLST form in more detail. Her daughter was familiar with the COLST form but not really understanding the difference between advanced directive and COLST. I did return later in the evening and met with both daughters. They were very clear that they felt that their mother would not want resuscitation and CPR. Daughter Lawanda is a DPOA. She did sign the COLST form. They are very confused and would like to have some clarity on what is going on with Maira as they feel that she has changed significantly in the last 6 days. We talked about having a neurology visit and also perhaps a repeat CT scan. She does have an ICD placed. MRI would not be possible in our institution. Maira is very frail at this time. Daughters understand this. They are trying to piece together help at home. They are not finding this an easy task. Maira was not able to participate with our second conversation at the day. Both daughters had their mothers wellbeing in mind. Thank you very much for this consult again recommendations are neurology consult, possibly more imaging, and changing CODE STATUS to DNR/DNI. I did speak to Dr. Pacheco, hospitalist about this Review of Systems Narrative: Maira stated this morning that she felt fine. And she was ready to go home. She had no shortness of breath. She had no ambulation problems. She had no chest pain. Despite this it was difficult for her to get out of her chair even with 1 assist PFSH All Active Problems (Updated 12/12/21 @ 18:44 by Denita Pacheco MD) Delirium (Acute) Advance care planning (Acute) Discharge planning issues (Acute) Acute exacerbation of CHF (congestive heart failure) (Acute) Left lower lobe pneumonia (Acute) Heart failure with reduced ejection fraction (Acute) Prosthetic aortic valve stenosis (Acute) Elevated troponin I level (Acute) Non-ST elevation [place] (NSTEMI) (Acute) Mediastinal lymphadenopathy (Acute) Pulmonary nodule (Acute) Mild obstructive sleep apnea (Chronic 05/12/20) severe in REM sleep, significan nocturnal hypoxemia, sleep fragmentation and increased airway resistance flow pattern. On amiodarone therapy (Acute) Restless legs (Chronic 10/29/20) Pulmonary hypertension (Acute) Chest pain (Acute) Left bundle branch block (LBBB) (Acute) Iron deficiency anemia (Chronic) 05/20/2020 EGD & 07/06/2020 colonoscopy ([facility]): no source for iron deficiency; recommend following studies & consider small bowel capsule study if anemia worsens Vulvar atrophy (Chronic 01/13/16) S/P aortic valve and mitral valve replacement (Chronic 08/04/14) Bovine prosthetic valves, plus MAZE, [facility] Osteopenia (Chronic 06/14/17) 06/14/17 DEXA: femoral neck T-score -1.1 WHO FRAX score: 10-year major osteoporotic fx risk of 8.9% and hip fx risk of 0.9% --> 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 moderate by echo 12/2011 S/p repair Atrial fibrillation (07/31/14) S/p MAZE; adverse rxn dofetilide; amiodarone begun 08/2014, again 03/2020; 08/2017 Switched to apixaban by cardiology (Dr. 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 Severe AR & MR, Repeat at [facility] in 10/2021 Family History Mother , Age 87, peritonitis Diabetes Essential hypertension Breast cancer Father , Age 45, colon cancer Colon cancer Sister Heart disease [place] at age 49 Brother Diabetes Colon cancer Brother No problems noted. Brother Heart disease CABG Other Family history of colon cancer Social History Smoking/Tobacco Use Status: Former Tobacco Use tobacco type: cigarettes Quit Date: 03/12/94 Smoking risk assessment performed?: Yes Alcohol Intake: former Drug use: Never Substance use type: does not use Counseling given: No Counseling provided: none Adopted: No Caregiver/Support person: No Foster care: No Household members: none Housing: house Number of Children: 1 number of grandchildren: 2 Communication Needs: None Education Level: high school Do you need help understanding health information?: Rarely current occupation: Retired Pets and animals: No Current gender identity: female What is your relationship status?: Panel score (0-1 are the most socially isolated patients): 0 What type of physical activity do you participate in: walking Duration: 60-90 minutes/day Frequency: daily Seatbelt use: always Helmet use: No Drive intox or ride w/intox 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 Initially she was sitting in her recliner and did cooperate with the exam. She had rales both right and left on her lung exam. Her heart was not tachycardic. There was systolic murmurs. She was unable to get up without assistance. Later this evening she was sleeping in the chair. She refused to get into bed but would rather be in the chair. She was curled up in a position. Results Last Vital Signs Temp 98.2 F 12/11/21 15:22 Pulse 88 12/11/21 15:22 Resp 16 12/11/21 15:22 BP 115/76 12/11/21 15:22 Pulse Ox 94 12/11/21 15:22 Labs Result diagrams: 12/13/21 06:45 12/12/21 06:19 Labs: Laboratory Results - last 24 hr 12/11/21 12/11/21 12/11/21 06:31 06:31 06:31 WBC RBC Hgb Hct MCV MCH MCHC RDW Plt Count MPV Immature Gran % Neutrophils % Lymphocytes % Monocytes % Eosinophils % Basophils % Nucleated RBC % Absolute Neutrophils Absolute Lymphocytes Absolute Monocytes Absolute Eosinophils Absolute Basophils PT 19.8 H INR 2.1 H Sodium 142 Potassium 4.0 D Chloride 106 Carbon Dioxide 28.3 Anion Gap 7.7 BUN 19 H Creatinine 1.5 H Est GFR (CKD-EPI 2020) 36.34 Glucose 100 Calcium 8.9 Magnesium 2.0 NT-Pro-B Natriuret Pep 7822 H Procalcitonin 0.2 12/11/21 06:31 WBC 10.09 RBC 3.86 L Hgb 10.2 L Hct 35.2 L MCV 91 MCH 26.4 L MCHC 29.0 L RDW 17.0 H Plt Count 300 MPV 10.1 Immature Gran % 0.3 Neutrophils % 81.4 Lymphocytes % 10.1 Monocytes % 5.3 Eosinophils % 1.7 Basophils % 1.2 Nucleated RBC % 0.0 Absolute Neutrophils 8.22 H Absolute Lymphocytes 1.02 L Absolute Monocytes 0.53 Absolute Eosinophils 0.17 Absolute Basophils 0.12 PT INR Sodium Potassium Chloride Carbon Dioxide Anion Gap BUN Creatinine Est GFR (CKD-EPI 2020) Glucose Calcium Magnesium NT-Pro-B Natriuret Pep Procalcitonin Laboratory Tests 12/08/21 12/11/21 12/11/21 06:25 06:31 06:31 Hct 35.2 L Creatinine 1.7 H 1.5 H NT-Pro-B Natriuret Pep 7822 H Imaging Additional studies: Conclusion Technically limited study The left ventricle is grossly normal in size and wall thickness.? LV function is severely reduced.? Estimated ejection fraction is 20-25% The right ventricle is not well visualized Both atria appear normal in size There is a bioprosthetic aortic valve.? Mean gradient is 6.4 mmHg There is a prosthetic mitral valve.? Calculated mitral valve area is 1.36 cm?? Normal tricuspid valve with mild regurgitation and estimated right ventricular systolic pressure is 40 mmHg Compared to an echocardiogram at [facility] from November 29 , aortic valve gradient is similar.? Right ventricular systolic pressure has decreased from 47 to 40 mmHg
[2021-12-11] MEDS: Melatonin 3 MG TAB PO (21:10)
[2021-12-11 23:00] VITALS: O2SAT 97
[2021-12-12 00:17] VITALS: BP 147/71; PULSE 83; RESP 16; TEMP 37.3; O2SAT 97
[2021-12-12 03:13] VITALS: BP 102/79; PULSE 63; RESP 14; TEMP 37; O2SAT 95
[2021-12-12 07:10] LABS: Abs Immature Grans 0.04 10^3/uL (0.0-0.06); Absolute Basophil Count 0.12 10^3/uL (0.0-0.2); Absolute Eosinophil Count 0.05 10^3/uL (0.0-0.7); Absolute Lymphocyte Count 1.09 10^3/uL (1.2-3.4); Absolute Monocyte Count 0.66 10^3/uL (0.1-0.8); Absolute Neutrophil Count 9.35 10^3/uL (1.2-6.7); Basophils % 1.1; Eosinophils % 0.4; HCT 36.3 % (36.0-46.0); HGB 10.9 g/dL (11.2-15.7); Immature Grans % 0.4; Lymphocytes % 9.6; MCH 27.1 pg (27.0-33.0); MCV 90 fL (80-95); MPV 9.9 fL (8.0-11.0); Monocytes % 5.8; Neutrophils % 82.7; Platelet Count 354 10^3/uL (130-400); RBC 4.02 10^6/uL (3.93-5.22); RDW-SD 56.8 fL; WBC 11.31 10^3/uL (4.4-10.8)
[2021-12-12 07:18] LABS: INR 2.1 (0.9-1.1); Prothrombin Time 20.1 sec (9.3-11.0)
[2021-12-12 07:19] VITALS: BP 118/75; PULSE 87; RESP 18; TEMP 36.5; O2SAT 95
[2021-12-12 07:24] LABS: Anion Gap 12.9 mmol/L (3-11); BUN 19 mg/dL (7-18); CO2 28.1 mmol/L (21.0-32.0); CREATININE 1.7 mg/dL (0.55-1.02); Calcium 9.4 mg/dL (8.5-10.1); Chloride 101 mmol/L (98-107); Estimated GFR 31.27 (mL/min/1.73m2); Glucose 100 mg/dL (74-106); Magnesium 2.1 mg/dL (1.8-2.4); Potassium 3.7 mmol/L (3.5-5.1); Sodium 142 mmol/L (136-145)
[2021-12-12] MEDS: Amoxicillin 875/Clav. 125 TAB PO (07:39)
[2021-12-12] MEDS: Sacubitril/Valsartan 24 mg/26 mg TAB 1 EACH PO ×2 (07:39→21:20)
[2021-12-12] MEDS: Pantoprazole 40 MG TABCR PO (07:39)
[2021-12-12] MEDS: Sertraline 25 MG TAB PO (07:40)
[2021-12-12] MEDS: Metoprolol CR 50 MG TABCR PO (07:40)
[2021-12-12] MEDS: Ascorbic Acid 500 MG TAB PO (07:40)
[2021-12-12] MEDS: Thiamine 100 MG TAB 200 MG PO (07:40)
[2021-12-12] MEDS: Atorvastatin 20 MG TAB PO (07:40)
[2021-12-12] MEDS: Aspirin 81 MG CHEW PO (07:40)
[2021-12-12] MEDS: Spironolactone 25 MG TAB PO (07:40)
[2021-12-12 08:06] LABS: Bilirubin Negative (Negative); Blood Moderate (Negative); Clarity Clear (Clear); Glucose Negative (Negative); Ketones Negative (Negative); Leukocyte Esterase Small (Negative); Nitrite Negative (Negative); Urobilinogen 0.2 EU/dL (Up TO 0.2); pH 6.5 (5-8)
[2021-12-12 08:24] LABS: Bacteria Rare HPF (Negative); Epithelial Cells Rare HPF (Negative); WBC 0-2 HPF (0-5)
[2021-12-12 08:25] LABS: C & S Indicated? Yes; Casts Negative LPF (Negative); Crystals Negative HPF (Negative); Mucus Trace (Negative)
--- NOTE | 2021-12-12 08:47 | OTIE_ITS ---
Occupational Therapy Notes Inpatient Occupational Therapy Evaluation Date: 12/12/21 Referring Doctor: Dr. Enriquez OT Orders: Non Urgent Precautions: Fall, standard, full PATIENT PROFILE/ADMITTING DIAGNOSIS: Magalys is a 76 year old female admitted secondary to acute exacerbation of CHF, Left lower lobe pneumonia. Past Medical History: PMHX: (Updated 12/08/21 @ 09:05 by Iam Youssef MD) Acute exacerbation of CHF (congestive heart failure) (Acute) Heart failure with reduced ejection fraction (Acute) Prosthetic aortic valve stenosis (Acute) Elevated troponin I level (Acute) Non-ST elevation [place] (NSTEMI) (Acute) Mediastinal lymphadenopathy (Acute) Pulmonary nodule (Acute) Mild obstructive sleep apnea (Chronic 05/12/20) severe in REM sleep,? significan nocturnal hypoxemia, sleep fragmentation and increased airway resistance flow pattern. On amiodarone therapy (Acute) Restless legs (Chronic 10/29/20) Pulmonary hypertension (Acute) Chest pain (Acute) Left bundle branch block (LBBB) (Acute) Iron deficiency anemia (Chronic) 05/20/2020 EGD & 07/06/2020 colonoscopy ([facility]): no source for iron deficiency; recommend following studies & consider small bowel capsule study if anemia worsens Vulvar atrophy (Chronic 01/13/16) S/P aortic valve and mitral valve replacement (Chronic 08/04/14) Bovine prosthetic valves, plus MAZE, [facility] Osteopenia (Chronic 06/14/17) 06/14/17 DEXA: femoral neck T-score -1.1 WHO FRAX score: 10-year major osteoporotic fx risk of 8.9% and hip fx risk of 0.9% --> 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 moderate by echo 12/2011 S/p repair Atrial fibrillation (07/31/14) S/p MAZE; adverse rxn dofetilide; amiodarone begun 08/2014, again 03/2020; 08/2017 Switched to apixaban by cardiology (Dr. 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 Severe AR & MR, Repeat at [facility] in 10/2021 Social History/Home Situation: Pt is a poor historian in terms of her baseline at this time. Initially she expresses to OT that she is waiting for her sister to get out of school so that they can go home. Then she proceeds to state that she lives alone in a private home. She notes that she gets (A) and speaks about her daughter, son in law and two grand daughters who live in [place]. Equipment owned/DME: Unable to assess as pt is a poor historian. SUBJECTIVE: Pt states that she is doing okay today. She states that she had an interesting night and starts talking about a play that she saw. OBJECTIVE: General Observation: Pleasant, blanco in place, IV in (R) UE Mental Status: Alert to name Pain: pt states that she has no pain ROM: RUE pt refuses shoulder flexion indicating that she is not supposed to move her arms d/t heart surgery. Elbow, wrist and hands WFL L UE pt refuses shoulder flexion indicating that she is not supposed to move her arms d/t heart surgery. 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 DRESSING mn (A) don and doffing socks, pt was able to wear them and then asked for them to be removed. GROOMING able to brush her own hair (I) EATING NT with OT, pt states that she is (I) although OT was not able to assess today. BALANCE: Static sitting Normal Dynamic Sitting Normal SPECIAL TESTS: Daily Activity Limitations Standardized Measure [facility] AM -PAC ?6 clicks? Daily Activity Inpatient Short Form: Raw score: 14 Standardized score: 33.39 CMS score: 59.67% INFORMED CONSENT/EDUCATION: Pt instructed in purpose of OT Consult and plan of care. ASSESSMENT: Patient is a 76-year-old female referred to occupational therapy services with diagnosis of acute CHF, (L) lower lobe pneumonia, heart failure with reduced ejection fraction, elevated troponin. Patient presents with clinical signs and symptoms consistent with dx, as demonstrated by the following impairment level findings/functional limitations: Impairments in ADL/IADL and leisure activities, decreased functional activity tolerance, impairments in LE dressing. AMPAC score 14 Patient is assessed as a Moderate 90832 complexity based on the following: History: see above Examination: see functional limitations as noted above Presentation: evolving Decision Making: AMPAC score 14 GOALS Goals x1 week 1. Transfers (I) 2. Dressing seated in chair (I) 3. Bathing standing at sink (I) 4. Toileting on toilet (I) 5. Eating (I) PLAN OF CARE/TREATMENT PLAN: 1x/day, 5 days/ week x 1week Initiate Occupational Therapy Services for bathing, dressing, grooming, toileting, eating, transfer training. DISCHARGE RECOMMENDATIONS Home with continued skilled HH services vs. SNF due to decreased safety awareness. TREATMENT TIME/MINUTES/CODES [id number], 15 minutes Ava Varela, OTR/L [facility]
[2021-12-12] MEDS: Furosemide 80 MG TAB PO ×2 (09:04→16:14)
--- NOTE | 2021-12-12 09:40 | CMPROGNOTE_ITS ---
- If Service Date Differs Date of service: 12/12/21 Time of Service: 09:40 Care Management Progress Note S/O: Maira is sitting in her chair when CM met with her. She is anticipating discharging home, when medically able and does not want to discharge to a SNF. Her daughter Lawanda had been staying with overnight prior to this admission, and she had a friend stay with her during the day. Maira is planning on going back to that same routine. A Palliative consult is scheduled this evening to discuss Advance care planning with Maira and Lawanda. Per provider, Maira will likely be ready for discharge within the next 24-48 hours. Family is in the process of hiring home care providers. CM to discuss with Lawanda, when she arrives at the hospital. A: 76 year old female admitted to [facility] on 12/08/21 for Acute exacerbation of CHF . P: Anticipate, Maira will discharge home with resumption of [facility] RN services, add PT/OT/[facility] [place]NER when medically cleared by provider. Palliative consult is ordered. She will likely need increased caregiver support. CM provided pts daughter Lawanda with resources. Maira will follow up with her PCP, cardiology, pulmonology, and plan of care as prescribed. She will be transported home via private vehicle by family when ready. CM will continue to follow.
[2021-12-12 11:32] VITALS: BP 129/86; PULSE 86; RESP 18; TEMP 37.1; O2SAT 92
--- NOTE | 2021-12-12 12:07 | PT.INTREAT ---
Date of service: 12/12/21 Time of Service: 11:45 PT Notes Visit Reasons: Acute Systolic Congestive Heart Failure Inpatient Physical Therapy Treatment Note [facility] Date: December 12, 2021 PRECAUTIONS:Standard SUBJECTIVE: Maira is on RA when I came into see her for she had disconnected her nasal canula connection. She is not feeling short of breath. Denies dizziness or discomfort of any kind. Feeling better. Questioning when she is going to be able to go home. OBJECTIVE: PAIN: Declines pain. BED MOBILITY/TRANSFERS Rolling L/R: Independent Sit-stand: Independent without any UE assist Stand-sit: Independent GAIT Assistive Device: FWW Weight bearing: Full Assist: CGA Distance: 50ft Deviation: Needs continuous cueing to remain on task. VITALS: 02 saturation at rest 94%, post therex 92% on RA THEREX: Completed open chain ROM/strength Seated hip flexion x10 reps Seated isometric abduction x10 reps Seated isometric adduction x10 reps LAQ x10 reps Sit-stand x10 reps Standing hip flexion x10 reps CGA Standing hip abduction x10 reps CGA ASSESSMENT: Maira more confused today. Needed continuous cueing to maintain task. Independent with her transfers at this time. O2 sat remained in 90's on RA throughout session. Prior was on 1 liter. PLAN: Continue with POC and within symptom allowance. TREATMENT CODE/TIME: 11:45-12:05 [id number], [id number] Maira refused second session in PM. Riya Zaldivar, MPT
[2021-12-12] MEDS: LORazepam 0.5 MG TAB PO (13:33)
[2021-12-12 15:33] VITALS: BP 106/60; PULSE 90; RESP 18; TEMP 37; O2SAT 92
[2021-12-12 16:43] LABS: Bilirubin Negative (Negative); Blood Moderate (Negative); Clarity Sl Cloudy (Clear); Glucose Negative (Negative); Ketones Negative (Negative); Leukocyte Esterase Small (Negative); Nitrite Negative (Negative); Specific Gravity 1.015 (1.005-1.025); Urobilinogen 0.2 EU/dL (Up TO 0.2)
[2021-12-12 17:17] LABS: Bacteria Negative HPF (Negative); C & S Indicated? Yes; Crystals Negative HPF (Negative); Epithelial Cells Negative HPF (Negative); Mucus Negative (Negative); RBC >50 HPF (0-2)
--- NOTE | 2021-12-12 18:20 | PGE_ITS ---
Date of Service Date of service: 12/12/21 Time of Service: 18:20 Assessment and Plan Assessment and plan (1) Acute exacerbation of CHF (congestive heart failure): Status: Acute Assessment and plan: Acute on chronic systolic CHF w/ LVEF of 20-25% by echo. Lasix converted to PO today given loss of IV overnight. Currently on toprol XL 50 mg PO daily, as well as entresto, atorvastatin, and aldactone. Continue a Low sodium diet. No longer requiring oxygen. Monitor strict I/Os and daily weights. Wean O2 as tolerated. (2) Left lower lobe pneumonia: Status: Acute Assessment and plan: Abx switched to augmentin. Encourage IS. (3) Delirium: Status: Acute Assessment and plan: UA not c/w a true UTI. Per family request, will c/s neurology. Underlying vascular dementia suspected. (4) Cardiomyopathy, unspecified: Assessment and plan: H/O rheumatic heart disease s/p second aortic and mitral valve replacements. As above (5) Essential hypertension: Assessment and plan: BP stable. Continue current medications. (6) Hypothyroidism: Assessment and plan: Continue levothyroxine. Qualifiers: Hypothyroidism type: due to medication Qualified Code(s): E03.2 - Hypothyroidism due to medicaments and other exogenous substances (7) Discharge planning issues: Status: Acute Assessment and plan: DNR/DNI Plan is for the patient to go home with caretakers. Subjective Subjective Interval history since last seen: Ms Mcdermott states she is not short of breath. She denies dizziness, chest pain, nausea. She has been confused today and did not sleep last night. Met with palliative care - COLST form signed - DNR/DNI. Family requests a neurology consult. Exam Narrative Exam Narrative: General: Pleasant elderly female who is sitting up in a chair, A&Ox2 (knows approximate date, thinks she is at [facility]), NAD, on room air HEENT: EOMI, MMM Heart: RRR, no m/r/g Lungs: CTAB Abdomen: soft, nontender, nondistended Extremities: no edema BLEs Objective Last Vital Signs Temp 37.0 C 12/12/21 15:33 Pulse 90 12/12/21 15:33 Resp 18 12/12/21 15:33 BP 106/60 12/12/21 15:33 Pulse Ox 92 12/12/21 15:33 Laboratory Results - last 24 hr 12/11/21 12/12/21 12/12/21 18:30 06:19 06:19 WBC RBC Hgb Hct MCV MCH MCHC RDW Plt Count MPV Immature Gran % Neutrophils % Lymphocytes % Monocytes % Eosinophils % Basophils % Nucleated RBC % Absolute Neutrophils Absolute Lymphocytes Absolute Monocytes Absolute Eosinophils Absolute Basophils PT 20.1 H INR 2.1 H Sodium 142 Potassium 3.7 Chloride 101 Carbon Dioxide 28.1 Anion Gap 12.9 H BUN 19 H Creatinine 1.7 H Est GFR (CKD-EPI 2020) 31.27 Glucose 100 Calcium 9.4 Magnesium 2.1 Urine Color Urine Clarity Urine pH Ur Specific [place] Urine Protein Urine Ketones Urine Blood Urine Nitrite Urine Bilirubin Urine Urobilinogen Ur Leukocyte Esterase Urine RBC Urine WBC Ur Epithelial Cells Urine Crystals Urine Bacteria Urine Casts Urine Mucus Ur Culture Indicated? Urine Glucose Stl C.difficile Tox PCR Negative 12/12/21 12/12/21 12/12/21 06:19 07:12 16:17 WBC 11.31 H RBC 4.02 Hgb 10.9 L Hct 36.3 MCV 90 MCH 27.1 MCHC 30.0 L RDW 17.0 H Plt Count 354 MPV 9.9 Immature Gran % 0.4 Neutrophils % 82.7 Lymphocytes % 9.6 Monocytes % 5.8 Eosinophils % 0.4 Basophils % 1.1 Nucleated RBC % 0.0 Absolute Neutrophils 9.35 H Absolute Lymphocytes 1.09 L Absolute Monocytes 0.66 Absolute Eosinophils 0.05 Absolute Basophils 0.12 PT INR Sodium Potassium Chloride Carbon Dioxide Anion Gap BUN Creatinine Est GFR (CKD-EPI 2020) Glucose Calcium Magnesium Urine Color Yellow Yellow Urine Clarity Clear Sl Cloudy Urine pH 6.5 7.0 Ur Specific [place] 1.020 1.015 Urine Protein 30 H Negative Urine Ketones Negative Negative Urine Blood Moderate H Moderate H Urine Nitrite Negative Negative Urine Bilirubin Negative Negative Urine Urobilinogen 0.2 0.2 Ur Leukocyte Esterase Small H Small H Urine RBC 3-5 H >50 H Urine WBC 0-2 10-20 H Ur Epithelial Cells Rare Negative Urine Crystals Negative Negative Urine Bacteria Rare Negative Urine Casts Negative Urine Mucus Trace Negative Ur Culture Indicated? Yes Yes Urine Glucose Negative Negative Stl C.difficile Tox PCR
[2021-12-12 19:35] VITALS: BP 109/69; PULSE 81; RESP 16; TEMP 37.1; O2SAT 96
[2021-12-12] MEDS: Melatonin 3 MG TAB 6 MG PO (21:20)
[2021-12-12] MEDS: Amoxicillin 500/Clav. 125 TAB PO (21:20)
[2021-12-12] MEDS: Warfarin 1 MG TAB 2 MG PO (21:29)
--- NOTE | 2021-12-13 | DI.CT_ITS ---
Exam(s) CT HEAD WO EXAM: CT HEAD WO CLINICAL HISTORY: f/u multiple CVAs. TECHNIQUE: Imaging Protocol: Axial computed tomography images with coronal and sagittal reformatted images were created and reviewed COMPARISON: No exams were available for comparison FINDINGS: There are no skull fractures nor fluid in the visualized paranasal sinuses. There is no evidence of intracranial hemorrhage, mass effect, or shift of midline structures. There are no extra-axial fluid collections. The ventricles are not enlarged or shifted and there is no blo od within the ventricular system nor within the basal cisterns. In addition to abundant bilateral periventricular hypodensity there is area of encephalomalacia in th e left occipital lobe consistent with infarction. There are also lacunar infarcts in the periventric ular white matter as well as in the right caudate nucleus. No hemorrhage. IMPRESSION: Advanced bilateral periventricular white matter ischemic changes. Also evidence of infarct in the le ft occipital lobe. No evidence of intracranial hemorrhage, intra or extra-axial. RADIATION DOSE DELIVERED: 673.9mGy.cm Total DLP DATA REPOSITORY: All CT scans at this facility are submitted to the National Radiology Data Registry (NRDR) Dose Index Registry (DIR) with the [employer] ([employer]). RADIATION OPTIMIZATION: All CT scans at this facility use at least one of these dose optimization te chniques: automated exposure control; mA and/or kV adjustment per patient size (includes targeted exa ms where dose is matched to clinical indication); or iterative reconstruction.
[2021-12-13 04:11] VITALS: PULSE 80; O2SAT 94
[2021-12-13 07:15] LABS: Abs Immature Grans 0.03 10^3/uL (0.0-0.06); Absolute Basophil Count 0.09 10^3/uL (0.0-0.2); Absolute Eosinophil Count 0.16 10^3/uL (0.0-0.7); Absolute Lymphocyte Count 0.93 10^3/uL (1.2-3.4); Absolute Monocyte Count 0.48 10^3/uL (0.1-0.8); Absolute Neutrophil Count 6.01 10^3/uL (1.2-6.7); Basophils % 1.2; Eosinophils % 2.1; HCT 35.1 % (36.0-46.0); HGB 10.6 g/dL (11.2-15.7); Immature Grans % 0.4; Lymphocytes % 12.1; MCH 26.8 pg (27.0-33.0); MCHC 30.2 % (32.0-36.0); MCV 89 fL (80-95); MPV 9.8 fL (8.0-11.0); Monocytes % 6.2; Platelet Count 289 10^3/uL (130-400); RBC 3.95 10^6/uL (3.93-5.22); RDW 16.9 % (11.7-14.6); RDW-SD 55.1 fL
[2021-12-13 07:28] LABS: Anion Gap 8.2 mmol/L (3-11); BUN 22 mg/dL (7-18); CO2 29.8 mmol/L (21.0-32.0); CREATININE 1.5 mg/dL (0.55-1.02); Calcium 8.7 mg/dL (8.5-10.1); Chloride 103 mmol/L (98-107); Estimated GFR 36.34 (mL/min/1.73m2); Glucose 80 mg/dL (74-106); Magnesium 1.9 mg/dL (1.8-2.4); Potassium 3.4 mmol/L (3.5-5.1); Sodium 141 mmol/L (136-145)
[2021-12-13 07:38] LABS: Prothrombin Time 18.9 sec (9.3-11.0)
[2021-12-13 08:12] VITALS: BP 116/79; PULSE 84; RESP 18; TEMP 36.3; O2SAT 91
[2021-12-13] MEDS: Amoxicillin 500/Clav. 125 TAB PO ×2 (08:35→20:12)
[2021-12-13] MEDS: Thiamine 100 MG TAB 200 MG PO (08:35)
[2021-12-13] MEDS: Pantoprazole 40 MG TABCR PO (08:35)
[2021-12-13] MEDS: Sacubitril/Valsartan 24 mg/26 mg TAB 1 EACH PO ×2 (08:35→20:11)
[2021-12-13] MEDS: Aspirin 81 MG CHEW PO (08:35)
[2021-12-13] MEDS: Spironolactone 25 MG TAB PO (08:36)
[2021-12-13] MEDS: Atorvastatin 20 MG TAB PO (08:37)
[2021-12-13] MEDS: Metoprolol CR 50 MG TABCR PO (08:37)
[2021-12-13] MEDS: Ascorbic Acid 500 MG TAB PO (08:37)
[2021-12-13] MEDS: Sertraline 25 MG TAB PO (08:37)
--- NOTE | 2021-12-13 09:00 | RT.EKG_ITS ---
APPROVED REPORT Exam: Resting ECG Reason for Exam: f/u QT prolongation Patient Location: I HR:82 bpm ECG Measurements Heart Rate [address] 158 P [id number] QRSd 154 QRS 244 QT 469 T 65 QTc 548 Conclusion Atrial-ventricular dual-paced complexes...other complexes also detected No further analysis attempted due to paced rhythm
--- NOTE | 2021-12-13 09:37 | PDOC.CMPRO ---
- If Service Date Differs Date of service: 12/13/21 Time of Service: 09:37 Care Management Progress Note S/O: Maira and her daughter Lawanda met with Dr. Madrigal yesterday. A COLST form was completed. Lawanda is working on hiring home caregivers and is aware that Maira may be ready for discharge in 24-48 hours. Lawanda mentioned that she spoke with [facility] yesterday, and was left feeling like she has a lot of conflicting information. Lawanda is concerned that Maira's increased confusion could be related be a stroke rather than Dementia? Lawanda would like Maira to have a Neurology consult locally and a MRI. Per Lawanda, she is aware that a MRI will need to be done at [facility], since Maira has an implanted device. A: 76 year old female admitted to [facility] on 12/08/21 for Acute exacerbation of CHF . P: Anticipate, Maira will discharge home with resumption of [facility] RN services, add PT/OT/CUSTOMER ACQUISITION SPECIALIST when medically cleared by provider. Family is encouraged to hire caregivers and provided pts daughter Lawanda with resources. Maira will follow up with her PCP, cardiology, pulmonology, and plan of care as prescribed. She will be transported home via private vehicle by family when ready. CM will continue to follow.
[2021-12-13 09:40] LABS: Lab Add On Test DONE
[2021-12-13 10:06] LABS: FREE T4 1.56 ng/dL (0.76-1.46)
[2021-12-13] MEDS: Potassium Chloride 20 MEQ TABCR 40 MEQ PO (10:26)
[2021-12-13] MEDS: Furosemide 80 MG TAB PO ×2 (10:26→16:54)
[2021-12-13 11:49] VITALS: BP 135/95; PULSE 89; RESP 16; TEMP 36.3; O2SAT 99
--- NOTE | 2021-12-13 14:30 | PT.INTREAT ---
Date of service: 12/13/21 Time of Service: 09:44 PT Notes Visit Reasons: Acute Systolic Congestive Heart Failure Inpatient Physical Therapy Treatment Note [facility] Date: 12/13/2021 PRECAUTIONS: Fall, activity as tolerated SUBJECTIVE: Maira is pleasant and agreeable to participating in PT. She states I'd love to go for a walk, that would be nice. She reports that it felt good to get up and move and walk in the hallway. OBJECTIVE: PAIN: No c/o pain BED MOBILITY/TRANSFERS Sit-stand: I Stand-sit: I GAIT Assistive Device: No AD Weight bearing: Full Assist: Supervision Distance: 350' Deviation: Gait unremarkable STAIRS: Up/down 6x4 and 4x6 using B rails and a step-over pattern with supervision ASSESSMENT: Patient demonstrates independence with transfers at this time. She tolerated a progression in gait distance without assistive device support, with supervision only. PLAN: Continue with general conditioning and global strengthening for improved activity tolerance and to continue to maintain current level of function. TREATMENT CODE/TIME: 15 minutes; [id number] (09:44)
--- NOTE | 2021-12-13 15:16 | NCONE_ITS ---
Date of service: 12/13/21 Time of Service: 16:32 Assessment and Plan Assessment and plan (1) Delirium: Status: Acute (2) Right homonymous hemianopsia: Status: Acute (3) Restless legs: Status: Chronic Assessment and plan: #1. Altered mental status, hallucinations vs delusions. Likely delirium in setting of acute illness, hospitalization, recent anaesthesia but also due to right homonymous hemianopsia secondary to stroke that likely occurred during valve replacement on 10/31/21. As far as the stroke, likely embolic from the surgery, but would consider CTA head/neck as further work-up. However, not sure that this would change clinical picture - she is already on aspirin, warfarin, and atorvastatin. She should continue those medications. So not sure that those tests are worthwhile.... We will move her to a room in which the door is to her left. This may help with the delirium. She should not drive which was discussed with her - she states she is happy to give up driving. In regards to the delirium, I think return to home would be the best thing for her as a familiar environment should help - though discussed with family that she should not be left alone at this time. Ensuring sleep may also help. I think plans are to use Seroquel tonight. I think that is fine. She has chronic insomnia. Also she has RLS. She was on pramipexole prior to her cardiac surgery - it was stopped at some point due to concerns it could be contributing to her AMS. I think either re-starting this or trialling gabapentin 300mg 6pm and 9pm would be a good idea to also help sleep and reduce delirium. I am not sure what her prior dose was. Continue PT/OT as per them. Otherwise, also discussed that unclear if she has a dementia at this time, but that certainly having strokes, increases her risk. Discussed that we could perform cognitive testing as an outpatient. #2. Restless legs. Treatment as above. #3. Ocular varices. [facility] Ophthalmology curbside recommending referral to them for monitoring as an outpatient. I did not discuss today whether she wanted a referral at this time or not. She should follow-up in neurology clinic in 4-6 weeks. History of Present Illness History of Present Illness Chief Complaint: altered mental status Narrative: Handedness: LEFT. HPI: Ms. Mcdermott is a 76 year-old woman with heart disease, CHF with low EF, atrial fibrillation on warfarin, rheumatic heart disease s/p mitral and aortic valve replacements, high degree AV block s/p PM placement, DEONNA, RLS, pre-diabetes, anemia, osteopenia, prior duodenal ulcer, and hypothyroidism. Daughter Lawanda was available by phone during the visit. Ms. Mcdermott underwent repeat atrial and mitral valve replacements at [facility] on 10/31/21, complicated by altered mental status, systolic heart failure, and high degree AV block for which she underwent PM placement on 11/07/21. She also compl ained of blurred vision which she continues to report today, following her procedure. Lawanda notes that she has similar vision complaints following her initial surgery in 2014 that eventually resolved??? She was discharged on 11/15/21 to [facility] for rehab. At rehab, she continues to have altered mental status, confusion, as well as ?hallucinations vs delusions. Lawanda notes that patient would call her and other family that they needed to contact the police as hospital staff was drinking and partying. Or that she was waiting for police to arrive to interview her, etc. Maira today is still convinced that these events occurred. It sounds like medication adjustments were made during that time including cessation of pramipexole - but unclear if any other changes were made. She was referred to [facility] Neurology for further evaluation. She was discharged from rehab on 12/06/21. After leaving, she developed progressive dyspnea on exertion such that she presented to the [facility] ER and was admitted on 12/08/21 for shortness of breath at rest, found to have CHF exacerbation +/- pneumonia. Was there another episode of PNA + sepsis earlier in November? Yes per [facility] notes but I am not sure where she was hospitalized..... Yesterday 12/12/21, she was notably confused during the day after not sleeping the night before. Maira notes chronic insomnia sleeping only 3-4 hours per night at baseline. She also has had increased RLS symptoms occurring day and night since stopping her pramipexole. Today she seems to have better mentation, but I obviously do not know her baseline. Prior to her October surgery, Maira lived independently performing all of her own iADLs and ADLs. She reports no issues with driving. She underwent her initial valve replacements in July 2014 at [facility]. This was complicated by afib with RVR for which she underwent atrial clipping, bradycardia, and then cardiac shock. Lawanda wondered if she sustained brain damage at that time. I was able to review her [facility] records from that time. It does look like she every had cardiac arrest though pressors were needed following intubation. No head imaging was performed at that time. Yesterday, Ms. Mcdermott had a telehealth visit with Dr. Pedro [facility] Neurology. I reviewed her [facility] notes. He recommended ongoing OT, visual field testing, and outpatient cognitive testing +/- EEG. She has no prior brain imaging for comparison. Lawanda cites frustration that she was told her mother had vascular dementia at rehab and that yesterday she was told her mother had a stroke by neurology. [facility] Ophthalmology was curbsided on 12/05/21 following her CTH. They note a very rare finding with recommendation to follow-up with them in clinic for further monitoring. She does not have an appointment with them at this time. Work-up: -Labs (04/19/21): TSH 3.56 -Labs (12/04/21): RPR neg, B12 789 -CTH (12/05/21 at [facility]): Prior large left parietao-occipital stroke as well as prior small L frontal/insula and R caudate strokes. Extensive white matter changes. Moderate cerebral atrophy. Rads also noted prominent ophthalmic veins in bilateral orbits L>R most consistent with carices. I reviewed these images personally and this is my personal interpretation. -TTE (12/08/21): EF 20-25%. Biprosthetic aortic valve and prosethetic mitral valve. -Labs (12/12/21): W 11.31, Hgb 10.9, AG 12.9, Cr 1.7, UA x 2 with leukesterase with cx pending -Labs (12/13/21): TSH 6.00 -CTH (12/13/21): unchanged compared to previous CTH. I reviewed these images personally and this is my personal interpretation. Review of Systems All systems reviewed & are unremarkable except as noted in HPI and below PFSH All Active Problems (Updated 12/13/21 @ 16:37 by Viviane Su MD) Right homonymous hemianopsia (Acute) Delirium (Acute) Advance care planning (Acute) Discharge planning issues (Acute) Acute exacerbation of CHF (congestive heart failure) (Acute) Left lower lobe pneumonia (Acute) Heart failure with reduced ejection fraction (Acute) Prosthetic aortic valve stenosis (Acute) Elevated troponin I level (Acute) Non-ST elevation DE (NSTEMI) (Acute) Mediastinal lymphadenopathy (Acute) Pulmonary nodule (Acute) Mild obstructive sleep apnea (Chronic 05/12/20) severe in REM sleep, significan nocturnal hypoxemia, sleep fragmentation and increased airway resistance flow pattern. On amiodarone therapy (Acute) Restless legs (Chronic 10/29/20) Pulmonary hypertension (Acute) Chest pain (Acute) Left bundle branch block (LBBB) (Acute) Iron deficiency anemia (Chronic) 05/20/2020 EGD & 07/06/2020 colonoscopy (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 moderate by echo 12/2011 S/p repair Atrial fibrillation (07/31/14) S/p MAZE; adverse rxn dofetilide; amiodarone begun 08/2014, again 03/2020; 08/2017 Switched to apixaban by cardiology (Dr. 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 Colonoscopy - MAC (08/28/17) EGD - MAC (08/28/17) History of cardiac cath (09/28/21) History of section (~1976) History of toe surgery (~2003) Removal of bone chip Pacemaker Radiofrequency Maze Procedure (08/04/14) done at [facility] S/P aortic valve and mitral valve replacement (~07/2014) [facility]. Severe AR & MR, Repeat at [facility] in 10/2021 Family History Mother , Age 87, peritonitis Diabetes Essential hypertension Breast cancer Father , Age 45, colon cancer Colon cancer Sister Heart disease DE at age 49 Brother Diabetes Colon cancer Brother No problems noted. Brother Heart disease CABG Other Family history of colon cancer Social History Smoking/Tobacco Use Status: Former Tobacco Use tobacco type: cigarettes Quit Date: 03/12/94 Smoking risk assessment performed?: Yes Alcohol Intake: former Drug use: Never Substance use type: does not use Counseling given: No Counseling provided: none Adopted: No Caregiver/Support person: No Foster care: No Household members: none Housing: house Number of Children: 1 number of grandchildren: 2 Communication Needs: None Education Level: high school Do you need help understanding health information?: Rarely current occupation: Retired Pets and animals: No Current gender identity: female What is your relationship status?: Panel score (0-1 are the most socially isolated patients): 0 What type of physical activity do you participate in: walking Duration: 60-90 minutes/day Frequency: daily Seatbelt use: always Helmet use: No Drive intox or ride w/intox route delivery driver: No Water heater temp set <120 deg: Yes Working smoke detector in home: No Fire extinguisher in home: No Carbon monox detector in home: No Firearms in home: No Do you feel safe at home: Yes Do you feel safe in your relationship?: Yes Visit Medication and Allergies Active Medications Generic Name Dose Route Start Last Admin Trade Name Freq PRN Reason Stop Dose Admin Acetaminophen 0 mg 12/08/21 09:35 Acetaminophen 325 Mg Tab PO Q4H PRN PRN Amoxicillin/Clavulanate Potassium 1 tab 12/12/21 20:00 12/13/21 08:35 Amoxicillin 500/Clav. 125 Tab PO 1 tab BID FERDINAND Administration Ascorbic Acid 500 mg 12/09/21 08:30 12/13/21 08:37 Ascorbic Acid 500 Mg Tab PO 500 mg DAILY FERDINAND Administration Aspirin 81 mg 12/10/21 08:30 12/13/21 08:35 Aspirin 81 Mg Chew PO 81 mg DAILY FERDINAND Administration Atorvastatin Calcium 20 mg 12/09/21 08:30 12/13/21 08:37 Atorvastatin 20 Mg Tab PO 20 mg DAILY FERDINAND Administration Dimethicone/Zinc Oxide 0 gm 12/08/21 09:35 Nuzhat Protect Cream 142 Gm Tube TP PRN PRN Furosemide 80 mg 12/12/21 08:30 12/13/21 10:26 Furosemide 80 Mg Tab PO 80 mg BID@0830,1600 FERDINAND Administration Sodium Chloride 500 mls @ 0 mls/hr 12/08/21 06:31 Saline 500ml Bag IV PRN PRN As Directed IV Miscellaneous Supplies 1 each 12/08/21 06:45 Iv Access IV DIRECTED FERDINAND Lorazepam 0.5 mg 12/12/21 11:17 12/12/21 13:33 Lorazepam 0.5 Mg Tab PO 0.5 mg BID PRN PRN Administration Melatonin 6 mg 12/12/21 22:00 12/12/21 21:20 Melatonin 3 Mg Tab PO 6 mg HS FERDINAND Administration Metoprolol Succinate 50 mg 12/10/21 08:30 12/13/21 08:37 Metoprolol Cr 50 Mg Tabcr PO 50 mg DAILY FERDINAND Administration Pantoprazole Sodium 40 mg 12/09/21 07:30 12/13/21 08:35 Pantoprazole 40 Mg Tabcr PO 40 mg DAILY@0730 FERDINAND Administration Polyethylene Glycol 17 gm 12/08/21 09:35 Polyethylene Glycol 3350 17 Gm Packet PO DAILY PRN PRN Constipation Sacubitril/Valsartan 1 each 12/09/21 09:10 12/13/21 08:35 Sacubitril/Valsartan 24 Mg/26 Mg Tab PO 1 each BID FERDINAND Administration Senna/Docusate Sodium 1 tab 12/08/21 09:42 Sennosides/Docusate Sodium Tab PO BID PRN PRN constipation Sertraline HCl 25 mg 12/09/21 08:30 12/13/21 08:37 Sertraline 25 Mg Tab PO 25 mg DAILY FERDINAND Administration Sodium Chloride 0 ml 12/08/21 06:31 12/11/21 20:30 Normal Saline Flush 10 Ml Syr IVP 20 ml PRN PRN Administration Spironolactone 25 mg 12/09/21 08:30 12/13/21 08:36 Spironolactone 25 Mg Tab PO 25 mg DAILY FERDINAND Administration Thiamine HCl 200 mg 12/09/21 08:30 12/13/21 08:35 Thiamine 100 Mg Tab PO 200 mg DAILY FERDINAND Administration Warfarin Sodium 3 mg 12/11/21 20:00 12/11/21 21:10 Warfarin 3 Mg Tab PO 3 mg [email or web address] FERDINAND Administration Warfarin Sodium 2 mg 12/08/21 20:00 12/12/21 21:29 Warfarin 1 Mg Tab PO 2 mg [email or web address] FERDINAND Administration Allergies heparin Allergy (Severe, Verified 12/08/21 06:19) thrombocytopenia, anaphylaxis dofetilide Adverse Reaction (Severe, Verified 12/08/21 06:19) Prolonged QTc lisinopril Adverse Reaction (Verified 12/08/21 06:19) Cough Exam Narrative Exam Narrative: Physical Exam: Gen: Patient of apparent stated age, NAD Head and face: no facial or cranial abnormalities Neck: Supple, no meningismus, no occipital tenderness CV: + S1, S2, RRR, no murmur Resp: CTA B/L Abd: soft, nontender, nondistended Ext: No edema. No clubbing or cyanosis. No bony deformity. Neuro Exam: Language: fluency, naming, repetition, and comprehension intact; Mental Status: AAO, current events and fund of knowledge limited Speech: no dysarthria Cranial nerves: Funduscopy: not completed CN II: R homonymous hemianopsia CN III, IV, : extraocular movements intact, no nystagmus, pupils symmetric and reactive to light CN V: face sensation intact to LT and PP CN VII: no facial asymmetry noted CN VIII: hearing intact bilaterally CN IX, X: palate rises symmetrically CN XI: trapezius/SCM 5/5 bilaterally CN XII: protrudes tongue symmetrically Sensory: intact to LT, PP, vibration, and joint position in all extremities Motor: bulk and tone intact. Fine motor movements intact bilaterally. No pronator drift. Strength 4++/5 throughout including the deltoids, biceps, triceps, wrist extensors, hip flexors, knee flexors, knee extensors, ankle flexors, and ankle extensors. Reflexes: hyporeflexic throughout; toes down going bilaterally; Coordination: FTN and HTS intact bilaterally Gait: not tested; Results Last Vital Signs Temp 97.3 F L 12/13/21 11:49 Pulse 89 12/13/21 11:49 Resp 16 12/13/21 11:49 BP 135/95 H 12/13/21 11:49 Pulse Ox 99 12/13/21 11:49 Labs Result diagrams: 12/13/21 06:45 12/13/21 06:45 Labs: Laboratory Results - last 24 hr 12/12/21 12/13/21 12/13/21 16:17 06:45 06:45 WBC RBC Hgb Hct MCV MCH MCHC RDW Plt Count MPV Immature Gran % Neutrophils % Lymphocytes % Monocytes % Eosinophils % Basophils % Nucleated RBC % Absolute Neutrophils Absolute Lymphocytes Absolute Monocytes Absolute Eosinophils Absolute Basophils PT 18.9 H INR 2.0 H Sodium 141 Potassium 3.4 L Chloride 103 Carbon Dioxide 29.8 Anion Gap 8.2 BUN 22 H Creatinine 1.5 H Est GFR (CKD-EPI 2020) 36.34 Glucose 80 Calcium 8.7 Magnesium 1.9 TSH Free T4 Urine Color Yellow Urine Clarity Sl Cloudy Urine pH 7.0 Ur Specific [place] 1.015 Urine Protein Negative Urine Ketones Negative Urine Blood Moderate H Urine Nitrite Negative Urine Bilirubin Negative Urine Urobilinogen 0.2 Ur Leukocyte Esterase Small H Urine RBC >50 H Urine WBC 10-20 H Ur Epithelial Cells Negative Urine Crystals Negative Urine Bacteria Negative Urine Mucus Negative Ur Culture Indicated? Yes Urine Glucose Negative Add-On Test Request 12/13/21 12/13/21 12/13/21 06:45 06:45 06:45 WBC 7.70 RBC 3.95 Hgb 10.6 L Hct 35.1 L MCV 89 MCH 26.8 L MCHC 30.2 L RDW 16.9 H Plt Count 289 MPV 9.8 Immature Gran % 0.4 Neutrophils % 78.0 Lymphocytes % 12.1 Monocytes % 6.2 Eosinophils % 2.1 Basophils % 1.2 Nucleated RBC % 0.0 Absolute Neutrophils 6.01 Absolute Lymphocytes 0.93 L Absolute Monocytes 0.48 Absolute Eosinophils 0.16 Absolute Basophils 0.09 PT INR Sodium Potassium Chloride Carbon Dioxide Anion Gap BUN Creatinine Est GFR (CKD-EPI 2020) Glucose Calcium Magnesium TSH 6.00 H Free T4 1.56 H Urine Color Urine Clarity Urine pH Ur Specific [place] Urine Protein Urine Ketones Urine Blood Urine Nitrite Urine Bilirubin Urine Urobilinogen Ur Leukocyte Esterase Urine RBC Urine WBC Ur Epithelial Cells Urine Crystals Urine Bacteria Urine Mucus Ur Culture Indicated? Urine Glucose Add-On Test Request DONE
[2021-12-13 15:27] VITALS: BP 96/66; PULSE 84; RESP 16; TEMP 36.7; O2SAT 96
--- NOTE | 2021-12-13 18:57 | W.PM.PROGNOT ---
Date of Service Date of service: 12/13/21 Time of Service: 18:59 Assessment and Plan Assessment and plan (1) Acute exacerbation of CHF (congestive heart failure): Status: Acute Assessment and plan: Acute on chronic systolic CHF w/ LVEF of 20-25% by echo. Doing well on PO furosemide. Consider decreasing dose tomorrow. Currently on toprol XL 50 mg PO daily, as well as entresto, atorvastatin, and aldactone. Continue a Low sodium diet. No longer requiring oxygen. Monitor strict I/Os and daily weights. (2) Left lower lobe pneumonia: Status: Acute Assessment and plan: Abx switched to augmentin. Encourage IS. (3) Delirium: Status: Acute Assessment and plan: UA not c/w a true UTI. Will trial gabapentin per neurology recommendations. (4) Cardiomyopathy, unspecified: Assessment and plan: H/O rheumatic heart disease s/p second aortic and mitral valve replacements. As above (5) Essential hypertension: Assessment and plan: BP stable. Continue current medications. (6) Hypothyroidism: Assessment and plan: Continue levothyroxine. Qualifiers: Hypothyroidism type: due to medication Qualified Code(s): E03.2 - Hypothyroidism due to medicaments and other exogenous substances (7) Discharge planning issues: Status: Acute Assessment and plan: DNR/DNI Plan is for the patient to go home with caretakers - as early as tomorrow. Subjective Subjective Interval history since last seen: Maira states that her breathing is better today. She says she did not get short of breath while walking (on room air) today. She denies dizziness, chest pain, shortness of breath, nausea. She was evaluated by Dr Su of neurology. Exam Narrative Exam Narrative: General: Pleasant elderly female who is sitting up in a chair, A&Ox3, in good spirits, on room air HEENT: EOMI, MMM Heart: RRR, no m/r/g Lungs: CTAB Abdomen: soft, nontender, nondistended Extremities: no edema BLEs Objective Last Vital Signs Temp 36.7 C 12/13/21 15:27 Pulse 84 12/13/21 15:27 Resp 16 12/13/21 15:27 BP 96/66 L 12/13/21 15:27 Pulse Ox 96 12/13/21 15:27 Laboratory Results - last 24 hr 12/13/21 12/13/21 12/13/21 06:45 06:45 06:45 WBC 7.70 RBC 3.95 Hgb 10.6 L Hct 35.1 L MCV 89 MCH 26.8 L MCHC 30.2 L RDW 16.9 H Plt Count 289 MPV 9.8 Immature Gran % 0.4 Neutrophils % 78.0 Lymphocytes % 12.1 Monocytes % 6.2 Eosinophils % 2.1 Basophils % 1.2 Nucleated RBC % 0.0 Absolute Neutrophils 6.01 Absolute Lymphocytes 0.93 L Absolute Monocytes 0.48 Absolute Eosinophils 0.16 Absolute Basophils 0.09 PT 18.9 H INR 2.0 H Sodium 141 Potassium 3.4 L Chloride 103 Carbon Dioxide 29.8 Anion Gap 8.2 BUN 22 H Creatinine 1.5 H Est GFR (CKD-EPI 2020) 36.34 Glucose 80 Calcium 8.7 Magnesium 1.9 TSH Free T4 Add-On Test Request 12/13/21 12/13/21 06:45 06:45 WBC RBC Hgb Hct MCV MCH MCHC RDW Plt Count MPV Immature Gran % Neutrophils % Lymphocytes % Monocytes % Eosinophils % Basophils % Nucleated RBC % Absolute Neutrophils Absolute Lymphocytes Absolute Monocytes Absolute Eosinophils Absolute Basophils PT INR Sodium Potassium Chloride Carbon Dioxide Anion Gap BUN Creatinine Est GFR (CKD-EPI 2020) Glucose Calcium Magnesium TSH 6.00 H Free T4 1.56 H Add-On Test Request DONE Objective Narrative Objective Narrative: CT head: Advanced bilateral periventricular white matter ischemic changes.? Also evidence of infarct in the left occipital lobe. No evidence of intracranial hemorrhage, intra or extra-axial.
[2021-12-13 19:46] VITALS: BP 103/71; PULSE 84; RESP 16; TEMP 36.6; O2SAT 96
[2021-12-13] MEDS: LORazepam 0.5 MG TAB PO (20:12)
[2021-12-13] MEDS: Warfarin 1 MG TAB 2 MG PO (20:12)
[2021-12-13] MEDS: Melatonin 3 MG TAB 6 MG PO (22:02)
[2021-12-13] MEDS: Gabapentin 300 MG CAP PO (22:03)
[2021-12-13 22:50] VITALS: BP 101/61; PULSE 80; RESP 16; TEMP 36.8; O2SAT 92
[2021-12-14 04:10] VITALS: BP 91/52; PULSE 86; RESP 16; TEMP 36.7; O2SAT 93
[2021-12-14 06:45] LABS: Prothrombin Time 19.7 sec (9.3-11.0)
[2021-12-14 07:53] VITALS: BP 107/74; PULSE 83; RESP 16; TEMP 36.8; O2SAT 93
[2021-12-14 09:05] LABS: Anion Gap 8.7 mmol/L (3-11); BUN 28 mg/dL (7-18); CO2 28.3 mmol/L (21.0-32.0); CREATININE 1.7 mg/dL (0.55-1.02); Calcium 9.2 mg/dL (8.5-10.1); Chloride 102 mmol/L (98-107); Estimated GFR 31.27 (mL/min/1.73m2); Glucose 96 mg/dL (74-106); Magnesium 2.1 mg/dL (1.8-2.4); Potassium 4.1 mmol/L (3.5-5.1); Sodium 139 mmol/L (136-145)
[2021-12-14] MEDS: Spironolactone 25 MG TAB PO (09:07)
[2021-12-14] MEDS: Pantoprazole 40 MG TABCR PO (09:08)
[2021-12-14] MEDS: Aspirin 81 MG CHEW PO (09:08)
[2021-12-14] MEDS: Amoxicillin 500/Clav. 125 TAB PO (09:08)
[2021-12-14] MEDS: Ascorbic Acid 500 MG TAB PO (09:08)
[2021-12-14] MEDS: Thiamine 100 MG TAB 200 MG PO (09:08)
[2021-12-14] MEDS: Metoprolol CR 50 MG TABCR PO (09:08)
[2021-12-14] MEDS: Sacubitril/Valsartan 24 mg/26 mg TAB 1 EACH PO (09:08)
[2021-12-14] MEDS: Furosemide 80 MG TAB PO (09:08)
[2021-12-14] MEDS: Sertraline 25 MG TAB PO (09:08)
[2021-12-14] MEDS: Atorvastatin 20 MG TAB PO (09:08)
--- NOTE | 2021-12-14 10:44 | W.PM.DS.N ---
Date of service: 12/14/21 Time of Service: 10:44 DS: Diagnosis Discharge Diagnosis (1) Left lower lobe pneumonia: Status: Acute Asessment and Plan: Completing a 7 day course of antibiotics (augmentin) (2) Acute on chronic systolic CHF (congestive heart failure): Status: Acute Asessment and Plan: LVEF 20-25%, combined with pulmonary hypertension. Being discharged on furosemide 60 mg PO BID. (3) Bilateral pleural effusion: Status: Acute (4) Hypoxia: Status: Resolved Asessment and Plan: Passed ambulatory pulse ox testing on RA. (5) Delirium: Status: Acute Asessment and Plan: In setting of vascular dementia, illness, hospitalization. (6) Right homonymous hemianopsia: Status: Acute Asessment and Plan: [place] to be due to a CVA during valve replacement surgery in 10/2021. (7) Pulmonary hypertension: Status: Chronic Asessment and Plan: Euvolemic (8) Cardiomyopathy, unspecified: Asessment and Plan: W/ chronic systolic CHF; h/o rheumatic heart disease (9) S/P aortic valve replacement with bioprosthetic valve: Status: Acute Asessment and Plan: [facility] [place] 10/31 (10) S/P mitral valve replacement with bioprosthetic valve: Status: Acute Asessment and Plan: [facility] [place] 10/31 (11) Vascular dementia: Status: Chronic Asessment and Plan: on asa, statin, anticoagulation as felt to be due to cardioembolic event. (12) History of cardioembolic cerebrovascular accident (CVA): Asessment and Plan: As above (13) Essential hypertension: Asessment and Plan: Maintained on home therapy (14) Restless legs: Status: Chronic Asessment and Plan: Initiated on gabapentin (15) Hypothyroidism: Asessment and Plan: Amiodarone d/c'ed. Discharge Plan Disposition Patient Disposition: HOME W/HOME HEALTH SERVICE Condition: Serious Discharge Details Reason For Visit: Acute Systolic Congestive Heart Failure Admit Date/Time: 12/08/21 09:35 Admit Provider: Vinay Enriquez Attending Provider: Vinay Enriquez Primary Care Provider: Jessica Ochoa Hospital Course Hospital Course: Ms Mcdermott is a 76 year old female with PMHx of chronic systolic CHF w/ LVEF of 20-25%, as well as h/o rheumatic heart disease s/p second aortic and mitral valve replacements in 10/2021 ([facility] [place]), pulmonary hypertension, essential hypertension, vascular dementia, who was admitted to [facility] hospitalist service on 12/08/21 for acute exacerbation of her chronic systolic CHF and HCAP. She was requiring up to 2 L of O2 saturating as low as 84% on RA on this admission. She was treated with empiric zosyn and IV furosemide. Entresto was added to her regimen. She was maintained on her toprol XL 50 mg daily and on her outpatient aldactone. She was maintained on coumadin for anticoagulation with goal INR of 2.0 - 3.0. When the patient lost her IV, her antibiotics and diuretics were transitioned to oral augmentin and furosemide. She continued to improve, her oxygen was weaned off, and she did not require it on exercise oximetry testing. She is being discharged home today to complete one week of antibiotics. Her dose of furosemide on discharge is 60 mg PO BID, but will need to be closely monitored by her PCP and cardiology. As we understand it, the patient has a PCP appointment tomorrow, which she is expected to keep and is being sent home with resumption of home health nursing as well as with addition of home health PT, OT, and CINDER CRUSHER OPERATOR. Home health nursing is to monitor weights, cardiac and respiratory status. The patient did have episodes of delirium during this admission for which she was valuated by neurology. A CT of the head did not show any acute events; however, the patient was found to likely have had a stroke during valve replacement in 10/31, likely embolic in etiology. Imaging with CTA or MRI was not felt to be of additional benefit as it would not change her therapy (she is already on aspirin, statin, and coumadin. She does have right homonymous hemianopsia, for which her room was changed to one with a door on the left to minimize hallucinations. Additionally, the patient was recommended to be initiated on gabapentin for her restless legs and to help her sleep, which would in turn help her delirium. The patient tolerated this addition to her therapy well. It is felt that the patient should not live alone and should be supervised at home. She will need to follow up with neurology in 4-6 weeks. She will need to follow up with [facility] [place] [facility] ophthalmology for ocular varices, and that referral has been sent. The patient was evaluated by palliative care, during which a COLST form was signed indicating that Maira is DNR/DNI. She is medically stable for discharge home today with above home health services and follow ups. Care for patient as well as completion of her discharge summary on day of discharge took 60 minutes. Home Meds and New Rx's Prescriptions: New gabapentin 300 mg Capsule 300 mg PO BID@1800,2100 Qty: 60 0RF amoxicillin-pot clavulanate 500-125 mg Tablet 1 tab PO BID Qty: 3 0RF Entresto 24-26 mg Tablet 1 ea PO BID Qty: 60 0RF furosemide 40 mg tablet 60 mg PO BID Qty: 22 0RF Continued ascorbate calcium (vitamin C) 500 mg tablet 500 mg PO DAILY spironolactone 25 mg tablet 25 mg PO DAILY Qty: 90 3RF ferrous sulfate 325 mg (65 mg iron) tablet 325 mg PO DAILY Qty: 90 3RF Rx Instructions: Take with water or juice on an empty stomach sertraline 25 mg tablet 25 mg PO DAILY Qty: 90 3RF pantoprazole 40 mg tablet,delayed release (DR/EC) See Rx Instructions .ROUTE .COMPLEX Qty: 90 3RF Dose Instruction: TAKE 1 TABLET ONCE DAILY IN THE MORNING AT LEAST 30 TO 60 MINUTES BEFORE FIRST MEAL OF THE DAY Rx Instructions: TAKE 1 TABLET ONCE DAILY IN THE MORNING AT LEAST 30 TO 60 MINUTES BEFORE FIRST MEAL OF THE DAY atorvastatin 20 mg tablet 20 mg PO DAILY Qty: 90 3RF warfarin 2 mg tablet 2 mg PO .COMPLEX Rx Instructions: 2 mg orally M,T,W,,,Sun; warfarin 3 mg tablet 3 mg PO .COMPLEX Rx Instructions: 3 mg orally Sunday; aspirin 81 mg tablet,chewable 81 mg PO DAILY thiamine HCl (vitamin B1) 100 mg tablet 200 mg PO DAILY calcium citrate-vitamin D3 200 mg-6.25 mcg (250 unit) tablet 1 tab PO DAILY Lactobacillus acidophilus 1 cap PO BID melatonin 3 mg capsule 3 mg PO HS acetaminophen 325 mg tablet 650 mg PO Q6H PRN (Reason: fever or pain) sennosides-docusate sodium [Senna with Docusate Sodium] 8.6-50 mg tablet 1 tab-cap PO BID PRN (Reason: constipation) polyethylene glycol 3350 4.25 gram powder in packet 4.25 g PO DAILY PRN (Reason: constipation) metoprolol succinate 50 mg tablet extended release 24 hr 1 tab PO DAILY Label Comments: TAKE 1 TABLET BY MOUTH DAILY Discontinued torsemide 20 mg tablet 40 mg PO .QOD amiodarone 200 mg tablet 200 mg PO DAILY hydroxyzine HCl 10 mg tablet 10 mg PO QID PRN Discharge Instructions Instructions: Furosemide (By mouth), Amoxicillin/Clavulanate Potassium (By mouth), Heart Failure (DC), Bacterial Pneumonia (DC) Additional Instructions: Finish your antibiotics as prescribed. Return to the hospital with any worsening breathing, if you develop a fever, bleeding, or chest pain. Follow up with your PCP and with cardiology as scheduled. Follow up with neurology in 4-6 weeks. Follow up with [facility] [place] [facility] ophthalmology. Care Plan Goals: Home with resumption of home health nursing and addition of PT, OT, and CINDER CRUSHER OPERATOR. Stand Alone Forms: Nursing Discharge Form Referrals: [facility] [Outside] (ophthalmology will call you with an appointment after they talk to the Doctor) CARDIOLOGY,[facility] [place] [OTHER] - (The Cardiology nurse will call you with an appointment ) Jessica Ochoa NP [Primary Care Provider] - 12/15/21 1:30 pm Viviane Su MD [ [facility] STAFF PHYSICIAN] - 01/18/22 11:00 am Activity:: Activity as Tolerated Equipment/Supplies:: No Equipment Needed Diet:: Low Sodium Discharge Orders Discharge Orders: Discharge Order (Routine); Ordered 12/14/21 Ordered By: Deinta Pacheco DS: Summary Time Spent with Patient providing and/or coordinating discharge services: Greater than 30 minutes Status at Discharge Functional status at discharge: independent ambulation Overall status at discharge: patient is progressing back to baseline Mental Status: mental status grossly normal Speech and Movement: speech and movement normal Mood: congruent mood Affect: normal affect Exam Narrative Exam Narrative: General: Pleasant elderly female who is sitting up in a chair, A&Ox3, in good spirits, on room air HEENT: EOMI, MMM Heart: RRR, no m/r/g Lungs: CTAB Abdomen: soft, nontender, nondistended Extremities: no edema BLEs Psych Mental Status: mental status grossly normal Speech and Movement: speech and movement normal Mood: congruent mood Affect: normal affect DS: Data Vitals/I&O Vitals and I&O: Vital Signs Temperature 36.8 C 12/14/21 07:53 Temperature Source Tympanic 12/14/21 07:53 Pulse 83 12/14/21 07:53 Pulse Rhythm Regular 12/14/21 09:47 Pulse 87 12/09/21 11:30 Respiratory Rate 16 12/14/21 07:53 Respiratory Effort Non-Labored 12/14/21 09:47 Respiratory Depth Normal 12/14/21 09:47 Respiratory Pattern Normal 12/14/21 09:47 Blood Pressure 107/74 12/14/21 07:53 Blood Pressure Mean 88 12/09/21 11:27 Blood Pressure Position Left Lateral 12/08/21 11:40 Pulse Oximetry 93 12/14/21 07:53 Oxygen Delivery Method Room Air 12/14/21 07:53 Oxygen Flow Rate 0 12/14/21 07:53 Pain Level 0 12/14/21 07:53 Comment 12/12/21 11:32 Intake & Output 12/13/21 12/13/21 12/14/21 11:59 23:59 11:59 Intake Total 200 / 760 560 / 760 Output Total 1100 / 1400 300 / 1400 Balance -900 / -640 260 / -640 Weight 53.7 kg 52.7 kg Intake: Oral 200 / 760 560 / 760 Output: Urine 1100 / 1400 300 / 1400 Other: Urine Color Yellow Yellow Yellow Urine Appearance Clear Clear Clear Urine Odor Normal Normal Comment no amount measured Stool Size Large Stool Characteristics Soft Voiding Methods Toilet Toilet Toilet Data Completed and Pending Completed studies during hospitalization [Text1]: CXR 12/08/21: 1. Left basilar infiltrate and small left pleural effusion suspicious for pneumonia. Echo 12/08/21: Technically limited study The left ventricle is grossly normal in size and wall thickness.? LV function is severely reduced.? Estimated ejection fraction is 20-25% The right ventricle is not well visualized Both atria appear normal in size There is a bioprosthetic aortic valve.? Mean gradient is 6.4 mmHg There is a prosthetic mitral valve.? Calculated mitral valve area is 1.36 cm?? Normal tricuspid valve with mild regurgitation and estimated right ventricular systolic pressure is 40 mmHg Compared to an echocardiogram at [facility] from November 29 , aortic valve gradient is similar.? Right ventricular systolic pressure has decreased from 47 to 40 mmHg CXR 12/11/21: Persistent infiltrate and left pleural effusion. New small right pleural effusion. Cardiac findings as above. CT head 12/13/21: Advanced bilateral periventricular white matter ischemic changes.? Also evidence of infarct in the left occipital lobe. No evidence of intracranial hemorrhage, intra or extra-axial. Labs on day of discharge: Labs from last 24 hours 12/14/21 12/14/21 08:28 06:15 PT 19.7 H INR 2.0 H Sodium 139 Potassium 4.1 Chloride 102 Carbon Dioxide 28.3 Anion Gap 8.7 BUN 28 H Creatinine 1.7 H Est GFR (CKD-EPI 2020) 31.27 Glucose 96 Calcium 9.2 Magnesium 2.1 PFSH All Active Problems (Updated 12/14/21 @ 12:40 by Denita Pacheco MD) Bilateral pleural effusion (Acute) Vascular dementia (Chronic) S/P mitral valve replacement with bioprosthetic valve (Acute) S/P aortic valve replacement with bioprosthetic valve (Acute) Acute on chronic systolic CHF (congestive heart failure) (Acute) Right homonymous hemianopsia (Acute) Delirium (Acute) Advance care planning (Acute) Discharge planning issues (Acute) Acute exacerbation of CHF (congestive heart failure) (Acute) Left lower lobe pneumonia (Acute) Heart failure with reduced ejection fraction (Acute) Prosthetic aortic valve stenosis (Acute) Elevated troponin I level (Acute) Non-ST elevation [place] (NSTEMI) (Acute) Mediastinal lymphadenopathy (Acute) Pulmonary nodule (Acute) Mild obstructive sleep apnea (Chronic 05/12/20) severe in REM sleep, significan nocturnal hypoxemia, sleep fragmentation and increased airway resistance flow pattern. On amiodarone therapy (Acute) Restless legs (Chronic 10/29/20) Pulmonary hypertension (Chronic) Chest pain (Acute) Left bundle branch block (LBBB) (Acute) Iron deficiency anemia (Chronic) 05/20/2020 EGD & 07/06/2020 colonoscopy ([facility] [place]): no source for iron deficiency; recommend following studies & consider small bowel capsule study if anemia worsens Vulvar atrophy (Chronic 01/13/16) S/P aortic valve and mitral valve replacement (Chronic 08/04/14) Bovine prosthetic valves, plus MAZE, [facility] Osteopenia (Chronic 06/14/17) 06/14/17 DEXA: femoral neck T-score -1.1 WHO FRAX score: 10-year major osteoporotic fx risk of 8.9% and hip fx risk of 0.9% --> tx with Ca/vitamin D spa concierge current use of anticoagulant therapy (Chronic 08/15/14) [facility] for afib 08/2017: Switched from Warfarin to apixaban by cardiology (Dr. 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 moderate by echo 12/2011 S/p repair Atrial fibrillation (07/31/14) S/p MAZE; adverse rxn dofetilide; amiodarone begun 08/2014, again 03/2020; 08/2017 Switched to apixaban by cardiology (Dr. Chiang) following hospitalization for GI bleed (no afib during cardiac monitoring during hospitalization) Cardiomyopathy, unspecified CHF (congestive heart failure) Chronic kidney disease Duodenal ulcer (09/05/17) Hospitalization 08/2017 for acute GI bleed Essential hypertension History of cardioembolic cerebrovascular accident (CVA) Hyperlipidemia (05/12/13) LDL 144 2012; Risk calculated 13.3% soft CV risk; CV risk 06/2014: 11.6% Hypothyroidism 2/2 amiodarone Mitral regurgitation Rheumatic; s/p repair Rheumatic heart disease Tubular adenoma of colon (08/30/17) Surgical History (Updated 12/14/21 @ 10:51 by Denita Pacheco MD) Biopsy of breast (~2008) Left breast [facility] [place] Colonoscopy - MAC (08/28/17) EGD - MAC (08/28/17) History of cardiac cath (09/28/21) History of section (~1976) History of toe surgery (~2003) Removal of bone chip Pacemaker Radiofrequency Maze Procedure (08/04/14) done at [facility] S/P aortic valve and mitral valve replacement (~07/2014) [facility]. Severe AR & MR, Repeat at [facility] in 10/2021 Family History Mother , Age 87, peritonitis Diabetes Essential hypertension Breast cancer Father , Age 45, colon cancer Colon cancer Sister Heart disease [place] at age 49 Brother Diabetes Colon cancer Brother No problems noted. Brother Heart disease CABG Other Family history of colon cancer Social History Smoking/Tobacco Use Status: Former Tobacco Use tobacco type: cigarettes Quit Date: 03/12/94 Smoking risk assessment performed?: Yes Alcohol Intake: former Drug use: Never Substance use type: does not use Counseling given: No Counseling provided: none Adopted: No Caregiver/Support person: No Foster care: No Household members: none Housing: house Number of Children: 1 number of grandchildren: 2 Communication Needs: None Education Level: high school Do you need help understanding health information?: Rarely current occupation: Retired Pets and animals: No Current gender identity: female What is your relationship status?: Panel score (0-1 are the most socially isolated patients): 0 What type of physical activity do you participate in: walking Duration: 60-90 minutes/day Frequency: daily Seatbelt use: always Helmet use: No Drive intox or ride w/intox reefer truck driver: No Water heater temp set <120 deg: Yes Working smoke detector in home: No Fire extinguisher in home: No Carbon monox detector in home: No Firearms in home: No Do you feel safe at home: Yes Do you feel safe in your relationship?: Yes
[2021-12-14 11:12] VITALS: BP 85/61; PULSE 82; RESP 16; TEMP 36.4; O2SAT 96
--- NOTE | 2021-12-14 11:13 | PDOC.CMDIS ---
- If Service Date Differs Date of service: 12/14/21 Time of Service: 11:13 LACE Index Scoring Tool - Questions: Length of Stay (in days): 4 - 6 Acuity (Admit via E.D.?): Yes Comorbidities: Congestive Heart Failure, Liver or Renal Disease E.D. Visits: 3 - Answers: Total Score: 15 Risk of Readmission: High Risk Care Management Discharge Reason for Hospitalization: Acute exacerbation of CHF, Left lower lobe pneumonia Discharge Plan: Maira is discharged home via private vehicle with Daughter Lawanda. Resumption of [facility] RN services, New OT/PT/IDENTIFICATION CLERK services are ordered. New RX's are transmitted to [facility]. Opthmology and Cardiology referral's are sent to [facility] [place] [facility]. In addition, Maira will follow up with her PCP tomorrow (CM called the office of Jessica Ochoa, and varified that they will manage her INR's and Coumadin dosing.) Maira will follow up with Pulmonology 12/30/21 and Neurology on 01/18/22 at [facility] as scheduled. Patient/Family Education Needs: Review discharge instructions, limitations, medications and plan to follow up with community providers. Discuss ask me three. Services Needed at Discharge: Home Health Care Services (Resume [facility] RN, add PT/OT/IDENTIFICATION CLERK. CM notified [facility]. ), Outpatient Therapy (Patient is on Coumadin, PCP will manage and monitor INR after discharge.)
[2021-12-14 11:44] VITALS: BP 90/66
--- NOTE | 2021-12-14 12:46 | PT.INDS ---
PT Notes Visit Reasons: Acute Systolic Congestive Heart Failure Inpatient Physical Therapy Discharge Summary Treatment Dates: December 09, 2021 - December 14, 2021 Referring Doctor: Vinay Enriquez PT Orders: PT CONSULT This document serves as a summary of care. No PT services were provided on this date. Patient Profile/Admitting Diagnosis: Maira is a 76 year old female admitted secondary to acute exacerbation of CHF, Left lower lobe pneumonia. She participated in 4 PT sessions and demonstrated significant improvements in safety and activity tolerance. She is appropriate for discharge back to the community with HH PT once medically stable. Social History/Home Situation: Maira lives in a private home on one level. No stairs to enter. She notes she does not drive anymore. She has a sister and a daughter that live close by and assist her with transportation and anything she needs. She has required assistance at [facility] Maira notes she has been utilizing a walker while at home. Current Functional Limitations: Decreased activity tolerance Equipment Owned/DME: Walker, cane, shower chair, electric lift chair Subjective: none obtained Objective: ROM: Right Upper Extremity: Demonstrates full active elbow, forearm, wrist and digit mobility. Unable to assess shoulder mobility due to precautions Left Upper Extremity: Demonstrates full active elbow, forearm, wrist and digit mobility. Unable to assess shoulder mobility due to precautions Right Lower Extremity: Demonstrates WFL AROM R LE Left Lower Extremity: Demonstrates WFL AROM L LE Strength: Right Upper Extremity: Good functional grasp. Left Upper Extremity: Good functional grasp Right Lower Extremity: Demonstrates grossly full R LE strength Left Lower Extremity: Demonstrates grossly full L LE strength BED MOBILITY/TRANSFERS? Rolling L/R: Independent Supine-sit: Independent ? Sit-supine: ? Independent ? Sit-stand: I ? Stand-sit: I? GAIT? Assistive Device: No AD? Weight bearing: Full Assist: Supervision ? Distance:? 350'? Deviation: Gait unremarkable Balance: Static Sitting: Normal Dynamic Sitting: Normal Static Standing: Fair- increased sway Dynamic Standing: Poor Assessment: Patient is a 76 year old female referred to physical therapy services with the diagnosis of acute exacerbation of CHF, Left lower lobe pneumonia. She participated in 4 PT sessions and demonstrated significant improvements in safety and activity tolerance. She is appropriate for discharge back to the community with PT once medically stable. Goals: Goals X1 week 1. Supine-Sit independent (MET) 2. Sit-Supine independent (MET) 3. Sit-Stand independent (MET) 4. Stand-Sit independent (MET) 5. Bed-Chair independent (MET) 6. Chair-Bed independent (MET) 7. Gait 100 ft or greater supervision with least restrictive assistive device as needed (MET) Plan of Care/Treatment Plan: D/C from PT in acute care setting. DISCHARGE RECOMMENDATIONS: Home with continued services via Home Health. TREATMENT CODE/TIME: none Vickie Justin, PT, DPT [facility]
== END 2021-12-14 12:53 | disposition home health service (06) | DRG 193 ==
LOC: ER 09:58 → ICU 11:34 → MS 12-09 12:24
PROVIDERS: Emergency Medicine; General Practice; Internal Medicine; Admitting Provider Family Medicine; Emergency Provider Student in an Organized Health Care Education/Training Program; PCP Nurse Practitioner Family; Visit Provider Family Medicine
DX: J18.9 Pneumonia, unspecified organism (principal); I50.23 Acute on chronic systolic (congestive) heart failure; F05 Delirium due to known physiological condition; I42.9 Cardiomyopathy, unspecified; I11.0 Hypertensive heart disease with heart failure; Z79.01 Long term (current) use of anticoagulants; I27.20 Pulmonary hypertension, unspecified; D50.9 Iron deficiency anemia, unspecified; Z95.810 Presence of automatic (implantable) cardiac defibrillator; R59.0 Localized enlarged lymph nodes; G47.33 Obstructive sleep apnea (adult) (pediatric); R91.1 Solitary pulmonary nodule; Z79.899 Other long term (current) drug therapy; G25.81 Restless legs syndrome; I44.7 Left bundle-branch block, unspecified; Z95.3 Presence of xenogenic heart valve; M85.80 Other specified disorders of bone density and structure, unspecified site; G47.00 Insomnia, unspecified; R73.01 Impaired fasting glucose; I48.91 Unspecified atrial fibrillation; N18.9 Chronic kidney disease, unspecified; E03.2 Hypothyroidism due to medicaments and other exogenous substances; T46.2X5A Adverse effect of other antidysrhythmic drugs, initial encounter; Z87.891 Personal history of nicotine dependence; Z66 Do not resuscitate; H53.461 Homonymous bilateral field defects, right side; I86.8 Varicose veins of other specified sites; H35.00 Unspecified background retinopathy
CPT/HCPCS: 36415; 80048; 80053; 84145; 87040; 87493; 87637; 93005; 93306; 96365; 96366; 96367; 96375; 96376; 97110; 97162; 97166; 97530; 99223; 99285; 70450; 71045; 71046; 81003; 81015; 83735; 83880; 84439; 84443; 84484; 85025; 85610; 87086; 93010; 99232; 99233; 99239; J1940; J1941; J2543; J3480

== ENCOUNTER 2021-12-18 13:58 | Emergency (ER) | payer MEDICARE, OTHER, SELFPAY ==
[2021-12-18 14:02] VITALS: BP 95/70; PULSE 95; RESP 18; TEMP 36.8; O2SAT 91
--- NOTE | 2021-12-18 14:18 | W.ED.GENAD ---
Discharge Plan Disposition Patient Disposition: HOME Condition: Stable Discharge Details Clinical Impression: Low blood pressure reading Primary Care Provider: Jessica Ochoa ED Provider: Iam Youssef Home Meds and New Rx's Prescriptions: Continued ascorbate calcium (vitamin C) 500 mg tablet 500 mg PO DAILY spironolactone 25 mg tablet 25 mg PO DAILY Qty: 90 3RF ferrous sulfate 325 mg (65 mg iron) tablet 325 mg PO DAILY Qty: 90 3RF Rx Instructions: Take with water or juice on an empty stomach sertraline 25 mg tablet 25 mg PO DAILY Qty: 90 3RF pantoprazole 40 mg tablet,delayed release (DR/EC) See Rx Instructions .ROUTE .COMPLEX Qty: 90 3RF Dose Instruction: TAKE 1 TABLET ONCE DAILY IN THE MORNING AT LEAST 30 TO 60 MINUTES BEFORE FIRST MEAL OF THE DAY Rx Instructions: TAKE 1 TABLET ONCE DAILY IN THE MORNING AT LEAST 30 TO 60 MINUTES BEFORE FIRST MEAL OF THE DAY atorvastatin 20 mg tablet 20 mg PO DAILY Qty: 90 3RF warfarin 2 mg tablet 2 mg PO .COMPLEX Rx Instructions: 2 mg orally ,,,,,Sun; warfarin 3 mg tablet 3 mg PO .COMPLEX Rx Instructions: 3 mg orally Sunday; aspirin 81 mg tablet,chewable 81 mg PO DAILY thiamine HCl (vitamin B1) 100 mg tablet 200 mg PO DAILY calcium citrate-vitamin D3 200 mg-6.25 mcg (250 unit) tablet 1 tab PO DAILY Lactobacillus acidophilus 1 cap PO BID melatonin 3 mg capsule 3 mg PO HS acetaminophen 325 mg tablet 650 mg PO Q6H PRN (Reason: fever or pain) sennosides-docusate sodium [Senna with Docusate Sodium] 8.6-50 mg tablet 1 tab-cap PO BID PRN (Reason: constipation) polyethylene glycol 3350 4.25 gram powder in packet 4.25 g PO DAILY PRN (Reason: constipation) gabapentin 300 mg Capsule 300 mg PO BID@1800,2100 Qty: 60 0RF amoxicillin-pot clavulanate 500-125 mg Tablet 1 tab PO BID Qty: 3 0RF Entresto 24-26 mg Tablet 1 ea PO BID Qty: 60 0RF furosemide 40 mg tablet 60 mg PO BID Qty: 22 0RF Changed metoprolol succinate 50 mg tablet extended release 24 hr 25 mg PO DAILY Qty: 0 0RF Label Comments: TAKE 1 TABLET BY MOUTH DAILY Discharge Instructions Additional Instructions: Please decrease your metoprolol dosing in the morning by half --new dose should be 25 mg. Please continue to monitor your blood pressure twice daily. Please follow-up with primary care physician. Please follow-up with your cardiac surgeon as scheduled on Sunday. Please return to the emergency department immediately for any worsening or new concerning symptoms. Referrals: Jessica Ochoa NP [Primary Care Provider] - Medical Decision Making [id number] --76-year-old female with multiple medical problems including history of CHF, recently admitted for CHF exacerbation and pneumonia, discharged home her daughter's been monitoring her blood pressure and notes that over the past 24 hours blood pressure seems lower than usual with systolic in the 70s to 80s. Patient is on multiple diuretics as well as recent addition of metoprolol. Daughter notes blood pressure was normal upon waking this morning with systolic in the 100s and then decreased later in the morning through the day. Patient did take metoprolol 50 mg this morning with diuretics. Blood pressures currently 96/70. Patient is mentating well with no signs of endorgan damage. She feels well. No concerning findings on physical exam. I suspect antihypertensive dosing needs to be modified. We will trial metoprolol 25 mg tomorrow morning. Patient has follow-up with her cardiac surgeon on Sunday which I encouraged him to keep. Given her to return immediately for any worsening or new concerning symptoms. Usual customary discharge instructions reviewed with the family and patient who are in agreement with discharge plan. HPI General Mode of arrival: ambulatory. Date/Time Provider Initiated Documentation: 12/18/21 14:18. Limitations to Documentation: no limitations. Information obtained by: patient. HPI Narrative: 76-year-old female with history of multiple medical problems including, vascular dementia, status post mitral and aortic valve replacement, recently hospitalized for CHF and pneumonia, here with concern from family for low blood pressure over the past 24 hours. Patient's daughter notes that her blood pressure has been in the 70s to 80s over the past 24 hours. Patient denies complaint. Patient notes breathing better than when recently hospitalized. Daughter notes patient has been a little more tired than usual. Patient denies pain. Patient is on multiple diuretics as well as metoprolol 50 mg every morning. Related Data Home Medications Medication Instructions Recorded Confirmed ascorbate calcium (vitamin C) 500 500 mg PO DAILY 07/31/19 12/15/21 mg tablet ferrous sulfate 325 mg (65 mg 325 mg PO DAILY #90 tab-caps 04/21/21 12/15/21 iron) tablet sertraline 25 mg tablet 25 mg PO DAILY #90 tab-caps 09/03/21 12/15/21 pantoprazole 40 mg tablet,delayed See Rx Instructions .Route 09/13/21 12/15/21 release .COMPLEX #90 tabs spironolactone 25 mg tablet 25 mg PO DAILY #90 tabs 09/14/21 12/15/21 atorvastatin 20 mg tablet 20 mg PO DAILY #90 tab-caps 11/30/21 12/15/21 Lactobacillus acidophilus 1 cap PO BID 12/07/21 12/15/21 acetaminophen 325 mg tablet 650 mg PO Q6H PRN fever or pain 12/07/21 12/15/21 aspirin 81 mg chewable tablet 81 mg PO DAILY 12/07/21 12/15/21 calcium citrate 200 mg 1 tab PO DAILY 12/07/21 12/15/21 calcium-vitamin D3 6.25 mcg (250 unit) tablet melatonin 3 mg capsule 3 mg PO HS 12/07/21 12/15/21 polyethylene glycol 3350 4.25 gram 4.25 g PO DAILY PRN constipation 12/07/21 12/15/21 oral powder packet sennosides 8.6 mg-docusate sodium 1 tab-cap PO BID PRN constipation 12/07/21 12/15/21 50 mg tablet (Senna with Docusate Sodium) thiamine HCl (vitamin B1) 100 mg 200 mg PO DAILY 12/07/21 12/15/21 tablet warfarin 2 mg tablet 2 mg PO .COMPLEX 12/07/21 12/15/21 warfarin 3 mg tablet 3 mg PO .COMPLEX 12/07/21 12/15/21 amoxicillin 500 mg-potassium 1 tab PO BID #3 tabs 12/14/21 12/15/21 clavulanate 125 mg tablet furosemide 40 mg tablet 60 mg PO BID #22 tabs 12/14/21 12/15/21 gabapentin 300 mg capsule 300 mg PO BID@1800,2100 #60 caps 12/14/21 12/15/21 sacubitril 24 mg-valsartan 26 mg 1 ea PO BID #60 tabs 12/14/21 12/15/21 tablet (Entresto) metoprolol succinate 50 mg 25 mg PO DAILY #0 tabs 12/18/21 12/15/21 tablet,extended release 24 hr Previous Rx's Medication Instructions Recorded ferrous sulfate 325 mg (65 mg 325 mg PO DAILY #90 tab-caps 04/21/21 iron) tablet sertraline 25 mg tablet 25 mg PO DAILY #90 tab-caps 09/03/21 pantoprazole 40 mg tablet,delayed See Rx Instructions .Route 09/13/21 release .COMPLEX #90 tabs spironolactone 25 mg tablet 25 mg PO DAILY #90 tabs 09/14/21 atorvastatin 20 mg tablet 20 mg PO DAILY #90 tab-caps 11/30/21 amoxicillin 500 mg-potassium 1 tab PO BID #3 tabs 12/14/21 clavulanate 125 mg tablet furosemide 40 mg tablet 60 mg PO BID #22 tabs 12/14/21 gabapentin 300 mg capsule 300 mg PO BID@1800,2100 #60 caps 12/14/21 sacubitril 24 mg-valsartan 26 mg 1 ea PO BID #60 tabs 12/14/21 tablet (Entresto) metoprolol succinate 50 mg 25 mg PO DAILY #0 tabs 12/18/21 tablet,extended release 24 hr Allergies Allergy/AdvReac Type Severity Reaction Status Date / Time heparin Allergy Severe thrombocytopenia, Verified 12/08/21 06:19 anaphylaxis dofetilide AdvReac Severe Prolonged Verified 12/15/21 13:29 QTc lisinopril AdvReac Cough Verified 12/15/21 13:29 General Stated Complaint: GenMedical MARIS: 3 Review of Systems All systems reviewed & are unremarkable except as noted in HPI and below Constitutional Constitutional: Denies fever(s) Cardiovascular Cardiovascular: Denies chest pain Gastrointestinal Gastrointestinal: Denies nausea PFSH All Active Problems Low blood pressure reading (Acute) Occipital stroke (Acute) Bilateral pleural effusion (Acute) Vascular dementia (Chronic) S/P mitral valve replacement with bioprosthetic valve (Acute) S/P aortic valve replacement with bioprosthetic valve (Acute) Acute on chronic systolic CHF (congestive heart failure) (Acute) Right homonymous hemianopsia (Acute) Delirium (Acute) Advance care planning (Acute) Acute exacerbation of CHF (congestive heart failure) (Acute) Left lower lobe pneumonia (Acute) Heart failure with reduced ejection fraction (Acute) Prosthetic aortic valve stenosis (Acute) Elevated troponin I level (Acute) Mediastinal lymphadenopathy (Acute) Pulmonary nodule (Acute) Mild obstructive sleep apnea (Chronic 05/12/20) severe in REM sleep, significan nocturnal hypoxemia, sleep fragmentation and increased airway resistance flow pattern. 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 moderate by echo 12/2011 S/p repair Atrial fibrillation (07/31/14) S/p MAZE; adverse rxn dofetilide; amiodarone begun 08/2014, again 03/2020; 08/2017 Switched to apixaban by cardiology (Dr. 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 Severe AR & MR, Repeat at [facility] in 10/2021 Family History Mother , Age 87, peritonitis Diabetes Essential hypertension Breast cancer Father , Age 45, colon cancer Colon cancer Sister Heart disease [place] at age 49 Brother Diabetes Colon cancer Brother No problems noted. Brother Heart disease CABG Other Family history of colon cancer Social History Smoking/Tobacco Use Status: Former Tobacco Use tobacco type: cigarettes Quit Date: 03/12/94 Smoking risk assessment performed?: Yes Alcohol Intake: former Drug use: Never Substance use type: does not use Counseling given: No Counseling provided: none Adopted: No Caregiver/Support person: No Foster care: No Household members: none Housing: house Number of Children: 1 number of grandchildren: 2 Communication Needs: None Education Level: high school Do you need help understanding health information?: Rarely current occupation: Retired Pets and animals: No Current gender identity: female What is your relationship status?: Panel score (0-1 are the most socially isolated patients): 0 What type of physical activity do you participate in: walking Duration: 60-90 minutes/day Frequency: daily Seatbelt use: always Helmet use: No Drive intox or ride w/intox 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 Water heater temp set <120 deg: Yes Working smoke detector in home: No Fire extinguisher in home: No Carbon monox detector in home: No Firearms in home: No Do you feel safe at home: Yes Do you feel safe in your relationship?: Yes Exam Const General: cooperative and no acute distress HENMT Mouth: moist mucous membranes Eyes Conjunctivae: normal conjunctivae Sclera: normal sclerae Neck Neck: trachea midline and supple Resp Auscultation: clear to auscultation bilaterally, no rales, no rhonchi and no wheezes Cardio Rate: regular rate and not tachycardic Rhythm: regular rhythm Heart Sounds: no murmurs GI Palpation: soft, not firm, no guarding, no masses, not rigid and nontender Skin General skin exam: no rashes or lesions noted Neuro General: patient alert, patient awake and tone normal Extrem General: no edema Psych Appearance: grossly normal Mental Status: mental status grossly normal Course Vital Signs Vital signs: Vital Signs Temperature 36.8 C 12/18/21 14:02 Pulse 95 H 12/18/21 14:02 Respiratory Rate 18 12/18/21 14:02 Blood Pressure 95/70 L 12/18/21 14:02 Pulse Oximetry 91 L 12/18/21 14:02 Temperature 36.8 C 12/18/21 14:02 Temperature Source Tympanic 12/18/21 14:02 Pulse 95 H 12/18/21 14:02 Respiratory Rate 18 12/18/21 14:02 Respiratory Effort Non-Labored 12/18/21 14:08 Respiratory Depth Normal 12/18/21 14:08 Respiratory Pattern Normal 12/18/21 14:08 Blood Pressure 95/70 L 12/18/21 14:02 Blood Pressure Position Supine 12/18/21 14:02 Pulse Oximetry 91 L 12/18/21 14:02 Oxygen Delivery Method Room Air 12/18/21 14:02 Oxygen Flow Rate 0 12/18/21 14:02 Pain Level 0 12/18/21 14:02
== END 2021-12-18 14:35 | disposition home or self-care (01) ==
PROVIDERS: Emergency Provider Student in an Organized Health Care Education/Training Program; PCP Nurse Practitioner Family
DX: R03.1 Nonspecific low blood-pressure reading (principal); I13.0 Hypertensive heart and chronic kidney disease with heart failure and stage 1 through stage 4 chronic kidney disease, or unspecified chronic kidney disease; I50.9 Heart failure, unspecified; N18.9 Chronic kidney disease, unspecified; Z95.2 Presence of prosthetic heart valve
CPT/HCPCS: 99281

== ENCOUNTER 2021-12-22 02:39 | Outpatient (CLI) | payer MEDICARE, OTHER, SELFPAY ==
[2021-12-22 11:07] LABS: Abs Immature Grans 0.03 10^3/uL (0.0-0.06); Absolute Basophil Count 0.12 10^3/uL (0.0-0.2); Absolute Eosinophil Count 0.02 10^3/uL (0.0-0.7); Absolute Lymphocyte Count 1.04 10^3/uL (1.2-3.4); Absolute Monocyte Count 0.63 10^3/uL (0.1-0.8); Absolute Neutrophil Count 7.51 10^3/uL (1.2-6.7); Basophils % 1.3; Eosinophils % 0.2; HCT 41.5 % (36.0-46.0); HGB 12.2 g/dL (11.2-15.7); Immature Grans % 0.3; Lymphocytes % 11.1; MCH 26.1 pg (27.0-33.0); MCHC 29.4 % (32.0-36.0); MCV 89 fL (80-95); MPV 10.2 fL (8.0-11.0); Monocytes % 6.7; Neutrophils % 80.4; Platelet Count 328 10^3/uL (130-400); RBC 4.67 10^6/uL (3.93-5.22); RDW 16.5 % (11.7-14.6); RDW-SD 53.3 fL; WBC 9.35 10^3/uL (4.4-10.8)
[2021-12-22 12:01] LABS: Anion Gap 10.4 mmol/L (3-11); BUN 54 mg/dL (7-18); CO2 26.6 mmol/L (21.0-32.0); CREATININE 1.6 mg/dL (0.55-1.02); Chloride 103 mmol/L (98-107); Estimated GFR 33.63 (mL/min/1.73m2); Ferritin 290 ng/mL (8-252); Glucose 127 mg/dL (74-106); Potassium 4.1 mmol/L (3.5-5.1); Sodium 140 mmol/L (136-145)
[2021-12-22 12:37] LABS: Iron 79 ug/dL (50-170); Total Iron Binding Capacity 383 ug/dL (250-450); Transferrin Sat 21 % (15-50)
== END 2021-12-22 02:40 | disposition home or self-care (01) ==
LOC: LBO 02:40
PROVIDERS: PCP Nurse Practitioner Family; Visit Provider Nurse Practitioner Family
DX: N18.30 Chronic kidney disease, stage 3 unspecified; D50.9 Iron deficiency anemia, unspecified; I48.91 Unspecified atrial fibrillation; I50.20 Unspecified systolic (congestive) heart failure; Z95.3 Presence of xenogenic heart valve; Z95.0 Presence of cardiac pacemaker; I13.0 Hypertensive heart and chronic kidney disease with heart failure and stage 1 through stage 4 chronic kidney disease, or unspecified chronic kidney disease
CPT/HCPCS: 36415; 80048; 99203; 99214; 82728; 83540; 83550; 85025

== ENCOUNTER 2021-12-29 13:46 | Outpatient (REF) | payer MEDICARE, OTHER, SELFPAY ==
[2021-12-29 13:50] LABS: Abs Immature Grans 0.03 10^3/uL (0.0-0.06); Absolute Basophil Count 0.12 10^3/uL (0.0-0.2); Absolute Monocyte Count 0.83 10^3/uL (0.1-0.8); Eosinophils % 0.3; HCT 42.4 % (36.0-46.0); HGB 12.6 g/dL (11.2-15.7); Immature Grans % 0.3; Lymphocytes % 10.2; MCH 26.4 pg (27.0-33.0); MCHC 29.7 % (32.0-36.0); MCV 89 fL (80-95); MPV 11.2 fL (8.0-11.0); Monocytes % 7.1; Neutrophils % 81.1; Platelet Count 271 10^3/uL (130-400); RBC 4.77 10^6/uL (3.93-5.22); RDW 16.4 % (11.7-14.6); RDW-SD 53.7 fL; WBC 11.74 10^3/uL (4.4-10.8)
[2021-12-29 13:52] LABS: Absolute Eosinophil Count 0.04 10^3/uL (0.0-0.7); Absolute Neutrophil Count 9.52 10^3/uL (1.2-6.7)
[2021-12-29 13:59] LABS: ALT 105 U/L (14-59); AST 110 U/L (15-37); Albumin 3.9 g/dL (3.4-5.0); Alkaline Phosphatase 146 U/L (46-116); Anion Gap 9.5 mmol/L (3-11); BUN 75 mg/dL (7-18); Bilirubin, Total 0.7 mg/dL (0.2-1.0); CO2 30.5 mmol/L (21.0-32.0); CREATININE 2.4 mg/dL (0.55-1.02); Calcium 9.1 mg/dL (8.5-10.1); Chloride 97 mmol/L (98-107); Estimated GFR 20.68 (mL/min/1.73m2); Glucose 76 mg/dL (74-106); Potassium 5.6 mmol/L (3.5-5.1); Sodium 137 mmol/L (136-145); Total Protein 8.2 g/dL (6.4-8.2)
== END 2021-12-29 13:47 | disposition home or self-care (01) ==
LOC: LBN 13:46
PROVIDERS: PCP Nurse Practitioner Family; Visit Provider Nurse Practitioner Family
DX: D50.9 Iron deficiency anemia, unspecified (principal); N18.30 Chronic kidney disease, stage 3 unspecified
CPT/HCPCS: 80053; 85025

== ENCOUNTER 2021-12-30 08:59 | Outpatient (CLI) | payer MEDICARE, SELFPAY ==
[2021-12-30 09:51] LABS: Anion Gap 8.5 mmol/L (3-11); BUN 78 mg/dL (7-18); CO2 29.5 mmol/L (21.0-32.0); CREATININE 2.3 mg/dL (0.55-1.02); Calcium 9.1 mg/dL (8.5-10.1); Chloride 98 mmol/L (98-107); Estimated GFR 21.76 (mL/min/1.73m2); Glucose 156 mg/dL (74-106); Potassium 4.8 mmol/L (3.5-5.1); Sodium 136 mmol/L (136-145); TSH (W/Ref FT4) 8.86 uIU/mL (0.36-3.74)
[2021-12-30 10:11] LABS: FREE T4 1.21 ng/dL (0.76-1.46)
== END 2021-12-30 09:00 | disposition home or self-care (01) ==
LOC: LBO 08:59
PROVIDERS: PCP Nurse Practitioner Family; Visit Provider Nurse Practitioner Family
DX: E87.5 Hyperkalemia (principal); E03.9 Hypothyroidism, unspecified
CPT/HCPCS: 36415; 80048; 84439; 84443

== ENCOUNTER 2022-01-05 03:46 | Outpatient (CLI) | payer MEDICARE, SELFPAY ==
[2022-01-05 10:05] LABS: BUN 61 mg/dL (7-18); CREATININE 1.9 mg/dL (0.55-1.02); Calcium 9.3 mg/dL (8.5-10.1); Chloride 101 mmol/L (98-107); Estimated GFR 27.37 (mL/min/1.73m2); Glucose 104 mg/dL (74-106); Potassium 4.3 mmol/L (3.5-5.1); Sodium 138 mmol/L (136-145)
== END 2022-01-05 03:47 | disposition home or self-care (01) ==
PROVIDERS: PCP Nurse Practitioner Family; Visit Provider Nurse Practitioner Family
DX: N18.30 Chronic kidney disease, stage 3 unspecified (principal); Z51.81 Encounter for therapeutic drug level monitoring
CPT/HCPCS: 36415; 80048

== ENCOUNTER 2022-01-12 15:28 | Outpatient (REF) | payer MEDICARE, OTHER, SELFPAY ==
[2022-01-12 13:17] LABS: TSH 5.28 uIU/mL (0.36-3.74)
== END 2022-01-12 15:29 | disposition home or self-care (01) ==
LOC: LBN 15:28
PROVIDERS: PCP Nurse Practitioner Family; Visit Provider Nurse Practitioner Family
DX: E03.9 Hypothyroidism, unspecified (principal)
CPT/HCPCS: 84443

== ENCOUNTER 2022-01-17 10:33 | Outpatient (CLI) | payer MEDICARE, OTHER, SELFPAY ==
[2022-01-17 23:46] LABS: Rheumatoid Factor <8.6 IU/mL (<12.0)
[2022-01-18 09:27] LABS: Cyclic Citrullinated Peptide <2.5 U/mL (<5.0)
[2022-01-18 13:32] LABS: Leukemia/Lymphoma by FC (Blood (See below)
[2022-01-18 14:28] LABS: ANA Interpretation Positive (Negative); ANA Titer Pattern 1:320 Homogeneous
[2022-01-19 13:37] LABS: dsDNA Ab, IgG 14.3 IU/mL (<30.0)
== END 2022-01-17 10:34 | disposition home or self-care (01) ==
LOC: LBN 10:36
PROVIDERS: PCP Nurse Practitioner Family; Visit Provider Student in an Organized Health Care Education/Training Program
DX: J84.9 Interstitial pulmonary disease, unspecified (principal); R59.0 Localized enlarged lymph nodes
CPT/HCPCS: 86200; 88185; 86038; 86225; 86431; 88184; 88189

== ENCOUNTER → 2022-01-18 10:54 | Outpatient (BNVA) | payer MEDICARE, OTHER, SELFPAY | PROVIDERS: PCP Nurse Practitioner Family; Referring Provider Nurse Practitioner Family; Visit Provider Psychiatry & Neurology Neurology | DX: I69.328 Other speech and language deficits following cerebral infarction (principal); Z79.82 Long term (current) use of aspirin; Z79.01 Long term (current) use of anticoagulants; Z95.2 Presence of prosthetic heart valve; R41.0 Disorientation, unspecified; G25.81 Restless legs syndrome | CPT/HCPCS: 99215 ==

== ENCOUNTER 2022-01-25 02:53 | Outpatient (CLI) | payer MEDICARE, OTHER, SELFPAY ==
[2022-01-25 08:21] LABS: Anion Gap 6.3 mmol/L (3-11); BUN 44 mg/dL (7-18); CO2 31.7 mmol/L (21.0-32.0); CREATININE 1.4 mg/dL (0.55-1.02); Calcium 9.1 mg/dL (8.5-10.1); Chloride 99 mmol/L (98-107); Estimated GFR 39.48 (mL/min/1.73m2); Glucose 110 mg/dL (74-106); Potassium 4.5 mmol/L (3.5-5.1); Sodium 137 mmol/L (136-145)
== END 2022-01-25 02:54 | disposition home or self-care (01) ==
LOC: LBO 02:53
PROVIDERS: PCP Nurse Practitioner Family; Visit Provider Nurse Practitioner Family
DX: I50.22 Chronic systolic (congestive) heart failure (principal); N18.30 Chronic kidney disease, stage 3 unspecified
CPT/HCPCS: 36415; 80048

== ENCOUNTER 2022-01-27 01:46 | Outpatient (CLI) | payer MEDICARE, OTHER, SELFPAY ==
[2022-01-27] MEDS: Albuterol HFA 18 GM 200 PUFF INH IH (09:11)
[2022-01-27] MEDS: Inhaler, Assist Device 1 EACH MC (09:12)
--- NOTE | 2022-01-31 15:26 | W.PFT ---
Date of service: 01/27/22 Time of Service: 08:01 Pulmonary Function Test Result Requesting Provider Duchene Indications: ILD Interpretation Spirometry: There is no airflow limitation. There is no significant bronchodilator response. Lung Volumes: Normal lung volumes. Diffusion Capacity: Decreased diffusion Airway Pressure: Normal airways resistance. Impression Decreased diffusion. This can represent interstitial lung disease or pulmonary vascular disease. Note: When compared to 01/17/22 there is a drastic improvement in FEV1 and FVC. When compared to 02/22/21 lung function is slightly decreased. Spirometry performed 01/17/22 is likely inaccurate. Clinical Correlation therefore is recommended.
== END 2022-01-27 01:47 | disposition home or self-care (01) ==
LOC: RT 01:47
PROVIDERS: PCP Nurse Practitioner Family; Visit Provider Student in an Organized Health Care Education/Training Program
DX: J84.89 Other specified interstitial pulmonary diseases (principal); J98.4 Other disorders of lung
CPT/HCPCS: 94060; 94726; 94729

== ENCOUNTER 2022-02-17 01:44 | Outpatient (CLI) | payer MEDICARE, SELFPAY ==
[2022-02-17 16:19] LABS: Anion Gap 8.1 mmol/L (3-11); BUN 51 mg/dL (7-18); CO2 30.9 mmol/L (21.0-32.0); CREATININE 1.5 mg/dL (0.55-1.02); Calcium 9.1 mg/dL (8.5-10.1); Chloride 99 mmol/L (98-107); Estimated GFR 36.34 (mL/min/1.73m2); Glucose 132 mg/dL (74-106); Sodium 138 mmol/L (136-145)
== END 2022-02-17 01:45 | disposition home or self-care (01) ==
PROVIDERS: PCP Nurse Practitioner Family; Visit Provider Physician Assistant
DX: I50.20 Unspecified systolic (congestive) heart failure (principal); R79.89 Other specified abnormal findings of blood chemistry
CPT/HCPCS: 36415; 80048

== ENCOUNTER 2022-04-25 02:15 | Outpatient (CLI) | payer MEDICARE, SELFPAY ==
[2022-04-25 12:32] LABS: Abs Immature Grans 0.02 10^3/uL (0.0-0.06); Absolute Basophil Count 0.05 10^3/uL (0.0-0.2); Absolute Eosinophil Count 0.05 10^3/uL (0.0-0.7); Absolute Lymphocyte Count 1.57 10^3/uL (1.2-3.4); Absolute Monocyte Count 0.63 10^3/uL (0.1-0.8); Absolute Neutrophil Count 6.29 10^3/uL (1.2-6.7); Basophils % 0.6; Eosinophils % 0.6; HCT 44.3 % (36.0-46.0); HGB 13.9 g/dL (11.2-15.7); Immature Grans % 0.2; Lymphocytes % 18.2; MCH 29.4 pg (27.0-33.0); MCHC 31.4 % (32.0-36.0); MCV 94 fL (80-95); MPV 9.5 fL (8.0-11.0); Monocytes % 7.3; Neutrophils % 73.1; Platelet Count 217 10^3/uL (130-400); RBC 4.73 10^6/uL (3.93-5.22); RDW 13.5 % (11.7-14.6); RDW-SD 46.2 fL; WBC 8.61 10^3/uL (4.4-10.8)
[2022-04-25 13:09] LABS: Iron 100 ug/dL (50-170); Total Iron Binding Capacity 363 ug/dL (250-450); Transferrin Sat 28 % (15-50)
[2022-04-25 13:15] LABS: ALT 47 U/L (14-59); AST 55 U/L (15-37); Albumin 4.2 g/dL (3.4-5.0); Alkaline Phosphatase 102 U/L (46-116); BUN 36 mg/dL (7-18); Bilirubin, Total 0.5 mg/dL (0.2-1.0); CREATININE 1.5 mg/dL (0.55-1.02); Calcium 9.2 mg/dL (8.5-10.1); Chloride 102 mmol/L (98-107); Estimated GFR 36.34 (mL/min/1.73m2); Ferritin 224 ng/mL (8-252); Glucose 93 mg/dL (74-106); Potassium 4.4 mmol/L (3.5-5.1); Sodium 141 mmol/L (136-145); Total Protein 8.1 g/dL (6.4-8.2)
== END 2022-04-25 02:16 | disposition home or self-care (01) ==
LOC: LBO 02:16
PROVIDERS: PCP Nurse Practitioner Family; Visit Provider Nurse Practitioner Family
DX: D50.9 Iron deficiency anemia, unspecified (principal); N18.30 Chronic kidney disease, stage 3 unspecified
CPT/HCPCS: 36415; 80053; 82728; 83540; 83550; 85025

== ENCOUNTER 2022-05-16 02:29 | Outpatient (CLI) | payer MEDICARE, OTHER, SELFPAY ==
--- NOTE | 2022-05-16 07:15 | DI.US_ITS ---
Exam(s) US ABDOMEN EXAM: US ABDOMEN CLINICAL HISTORY: ?fatty liver or cirrhosis,ELEVATED LFT'S,R79.89 TECHNIQUE: Ultrasound of complete upper abdomen performed using standard protocol. COMPARISON: US US ECHOCARDIOGRAM from 12/08/2021 FINDINGS: There is no ascites evident. LIVER: Liver is hyperechoic indicating steatosis. No discrete focal hepatic lesions identified. GALLBLADDER/BILIARY: There are gallstones noted. No gallbladder wall edema. No pericholecystic flui d. The common hepatic duct isnot dilated, measuring 4mm at the level of aziza hepatis. PANCREAS: There is no evidence of pancreatic mass nor dilatation of the pancreatic duct. SPLEEN: The spleen is not enlarged and there are no intrasplenic lesions evident. KIDNEYS:Kidneys exhibit normal size with no evidence of solid mass, calculus, nor hydronephrosis. The re is a 4 cm cyst in the right kidney. There is a 1 cm cyst in the left kidney. ABDOMINAL AORTA: There is no evidence of abdominal aortic aneurysm. IVC: Normal diameter where visualized. IMPRESSION: 1. Cholelithiasis. Small shadowing mobile calculi evident in the gallbladder lumen. No gallbladder wall edema. Common hepatic duct is not dilated. 2. Hepatic steatosis. No discrete focal hepatic lesions. 3. Benign cysts in both kidneys. No solid renal masses. DATA REPOSITORY:
== END 2022-05-16 02:49 ==
PROVIDERS: PCP Nurse Practitioner Family; Visit Provider Nurse Practitioner Family
DX: K76.0 Fatty (change of) liver, not elsewhere classified (principal); R79.89 Other specified abnormal findings of blood chemistry; K80.20 Calculus of gallbladder without cholecystitis without obstruction; N28.1 Cyst of kidney, acquired
CPT/HCPCS: 76700

== ENCOUNTER 2022-06-30 01:45 | Outpatient (CLI) | payer MEDICARE, OTHER, SELFPAY ==
[2022-07-03 08:59] LABS: HBs Antibody, Quant <3.1 mIU/mL (See Note); Hepatitis B Surface Ab Negative (See Note)
[2022-07-03 09:10] LABS: Hepatitis B Surface Ag Negative (Negative)
[2022-07-03 10:06] LABS: Hepatitis C Ab w Rflx HCV PCR Negative (Negative)
[2022-07-03 10:10] LABS: Hep B Core Antibody Negative (Negative)
[2022-07-03 11:10] LABS: Albumin 61.2 % (55.8-66.1); Albumin g/dL 4.8 g/dL (3.6-5.2); Total Protein 7.9 g/dL (6.3-8.2)
[2022-07-03 11:15] LABS: Hep A Total Ab w Rflx IgM Positive (Negative)
[2022-07-03 12:14] LABS: Smooth Muscle Ab Screen Negative (Negative)
[2022-07-03 12:17] LABS: Hep A Antibody IgM Negative (Negative)
[2022-07-03 15:13] LABS: ANA Interpretation Positive (Negative); ANA Titer Pattern 1:80 Homogeneous
[2022-07-04 15:02] LABS: Liver/Kidney Microsome Type 1 <5.0 U
== END 2022-06-30 01:46 | disposition home or self-care (01) ==
LOC: LBO 01:45
PROVIDERS: PCP Nurse Practitioner Family; Visit Provider Nurse Practitioner Family
DX: K76.0 Fatty (change of) liver, not elsewhere classified (principal); R79.89 Other specified abnormal findings of blood chemistry; Z11.59 Encounter for screening for other viral diseases
CPT/HCPCS: 36415; 86704; 86706; 86709; 86803; 87340; 84165; 86038; 86255

== ENCOUNTER → 2022-07-03 09:41 | Outpatient (BNVA) | payer MEDICARE, OTHER, SELFPAY | PROVIDERS: PCP Nurse Practitioner Family; Referring Provider Nurse Practitioner Family; Visit Provider Internal Medicine Cardiovascular Disease | DX: I42.8 Other cardiomyopathies (principal); Z95.2 Presence of prosthetic heart valve; I48.91 Unspecified atrial fibrillation; Z79.01 Long term (current) use of anticoagulants | CPT/HCPCS: 99214 ==

== ENCOUNTER → 2022-08-02 08:19 | Outpatient (BNVA) | payer MEDICARE, OTHER, SELFPAY | PROVIDERS: PCP Nurse Practitioner Family; Referring Provider Nurse Practitioner Family; Visit Provider Psychiatry & Neurology Neurology | DX: I69.312 Visuospatial deficit and spatial neglect following cerebral infarction (principal); R41.0 Disorientation, unspecified; G25.81 Restless legs syndrome | CPT/HCPCS: 99214 ==

== ENCOUNTER 2022-09-01 15:14 | Outpatient (CLI) | payer MEDICARE, OTHER, SELFPAY ==
[2022-09-01 15:04] LABS: Abs Immature Grans 0.03 10^3/uL (0.0-0.06); Absolute Basophil Count 0.05 10^3/uL (0.0-0.2); Absolute Lymphocyte Count 1.81 10^3/uL (1.2-3.4); Absolute Monocyte Count 0.58 10^3/uL (0.1-0.8); Absolute Neutrophil Count 6.37 10^3/uL (1.2-6.7); Basophils % 0.6; Eosinophils % 1.1; HCT 43.8 % (36.0-46.0); HGB 14.5 g/dL (11.2-15.7); Immature Grans % 0.3; Lymphocytes % 20.2; MCHC 33.1 % (32.0-36.0); MCV 91 fL (80-95); MPV 9.5 fL (8.0-11.0); Monocytes % 6.5; Neutrophils % 71.3; Platelet Count 219 10^3/uL (130-400); RBC 4.84 10^6/uL (3.93-5.22); RDW 12.7 % (11.7-14.6); RDW-SD 42.3 fL; WBC 8.94 10^3/uL (4.4-10.8)
[2022-09-01 16:06] LABS: Iron 61 ug/dL (50-170); Total Iron Binding Capacity 334 ug/dL (250-450); Transferrin Sat 18 % (15-50)
[2022-09-01 16:18] LABS: Ferritin 140 ng/mL (8-252)
== END 2022-09-01 15:15 | disposition home or self-care (01) ==
LOC: LBO 15:15
PROVIDERS: PCP Nurse Practitioner Family; Visit Provider Nurse Practitioner Family
DX: D50.9 Iron deficiency anemia, unspecified (principal)
CPT/HCPCS: 36415; 82728; 83540; 83550; 85025

== ENCOUNTER 2022-10-13 02:08 | Outpatient (CLI) | payer MEDICARE, OTHER, SELFPAY ==
[2022-10-13 09:58] LABS: Anion Gap 7.6 mmol/L (3-11); BUN 24 mg/dL (7-18); CO2 29.4 mmol/L (21.0-32.0); CREATININE 1.5 mg/dL (0.55-1.02); Calcium 8.9 mg/dL (8.5-10.1); Chloride 103 mmol/L (98-107); Estimated GFR 36.12 (mL/min/1.73m2); Glucose 110 mg/dL (74-106); Potassium 4.4 mmol/L (3.5-5.1); Sodium 140 mmol/L (136-145)
== END 2022-10-13 02:09 | disposition home or self-care (01) ==
PROVIDERS: PCP Nurse Practitioner Family; Visit Provider Physician Assistant
DX: I50.20 Unspecified systolic (congestive) heart failure (principal); D50.9 Iron deficiency anemia, unspecified
CPT/HCPCS: 36415; 80048

== ENCOUNTER 2022-12-18 04:54 | Outpatient (CLI) | payer MEDICARE, OTHER, SELFPAY ==
[2022-12-18 12:18] LABS: Anion Gap 10.9 mmol/L (3-11); BUN 34 mg/dL (7-18); CO2 28.1 mmol/L (21.0-32.0); CREATININE 1.6 mg/dL (0.55-1.02); Calcium 9.6 mg/dL (8.5-10.1); Chloride 103 mmol/L (98-107); Estimated GFR 33.42 (mL/min/1.73m2); Glucose 107 mg/dL (74-106); Potassium 4.2 mmol/L (3.5-5.1); Sodium 142 mmol/L (136-145)
== END 2022-12-18 04:55 | disposition home or self-care (01) ==
PROVIDERS: PCP Nurse Practitioner Family; Visit Provider Physician Assistant
DX: I50.20 Unspecified systolic (congestive) heart failure (principal)
CPT/HCPCS: 36415; 80048

== ENCOUNTER → 2023-01-01 09:42 | Outpatient (BNVA) | payer MEDICARE, OTHER, SELFPAY | PROVIDERS: PCP Nurse Practitioner Family; Visit Provider Internal Medicine Cardiovascular Disease | DX: Z95.810 Presence of automatic (implantable) cardiac defibrillator (principal); I10 Essential (primary) hypertension; I42.8 Other cardiomyopathies; Z95.2 Presence of prosthetic heart valve; I48.91 Unspecified atrial fibrillation | CPT/HCPCS: 99214 ==

== ENCOUNTER → 2023-01-19 08:20 | Outpatient (BNVA) | payer MEDICARE, OTHER, SELFPAY | PROVIDERS: PCP Nurse Practitioner Family; Referring Provider Nurse Practitioner Family; Visit Provider Student in an Organized Health Care Education/Training Program | DX: J84.9 Interstitial pulmonary disease, unspecified (principal); I27.20 Pulmonary hypertension, unspecified; G47.33 Obstructive sleep apnea (adult) (pediatric); R91.1 Solitary pulmonary nodule; R59.0 Localized enlarged lymph nodes; I12.9 Hypertensive chronic kidney disease with stage 1 through stage 4 chronic kidney disease, or unspecified chronic kidney disease; N18.9 Chronic kidney disease, unspecified | CPT/HCPCS: 99214 ==

== ENCOUNTER → 2023-02-02 00:10 | Outpatient (CLI) | payer MEDICARE, OTHER, SELFPAY ==
--- NOTE | 2023-02-02 09:30 | DI.CT_ITS ---
Exam(s) CT CHEST WO EXAM: CT CHEST WO CLINICAL HISTORY: assess progression INTERSTITAL LUNG DISEASE,J84.9. TECHNIQUE: Imaging protocol: Axial computed tomography images were obtained and coronal and sagittal reformatted images were created and reviewed. COMPARISON: CT CT CHEST WO from 07/25/2021 FINDINGS: Tracheobronchial tree: Patent where visualized. Pulmonary parenchyma: There are few scattered calcified granulomas. There is a stable 5 mm nodule in the right middle lobe. No other pulmonary nodules remain. There are no new pulmonary nodules. No focal consolidating infiltrates are seen. There is very minimal interstitial disease and no progress ion of disease is noted. No architectural distortion. Mediastinum and Bailey: The pretracheal lymph node has decreased in size measuring 2 x 0.9 cm compared with 2.4 x 1.4 cm. The esophagus is unremarkable. Thyroid gland: Unremarkable. Pleura: No effusion or pneumothorax. Heart: The heart is not dilated. Coronary artery calcification and/or stents are present. Cardiac va lvular replacement is noted. No pericardial effusion. There is a pacemaker in place. Aorta: Thoracic aorta non-dilated. Atherosclerosis. Upper abdomen: Cholelithiasis. Lymph nodes: No significant axillary adenopathy. Tubes, Catheters, and Lines: There is a cardiac pacing device in place. Soft tissues: Unremarkable. Bones:Within normal limits for the patient's age. IMPRESSION: 1. Stable 5 mm nodule in the right middle lobe with resolution of the other previously seen nodules. Follow-up CT scan of the chest in 6-12 months is recommended for re-evaluation. 2. Decrease in size of pretracheal lymph node. No significant thoracic adenopathy. 3. No acute pulmonary process. RADIATION DOSE DELIVERED: Total DLP Total DLP DATA REPOSITORY: All CT scans at this facility are submitted to the National Radiology Data Registry (NRDR) Dose Index Registry (DIR) with the [employer] (ACR). RADIATION OPTIMIZATION: All CT scans at this facility use at least one of these dose optimization te chniques: automated exposure control; mA and/or kV adjustment per patient size (includes targeted exa ms where dose is matched to clinical indication); or iterative reconstruction.
== END ==
PROVIDERS: PCP Nurse Practitioner Family; Visit Provider Student in an Organized Health Care Education/Training Program
DX: J84.9 Interstitial pulmonary disease, unspecified (principal)
CPT/HCPCS: 71250

== ENCOUNTER 2023-02-09 03:18 | Outpatient (CLI) | payer MEDICARE, OTHER, SELFPAY ==
[2023-02-09] MEDS: Inhaler, Assist Device 1 EACH MC (11:29)
[2023-02-09] MEDS: Levalbuterol HFA 15 GM INH 4 PUFF IH (11:29)
--- NOTE | 2023-02-09 12:11 | W.PFT ---
Date of service: 02/09/23 Time of Service: 10:39 Pulmonary Function Test Result Indications: ILD Interpretation Spirometry: There is no airflow limitation. No bronchodilator response. Lung Volumes: Normal lung volumes Diffusion Capacity: Decreased diffusion Airway Pressure: Normal airways resistance Impression Isolated diffusion deficit. This could represent emphysema, ILD or pulmonary vascular disease. Note: As compared to 01/27/22, lung function appears stable. Clinical Correlation therefore is recommended.
== END 2023-02-09 03:19 | disposition home or self-care (01) ==
LOC: RT 03:19
PROVIDERS: PCP Nurse Practitioner Family; Visit Provider Student in an Organized Health Care Education/Training Program
DX: J84.9 Interstitial pulmonary disease, unspecified (principal)
CPT/HCPCS: 94060; 94726; 94729

== ENCOUNTER 2023-02-15 10:59 | Emergency (ER) | payer MEDICARE, OTHER, SELFPAY ==
[2023-02-15 11:13] VITALS: BP 94/57; PULSE 87; RESP 18; TEMP 36.3; O2SAT 95
[2023-02-15 12:35] VITALS: BP 94/57; PULSE 87; RESP 18; TEMP 36.3; O2SAT 95
[2023-02-15 12:36] LABS: Abs Immature Grans 0.08 10^3/uL (0.0-0.06); Absolute Eosinophil Count 0.09 10^3/uL (0.0-0.7); Absolute Monocyte Count 0.91 10^3/uL (0.1-0.8); Basophils % 0.3; Eosinophils % 0.6; HCT 40.9 % (36.0-46.0); Immature Grans % 0.5; Lymphocytes % 9.8; MCH 28.7 pg (27.0-33.0); MCHC 31.8 % (32.0-36.0); MCV 90 fL (80-95); MPV 9.8 fL (8.0-11.0); Monocytes % 6.1; Neutrophils % 82.7; Platelet Count 238 10^3/uL (130-400); RBC 4.53 10^6/uL (3.93-5.22); RDW 13.1 % (11.7-14.6); RDW-SD 43.6 fL; WBC 14.84 10^3/uL (4.4-10.8)
[2023-02-15 12:37] LABS: Absolute Basophil Count 0.04 10^3/uL (0.0-0.2); Absolute Lymphocyte Count 1.45 10^3/uL (1.2-3.4); Absolute Neutrophil Count 12.27 10^3/uL (1.2-6.7)
[2023-02-15 12:38] VITALS: RESP 20
[2023-02-15] MEDS: predniSONE 20 MG TAB 40 MG PO (12:38)
[2023-02-15] MEDS: Albuterol/Ipratropium 3 ML UPD VIAL UPD ×2 (12:38→13:35)
[2023-02-15 12:50] LABS: ALT 19 U/L (14-59); AST 19 U/L (15-37); Albumin 3.8 g/dL (3.4-5.0); Alkaline Phosphatase 90 U/L (46-116); Anion Gap 10.6 mmol/L (3-11); BUN 31 mg/dL (7-18); Bilirubin, Total 0.8 mg/dL (0.2-1.0); CO2 27.4 mmol/L (21.0-32.0); CREATININE 1.6 mg/dL (0.55-1.02); Calcium 9.1 mg/dL (8.5-10.1); Chloride 103 mmol/L (98-107); Estimated GFR 33.42 (mL/min/1.73m2); Glucose 119 mg/dL (74-106); Potassium 4.1 mmol/L (3.5-5.1); Sodium 141 mmol/L (136-145)
--- NOTE | 2023-02-15 12:58 | W.ED.GENAD ---
Discharge Plan Disposition Patient Disposition: Home Discharge Details Clinical Impression: Bronchitis Primary Care Provider: Jessica Ochoa ED Provider: Jessica Baig Home Meds and New Rx's Prescriptions: New prednisone 20 mg tablet 40 mg PO ONCE Qty: 8 0RF doxycycline hyclate 100 mg capsule 100 mg PO BID Qty: 14 0RF albuterol sulfate [Ventolin HFA] 90 mcg/actuation HFA aerosol inhaler 2 puff inhalation Q6H PRNQty: 6.7 0RF metoprolol succinate 25 mg tablet extended release 24 hr 25 mg PO DAILY Qty: 14 0RF Continued ascorbate calcium (vitamin C) 500 mg tablet 500 mg PO DAILY cholecalciferol (vitamin D3) 25 mcg (1,000 unit) capsule 25 mcg PO DAILY furosemide 40 mg tablet 40 mg PO DAILY Qty: 90 3RF metoprolol succinate 50 mg tablet extended release 24 hr 50 mg PO DAILY Qty: 0 0RF Patient Comments: TAKE 1 TABLET BY MOUTH DAILY spironolactone 25 mg tablet 25 mg PO DAILY Qty: 90 3RF apixaban 5 mg tablet 5 mg PO BID Qty: 180 3RF aspirin 81 mg tablet,chewable 81 mg PO DAILY thiamine HCl (vitamin B1) 100 mg tablet 200 mg PO DAILY calcium citrate-vitamin D3 200 mg-6.25 mcg (250 unit) tablet 1 tab PO DAILY melatonin 3 mg capsule 3 mg PO HS sennosides-docusate sodium [Senna with Docusate Sodium] 8.6-50 mg tablet 1 tab-cap PO BID PRN (Reason: constipation) polyethylene glycol 3350 4.25 gram powder in packet 4.25 g PO DAILY PRN (Reason: constipation) Entresto 24-26 mg tablet 1 tab PO BID Rx Instructions: Increased 07/20/22 sertraline 25 mg tablet 25 mg PO DAILY Qty: 90 3RF ferrous sulfate 325 mg (65 mg iron) tablet 325 mg PO Q OTHER DAY Qty: 45 3RF Rx Instructions: Take with water or juice on an empty stomach pantoprazole 40 mg tablet,delayed release (DR/EC) See Rx Instructions .ROUTE .COMPLEX Qty: 90 3RF Dose Instruction: TAKE 1 TABLET ONCE DAILY IN THE MORNING AT LEAST 30 TO 60 MINUTES BEFORE FIRST MEAL OF THE DAY Rx Instructions: TAKE 1 TABLET ONCE DAILY IN THE MORNING AT LEAST 30 TO 60 MINUTES BEFORE FIRST MEAL OF THE DAY gabapentin 300 mg capsule See Rx Instructions .ROUTE .COMPLEX Qty: 180 0RF Dose Instruction: TAKE ONE CAPSULE BY MOUTH TWICE A DAY Rx Instructions: TAKE ONE CAPSULE BY MOUTH TWICE A DAY Discharge Instructions Instructions: Acute Bronchitis (ED) Additional Instructions: Take albuterol 2 puffs every 4-6 hours with spacer Take prednisone starting tomorrow Take doxycycline as prescribed Yogurt daily while on the antibiotic try taking 25 mg of metoprolol at night before bed and discontinuing your current metoprolol (call your contract paralegal or doctor for close f/u) Return earlier should you have new or worsening complaints Stop taking your current dose of metoprolol Referrals: Jessica Ochoa NP [Primary Care Provider] - Discharge Data Discharge Date/Time-TO BE ENTERED AT DEPARTURE: 02/15/23 15:22 Medical Decision Making 77-year-old female presenting with upper respiratory congestion, lungs clear to auscultation, persistent cough noted, chest x-ray with pacemaker but no evidence of obvious bacterial infection No hypoxia, blood pressure 94/58, patient has history of hypotension, I am going to decrease patient's metoprolol dosing as this has been a frequent recurrence for patient, she is asymptomatic with this blood pressure and she exhibits no sign of sepsis She is ambulatory with steady gait, when she actually stands up and ambulates, her blood pressure does increase to 105/60, she is alert, oriented, of decisional capacity, she has mild leukocytosis, given her history of lung disease, I will place patient on COPD, prednisone, and a rescue inhaler, she will need recheck in 24 to 48 hours and she is given very low threshold to return should she have new or worsening complaints Of note she is in no acute respiratory distress, she has no peripheral edema HPI General Date/Time Provider Initiated Documentation: 02/15/23 12:04. HPI Narrative: This 77-year-old female with history of CVA, non-ST elevation [place], atrial fibrillation, rheumatic heart disease, aortic regurgitation presents with report of persistent cough. Denies any shortness of breath or chest pain, denies any calf pain or swelling. States she has been sick for the past couple weeks. Denies any weakness or dizziness. Denies any palpitations. Denies history of asthma or COPD. Denies any tobacco use. Related Data Home Medications Medication Instructions Recorded Confirmed ascorbate calcium (vitamin C) 500 500 mg PO DAILY 07/31/19 02/15/23 mg tablet aspirin 81 mg chewable tablet 81 mg PO DAILY 12/07/21 02/15/23 calcium citrate 200 mg 1 tab PO DAILY 12/07/21 02/15/23 calcium-vitamin D3 6.25 mcg (250 unit) tablet melatonin 3 mg capsule 3 mg PO HS 12/07/21 02/15/23 polyethylene glycol 3350 4.25 gram 4.25 g PO DAILY PRN constipation 12/07/21 02/15/23 oral powder packet sennosides 8.6 mg-docusate sodium 1 tab-cap PO BID PRN constipation 12/07/21 02/15/23 50 mg tablet (Senna with Docusate Sodium) thiamine HCl (vitamin B1) 100 mg 200 mg PO DAILY 12/07/21 02/15/23 tablet sacubitril 24 mg-valsartan 26 mg 1 tab PO BID 07/26/22 02/15/23 tablet (Entresto) apixaban 5 mg tablet 5 mg PO BID #180 tabs 08/02/22 02/15/23 sertraline 25 mg tablet 25 mg PO DAILY #90 tab-caps 08/24/22 02/15/23 ferrous sulfate 325 mg (65 mg 325 mg PO Q OTHER DAY #45 tab-caps 09/06/22 02/15/23 iron) tablet pantoprazole 40 mg tablet,delayed See Rx Instructions .Route 09/06/22 02/15/23 release .COMPLEX #90 tabs gabapentin 300 mg capsule See Rx Instructions .Route 12/27/22 02/15/23 .COMPLEX #180 caps cholecalciferol (vitamin D3) 25 25 mcg PO DAILY 01/01/23 02/15/23 mcg (1,000 unit) capsule furosemide 40 mg tablet 40 mg PO DAILY #90 tabs 01/01/23 02/15/23 metoprolol succinate 50 mg 50 mg PO DAILY #0 tabs 01/01/23 02/15/23 tablet,extended release 24 hr spironolactone 25 mg tablet 25 mg PO DAILY #90 tabs 01/01/23 02/15/23 albuterol sulfate 90 mcg/actuation 2 puff inhalation Q6H PRN #6.7 02/15/23 aerosol inhaler (Ventolin HFA) grams doxycycline hyclate 100 mg capsule 100 mg PO BID #14 caps 02/15/23 metoprolol succinate 25 mg 25 mg PO DAILY #14 tabs 02/15/23 tablet,extended release 24 hr prednisone 20 mg tablet 40 mg (2 x 20 mg) PO ONCE #8 tabs 02/15/23 Previous Rx's Medication Instructions Recorded apixaban 5 mg tablet 5 mg PO BID #180 tabs 08/02/22 sertraline 25 mg tablet 25 mg PO DAILY #90 tab-caps 08/24/22 ferrous sulfate 325 mg (65 mg 325 mg PO Q OTHER DAY #45 tab-caps 09/06/22 iron) tablet pantoprazole 40 mg tablet,delayed See Rx Instructions .Route 09/06/22 release .COMPLEX #90 tabs gabapentin 300 mg capsule See Rx Instructions .Route 12/27/22 .COMPLEX #180 caps furosemide 40 mg tablet 40 mg PO DAILY #90 tabs 01/01/23 metoprolol succinate 50 mg 50 mg PO DAILY #0 tabs 01/01/23 tablet,extended release 24 hr spironolactone 25 mg tablet 25 mg PO DAILY #90 tabs 01/01/23 albuterol sulfate 90 mcg/actuation 2 puff inhalation Q6H PRN #6.7 02/15/23 aerosol inhaler (Ventolin HFA) grams doxycycline hyclate 100 mg capsule 100 mg PO BID #14 caps 02/15/23 metoprolol succinate 25 mg 25 mg PO DAILY #14 tabs 02/15/23 tablet,extended release 24 hr prednisone 20 mg tablet 40 mg (2 x 20 mg) PO ONCE #8 tabs 02/15/23 Allergies Allergy/AdvReac Type Severity Reaction Status Date / Time heparin Allergy Severe thrombocytopenia, Verified 02/15/23 13:29 anaphylaxis dofetilide AdvReac Severe Prolonged Verified 02/15/23 13:29 QTc lisinopril AdvReac Cough Verified 02/15/23 13:29 General Stated Complaint: RespSymp MARIS: 4 PFSH All Active Problems (Updated 02/15/23 @ 14:28 by TAVIA Marquez) Bronchitis (Acute) Combined forms of age-related cataract, right eye (Acute) [facility] [place] [place] 01/10/2023 Cardiac resynchronization therapy defibrillator (CANDLE MAKER-D) in place (Acute) Nonischemic cardiomyopathy (Acute) S/P aortic valve and mitral valve replacement (Chronic 08/04/14) 2014 [facility]: bovine prosthetic valves + MAZE; 10/2021 [facility]: repeat repair Subclinical hypothyroidism (Acute) Essential hypertension (Chronic) Hepatic steatosis (Acute) 05/2022 ; FIB-4 score = 2.74 (indeterminate) Hyperlipidemia (Acute 05/12/13) LDL 144 2012; Risk calculated 13.3% soft CV risk; CV risk 06/2014: 11.6% Elevated LFTs (Acute) Interstitial lung disease (Acute) Chronic kidney disease (Chronic) Anisocoria (Acute) Occipital stroke (Acute) Bilateral pleural effusion (Acute) Vascular dementia (Chronic) Right homonymous hemianopsia (Acute) Heart failure with reduced ejection fraction (Acute) Mediastinal lymphadenopathy (Acute) Pulmonary nodule (Acute) Mild obstructive sleep apnea (Chronic 05/12/20) severe in REM sleep, significan nocturnal hypoxemia, sleep fragmentation and increased airway resistance flow pattern. Restless legs (Chronic 10/29/20) Pulmonary hypertension (Chronic) Left bundle branch block (LBBB) (Acute) Iron deficiency anemia (Chronic) 05/20/2020 EGD & 07/06/2020 colonoscopy ([facility] no source for iron deficiency; recommend following studies & consider small bowel capsule study if anemia worsens Vulvar atrophy (Chronic 01/13/16) Osteopenia (Chronic 06/14/17) 06/14/17 DEXA: femoral neck T-score -1.1 WHO FRAX score: 10-year major osteoporotic fx risk of 8.9% and hip fx risk of 0.9% --> tx with Ca/vitamin D group home current use of anticoagulant therapy (Chronic 08/15/14) [facility] for afib 08/2017: Switched from Warfarin to apixaban by cardiology (Dr. 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 Chiang) following hospitalization for GI bleed (no afib during cardiac monitoring during hospitalization) Rheumatic heart disease Aortic regurgitation a. moderate by echo 12/2011 S/p repair Mitral regurgitation Rheumatic; s/p repair Surgical History (Updated 01/11/23 @ 08:32 by Gabriela Guzman) Status post cataract extraction and insertion of intraocular lens of left eye (~01/09/23) [facility] Pacemaker History of cardiac cath (09/28/21) History of toe surgery (~2003) Removal of bone chip History of section (~1976) Radiofrequency Maze Procedure (08/04/14) done at [facility] EGD - MAC (08/28/17) Colonoscopy - MAC (08/28/17) Biopsy of breast (~2008) Left breast [facility] S/P aortic valve and mitral valve replacement (~07/2014) 2014 [facility]: bovine prosthetic valves + MAZE; 10/2021 [facility]: repeat repair Family History Mother , Age 87, peritonitis Diabetes Essential hypertension Breast cancer Father , Age 45, colon cancer Colon cancer Sister Heart disease [place] at age 49 Brother Diabetes Colon cancer Brother No problems noted. Brother Heart disease CABG Other Family history of colon cancer Social History Smoking/Tobacco Use Status: Former Tobacco Use tobacco type: cigarettes Quit Date: 03/12/94 Smoking risk assessment performed?: Yes Alcohol Intake: former Drug use: Never Substance use type: does not use Counseling given: No Counseling provided: none Adopted: No Caregiver/Support person: No Foster care: No Household members: none Housing: house Number of Children: 1 number of grandchildren: 2 Communication Needs: None Education Level: high school Do you need help understanding health information?: Rarely current occupation: Retired Pets and animals: No Current gender identity: female What is your relationship status?: Panel score (0-1 are the most socially isolated patients): 0 What type of physical activity do you participate in: walking Duration: 60-90 minutes/day Frequency: daily Seatbelt use: always Helmet use: No Drive intox or ride w/intox special needs bus driver: No Water heater temp set <120 deg: Yes Working smoke detector in home: No Fire extinguisher in home: No Carbon monox detector in home: No Firearms in home: No Do you feel safe at home: Yes Do you feel safe in your relationship?: Yes Course Vital Signs Vital signs: Vital Signs Temperature 36.3 C L 02/15/23 11:13 Pulse 87 02/15/23 11:13 Respiratory Rate 18 02/15/23 11:13 Blood Pressure 94/57 L 02/15/23 11:13 Pulse Oximetry 95 02/15/23 11:13 Temperature 36.3 C L 02/15/23 12:35 Temperature Source Tympanic 02/15/23 12:35 Pulse 87 02/15/23 12:35 Respiratory Rate 18 02/15/23 12:35 Respiratory Effort Normal, Non-Labored 02/15/23 12:36 Respiratory Depth Normal 02/15/23 12:36 Blood Pressure 94/57 L 02/15/23 12:35 Blood Pressure Position Sitting 02/15/23 12:35 Pulse Oximetry 95 02/15/23 12:35 Oxygen Delivery Method Room Air 02/15/23 12:38 Oxygen Flow Rate 0 02/15/23 12:38 Pain Level 5 02/15/23 12:35 Lab/Test Results Lab/Test Results: Laboratory Tests Range/Units 02/15/23 12:20 WBC (4.4-10.8) 10^3/uL 14.84 H RBC (3.93-5.22) 10^6/uL 4.53 Hgb (11.2-15.7) g/dL 13.0 Hct (36.0-46.0) % 40.9 MCV (80-95) fL 90 MCH (27.0-33.0) pg 28.7 MCHC (32.0-36.0) % 31.8 L RDW (11.7-14.6) % 13.1 Plt Count (130-400) 10^3/uL 238 MPV (8.0-11.0) fL 9.8 Immature Gran % 0.5 Neutrophils % 82.7 Lymphocytes % 9.8 Monocytes % 6.1 Eosinophils % 0.6 Basophils % 0.3 Nucleated RBC % (0.0-0.3) % 0.0 Absolute Neutrophils (1.2-6.7) 10^3/uL 12.27 H Absolute Lymphocytes (1.2-3.4) 10^3/uL 1.45 Absolute Monocytes (0.1-0.8) 10^3/uL 0.91 H Absolute Eosinophils (0.0-0.7) 10^3/uL 0.09 Absolute Basophils (0.0-0.2) 10^3/uL 0.04 Sodium (136-145) mmol/L 141 Potassium (3.5-5.1) mmol/L 4.1 Chloride (98-107) mmol/L 103 Carbon Dioxide (21.0-32.0) mmol/L 27.4 Anion Gap (3-11) mmol/L 10.6 BUN (7-18) mg/dL 31 H Creatinine (0.55-1.02) mg/dL 1.6 H Est GFR (CKD-EPI 2020) (mL/min/1.73m2) 33.42 Glucose (74-106) mg/dL 119 H Calcium (8.5-10.1) mg/dL 9.1 Total Bilirubin (0.2-1.0) mg/dL 0.8 AST (15-37) U/L 19 ALT (14-59) U/L 19 Alkaline Phosphatase (46-116) U/L 90 Total Protein (6.4-8.2) g/dL 8.0 Albumin (3.4-5.0) g/dL 3.8
[2023-02-15 13:17] LABS: COVID-19 PCR Negative (Negative); Influenza A PCR Negative (Negative); Influenza B PCR Negative (Negative); RSV PCR Negative (Negative)
[2023-02-15 13:23] LABS: Source Nasopharynx
--- NOTE | 2023-02-15 13:28 | DI.RAD_ITS ---
Exam(s) XR CHEST 2V PA LATERAL EXAM: XR CHEST 2V PA LATERAL CLINICAL HISTORY: cough, wheeze, shortness of breath TECHNIQUE: 2D digital imaging was performed. COMPARISON: CT CT CHEST WO from 02/02/2023 FINDINGS: Pacemaker. HEART: Normal size. Mitral and aortic valve prostheses. Aorta: Not dilated. Mildly tortuous. PULMONARY VASCULATURE: Normal. LUNGS: Clear. PLEURAL SPACE: No pleural effusion or pneumothorax. BONE:Unremarkable for age. Sternal wires. Soft tissues: Unremarkable. IMPRESSION: No acute abnormality. DATA REPOSITORY: RADIATION DOSE DELIVERED:
[2023-02-15 15:21] VITALS: BP 94/58; PULSE 108; RESP 16; TEMP 37; O2SAT 93
== END 2023-02-15 15:22 | disposition home or self-care (01) ==
PROVIDERS: Emergency Provider Physician Assistant; PCP Nurse Practitioner Family
DX: R05.9 Cough, unspecified (principal); I09.81 Rheumatic heart failure; I11.0 Hypertensive heart disease with heart failure; I25.2 Old myocardial infarction; I48.91 Unspecified atrial fibrillation; Z95.0 Presence of cardiac pacemaker; Z95.2 Presence of prosthetic heart valve; Z79.82 Long term (current) use of aspirin; Z79.01 Long term (current) use of anticoagulants; Z87.891 Personal history of nicotine dependence; Z86.73 Personal history of transient ischemic attack (TIA), and cerebral infarction without residual deficits
CPT/HCPCS: 80053; 87637; 94640; 99283; 71046; 85025; J7512; J7620

== ENCOUNTER 2023-04-02 15:27 | Emergency (ER) | payer MEDICARE, OTHER, SELFPAY ==
[2023-04-02] VITALS (47 sets, daily range): BP systolic 109–137; BP diastolic 65–85; PULSE 79–107; RESP 13–26; TEMP 36.6; O2SAT 96–98
--- NOTE | 2023-04-02 15:30 | RT.EKG_ITS ---
APPROVED REPORT Exam: Resting ECG Reason for Exam: chest pain Patient Location: E HR:80 bpm ECG Measurements Heart Rate 80 AXIS MT 107 P [id number] QRSd 139 QRS 195 QT 442 T 65 QTc 512 Conclusion A-V dual-paced rhythm with some inhibition...atrial and/or vent inhibition
--- NOTE | 2023-04-02 16:15 | DI.RAD_ITS ---
Exam(s) XR CHEST 2V PA LATERAL EXAM: XR CHEST 2V PA LATERAL CLINICAL HISTORY: chest pain TECHNIQUE: 2D digital imaging was performed of the chest. Two images were obtained. PA and lateral views were obtained. COMPARISON: CT CT CHEST WO from 02/02/2023 CR XR CHEST 2V PA LATERAL from 02/15/2023 FINDINGS: MEDIASTINUM: Normal. HEART: Normal. Aortic and mitral valve replacements are again seen. Pacing wires are in stable posit ion. PULMONARY VASCULATURE: Normal. LUNGS: No focal consolidating infiltrates. PLEURAL SPACE: No pleural effusion or pneumothorax. BONE:Within normal limits for the patient's age. Sternal wires are in place. OTHER FINDINGS:Normal. IMPRESSION: No acute pulmonary findings. DATA REPOSITORY: RADIATION DOSE DELIVERED:
[2023-04-02 16:49] LABS: Abs Immature Grans 0.07 10^3/uL (0.0-0.06); Absolute Basophil Count 0.03 10^3/uL (0.0-0.2); Absolute Monocyte Count 0.14 10^3/uL (0.1-0.8); Basophils % 0.2; HCT 42.5 % (36.0-46.0); HGB 13.7 g/dL (11.2-15.7); Immature Grans % 0.5; Lymphocytes % 5.1; MCH 30.1 pg (27.0-33.0); MCHC 32.2 % (32.0-36.0); MCV 93 fL (80-95); MPV 9.6 fL (8.0-11.0); Monocytes % 0.9; Neutrophils % 93.3; Platelet Count 258 10^3/uL (130-400); RBC 4.55 10^6/uL (3.93-5.22); RDW 13.9 % (11.7-14.6); RDW-SD 47.8 fL; WBC 15.54 10^3/uL (4.4-10.8)
[2023-04-02 16:52] LABS: Absolute Lymphocyte Count 0.79 10^3/uL (1.2-3.4)
[2023-04-02] MEDS: Aspirin 81 MG CHEW 324 MG CH (16:52)
[2023-04-02] MEDS: Ketorolac 15 MG/ML VIAL IVP (16:54)
[2023-04-02] MEDS: ACETAMINOPHEN 1,000 MG/100 ML BTL 400 MG IVPB (16:56)
[2023-04-02 17:13] LABS: ALT 36 U/L (14-59); AST 30 U/L (15-37); Albumin 4.4 g/dL (3.4-5.0); Alkaline Phosphatase 78 U/L (46-116); Anion Gap 11.8 mmol/L (3-11); BUN 35 mg/dL (7-18); Bilirubin, Total 0.4 mg/dL (0.2-1.0); CO2 26.2 mmol/L (21.0-32.0); CREATININE 1.8 mg/dL (0.55-1.02); Calcium 9.5 mg/dL (8.5-10.1); Chloride 101 mmol/L (98-107); Estimated GFR 29.02 (mL/min/1.73m2); Glucose 189 mg/dL (74-106); Magnesium 2.5 mg/dL (1.8-2.4); NT-proBNP 2138 pg/mL (<300); Potassium 4.4 mmol/L (3.5-5.1); Sodium 139 mmol/L (136-145); TSH (W/Ref FT4) 0.87 uIU/mL (0.36-3.74); Total Protein 8.4 g/dL (6.4-8.2)
[2023-04-02 17:14] LABS: Troponin I 161 ng/L (< or =60)
--- NOTE | 2023-04-02 17:24 | W.ED.GENAD ---
HPI General Mode of arrival: ambulatory. Date/Time Provider Initiated Documentation: 04/02/23 15:28. Limitations to Documentation: no limitations. Information obtained by: patient. HPI Narrative: This is a 77-year-old female patient currently taking steroids for an upper respiratory infection that she has had since Sunday who otherwise states she has been feeling fine she has had no fever chest pain shortness of breath increased swelling abdominal pain nausea or vomiting who states today she suddenly felt pain in her chest attributed to her defibrillator firing. She states it happened a total of 8 times. She did notify EP at [facility] who advised her to present to the emergency department. She arrives stable with no further symptoms. She does have some discomfort in her chest area from the reported defibrillations. She is oxygenating well on room air with regular pulse in the 90s Related Data Home Medications Medication Instructions Recorded Confirmed ascorbate calcium (vitamin C) 500 500 mg PO DAILY 07/31/19 04/02/23 mg tablet aspirin 81 mg chewable tablet 81 mg PO DAILY 12/07/21 04/02/23 calcium citrate 200 mg 1 tab PO DAILY 12/07/21 04/02/23 calcium-vitamin D3 6.25 mcg (250 unit) tablet melatonin 3 mg capsule 3 mg PO HS 12/07/21 04/02/23 polyethylene glycol 3350 4.25 gram 4.25 g PO DAILY PRN constipation 12/07/21 04/02/23 oral powder packet sennosides 8.6 mg-docusate sodium 1 tab-cap PO BID PRN constipation 12/07/21 04/02/23 50 mg tablet (Senna with Docusate Sodium) thiamine HCl (vitamin B1) 100 mg 200 mg PO DAILY 12/07/21 04/02/23 tablet sacubitril 24 mg-valsartan 26 mg 2 tab PO BID 07/26/22 04/02/23 tablet (Entresto) apixaban 5 mg tablet 5 mg PO BID #180 tabs 08/02/22 04/02/23 sertraline 25 mg tablet 25 mg PO DAILY #90 tab-caps 08/24/22 04/02/23 ferrous sulfate 325 mg (65 mg 325 mg PO Q OTHER DAY #45 tab-caps 09/06/22 04/02/23 iron) tablet pantoprazole 40 mg tablet,delayed See Rx Instructions .Route 09/06/22 04/02/23 release .COMPLEX #90 tabs cholecalciferol (vitamin D3) 25 25 mcg PO DAILY 01/01/23 04/02/23 mcg (1,000 unit) capsule furosemide 40 mg tablet 40 mg PO DAILY #90 tabs 01/01/23 04/02/23 spironolactone 25 mg tablet 25 mg PO DAILY #90 tabs 01/01/23 04/02/23 prednisone 20 mg tablet 40 mg (2 x 20 mg) PO DAILY #10 tabs 03/30/23 04/02/23 empagliflozin 10 mg tablet mg PO DAILY 04/02/23 (Jardiance) gabapentin 300 mg capsule See Rx Instructions .Route 04/02/23 04/02/23 .COMPLEX #180 caps metoprolol succinate 25 mg 37.5 mg (1.5 x 25 mg) PO BID #14 04/02/23 04/02/23 tablet,extended release 24 hr tabs Previous Rx's Medication Instructions Recorded apixaban 5 mg tablet 5 mg PO BID #180 tabs 08/02/22 sertraline 25 mg tablet 25 mg PO DAILY #90 tab-caps 08/24/22 ferrous sulfate 325 mg (65 mg 325 mg PO Q OTHER DAY #45 tab-caps 09/06/22 iron) tablet pantoprazole 40 mg tablet,delayed See Rx Instructions .Route 09/06/22 release .COMPLEX #90 tabs furosemide 40 mg tablet 40 mg PO DAILY #90 tabs 01/01/23 spironolactone 25 mg tablet 25 mg PO DAILY #90 tabs 01/01/23 prednisone 20 mg tablet 40 mg (2 x 20 mg) PO DAILY #10 tabs 03/30/23 gabapentin 300 mg capsule See Rx Instructions .Route 04/02/23 .COMPLEX #180 caps metoprolol succinate 25 mg 37.5 mg (1.5 x 25 mg) PO BID #14 04/02/23 tablet,extended release 24 hr tabs Allergies Allergy/AdvReac Type Severity Reaction Status Date / Time heparin Allergy Severe thrombocytopenia, Verified 03/14/23 11:12 anaphylaxis dofetilide AdvReac Severe Prolonged Verified 04/02/23 15:36 QTc lisinopril AdvReac Cough Verified 04/02/23 15:36 General Stated Complaint: Chest Pain MARIS: 3 Review of Systems All systems reviewed & are unremarkable except as noted in HPI and below Exam Narrative Exam Narrative: Well-appearing elderly female of stated age in no acute distress sitting in the stretcher neurologic she is awake alert oriented no focal deficits head is atraumatic eyes normal appearance nonicteric noninjected oral mucosas moist neck is supple no JVD cardiovascular regular rate and rhythm, AV paced on the monitor, respirations are even and unlabored abdomen is soft nontender, chest wall no crepitus or bruising she has an old sternal surgical wound that is healed. Course Vital Signs Vital signs: Vital Signs Temperature 36.6 C 04/02/23 15:32 Pulse 93 H 04/02/23 15:32 Respiratory Rate 16 04/02/23 15:32 Blood Pressure 136/72 04/02/23 15:32 Pulse Oximetry 98 04/02/23 15:32 Temperature 36.6 C 04/02/23 15:32 Pulse 93 H 04/02/23 15:32 Respiratory Rate 16 04/02/23 15:32 Respiratory Effort Normal, Non-Labored 04/02/23 17:00 Respiratory Depth Normal 04/02/23 17:00 Respiratory Pattern Normal 04/02/23 17:00 Blood Pressure 136/72 04/02/23 15:32 Blood Pressure Position Sitting 04/02/23 15:32 Pulse Oximetry 98 04/02/23 15:32 Oxygen Delivery Method Room Air 04/02/23 15:32 Oxygen Flow Rate 0 04/02/23 15:32 Lab/Test Results Lab/Test Results: Laboratory Tests Range/Units 04/02/23 16:42 WBC (4.4-10.8) 10^3/uL 15.54 H RBC (3.93-5.22) 10^6/uL 4.55 Hgb (11.2-15.7) g/dL 13.7 Hct (36.0-46.0) % 42.5 MCV (80-95) fL 93 MCH (27.0-33.0) pg 30.1 MCHC (32.0-36.0) % 32.2 RDW (11.7-14.6) % 13.9 Plt Count (130-400) 10^3/uL 258 MPV (8.0-11.0) fL 9.6 Immature Gran % 0.5 Neutrophils % 93.3 Lymphocytes % 5.1 Monocytes % 0.9 Eosinophils % 0.0 Basophils % 0.2 Nucleated RBC % (0.0-0.3) % 0.0 Absolute Neutrophils (1.2-6.7) 10^3/uL 14.50 H Absolute Lymphocytes (1.2-3.4) 10^3/uL 0.79 L Absolute Monocytes (0.1-0.8) 10^3/uL 0.14 Absolute Eosinophils (0.0-0.7) 10^3/uL 0.00 Absolute Basophils (0.0-0.2) 10^3/uL 0.03 Sodium (136-145) mmol/L 139 Potassium (3.5-5.1) mmol/L 4.4 Chloride (98-107) mmol/L 101 Carbon Dioxide (21.0-32.0) mmol/L 26.2 Anion Gap (3-11) mmol/L 11.8 H BUN (7-18) mg/dL 35 H Creatinine (0.55-1.02) mg/dL 1.8 H Est GFR (CKD-EPI 2020) (mL/min/1.73m2) 29.02 Glucose (74-106) mg/dL 189 H Calcium (8.5-10.1) mg/dL 9.5 Magnesium (1.8-2.4) mg/dL 2.5 H Total Bilirubin (0.2-1.0) mg/dL 0.4 AST (15-37) U/L 30 ALT (14-59) U/L 36 Alkaline Phosphatase (46-116) U/L 78 Troponin I (< or =60) ng/L 161 H* NT-Pro-B Natriuret Pep (<300) pg/mL 2138 H Total Protein (6.4-8.2) g/dL 8.4 H Albumin (3.4-5.0) g/dL 4.4 TSH (0.36-3.74) uIU/mL 0.87 Medical Decision Making Patient presents to the emergency department after defibrillator shocks x 8 while at home. Had no preceding symptoms. Feels at baseline now. IV will be established we will give acetaminophen 1000 mg Toradol 15 mg for her chest wall discomfort. She was also given aspirin 324 mg to chew. Will check routine labs including electrolytes kidney function troponin BNP. She will be continued to be cardiac monitored while in the department. She is 100% AV paced. Case is discussed with Dr. Chavez at [facility]. Repeat troponin 590 which is not unexpected in the setting of 8 defibrillations and in the setting of acute on chronic kidney injury. She has no chest pain or shortness of breath. Her chest wall discomfort is relieved after the acetaminophen and Toradol. She has remained paced in the emergency department and hemodynamically stable. She will be followed up outpatient with EP return here sooner for new or worsening symptoms. They did request that we update her echocardiogram which an order has been placed. After discussion with patient about med adjustment states that Metroprolol succinate was just reduced from 50 twice daily to 25 twice daily during the visit for her respiratory illness as she was found to have low blood pressure reading. She will be advised at this time to increase it to 37.5 mg twice daily and to call [facility] tomorrow morning to schedule follow-up appointment. She does have the ability to check her blood pressures at home and will keep a log. She states she usually runs 100-110 systolic Medical Records Medical records reviewed: Yes I reviewed the patient's medical records. Imaging Data Radiologic Study: Imaging: X-Ray Radiologist's impression: Exam(s) XR CHEST 2V PA LATERAL EXAM: XR CHEST 2V PA LATERAL CLINICAL HISTORY: chest pain TECHNIQUE: 2D digital imaging was performed of the chest. Two images were obtained. PA and lateral views were obtained. COMPARISON: CT CT CHEST WO from 02/02/2023 CR XR CHEST 2V PA LATERAL from 02/15/2023 FINDINGS: MEDIASTINUM: Normal. HEART: Normal. Aortic and mitral valve replacements are again seen. Pacing wires are in stable position. PULMONARY VASCULATURE: Normal. LUNGS: No focal consolidating infiltrates. PLEURAL SPACE: No pleural effusion or pneumothorax. BONE:Within normal limits for the patient's age. Sternal wires are in place. OTHER FINDINGS:Normal. IMPRESSION: No acute pulmonary findings. DATA REPOSITORY: Lab Data Lab results reviewed: Yes I reviewed the patient's lab results. Lab results narrative: Laboratory Tests Range/Units 04/02/23 04/02/23 16:42 19:10 WBC (4.4-10.8) 10^3/uL 15.54 H RBC (3.93-5.22) 10^6/uL 4.55 Hgb (11.2-15.7) g/dL 13.7 Hct (36.0-46.0) % 42.5 MCV (80-95) fL 93 MCH (27.0-33.0) pg 30.1 MCHC (32.0-36.0) % 32.2 RDW (11.7-14.6) % 13.9 Plt Count (130-400) 10^3/uL 258 MPV (8.0-11.0) fL 9.6 Immature Gran % 0.5 Neutrophils % 93.3 Lymphocytes % 5.1 Monocytes % 0.9 Eosinophils % 0.0 Basophils % 0.2 Nucleated RBC % (0.0-0.3) % 0.0 Absolute Neutrophils (1.2-6.7) 10^3/uL 14.50 H Absolute Lymphocytes (1.2-3.4) 10^3/uL 0.79 L Absolute Monocytes (0.1-0.8) 10^3/uL 0.14 Absolute Eosinophils (0.0-0.7) 10^3/uL 0.00 Absolute Basophils (0.0-0.2) 10^3/uL 0.03 Sodium (136-145) mmol/L 139 Potassium (3.5-5.1) mmol/L 4.4 Chloride (98-107) mmol/L 101 Carbon Dioxide (21.0-32.0) mmol/L 26.2 Anion Gap (3-11) mmol/L 11.8 H BUN (7-18) mg/dL 35 H Creatinine (0.55-1.02) mg/dL 1.8 H Est GFR (CKD-EPI 2020) (mL/min/1.73m2) 29.02 Glucose (74-106) mg/dL 189 H Calcium (8.5-10.1) mg/dL 9.5 Magnesium (1.8-2.4) mg/dL 2.5 H Total Bilirubin (0.2-1.0) mg/dL 0.4 AST (15-37) U/L 30 ALT (14-59) U/L 36 Alkaline Phosphatase (46-116) U/L 78 Troponin I (< or =60) ng/L 161 H* 591 H* NT-Pro-B Natriuret Pep (<300) pg/mL 2138 H Total Protein (6.4-8.2) g/dL 8.4 H Albumin (3.4-5.0) g/dL 4.4 TSH (0.36-3.74) uIU/mL 0.87 Quality:SDOH Health Related Social Needs: No Data to Display PFSH All Active Problems (Updated 04/02/23 @ 20:30 by Veronique Puentes NP) Cardiac defibrillator in place (Acute) A-fib (Chronic) Combined forms of age-related cataract, right eye (Acute) [facility] [place] 01/10/2023 Cardiac resynchronization therapy defibrillator (CELL SUPPORT OPERATOR-D) in place (Acute) Nonischemic cardiomyopathy (Acute) S/P aortic valve and mitral valve replacement (Chronic 08/04/14) 2014 [facility]: bovine prosthetic valves + MAZE; 10/2021 [facility]: repeat repair Subclinical hypothyroidism (Acute) Essential hypertension (Chronic) Hepatic steatosis (Acute) 05/2022 [place]; FIB-4 score = 2.74 (indeterminate) Hyperlipidemia (Acute 05/12/13) LDL 144 2012; Risk calculated 13.3% soft CV risk; CV risk 06/2014: 11.6% Elevated LFTs (Acute) Interstitial lung disease (Acute) Chronic kidney disease (Chronic) Anisocoria (Acute) Occipital stroke (Acute) Bilateral pleural effusion (Acute) Vascular dementia (Chronic) Right homonymous hemianopsia (Acute) Heart failure with reduced ejection fraction (Acute) Mediastinal lymphadenopathy (Acute) Pulmonary nodule (Acute) Mild obstructive sleep apnea (Chronic 05/12/20) severe in REM sleep, significan nocturnal hypoxemia, sleep fragmentation and increased airway resistance flow pattern. Restless legs (Chronic 10/29/20) Pulmonary hypertension (Chronic) Left bundle branch block (LBBB) (Acute) Iron deficiency anemia (Chronic) 05/20/2020 EGD & 07/06/2020 colonoscopy ([facility] no source for iron deficiency; recommend following studies & consider small bowel capsule study if anemia worsens Vulvar atrophy (Chronic 01/13/16) Osteopenia (Chronic 06/14/17) 06/14/17 DEXA: femoral neck T-score -1.1 WHO FRAX score: 10-year major osteoporotic fx risk of 8.9% and hip fx risk of 0.9% --> tx with Ca/vitamin D half-way current use of anticoagulant therapy (Chronic 08/15/14) [facility] for afib 08/2017: Switched from Warfarin to apixaban by cardiology (Dr. 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 Chiang) following hospitalization for GI bleed (no afib during cardiac monitoring during hospitalization) Rheumatic heart disease Aortic regurgitation a. moderate by echo 12/2011 S/p repair Mitral regurgitation Rheumatic; s/p repair Surgical History (Updated 01/11/23 @ 08:32 by Gabriela Guzman) Status post cataract extraction and insertion of intraocular lens of left eye (~01/09/23) [facility] [place] Pac[place] History of cardiac cath (09/28/21) History of toe surgery (~2003) Removal of bone chip History of section (~1976) Radiofrequency Maze Procedure (08/04/14) done at [facility] EGD - MAC (08/28/17) Colonoscopy - MAC (08/28/17) Biopsy of breast (~2008) Left breast [facility] S/P aortic valve and mitral valve replacement (~07/2014) [facility]: bovine prosthetic valves + MAZE; 10/2021 [facility] [place] repeat repair Family History Mother , Age 87, peritonitis Diabetes Essential hypertension Breast cancer Father , Age 45, colon cancer Colon cancer Sister Heart disease RI at age 49 Brother Diabetes Colon cancer Brother No problems noted. Brother Heart disease CABG Other Family history of colon cancer Social History Smoking/Tobacco Use Status: Former Tobacco Use tobacco type: cigarettes Quit Date: 03/12/94 Smoking risk assessment performed?: Yes Alcohol Intake: former Drug use: Never Substance use type: does not use Counseling given: No Counseling provided: none Adopted: No Caregiver/Support person: No Foster care: No Household members: none Housing: house Number of Children: 1 number of grandchildren: 2 Communication Needs: None Education Level: high school Do you need help understanding health information?: Rarely current occupation: Retired Pets and animals: No Current gender identity: female What is your relationship status?: Panel score (0-1 are the most socially isolated patients): 0 What type of physical activity do you participate in: walking Duration: 60-90 minutes/day Frequency: daily Seatbelt use: always Helmet use: No Drive intox or ride w/intox interstate bus driver: No Water heater temp set <120 deg: Yes Working smoke detector in home: No Fire extinguisher in home: No Carbon monox detector in home: No Firearms in home: No Do you feel safe at home: Yes Do you feel safe in your relationship?: Yes Discharge Plan Disposition Patient Disposition: Home Condition: Stable Discharge Details Clinical Impression: A-fib, Cardiac defibrillator in place Primary Care Provider: Glendy Ye ED Provider: Veronique Puentes Home Meds and New Rx's Prescriptions: Continued ascorbate calcium (vitamin C) 500 mg tablet 500 mg PO DAILY cholecalciferol (vitamin D3) 25 mcg (1,000 unit) capsule 25 mcg PO DAILY furosemide 40 mg tablet 40 mg PO DAILY Qty: 90 3RF spironolactone 25 mg tablet 25 mg PO DAILY Qty: 90 3RF apixaban 5 mg tablet 5 mg PO BID Qty: 180 3RF aspirin 81 mg tablet,chewable 81 mg PO DAILY thiamine HCl (vitamin B1) 100 mg tablet 200 mg PO DAILY calcium citrate-vitamin D3 200 mg-6.25 mcg (250 unit) tablet 1 tab PO DAILY melatonin 3 mg capsule 3 mg PO HS sennosides-docusate sodium [Senna with Docusate Sodium] 8.6-50 mg tablet 1 tab-cap PO BID PRN (Reason: constipation) polyethylene glycol 3350 4.25 gram powder in packet 4.25 g PO DAILY PRN (Reason: constipation) Entresto 24-26 mg tablet 2 tab PO BID Patient Comments: 49/51 dose now Rx Instructions: Increased 07/20/22 sertraline 25 mg tablet 25 mg PO DAILY Qty: 90 3RF ferrous sulfate 325 mg (65 mg iron) tablet 325 mg PO Q OTHER DAY Qty: 45 3RF Rx Instructions: Take with water or juice on an empty stomach pantoprazole 40 mg tablet,delayed release (DR/EC) See Rx Instructions .ROUTE .COMPLEX Qty: 90 3RF Dose Instruction: TAKE 1 TABLET ONCE DAILY IN THE MORNING AT LEAST 30 TO 60 MINUTES BEFORE FIRST MEAL OF THE DAY Rx Instructions: TAKE 1 TABLET ONCE DAILY IN THE MORNING AT LEAST 30 TO 60 MINUTES BEFORE FIRST MEAL OF THE DAY prednisone 20 mg tablet 40 mg PO DAILY Qty: 10 0RF Patient Comments: 20mg BID gabapentin 300 mg capsule See Rx Instructions .ROUTE .COMPLEX Qty: 180 1RF Dose Instruction: TAKE ONE CAPSULE BY MOUTH TWICE A DAY Rx Instructions: TAKE ONE CAPSULE BY MOUTH TWICE A DAY Jardiance 10 mg tablet PO DAILY Patient Comments: TAKE ONE TABLET BY MOUTH EVERY DAY Changed metoprolol succinate 25 mg tablet extended release 24 hr 37.5 mg PO BID Qty: 14 0RF Discharge Instructions Instructions: A-fib (Atrial Fibrillation) (ED) Additional Instructions: increase metoprolol as discussed, starting tonight. drink 6-8 glasses of water daily to stay well hydrated. Call [facility] cardiology first thing tomorrow morning to schedule follow-up appointment return here sooner for new or worsening symptoms Referrals: CARDIOLOGY,[facility] [place]] - (call in am for follow up) Discharge Orders Other Ambulatory Orders: US echocardiogram (Routine) Location: None Selected Ordered By: Veronique Puentes
[2023-04-02 19:40] LABS: Troponin I 591 ng/L (< or =60)
--- NOTE | 2023-04-02 22:10 | NUR.NOTE ---
Echocardiogram requisition faxed to DI, patient advised to call DI scheduling to make appt within the next 1-2 weeks. Patient will f/u w/[facility] Cardiology.Nursing Note:
== END 2023-04-02 20:52 | disposition home or self-care (01) ==
PROVIDERS: Emergency Provider Nurse Practitioner Acute Care; PCP Nurse Practitioner
DX: I42.8 Other cardiomyopathies (principal); I48.91 Unspecified atrial fibrillation; Z95.810 Presence of automatic (implantable) cardiac defibrillator; I25.2 Old myocardial infarction; Z95.2 Presence of prosthetic heart valve; Z79.82 Long term (current) use of aspirin; Z79.01 Long term (current) use of anticoagulants; Z87.891 Personal history of nicotine dependence
CPT/HCPCS: 36415; 80053; 93005; 96374; 96375; 99284; 71046; 83735; 83880; 84443; 84484; 85025; 93010; J0131; J1885

== ENCOUNTER 2023-04-03 10:45 | Observation (INO) | payer MEDICARE, OTHER, SELFPAY ==
[2023-04-03] VITALS (213 sets, daily range): BP systolic 58–140; BP diastolic 39–91; PULSE 77–106; RESP 10–30; TEMP 36.9; O2SAT 94–99
--- NOTE | 2023-04-03 10:45 | RT.EKG_ITS ---
APPROVED REPORT Exam: Resting ECG Reason for Exam: Chest Pain Patient Location: E HR:80 bpm ECG Measurements Heart Rate [address] 131 P 108 QRSd 99 QRS 40 QT 401 T 225 QTc 464 Conclusion Atrial-ventricular dual-paced rhythm av paced raheel
[2023-04-03] MEDS: Normal Saline 500 ML 1000 ML IV (11:32)
[2023-04-03 11:44] LABS: Abs Immature Grans 0.04 10^3/uL (0.0-0.06); Absolute Basophil Count 0.06 10^3/uL (0.0-0.2); Absolute Eosinophil Count 0.02 10^3/uL (0.0-0.7); Absolute Lymphocyte Count 2.84 10^3/uL (1.2-3.4); Absolute Monocyte Count 0.66 10^3/uL (0.1-0.8); Absolute Neutrophil Count 8.08 10^3/uL (1.2-6.7); Basophils % 0.5; Eosinophils % 0.2; HGB 13.4 g/dL (11.2-15.7); Immature Grans % 0.3; Lymphocytes % 24.3; MCH 29.9 pg (27.0-33.0); MCHC 31.9 % (32.0-36.0); MCV 94 fL (80-95); MPV 9.8 fL (8.0-11.0); Monocytes % 5.6; Neutrophils % 69.1; Platelet Count 284 10^3/uL (130-400); RBC 4.48 10^6/uL (3.93-5.22); RDW 13.9 % (11.7-14.6); RDW-SD 48.3 fL
--- NOTE | 2023-04-03 11:45 | DI.RAD_ITS ---
Exam(s) XR PORTABLE CHEST AP EXAM: XR PORTABLE CHEST AP CLINICAL HISTORY: defib fired TECHNIQUE: 2D digital imaging was performed of the chest. One image was obtained. An AP view was ob tained. COMPARISON: CR,XR XR PORTABLE CHEST AP from 12/11/2021 CR XR CHEST 2V PA LATERAL from 04/02/2023 FINDINGS: MEDIASTINUM: Normal. HEART: Aortic and mitral valve replacements. Cardiac pacing devices are stable in position. PULMONARY VASCULATURE: Normal. LUNGS: No focal infiltrates. PLEURAL SPACE: No pleural effusion or pneumothorax. BONE:Within normal limits for the patient's age. Sternal wires are in place. OTHER FINDINGS:Normal. IMPRESSION: No acute pulmonary findings. DATA REPOSITORY: RADIATION DOSE DELIVERED:
[2023-04-03 11:56] LABS: INR 1.2 (0.9-1.1); Prothrombin Time 12.2 sec (9.1-11.1)
--- NOTE | 2023-04-03 12:19 | W.ED.GENAD ---
HPI General Date/Time Provider Initiated Documentation: 04/03/23 10:55. 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 Was evaluated yesterday in emergency department, provider was able to contact EP team at [facility] who requested that patient follow-up as an outpatient. Patient currently resting comfortably no acute distress. Related Data Home Medications Medication Instructions Recorded Confirmed ascorbate calcium (vitamin C) 500 500 mg PO DAILY 07/31/19 04/03/23 mg tablet aspirin 81 mg chewable tablet 81 mg PO DAILY 12/07/21 04/03/23 calcium citrate 200 mg 1 tab PO DAILY 12/07/21 04/03/23 calcium-vitamin D3 6.25 mcg (250 unit) tablet melatonin 3 mg capsule 3 mg PO HS 12/07/21 04/03/23 polyethylene glycol 3350 4.25 gram 4.25 g PO DAILY PRN constipation 12/07/21 04/03/23 oral powder packet sennosides 8.6 mg-docusate sodium 1 tab-cap PO BID PRN constipation 12/07/21 04/03/23 50 mg tablet (Senna with Docusate Sodium) thiamine HCl (vitamin B1) 100 mg 200 mg PO DAILY 12/07/21 04/03/23 tablet sacubitril 24 mg-valsartan 26 mg 2 tab PO BID 07/26/22 04/03/23 tablet (Entresto) apixaban 5 mg tablet 5 mg PO BID #180 tabs 08/02/22 04/03/23 sertraline 25 mg tablet 25 mg PO DAILY #90 tab-caps 08/24/22 04/03/23 ferrous sulfate 325 mg (65 mg 325 mg PO Q OTHER DAY #45 tab-caps 09/06/22 04/03/23 iron) tablet pantoprazole 40 mg tablet,delayed See Rx Instructions .Route 09/06/22 04/03/23 release .COMPLEX #90 tabs cholecalciferol (vitamin D3) 25 25 mcg PO DAILY 01/01/23 04/03/23 mcg (1,000 unit) capsule furosemide 40 mg tablet 40 mg PO DAILY #90 tabs 01/01/23 04/03/23 spironolactone 25 mg tablet 25 mg PO DAILY #90 tabs 01/01/23 04/03/23 prednisone 20 mg tablet 40 mg (2 x 20 mg) PO DAILY #10 tabs 03/30/23 04/03/23 empagliflozin 10 mg tablet mg PO DAILY 04/02/23 (Jardiance) gabapentin 300 mg capsule See Rx Instructions .Route 04/02/23 04/03/23 .COMPLEX #180 caps metoprolol succinate 25 mg 37.5 mg (1.5 x 25 mg) PO BID #14 04/02/23 04/03/23 tablet,extended release 24 hr tabs Previous Rx's Medication Instructions Recorded apixaban 5 mg tablet 5 mg PO BID #180 tabs 08/02/22 sertraline 25 mg tablet 25 mg PO DAILY #90 tab-caps 08/24/22 ferrous sulfate 325 mg (65 mg 325 mg PO Q OTHER DAY #45 tab-caps 09/06/22 iron) tablet pantoprazole 40 mg tablet,delayed See Rx Instructions .Route 09/06/22 release .COMPLEX #90 tabs furosemide 40 mg tablet 40 mg PO DAILY #90 tabs 01/01/23 spironolactone 25 mg tablet 25 mg PO DAILY #90 tabs 01/01/23 prednisone 20 mg tablet 40 mg (2 x 20 mg) PO DAILY #10 tabs 03/30/23 gabapentin 300 mg capsule See Rx Instructions .Route 04/02/23 .COMPLEX #180 caps metoprolol succinate 25 mg 37.5 mg (1.5 x 25 mg) PO BID #14 04/02/23 tablet,extended release 24 hr tabs Allergies Allergy/AdvReac Type Severity Reaction Status Date / Time heparin Allergy Severe thrombocytopenia, Verified 04/03/23 10:56 anaphylaxis dofetilide AdvReac Severe Prolonged Verified 04/03/23 10:56 QTc lisinopril AdvReac Cough Verified 04/03/23 10:56 General Stated Complaint: Chest Pain MARIS: 3 Review of Systems Narrative: Review of Systems Constitutional: negative Eyes: negative ENT: negative Cardiovascular: Defibrillator fired Respiratory: negative Gastrointestinal: negative : negative Musculoskeletal: negative Skin: negative Neurologic: negative Psych: negative Exam Narrative Exam Narrative: Physical Examination General: alert, awake, cooperative, resting comfortably, no acute distress HEENT: normocephalic, atraumatic; PERRL, EOM intact, conjunctiva normal; no nasal discharge; slight drying of oral mucosa Neck: supple, trachea midline; full ROM Chest: normal to inspection Respiratory: normal respiratory effort, speaking in full sentences, clear to auscultation, no wheezing, rales or rhonchi Cardiac: regular rate, regular rhythm, S1S2 intact, no murmurs rubs or gallops GI: abdomen soft, non-tender, non-distended; no palpable mass or hepatosplenomegaly Skin: no lesions, rashes or trauma appreciated; slight drying of skin Neuro: AAOx3, normal speech, moving all extremities Extremities: No peripheral edema Psych: Appropriate mood and affect Course Vital Signs Vital signs: Vital Signs Temperature 36.9 C 04/03/23 10:51 Pulse 83 04/03/23 10:51 Respiratory Rate 20 04/03/23 10:51 Blood Pressure 106/65 04/03/23 10:51 Pulse Oximetry 99 04/03/23 10:51 Temperature 36.9 C 04/03/23 10:51 Pulse 83 04/03/23 10:53 Pulse 106 H 04/03/23 10:53 Respiratory Rate 18 04/03/23 10:55 Respiratory Effort Normal 04/03/23 10:55 Respiratory Depth Normal 04/03/23 10:55 Respiratory Pattern Normal 04/03/23 10:55 Blood Pressure 106/65 04/03/23 10:53 Blood Pressure Mean 79 04/03/23 10:53 Pulse Oximetry 99 04/03/23 10:51 Oxygen Delivery Method Room Air 04/03/23 10:51 Oxygen Flow Rate 0 04/03/23 10:51 Lab/Test Results Lab/Test Results: Laboratory Tests Range/Units 04/03/23 11:20 WBC (4.4-10.8) 10^3/uL 11.70 H RBC (3.93-5.22) 10^6/uL 4.48 Hgb (11.2-15.7) g/dL 13.4 Hct (36.0-46.0) % 42.0 MCV (80-95) fL 94 MCH (27.0-33.0) pg 29.9 MCHC (32.0-36.0) % 31.9 L RDW (11.7-14.6) % 13.9 Plt Count (130-400) 10^3/uL 284 MPV (8.0-11.0) fL 9.8 Immature Gran % 0.3 Neutrophils % 69.1 Lymphocytes % 24.3 Monocytes % 5.6 Eosinophils % 0.2 Basophils % 0.5 Nucleated RBC % (0.0-0.3) % 0.0 Absolute Neutrophils (1.2-6.7) 10^3/uL 8.08 H Absolute Lymphocytes (1.2-3.4) 10^3/uL 2.84 Absolute Monocytes (0.1-0.8) 10^3/uL 0.66 Absolute Eosinophils (0.0-0.7) 10^3/uL 0.02 Absolute Basophils (0.0-0.2) 10^3/uL 0.06 PT (9.1-11.1) sec 12.2 H INR (0.9-1.1) 1.2 H Medical Decision Making 77-year-old female presents after being shocked by her defibrillator approximately 12 times at home, no chest pain or shortness of breath no presyncope no syncope no palpitations, was evaluated yesterday in emergency department and told to follow-up with EP at [facility], interrogation of device today shows 13 shocks for VT/VF 8 of which failed, 2 episodes of VT/VF lasted longer than 30 seconds; patient currently resting comfortably no acute distress. Hemodynamically stable paced rhythm on EKG and monitor afebrile nontoxic. Will obtain basic labs troponin BNP electrolytes chest x-ray, will contact EP team at [facility] for further management. Consider electrolyte derangement versus ischemic event versus oversensitive defibrillator. Patient did have run of V. tach on monitor without shock. Will administer light fluids given dry skin and dry oral mucosa, will consider loading with amiodarone. Patient is on metoprolol currently. 15: 25 multiple runs of V. tach in department some nonsustained, 1 resulted in defibrillation by patient's device, patient elke hemodynamically stable throughout. Asymptomatic. Persistently elevated troponin up trended from last visit. Consider related to multiple shocks versus underlying ischemic process. Started patient on amiodarone bolus of 150, started on 1 mg/h drip. Discussed case with electrophysiology team at [facility] as well as cardiology team who would like patient transferred for admission. Accepting physician Dr. Carlton Flores. Patient and family amenable to plan. 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) in place (Acute) Nonischemic cardiomyopathy (Acute) S/P aortic valve and mitral valve replacement (Chronic 08/04/14) 2014 [facility]: bovine prosthetic valves + MAZE; 10/2021 [facility]: repeat repair Subclinical hypothyroidism (Acute) Essential hypertension (Chronic) Hepatic steatosis (Acute) 05/2022 [place]; FIB-4 score = 2.74 (indeterminate) Hyperlipidemia (Acute 05/12/13) LDL 144 2012; Risk calculated 13.3% soft CV risk; CV risk 06/2014: 11.6% Elevated LFTs (Acute) Interstitial lung disease (Acute) Chronic kidney disease (Chronic) Anisocoria (Acute) Occipital stroke (Acute) Bilateral pleural effusion (Acute) Vascular dementia (Chronic) Right homonymous hemianopsia (Acute) Heart failure with reduced ejection fraction (Acute) Mediastinal lymphadenopathy (Acute) Pulmonary nodule (Acute) Mild obstructive sleep apnea (Chronic 05/12/20) severe in REM sleep, significan nocturnal hypoxemia, sleep fragmentation and increased airway resistance flow pattern. 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 Chiang) following hospitalization for GI bleed (no afib during cardiac monitoring during hospitalization) Rheumatic heart disease Aortic regurgitation a. moderate by echo 12/2011 S/p repair Mitral regurgitation Rheumatic; s/p repair Surgical History (Updated 01/11/23 @ 08:32 by Gabriela Guzmna) Status post cataract extraction and insertion of intraocular lens of left eye (~01/09/23) [facility] Op[place]mology Pacemaker History of cardiac cath (09/28/21) History of toe surgery (~2003) Removal of bone chip History of section (~1976) Radiofrequency Maze Procedure (08/04/14) done at [facility] EGD - MAC (08/28/17) Colonoscopy - MAC (08/28/17) Biopsy of breast (~2008) Left breast [facility] S/P aortic valve and mitral valve replacement (~07/2014) 2014 [facility]: bovine prosthetic valves + MAZE; 10/2021 [facility]: repeat repair Family History Mother , Age 87, peritonitis Diabetes Essential hypertension Breast cancer Father , Age 45, colon cancer Colon cancer Sister Heart disease OR at age 49 Brother Diabetes Colon cancer Brother No problems noted. Brother Heart disease CABG Other Family history of colon cancer Social History Smoking/Tobacco Use Status: Former Tobacco Use tobacco type: cigarettes Quit Date: 03/12/94 Smoking risk assessment performed?: Yes Alcohol Intake: former Drug use: Never Substance use type: does not use Counseling given: No Counseling provided: none Adopted: No Caregiver/Support person: No Foster care: No Household members: none Housing: house Number of Children: 1 number of grandchildren: 2 Communication Needs: None Education Level: high school Do you need help understanding health information?: Rarely current occupation: Retired Pets and animals: No Current gender identity: female What is your relationship status?: Panel score (0-1 are the most socially isolated patients): 0 What type of physical activity do you participate in: walking Duration: 60-90 minutes/day Frequency: daily Seatbelt use: always Helmet use: No Drive intox or ride w/intox route 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 driver: No Water heater temp set <120 deg: Yes Working smoke detector in home: No Fire extinguisher in home: No Carbon monox detector in home: No Firearms in home: No Do you feel safe at home: Yes Do you feel safe in your relationship?: Yes Discharge Plan Disposition Patient Disposition: Transfer-Acute Inpatient Care Specific Acute Inpt Facility: [facility] Condition: Stable Discharge Details Chief Complaint: Chest Pain Clinical Impression: Ventricular tachycardia Primary Care Provider: Glendy Ye ED Provider: Vinay Deluna Home Meds and New Rx's Prescriptions: No Action ascorbate calcium (vitamin C) 500 mg tablet 500 mg PO DAILY cholecalciferol (vitamin D3) 25 mcg (1,000 unit) capsule 25 mcg PO DAILY furosemide 40 mg tablet 40 mg PO DAILY Qty: 90 3RF spironolactone 25 mg tablet 25 mg PO DAILY Qty: 90 3RF apixaban 5 mg tablet 5 mg PO BID Qty: 180 3RF aspirin 81 mg tablet,chewable 81 mg PO DAILY thiamine HCl (vitamin B1) 100 mg tablet 200 mg PO DAILY calcium citrate-vitamin D3 200 mg-6.25 mcg (250 unit) tablet 1 tab PO DAILY melatonin 3 mg capsule 3 mg PO HS sennosides-docusate sodium [Senna with Docusate Sodium] 8.6-50 mg tablet 1 tab-cap PO BID PRN (Reason: constipation) polyethylene glycol 3350 4.25 gram powder in packet 4.25 g PO DAILY PRN (Reason: constipation) Entresto 24-26 mg tablet 2 tab PO BID Patient Comments: 49/51 dose now Rx Instructions: Increased 07/20/22 sertraline 25 mg tablet 25 mg PO DAILY Qty: 90 3RF ferrous sulfate 325 mg (65 mg iron) tablet 325 mg PO Q OTHER DAY Qty: 45 3RF Rx Instructions: Take with water or juice on an empty stomach pantoprazole 40 mg tablet,delayed release (DR/EC) See Rx Instructions .ROUTE .COMPLEX Qty: 90 3RF Dose Instruction: TAKE 1 TABLET ONCE DAILY IN THE MORNING AT LEAST 30 TO 60 MINUTES BEFORE FIRST MEAL OF THE DAY Rx Instructions: TAKE 1 TABLET ONCE DAILY IN THE MORNING AT LEAST 30 TO 60 MINUTES BEFORE FIRST MEAL OF THE DAY prednisone 20 mg tablet 40 mg PO DAILY Qty: 10 0RF Patient Comments: 20mg BID gabapentin 300 mg capsule See Rx Instructions .ROUTE .COMPLEX Qty: 180 1RF Dose Instruction: TAKE ONE CAPSULE BY MOUTH TWICE A DAY Rx Instructions: TAKE ONE CAPSULE BY MOUTH TWICE A DAY Jardiance 10 mg tablet PO DAILY Patient Comments: TAKE ONE TABLET BY MOUTH EVERY DAY metoprolol succinate 25 mg tablet extended release 24 hr 37.5 mg PO BID Qty: 14 0RF
[2023-04-03 12:27] LABS: ALT 37 U/L (14-59); AST 64 U/L (15-37); Albumin 3.9 g/dL (3.4-5.0); Alkaline Phosphatase 73 U/L (46-116); Anion Gap 12.6 mmol/L (3-11); BUN 37 mg/dL (7-18); Bilirubin, Total 0.4 mg/dL (0.2-1.0); CO2 25.4 mmol/L (21.0-32.0); CREATININE 1.8 mg/dL (0.55-1.02); Calcium 8.9 mg/dL (8.5-10.1); Chloride 102 mmol/L (98-107); Estimated GFR 29.02 (mL/min/1.73m2); Glucose 165 mg/dL (74-106); Magnesium 2.4 mg/dL (1.8-2.4); NT-proBNP 2248 pg/mL (<300); Potassium 3.7 mmol/L (3.5-5.1); Sodium 140 mmol/L (136-145); Total Protein 7.8 g/dL (6.4-8.2)
[2023-04-03 12:31] LABS: Troponin I 1524 ng/L (< or =60)
--- NOTE | 2023-04-03 12:45 | RT.EKG_ITS ---
APPROVED REPORT Exam: Resting ECG Reason for Exam: arrythmia Patient Location: E HR:80 bpm ECG Measurements Heart Rate 80 AXIS OK 156 P [id number] QRSd 123 QRS 178 QT 439 T 71 QTc 506 Conclusion Atrial-ventricular dual-paced rhythm av paced rhythm, non ischemic
[2023-04-03] MEDS: Amiodarone 150 MG/3 ML VIAL IVP (14:12)
[2023-04-03] MEDS: Amiodarone in Dextrose 360 MG/200 ML BAG 33.333 MG IV (15:05)
[2023-04-03 15:21] LABS: Troponin I 1735 ng/L (< or =60)
--- NOTE | 2023-04-03 19:15 | RT.EKG_ITS ---
APPROVED REPORT Exam: Resting ECG Reason for Exam: rythym changes Patient Location: E HR:81 bpm ECG Measurements Heart Rate 81 AXIS MT 64 P [id number] QRSd 124 QRS 234 QT 426 T 20 QTc 495 Conclusion A-V dual-paced rhythm with some inhibition...atrial and/or vent inhibition
--- NOTE | 2023-04-03 19:48 | ED.PROG_ITS ---
Date of service: 04/03/23 Time of Service: 19:48 Medical Decision Making It was noted at shift change that patient had been accepted at [facility] and was pending transfer for treatment of ventricular tachycardia with multiple defibrillations by ICD. Notified by [facility] transfer center that transfer will be delayed until tomorrow. Nursing requested transfer to inpatient unit. Plan to hospitalize the patient in the ICU overnight while awaiting transfer. I spoke with Dr. Durant, discussed ED presentation course, he reviewed case and will admit the patient. Repeat EKG was obtained and reviewed and interpreted by me: Please report, AV paced at 81 bpm. Quality:SDIN Health Related Social Needs: No Data to Display Discharge Plan Disposition Patient Disposition: Admit to [facility] Specific Acute Inpt Facility: [facility] Condition: Stable Discharge Details Clinical Impression: Ventricular tachycardia Primary Care Provider: Glendy Ye ED Provider: Vinay Deluna Home Meds and New Rx's Prescriptions: No Action ascorbate calcium (vitamin C) 500 mg tablet 500 mg PO DAILY cholecalciferol (vitamin D3) 25 mcg (1,000 unit) capsule 25 mcg PO DAILY furosemide 40 mg tablet 40 mg PO DAILY Qty: 90 3RF spironolactone 25 mg tablet 25 mg PO DAILY Qty: 90 3RF apixaban 5 mg tablet 5 mg PO BID Qty: 180 3RF aspirin 81 mg tablet,chewable 81 mg PO DAILY thiamine HCl (vitamin B1) 100 mg tablet 200 mg PO DAILY calcium citrate-vitamin D3 200 mg-6.25 mcg (250 unit) tablet 1 tab PO DAILY melatonin 3 mg capsule 3 mg PO HS sennosides-docusate sodium [Senna with Docusate Sodium] 8.6-50 mg tablet 1 tab-cap PO BID PRN (Reason: constipation) polyethylene glycol 3350 4.25 gram powder in packet 4.25 g PO DAILY PRN (Reason: constipation) Entresto 24-26 mg tablet 2 tab PO BID Patient Comments: 49/51 dose now Rx Instructions: Increased 07/20/22 sertraline 25 mg tablet 25 mg PO DAILY Qty: 90 3RF ferrous sulfate 325 mg (65 mg iron) tablet 325 mg PO Q OTHER DAY Qty: 45 3RF Rx Instructions: Take with water or juice on an empty stomach pantoprazole 40 mg tablet,delayed release (DR/EC) See Rx Instructions .ROUTE .COMPLEX Qty: 90 3RF Dose Instruction: TAKE 1 TABLET ONCE DAILY IN THE MORNING AT LEAST 30 TO 60 MINUTES BEFORE FIRST MEAL OF THE DAY Rx Instructions: TAKE 1 TABLET ONCE DAILY IN THE MORNING AT LEAST 30 TO 60 MINUTES BEFORE FIRST MEAL OF THE DAY prednisone 20 mg tablet 40 mg PO DAILY Qty: 10 0RF Patient Comments: 20mg BID gabapentin 300 mg capsule See Rx Instructions .ROUTE .COMPLEX Qty: 180 1RF Dose Instruction: TAKE ONE CAPSULE BY MOUTH TWICE A DAY Rx Instructions: TAKE ONE CAPSULE BY MOUTH TWICE A DAY Jardiance 10 mg tablet PO DAILY Patient Comments: TAKE ONE TABLET BY MOUTH EVERY DAY metoprolol succinate 25 mg tablet extended release 24 hr 37.5 mg PO BID Qty: 14 0RF
--- NOTE | 2023-04-03 20:05 | HPE_ITS ---
Date of service: 04/03/23 Time of Service: 20:06 Assessment and Plan Assessment and plan (1) Ventricular tachycardia: Status: Chronic Assessment and plan: VT in setting of known cardiomyopathy. Unclear what may have precipitated current spells but seem to have come under control on Amiodarone. The elevation in troponin is noted, but not unexpected in setting of repeated AICD discharges, but the question was raised whether there may have been an underlying ischemic event as well, which could perhaps account for the episodes of VT. But it is further noted that patient is already on ASA, beta sanjay and anticoagulation (viz, Eliquis). Will continue current program per Cardiology and await transfer. History of Present Illness History of Present Illness Chief Complaint: AICD discharge Narrative: 77 female with h/o AF, on DOAC, non-ischemic cardiomyopathy, s/p aortic and mitral valve replacements, s/p AICD -- seen yesterday with multiple AICD discharges, along with uptrending troponin with no CP (other than from shocks) Peak trop 591. No further spells while in ER. Case reviewed with Cardiology and plan was to increase beta sanjay and f/u with [facility] as outpatient. Returns today with multiple AICD discharges over the course of the day, per subsequent interrogation due to VT/VF, and while here in ER patient has had had multiple discharges (for VT), along with further uptrending troponin, now 1729. EKG shows atrial pacing and no STTW changes, while patient again has no CP. Case reviewed with both EPS and Cardiology, advised Amiodarone load and was accepted for transfer to service3 Dr. Serra. However, ER later notified that no beds currently available and I was asked to evaluate for admission. At present patient states she feels fine, and no further AICD discharge since Amio started. Review of Systems Narrative: per HPI PFSH All Active Problems Ventricular tachycardia (Chronic) Cardiac defibrillator in place (Acute) A-fib (Chronic) Combined forms of age-related cataract, right eye (Acute) [facility] Ophthalmology Note 01/10/2023 Cardiac resynchronization therapy defibrillator (LAND CLASSIFIER-D) in place (Acute) Nonischemic cardiomyopathy (Acute) S/P aortic valve and mitral valve replacement (Chronic 08/04/14) 2014 [facility]: bovine prosthetic valves + MAZE; 10/2021 [facility]: repeat repair Subclinical hypothyroidism (Acute) Essential hypertension (Chronic) Hepatic steatosis (Acute) 05/2022 [place]; FIB-4 score = 2.74 (indeterminate) Hyperlipidemia (Acute 05/12/13) LDL 144 2012; Risk calculated 13.3% soft CV risk; CV risk 06/2014: 11.6% Elevated LFTs (Acute) Interstitial lung disease (Acute) Chronic kidney disease (Chronic) Anisocoria (Acute) Occipital stroke (Acute) Bilateral pleural effusion (Acute) Vascular dementia (Chronic) Right homonymous hemianopsia (Acute) Heart failure with reduced ejection fraction (Acute) Mediastinal lymphadenopathy (Acute) Pulmonary nodule (Acute) Mild obstructive sleep apnea (Chronic 05/12/20) severe in REM sleep, significan nocturnal hypoxemia, sleep fragmentation and increased airway resistance flow pattern. Restless legs (Chronic 10/29/20) Pulmonary hypertension (Chronic) Left bundle branch block (LBBB) (Acute) Iron deficiency anemia (Chronic) 05/20/2020 EGD & 07/06/2020 colonoscopy ([facility]): no source for iron deficiency; recommend following studies & consider small bowel capsule study if anemia worsens Vulvar atrophy (Chronic 01/13/16) Osteopenia (Chronic 06/14/17) 06/14/17 DEXA: femoral neck T-score -1.1 WHO FRAX score: 10-year major osteoporotic fx risk of 8.9% and hip fx risk of 0.9% --> tx with Ca/vitamin D nursing home current use of anticoagulant therapy (Chronic 08/15/14) [facility] for afib 08/2017: Switched from Warfarin to apixaban by cardiology (Dr. 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 Chiang) following hospitalization for GI bleed (no afib during cardiac monitoring during hospitalization) Rheumatic heart disease Aortic regurgitation a. moderate by echo 12/2011 S/p repair Mitral regurgitation Rheumatic; s/p repair Surgical History Status post cataract extraction and insertion of intraocular lens of left eye (~01/09/23) [facility] Ophthalmology Pacemaker History of cardiac cath (09/28/21) History of toe surgery (~2003) Removal of bone chip History of section (~1976) Radiofrequency Maze Procedure (08/04/14) done at [facility] EGD - MAC (08/28/17) Colonoscopy - MAC (08/28/17) Biopsy of breast (~2008) Left breast [facility] S/P aortic valve and mitral valve replacement (~07/2014) 2014 [facility]: bovine prosthetic valves + MAZE; 10/2021 [facility]: repeat repair Family History Mother , Age 87, peritonitis Diabetes Essential hypertension Breast cancer Father , Age 45, colon cancer Colon cancer Sister Heart disease [place] at age 49 Brother Diabetes Colon cancer Brother No problems noted. Brother Heart disease CABG Other Family history of colon cancer Social History Smoking/Tobacco Use Status: Former Tobacco Use tobacco type: cigarettes Quit Date: 03/12/94 Smoking risk assessment performed?: Yes Alcohol Intake: former Drug use: Never Substance use type: does not use Counseling given: No Counseling provided: none Adopted: No Caregiver/Support person: No Foster care: No Household members: none Housing: house Number of Children: 1 number of grandchildren: 2 Communication Needs: None Education Level: high school Do you need help understanding health information?: Rarely current occupation: Retired Pets and animals: No Current gender identity: female What is your relationship status?: Panel score (0-1 are the most socially isolated patients): 0 What type of physical activity do you participate in: walking Duration: 60-90 minutes/day Frequency: daily Seatbelt use: always Helmet use: No Drive intox or ride w/intox m48/m60 tank driver: No Water heater temp set <120 deg: Yes Working smoke detector in home: No Fire extinguisher in home: No Carbon monox detector in home: No Firearms in home: No Do you feel safe at home: Yes Do you feel safe in your relationship?: Yes Meds Allergies and Home Medications Allergies Allergy/AdvReac Type Severity Reaction Status Date / Time heparin Allergy Severe thrombocytopenia, Verified 04/03/23 10:56 anaphylaxis dofetilide AdvReac Severe Prolonged Verified 04/03/23 10:56 QTc lisinopril AdvReac Cough Verified 04/03/23 10:56 Home Medications Medication Instructions Recorded Confirmed Type ascorbate calcium (vitamin C) 500 500 mg PO DAILY 07/31/19 04/03/23 History mg tablet aspirin 81 mg chewable tablet 81 mg PO DAILY 12/07/21 04/03/23 History calcium citrate 200 mg 1 tab PO DAILY 12/07/21 04/03/23 History calcium-vitamin D3 6.25 mcg (250 unit) tablet melatonin 3 mg capsule 3 mg PO HS 12/07/21 04/03/23 History polyethylene glycol 3350 4.25 gram 4.25 g PO DAILY PRN constipation 12/07/21 04/03/23 History oral powder packet sennosides 8.6 mg-docusate sodium 1 tab-cap PO BID PRN constipation 12/07/21 04/03/23 History 50 mg tablet (Senna with Docusate Sodium) thiamine HCl (vitamin B1) 100 mg 200 mg PO DAILY 12/07/21 04/03/23 History tablet sacubitril 24 mg-valsartan 26 mg 2 tab PO BID 07/26/22 04/03/23 History tablet (Entresto) apixaban 5 mg tablet 5 mg PO BID #180 tabs 08/02/22 04/03/23 Rx sertraline 25 mg tablet 25 mg PO DAILY #90 tab-caps 08/24/22 04/03/23 Rx ferrous sulfate 325 mg (65 mg 325 mg PO Q OTHER DAY #45 tab-caps 09/06/22 04/03/23 Rx iron) tablet pantoprazole 40 mg tablet,delayed See Rx Instructions .Route 09/06/22 04/03/23 Rx release .COMPLEX #90 tabs cholecalciferol (vitamin D3) 25 25 mcg PO DAILY 01/01/23 04/03/23 History mcg (1,000 unit) capsule furosemide 40 mg tablet 40 mg PO DAILY #90 tabs 01/01/23 04/03/23 Rx spironolactone 25 mg tablet 25 mg PO DAILY #90 tabs 01/01/23 04/03/23 Rx prednisone 20 mg tablet 40 mg (2 x 20 mg) PO DAILY #10 tabs 03/30/23 04/03/23 Rx empagliflozin 10 mg tablet mg PO DAILY 04/02/23 History (Jardiance) gabapentin 300 mg capsule See Rx Instructions .Route 04/02/23 04/03/23 Rx .COMPLEX #180 caps metoprolol succinate 25 mg 37.5 mg (1.5 x 25 mg) PO BID #14 04/02/23 04/03/23 Rx tablet,extended release 24 hr tabs Exam Narrative Exam Narrative: 112/79, 79, 36.9, 17, 99% RA. HEENT atraumatic; neck supple; lungs clear; heart RRR w/o MRG; abdomen soft and NT; extremities w/o edema; neuro Ox3, lucid, moves all 4s Results Labs 04/03/23 11:20 04/03/23 11:20 Labs: Laboratory Results - last 24 hr 04/03/23 04/03/23 11:20 14:30 WBC 11.70 H RBC 4.48 Hgb 13.4 Hct 42.0 MCV 94 MCH 29.9 MCHC 31.9 L RDW 13.9 Plt Count 284 MPV 9.8 Immature Gran % 0.3 Neutrophils % 69.1 Lymphocytes % 24.3 Monocytes % 5.6 Eosinophils % 0.2 Basophils % 0.5 Nucleated RBC % 0.0 Absolute Neutrophils 8.08 H Absolute Lymphocytes 2.84 Absolute Monocytes 0.66 Absolute Eosinophils 0.02 Absolute Basophils 0.06 PT 12.2 H INR 1.2 H Sodium 140 Potassium 3.7 Chloride 102 Carbon Dioxide 25.4 Anion Gap 12.6 H BUN 37 H Creatinine 1.8 H Est GFR (CKD-EPI 2020) 29.02 Glucose 165 H Calcium 8.9 Magnesium 2.4 Total Bilirubin 0.4 AST 64 H ALT 37 Alkaline Phosphatase 73 Troponin I 1524 H* 1735 H* NT-Pro-B Natriuret Pep 2248 H Total Protein 7.8 Albumin 3.9 Last Vital Signs Temp 36.9 C 04/03/23 10:51 Pulse 79 04/03/23 18:50 Resp 17 04/03/23 18:51 BP 112/79 04/03/23 18:50 Pulse Ox 99 04/03/23 10:51 Time Spent Time spent with Patient: 55-74 minutes Time was spent: preparing to see the patient(eg.review tests), obtaining and/or reviewing separately otained hiistory, ordering medications,tests, procedures, referring, communicating with other health critical care specialist and indepentently interpreting results
[2023-04-03] MEDS: Amiodarone in Dextrose 360 MG/200 ML BAG 16.667 MG IV (22:34)
[2023-04-04] VITALS (62 sets, daily range): BP systolic 92–148; BP diastolic 50–79; PULSE 77–89; RESP 11–23; TEMP 36.4–36.7; O2SAT 90–97
[2023-04-04 07:35] LABS: Troponin I 1722 ng/L (< or =60)
[2023-04-04] MEDS: predniSONE 20 MG TAB 40 MG PO (08:18)
[2023-04-04] MEDS: Pantoprazole 40 MG TABCR PO (08:18)
[2023-04-04] MEDS: Ascorbic Acid 500 MG TAB PO (08:19)
[2023-04-04] MEDS: Apixaban 5 MG TAB PO (08:19)
[2023-04-04] MEDS: Cholecalciferol (Vitamin D3) 1,000 UNIT TAB 1000 UNITS PO (08:19)
[2023-04-04] MEDS: Aspirin 81 MG CHEW PO (08:20)
[2023-04-04] MEDS: Thiamine 100 MG TAB 200 MG PO (08:20)
[2023-04-04] MEDS: Calcium 600mg/Vit D 200U TAB 1 TAB PO (08:20)
[2023-04-04] MEDS: Furosemide 40 MG TAB PO (08:21)
[2023-04-04] MEDS: Gabapentin 300 MG CAP PO (08:21)
[2023-04-04] MEDS: Spironolactone 25 MG TAB PO (08:21)
[2023-04-04] MEDS: Ferrous Sulfate 325 MG TAB PO (08:24)
[2023-04-04] MEDS: Metoprolol CR 25 MG TABCR 37.5 MG PO (08:24)
[2023-04-04] MEDS: Sacubitril/Valsartan 24 mg/26 mg TAB 2 EACH PO (08:28)
[2023-04-04] MEDS: Sertraline 25 MG TAB PO (08:30)
[2023-04-04 08:52] LABS: Lab Add On Test DONE
[2023-04-04 09:03] LABS: Anion Gap 10.8 mmol/L (3-11); BUN 29 mg/dL (7-18); CO2 27.2 mmol/L (21.0-32.0); CREATININE 1.5 mg/dL (0.55-1.02); Calcium 9.3 mg/dL (8.5-10.1); Chloride 107 mmol/L (98-107); Estimated GFR 36.12 (mL/min/1.73m2); Glucose 108 mg/dL (74-106); Potassium 3.9 mmol/L (3.5-5.1); Sodium 145 mmol/L (136-145)
[2023-04-04 09:07] LABS: Lactate 1.2 mmol/L (0.6-1.4)
--- NOTE | 2023-04-04 09:24 | INITIAL_ITS ---
Date of service: 04/04/23 Time of Service: 09:24 Care Management Initial Assmt Initial Assessment REASON FOR HOSPITALIZATION:: Ventricular tachycardia PREVIOUS FUNCTIONAL STATUS/SOCIAL/FAMILY SUPPORTS:: Maira lives alone in a single family home in [place], [place] She has one child, a daughter named Lawanda who is her healthcare agent. Maira is independent at baseline and does not receive any community services although she does have a Life Alert. CURRENT FUNCTIONAL STATUS:: Maira was sitting up in bed visiting with her daughter and another couple. She was pleasant and agreeable to conversation. Maira was admitted with ventricular tachycardia. She has an AICD that has been firing periodically for the past 2 days. She has been accepted at [facility] for transfer. A bed became available late this afternoon and she is scheduled for a 6:30 pm transport pending weather and other emergent EMS calls. ADVANCE DIRECTIVES:: On file. Lawanda Ortiz (daughter) [facility] Has patient been provided with info about the portal/API?: Yes Did the patient sign up for the portal?: Yes CODE STATUS:: Full Code INSURANCE COVERAGE / FINANCIAL ISSUES:: [facility] CURRENT HOME/COMMUNITY SERVICES/EQUIPMENT:: has an AICD PRIMARY CARE PHYSICIAN:: Glendy Ye POTENTIAL DISCHARGE NEEDS:: awaiting transfer to [facility] PATIENT/FAMILY EDUCATION NEEDS:: expectations, limitations TRANSPORTATION:: via EMS coordinated by nursing sales service supervisor PLAN:: Maira is awaiting transfer to [facility]. She has been accepted but no beds are yet available. CM will follow and continue to assess for discharge needs. PFSH All Active Problems Ventricular tachycardia (Chronic) Cardiac defibrillator in place (Acute) A-fib (Chronic) Combined forms of age-related cataract, right eye (Acute) [facility] Ophthalmology Note 01/10/2023 Cardiac resynchronization therapy defibrillator (SALON/SPA MANAGER-D) in place (Acute) Nonischemic cardiomyopathy (Acute) S/P aortic valve and mitral valve replacement (Chronic 08/04/14) 2014 [facility]: bovine prosthetic valves + MAZE; 10/2021 [facility]: repeat repair Subclinical hypothyroidism (Acute) Essential hypertension (Chronic) Hepatic steatosis (Acute) 05/2022 [place]; FIB-4 score = 2.74 (indeterminate) Hyperlipidemia (Acute 05/12/13) LDL 144 2012; Risk calculated 13.3% soft CV risk; CV risk 06/2014: 11.6% Elevated LFTs (Acute) Interstitial lung disease (Acute) Chronic kidney disease (Chronic) Anisocoria (Acute) Occipital stroke (Acute) Bilateral pleural effusion (Acute) Vascular dementia (Chronic) Right homonymous hemianopsia (Acute) Heart failure with reduced ejection fraction (Acute) Mediastinal lymphadenopathy (Acute) Pulmonary nodule (Acute) Mild obstructive sleep apnea (Chronic 05/12/20) severe in REM sleep, significan nocturnal hypoxemia, sleep fragmentation and increased airway resistance flow pattern. Restless legs (Chronic 10/29/20) Pulmonary hypertension (Chronic) Left bundle branch block (LBBB) (Acute) Iron deficiency anemia (Chronic) 05/20/2020 EGD & 07/06/2020 colonoscopy ([facility]): no source for iron deficiency; recommend following studies & consider small bowel capsule study if anemia worsens Vulvar atrophy (Chronic 01/13/16) Osteopenia (Chronic 06/14/17) 06/14/17 DEXA: femoral neck T-score -1.1 WHO FRAX score: 10-year major osteoporotic fx risk of 8.9% and hip fx risk of 0.9% --> tx with Ca/vitamin D inspector multifocal lens current use of anticoagulant therapy (Chronic 08/15/14) [facility] for afib 08/2017: Switched from Warfarin to apixaban by cardiology (Dr. 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 Chiang) following hospitalization for GI bleed (no afib during cardiac monitoring during hospitalization) Rheumatic heart disease Aortic regurgitation a. moderate by echo 12/2011 S/p repair Mitral regurgitation Rheumatic; s/p repair Surgical History Status post cataract extraction and insertion of intraocular lens of left eye (~01/09/23) [facility] Ophthalmology Pacemaker History of cardiac cath (09/28/21) History of toe surgery (~2003) Removal of bone chip History of section (~1976) Radiofrequency Maze Procedure (08/04/14) done at [facility] EGD - MAC (08/28/17) Colonoscopy - MAC (08/28/17) Biopsy of breast (~2008) Left breast [facility] S/P aortic valve and mitral valve replacement (~07/2014) 2014 [facility]: bovine prosthetic valves + MAZE; 10/2021 [facility]: repeat repair Family History Mother , Age 87, peritonitis Diabetes Essential hypertension Breast cancer Father , Age 45, colon cancer Colon cancer Sister Heart disease [place] at age 49 Brother Diabetes Colon cancer Brother No problems noted. Brother Heart disease CABG Other Family history of colon cancer Social History Smoking/Tobacco Use Status: Former Tobacco Use tobacco type: cigarettes Quit Date: 03/12/94 Smoking risk assessment performed?: Yes Alcohol Intake: former Drug use: Never Substance use type: does not use Counseling given: No Counseling provided: none Adopted: No Caregiver/Support person: No Foster care: No Household members: none Housing: house Number of Children: 1 number of grandchildren: 2 Communication Needs: None Education Level: high school Do you need help understanding health information?: Rarely current occupation: Retired Pets and animals: No Current gender identity: female What is your relationship status?: Panel score (0-1 are the most socially isolated patients): 0 What type of physical activity do you participate in: walking Duration: 60-90 minutes/day Frequency: daily Seatbelt use: always Helmet use: No Drive intox or ride w/intox bottom hoop driver: No Water heater temp set <120 deg: Yes Working smoke detector in home: No Fire extinguisher in home: No Carbon monox detector in home: No Firearms in home: No Do you feel safe at home: Yes Do you feel safe in your relationship?: Yes SDOH(Care Management) Screening Will the Patient Participate in the Screening?: Yes Do you worry about having a steady place to live?: no In the past 12 months, have you had to go without electric, gas, oil or water in your home?: no Have you or anyone in your house had to go without enough food to eat?: no Has lack of transportation kept you from medical appointments or from doing things needed for daily living?: no Has anyone in your support network made you feel unsafe for any reason?: no Health Related Social Needs Health related social needs details: none per pt
--- NOTE | 2023-04-04 09:30 | NUR.NOTE ---
Nursing Note: Pt daughter bedside with pt.
[2023-04-04] MEDS: Amiodarone in Dextrose 360 MG/200 ML BAG 16.6667 MG IV (09:43)
--- NOTE | 2023-04-04 10:00 | NUR.NOTE ---
Nursing Note: Echo being performed in
[2023-04-04 12:13] LABS: Troponin I 1351 ng/L (< or =60)
--- NOTE | 2023-04-04 12:15 | NUR.NOTE ---
Nursing Note: Received critical lab by phone, Reagan james 135MD Thad notified.
[2023-04-04 13:27] LABS: Lab Add On Test DONE
--- NOTE | 2023-04-04 13:46 | PGE_ITS ---
Date of Service Date of service: 04/04/23 Time of Service: 13:46 Assessment and Plan Assessment and plan (1) Ventricular tachycardia: Status: Chronic Assessment and plan: Continue loading with IV amiodarone. Patient's daughter reports she previously been on amiodarone for atrial fibrillation but was taken off of because of side effects close she was not clear as to what the side effects were. It may have been due to elevated transaminases. [facility] EP cardiology to see the patient upon transfer and make recommendations. Patient be transferred once a bed becomes available at [facility]. (2) Nonischemic cardiomyopathy: Status: Acute Assessment and plan: Not currently in acute exacerbation. (3) S/P aortic valve and mitral valve replacement: Status: Chronic Subjective Subjective Interval history since last seen: Patient is had no further AICD discharges. She denies any chest pain pressure or palpitations or dyspnea. She is currently awaiting transfer to [facility] to the service of Dr. Johnson. Troponin levels on admission were 161 but has since peaked to as high as 1735 and are now trending down to 1351. Echocardiogram was done but results are pending at this time. Patient history of previous bioprosthetic aortic valve and mitral valve replacements and had stenosis of her aortic valve in 2021 but underwent replacement of valve because of recurrent heart failure and atrial fibrillation secondary to aortic valve stenosis. Exam Narrative Exam Narrative: Alert and orient x 3 no acute distress talking with her family. Neck veins are flat Lungs are clear to auscultation Heart is now regular rhythm is atrial paced. Abdomen soft nondistended nontender Extremities without edema Objective Last Vital Signs Temp 36.7 C 04/04/23 11:42 Pulse 80 04/04/23 13:10 Resp 23 04/04/23 13:10 BP 105/61 04/04/23 13:10 Pulse Ox 92 04/04/23 13:10 Laboratory Results - last 24 hr 04/03/23 04/04/23 04/04/23 14:30 05:50 05:58 VBG Lactate Sodium 145 Potassium 3.9 Chloride 107 Carbon Dioxide 27.2 Anion Gap 10.8 BUN 29 H Creatinine 1.5 H Est GFR (CKD-EPI 2020) 36.12 Glucose 108 H Calcium 9.3 Troponin I 1735 H* 1722 H* Add-On Test Request DONE DONE 04/04/23 04/04/23 09:02 11:45 VBG Lactate 1.2 Sodium Potassium Chloride Carbon Dioxide Anion Gap BUN Creatinine Est GFR (CKD-EPI 2020) Glucose Calcium Troponin I 1351 H* Add-On Test Request Time Spent with Patient Time Spent with Patient: 25-34 minutes Time was spent: preparing to see the patient(eg.review tests), ordering medications,tests, procedures, referring, communicating with other health director of career resources, indepentently interpreting results, counseling the patient and care coordination
[2023-04-04 13:53] LABS: Hemoglobin A1C 5.9 % (<5.7)
--- NOTE | 2023-04-04 13:56 | W.PM.DS.N ---
Date of service: 04/04/23 Time of Service: 13:56 DS: Diagnosis Discharge Diagnosis (1) Ventricular tachycardia: Status: Chronic Asessment and Plan: 77-year-old female with history of hypertension, hyperlipidemia, atrial fibrillation chronically anticoagulated with apixaban, nonischemic cardiomyopathy, status post bioprosthetic aortic valve and bioprosthetic mitral valve replacement with a redo of her atrial valve in October 2021 due to bioprosthetic valve stenosis, presented emergency department initially on 04/02/2023 because of her AICD firing. This reported happened about 8 times. She had notified EP cardiology at [facility] who advised her to present to the nearest emergency department. She was noted to be AV paced had no further discharges while in the emergency department and was discharged home with instructions to follow-up with a caption writer. However she presented again to the emergency department on 04/03/2023 again after several firings of her AICD approximately 12 times. ED provider at [facility] contacted [facility] and spoke with the EP cardiology team at [facility] and the patient was excepted in transfer for further evaluation at [facility] to the service of Dr. Johnson. However because there was no bed availability at [facility] [place] [place] it was requested the patient be admitted to [facility] overnight while we await bed availability. Patient was started on amiodarone drip after initial bolus and has had no further ventricular ectopy overnight. At the time of transfer patient was still on amiodarone at 0.5 mg/min as of the afternoon on 04/04/2023 which is scheduled around 3:10 PM. Afterwards she should be started on a loading dose of oral amiodarone. However patient and her daughter report that she had some side effects from amiodarone in the past therefore I will defer to EP cardiology to make a decision about the best antiarrhythmic medications in the setting of low LV function. Troponin I levels were monitored w/ initial level of 161 which peaked at 1735 before coming down to 1351. Echocardiogram was performed but interpretation is pending at this time, CXR showed no acute pulmonary findings. Other labs were significant for BUN 37 and creatinine 1.8 which came down to 29 and 1.5 (which is about her baseline levels). (2) Nonischemic cardiomyopathy: Status: Acute (3) S/P aortic valve and mitral valve replacement: Status: Chronic Discharge Plan Disposition Patient Disposition: Transfer-Acute Inpatient Care Specific Acute Inpt Facility: [facility] Condition: Serious Discharge Details Reason For Visit: VT Admit Date/Time: 04/03/23 20:30 Admit Provider: Jean Durant Attending Provider: Jean Durant Primary Care Provider: Glendy Ye Home Meds and New Rx's Prescriptions: New Nexterone 360 mg/200 mL (1.8 mg/mL) Solution 360 mg IV DIRECTED Qty: 0 0RF Continued ascorbate calcium (vitamin C) 500 mg tablet 500 mg PO DAILY cholecalciferol (vitamin D3) 25 mcg (1,000 unit) capsule 25 mcg PO DAILY furosemide 40 mg tablet 40 mg PO DAILY Qty: 90 3RF spironolactone 25 mg tablet 25 mg PO DAILY Qty: 90 3RF apixaban 5 mg tablet 5 mg PO BID Qty: 180 3RF aspirin 81 mg tablet,chewable 81 mg PO DAILY thiamine HCl (vitamin B1) 100 mg tablet 200 mg PO DAILY calcium citrate-vitamin D3 200 mg-6.25 mcg (250 unit) tablet 1 tab PO DAILY melatonin 3 mg capsule 3 mg PO HS sennosides-docusate sodium [Senna with Docusate Sodium] 8.6-50 mg tablet 1 tab-cap PO BID PRN (Reason: constipation) polyethylene glycol 3350 4.25 gram powder in packet 4.25 g PO DAILY PRN (Reason: constipation) Entresto 24-26 mg tablet 2 tab PO BID Patient Comments: 49/51 dose now Rx Instructions: Increased 07/20/22 sertraline 25 mg tablet 25 mg PO DAILY Qty: 90 3RF ferrous sulfate 325 mg (65 mg iron) tablet 325 mg PO Q OTHER DAY Qty: 45 3RF Rx Instructions: Take with water or juice on an empty stomach pantoprazole 40 mg tablet,delayed release (DR/EC) See Rx Instructions .ROUTE .COMPLEX Qty: 90 3RF Dose Instruction: TAKE 1 TABLET ONCE DAILY IN THE MORNING AT LEAST 30 TO 60 MINUTES BEFORE FIRST MEAL OF THE DAY Rx Instructions: TAKE 1 TABLET ONCE DAILY IN THE MORNING AT LEAST 30 TO 60 MINUTES BEFORE FIRST MEAL OF THE DAY prednisone 20 mg tablet 40 mg PO DAILY Qty: 10 0RF Patient Comments: 20mg BID gabapentin 300 mg capsule See Rx Instructions .ROUTE .COMPLEX Qty: 180 1RF Dose Instruction: TAKE ONE CAPSULE BY MOUTH TWICE A DAY Rx Instructions: TAKE ONE CAPSULE BY MOUTH TWICE A DAY Jardiance 10 mg tablet 10 mg PO DAILY Patient Comments: TAKE ONE TABLET BY MOUTH EVERY DAY metoprolol succinate 25 mg tablet extended release 24 hr 37.5 mg PO BID Qty: 14 0RF Discharge Instructions Instructions: Tachycardia (GEN) Activity:: Activity as Tolerated Equipment/Supplies:: No Equipment Needed Diet:: Low Sodium DS: Summary Time Spent with Patient providing and/or coordinating discharge services: Greater than 30 minutes Specific discharge activities: Interview/exam of patient, educating patient and/or family about need for transfer and alternative treatment options, coordination of transfer w/ receiving facility and discussion of case w/ accepting provider(s), completion of transfer orders and discharge summary Status at Discharge Functional status at discharge: independent ambulation Overall status at discharge: patient is progressing back to baseline Mental Status: mental status grossly normal Speech and Movement: speech and movement normal Mood: congruent mood Affect: normal affect Quality:SDOH Health Related Social Needs: Health related social needs details none per pt Health related social needs details: none per pt Exam Narrative Exam Narrative: Alert and orient x 3 no acute distress talking with her family. Neck veins are flat Lungs are clear to auscultation Heart is now regular rhythm is atrial paced. Abdomen soft nondistended nontender Extremities without edema Psych Mental Status: mental status grossly normal Speech and Movement: speech and movement normal Mood: congruent mood Affect: normal affect DS: Data Vitals/I&O Vitals and I&O: Vital Signs Temperature 36.7 C 04/04/23 11:42 Temperature Source Temporal Artery Scan 04/04/23 11:42 Pulse 80 04/04/23 13:10 Pulse 79 04/04/23 13:10 Respiratory Rate 23 04/04/23 13:10 Respiratory Effort Normal 04/04/23 11:42 Respiratory Depth Normal 04/04/23 11:42 Respiratory Pattern Normal 04/04/23 11:42 Blood Pressure 105/61 04/04/23 13:10 Blood Pressure Mean 74 04/04/23 13:10 Blood Pressure Position Supine 04/04/23 11:42 Pulse Oximetry 92 04/04/23 13:10 Oxygen Delivery Method Room Air 04/04/23 11:42 Oxygen Flow Rate 0 04/04/23 11:42 Pain Level 0 04/04/23 11:42 Intake & Output 04/03/23 04/04/23 04/04/23 23:59 11:59 23:59 Intake Total 700 / 700 545.281 / 665.281 120 / 665.281 Output Total 550 / 1100 550 / 1100 Balance 700 / 700 -4.719 / -434.719 -430 / -434.719 Weight 68 kg Intake: IV 700 / 700 185.281 / 185.281 Oral 360 / 480 120 / 480 Output: Urine 550 / 1100 550 / 1100 Other: Urine Color Light Ashley Yellow Urine Appearance Clear Clear Urine Odor None None Voiding Methods Bedside Commode Bedside Commode Data Completed and Pending Labs on day of discharge: Labs from last 24 hours 04/04/23 04/04/23 04/04/23 11:45 09:02 05:58 VBG Lactate 1.2 Sodium 145 Potassium 3.9 Chloride 107 Carbon Dioxide 27.2 Anion Gap 10.8 BUN 29 H Creatinine 1.5 H Est GFR (CKD-EPI 2020) 36.12 Glucose 108 H Hemoglobin A1c Calcium 9.3 Troponin I 1351 H* 1722 H* Add-On Test Request DONE 04/04/23 04/03/23 05:50 14:30 VBG Lactate Sodium Potassium Chloride Carbon Dioxide Anion Gap BUN Creatinine Est GFR (CKD-EPI 2020) Glucose Hemoglobin A1c 5.9 H Calcium Troponin I 1735 H* Add-On Test Request DONE [facility] All Active Problems Ventricular tachycardia (Chronic) Cardiac defibrillator in place (Acute) A-fib (Chronic) Combined forms of age-related cataract, right eye (Acute) [facility] [place] Ophthalmology Note 01/10/2023 Cardiac resynchronization therapy defibrillator (TAKE AWAY WORKER-D) in place (Acute) Nonischemic cardiomyopathy (Acute) S/P aortic valve and mitral valve replacement (Chronic 08/04/14) 2014 [facility]: bovine prosthetic valves + MAZE; 10/2021 [facility] [place]: repeat repair Subclinical hypothyroidism (Acute) Essential hypertension (Chronic) Hepatic steatosis (Acute) 05/2022 [place]; FIB-4 score = 2.74 (indeterminate) Hyperlipidemia (Acute 05/12/13) LDL 144 2012; Risk calculated 13.3% soft CV risk; CV risk 06/2014: 11.6% Elevated LFTs (Acute) Interstitial lung disease (Acute) Chronic kidney disease (Chronic) Anisocoria (Acute) Occipital stroke (Acute) Bilateral pleural effusion (Acute) Vascular dementia (Chronic) Right homonymous hemianopsia (Acute) Heart failure with reduced ejection fraction (Acute) Mediastinal lymphadenopathy (Acute) Pulmonary nodule (Acute) Mild obstructive sleep apnea (Chronic 05/12/20) severe in REM sleep, significan nocturnal hypoxemia, sleep fragmentation and increased airway resistance flow pattern. 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 Chiang) following hospitalization for GI bleed (no afib during cardiac monitoring during hospitalization) Rheumatic heart disease Aortic regurgitation a. moderate by echo 12/2011 S/p repair Mitral regurgitation Rheumatic; s/p repair Surgical History Status post cataract extraction and insertion of intraocular lens of left eye (~01/09/23) [facility] [place] Ophthalmology Pacemaker History of cardiac cath (09/28/21) History of toe surgery (~2003) Removal of bone chip History of section (~1976) Radiofrequency Maze Procedure (08/04/14) done at [facility] EGD - MAC (08/28/17) Colonoscopy - MAC (08/28/17) Biopsy of breast (~2008) Left breast [facility] [facility] S/P aortic valve and mitral valve replacement (~07/2014) 2014 [facility]: bovine prosthetic valves + MAZE; 10/2021 [facility] [place] [facility]: repeat repair Family History Mother , Age 87, peritonitis Diabetes Essential hypertension Breast cancer Father , Age 45, colon cancer Colon cancer Sister Heart disease AL at age 49 Brother Diabetes Colon cancer Brother No problems noted. Brother Heart disease CABG Other Family history of colon cancer Social History Smoking/Tobacco Use Status: Former Tobacco Use tobacco type: cigarettes Quit Date: 03/12/94 Smoking risk assessment performed?: Yes Alcohol Intake: former Drug use: Never Substance use type: does not use Counseling given: No Counseling provided: none Adopted: No Caregiver/Support person: No Foster care: No Household members: none Housing: house Number of Children: 1 number of grandchildren: 2 Communication Needs: None Education Level: high school Do you need help understanding health information?: Rarely current occupation: Retired Pets and animals: No Current gender identity: female What is your relationship status?: Panel score (0-1 are the most socially isolated patients): 0 What type of physical activity do you participate in: walking Duration: 60-90 minutes/day Frequency: daily Seatbelt use: always Helmet use: No Drive intox or ride w/intox grab driver: No Water heater temp set <120 deg: Yes Working smoke detector in home: No Fire extinguisher in home: No Carbon monox detector in home: No Firearms in home: No Do you feel safe at home: Yes Do you feel safe in your relationship?: Yes Time Spent with Patient Time Spent with Patient: <45 minutes Time was spent: preparing to see the patient(eg.review tests), ordering medications,tests, procedures, referring, communicating with other health morning caregiver, indepentently interpreting results, counseling the patient and care coordination
--- NOTE | 2023-04-04 16:22 | CHAPLAIN ---
I visited Maira just after she learned she has a bed at [facility] and will be transferred there soon. Her daughter was in the room with her. Maira said she's suggested her daughter go home for the night and travel to [facility] tomorrow. Maira appreciated the prayer shawl I brought.
== END 2023-04-04 18:50 | disposition short-term general hospital (02) ==
LOC: ER 21:58 → ICU 23:37
PROVIDERS: Internal Medicine; Admitting Provider General Practice; Emergency Provider Emergency Medicine; PCP Nurse Practitioner; Visit Provider General Practice
DX: I47.20 Ventricular tachycardia, unspecified (principal); I13.0 Hypertensive heart and chronic kidney disease with heart failure and stage 1 through stage 4 chronic kidney disease, or unspecified chronic kidney disease; I42.8 Other cardiomyopathies; I50.20 Unspecified systolic (congestive) heart failure; R73.01 Impaired fasting glucose; J84.9 Interstitial pulmonary disease, unspecified; Z95.818 Presence of other cardiac implants and grafts; Z79.01 Long term (current) use of anticoagulants; Z79.82 Long term (current) use of aspirin; R74.8 Abnormal levels of other serum enzymes; E03.8 Other specified hypothyroidism; N18.9 Chronic kidney disease, unspecified; F01.50 Vascular dementia, unspecified severity, without behavioral disturbance, psychotic disturbance, mood disturbance, and anxiety; H53.461 Homonymous bilateral field defects, right side; R59.0 Localized enlarged lymph nodes; G47.33 Obstructive sleep apnea (adult) (pediatric); I44.7 Left bundle-branch block, unspecified; D50.9 Iron deficiency anemia, unspecified; M85.80 Other specified disorders of bone density and structure, unspecified site; Z95.2 Presence of prosthetic heart valve; G25.81 Restless legs syndrome; R91.1 Solitary pulmonary nodule; Z79.899 Other long term (current) drug therapy; E78.5 Hyperlipidemia, unspecified; G47.00 Insomnia, unspecified
CPT/HCPCS: 00123; 36415; 80048; 80053; 93005; 96361; 96365; 96366; 96376; 99285; 71045; 83036; 83605; 83735; 83880; 84484; 85025; 85610; 93010; 93306; 99222; 99239; G0378; J0282; J0283; J7512

== ENCOUNTER 2023-05-04 15:03 | Inpatient (IN) | payer MEDICARE, OTHER, SELFPAY ==
[2023-05-04] VITALS (58 sets, daily range): BP systolic 78–130; BP diastolic 55–89; PULSE 126–147; RESP 16–28; TEMP 36.4–36.6; O2SAT 93–99
--- NOTE | 2023-05-04 15:00 | RT.EKG_ITS ---
APPROVED REPORT Exam: Resting ECG Reason for Exam: ED ekg Patient Location: E HR:139 bpm ECG Measurements Heart Rate 139 AXIS HI 100 P 54 QRSd 97 QRS 49 QT 324 T 207 QTc 493 Conclusion Sinus tachycardia...rate> 99 Anterior infarct, old...Q >40mS, abnormal ST-T, V2-V5 Nonspecific T abnormalities, lateral leads...T <-0.10mV, I aVL V5 V6 Physician: no stemi, no discernable p wave, no evidence of current pacing
--- NOTE | 2023-05-04 15:15 | DI.RAD_ITS ---
Exam(s) XR PORTABLE CHEST AP EXAM: XR PORTABLE CHEST AP CLINICAL HISTORY: SOB TECHNIQUE: 2D digital imaging was performed of the chest. One image was obtained. An AP view was ob tained. COMPARISON: CR XR CHEST 2V PA LATERAL from 04/02/2023 CR XR PORTABLE CHEST AP from 04/03/2023 FINDINGS: MEDIASTINUM: Normal. HEART: Normal. Cardiac valve replacements. Cardiac device is in place.. PULMONARY VASCULATURE: Normal. LUNGS: Clear. PLEURAL SPACE: No pleural effusion or pneumothorax. BONE:Within normal limits for the patient's age. OTHER FINDINGS:Normal. IMPRESSION: No acute pulmonary findings. DATA REPOSITORY: RADIATION DOSE DELIVERED:
[2023-05-04 15:56] LABS: Abs Immature Grans 0.03 10^3/uL (0.0-0.06); Absolute Basophil Count 0.08 10^3/uL (0.0-0.2); Absolute Eosinophil Count 0.07 10^3/uL (0.0-0.7); Absolute Lymphocyte Count 1.64 10^3/uL (1.2-3.4); Absolute Monocyte Count 0.61 10^3/uL (0.1-0.8); Basophils % 0.8; Eosinophils % 0.7; HCT 42.4 % (36.0-46.0); HGB 13.3 g/dL (11.2-15.7); Immature Grans % 0.3; Lymphocytes % 15.4; MCH 29.6 pg (27.0-33.0); MCHC 31.4 % (32.0-36.0); MCV 94 fL (80-95); MPV 9.4 fL (8.0-11.0); Monocytes % 5.7; Neutrophils % 77.1; Platelet Count 255 10^3/uL (130-400); RDW 13.4 % (11.7-14.6); WBC 10.63 10^3/uL (4.4-10.8)
[2023-05-04 16:09] LABS: INR 1.3 (0.9-1.1); PTT Activated 27.3 sec (23.6-32.8); Prothrombin Time 12.7 sec (9.1-11.1)
[2023-05-04 16:20] LABS: ALT 24 U/L (14-59); AST 19 U/L (15-37); Albumin 4.1 g/dL (3.4-5.0); Alkaline Phosphatase 83 U/L (46-116); Anion Gap 9.9 mmol/L (3-11); BUN 32 mg/dL (7-18); Bilirubin, Total 0.5 mg/dL (0.2-1.0); CO2 30.1 mmol/L (21.0-32.0); CREATININE 1.8 mg/dL (0.55-1.02); Calcium 9.3 mg/dL (8.5-10.1); Chloride 103 mmol/L (98-107); Estimated GFR 29.02 (mL/min/1.73m2); Glucose 103 mg/dL (74-106); NT-proBNP 4225 pg/mL (<300); Potassium 4.6 mmol/L (3.5-5.1); Sodium 143 mmol/L (136-145); TSH (W/Ref FT4) 5.03 uIU/mL (0.36-3.74); Total Protein 8.1 g/dL (6.4-8.2)
[2023-05-04 16:24] LABS: Troponin I 72 ng/L (< or =60)
[2023-05-04 16:42] LABS: FREE T4 1.06 ng/dL (0.76-1.46)
[2023-05-04] MEDS: DEXTROSE 5%-WATER 250 ML 500 ML (17:08)
[2023-05-04] MEDS: Amiodarone 150 MG/3 ML VIAL IVP (17:08)
--- NOTE | 2023-05-04 18:25 | ED.GENADUL_ITS ---
Discharge Plan Disposition Patient Disposition: Admit to [facility] Condition: Improving Discharge Details Clinical Impression: SVT (supraventricular tachycardia), Palpitation Primary Care Provider: Glendy Ye ED Provider: Coy Light Home Meds and New Rx's Prescriptions: New amiodarone 200 mg tablet 400 mg PO BID 60 Days Qty: 240 0RF Rx Instructions: 400 mg twice daily for 10 days then 200 mg daily after that No Action ascorbate calcium (vitamin C) 500 mg tablet 500 mg PO DAILY cholecalciferol (vitamin D3) 25 mcg (1,000 unit) capsule 25 mcg PO DAILY furosemide 40 mg tablet 40 mg PO DAILY Qty: 90 3RF spironolactone 25 mg tablet 25 mg PO DAILY Qty: 90 3RF apixaban 5 mg tablet 5 mg PO BID Qty: 180 3RF aspirin 81 mg tablet,chewable 81 mg PO DAILY thiamine HCl (vitamin B1) 100 mg tablet 200 mg PO DAILY calcium citrate-vitamin D3 200 mg-6.25 mcg (250 unit) tablet 1 tab PO DAILY melatonin 3 mg capsule 3 mg PO HS sennosides-docusate sodium [Senna with Docusate Sodium] 8.6-50 mg tablet 1 tab-cap PO BID PRN (Reason: constipation) polyethylene glycol 3350 4.25 gram powder in packet 4.25 g PO DAILY PRN (Reason: constipation) sertraline 25 mg tablet 25 mg PO DAILY Qty: 90 3RF ferrous sulfate 325 mg (65 mg iron) tablet 325 mg PO Q OTHER DAY Qty: 45 3RF Rx Instructions: Take with water or juice on an empty stomach pantoprazole 40 mg tablet,delayed release (DR/EC) See Rx Instructions .ROUTE .COMPLEX Qty: 90 3RF Dose Instruction: TAKE 1 TABLET ONCE DAILY IN THE MORNING AT LEAST 30 TO 60 MINUTES BEFORE FIRS T MEAL OF THE DAY Rx Instructions: TAKE 1 TABLET ONCE DAILY IN THE MORNING AT LEAST 30 TO 60 MINUTES BEFORE FIRST MEAL OF THE DAY gabapentin 300 mg capsule See Rx Instructions .ROUTE .COMPLEX Qty: 180 1RF Dose Instruction: TAKE ONE CAPSULE BY MOUTH TWICE A DAY Rx Instructions: TAKE ONE CAPSULE BY MOUTH TWICE A DAY Entresto 49-51 mg tablet 0.5 tab PO BID metoprolol succinate 50 mg tablet extended release 24 hr 50 mg PO BID Jardiance 10 mg tablet 10 mg PO DAILY Patient Comments: TAKE ONE TABLET BY MOUTH EVERY DAY HPI General Date/Time Provider Initiated Documentation: 05/04/23 15:13 . HPI Narrative: 77-year-old female with a past medical history of hypertension, high cholesterol, atrial fibrillation chronically anticoagulated with Eliquis, nonischemic cardiomyopathy, bioprosthetic aortic valve and bioprosthetic mitral valve replacement with subsequent revision in October 2021 secondary to bioprosthetic valve stenosis, who was recently admitted here on 04/02/2023 for multiple firings of her AICD with roughly 20 firings and a 48-hour period. She was admitted and started on amiodarone secondary to her chronic mild heart failure. She was transferred to [facility] and her episodes resolved. She was stopped on the amiodarone and increased to 50 mg metoprolol. She tolerated this well, and was discharged. No significant changes into the last week. This past week she noticed a very minimal increase in fatigue and shortness of breath. No chest pain or other complaints whatsoever. However today she checked her heart rate and blood pressure and noticed that her blood pressure was slightly soft in the low 100s to 90s for the systolic, and her heart rate was in the 140s. This was a new change, so she came to the ER for further assessment. She denies any other complaints whatsoever otherwise. She otherwise feels well. She has been taking all of her medications as directed. She denies any syncope. She denies any arm neck or shoulder pain. No other modifying factors. Daughter is at bedside, and confirms that she has not missed any of her medications. Related Data Home Medications Medication Instructions Recorded Confirmed ascorbate calcium (vitamin C) 500 500 mg PO DAILY 07/31/19 05/04/23 mg tablet aspirin 81 mg chewable tablet 81 mg PO DAILY 12/07/21 05/04/23 calcium citrate 200 mg 1 tab PO DAILY 12/07/21 05/04/23 calcium-vitamin D3 6.25 mcg (250 unit) tablet melatonin 3 mg capsule 3 mg PO HS 12/07/21 05/04/23 polyethylene glycol 3350 4.25 gram 4.25 g PO DAILY PRN constipation 12/07/21 05/04/23 oral powder packet sennosides 8.6 mg-docusate sodium 1 tab-cap PO BID PRN constipation 09/28/22 02/23/24 50 mg tablet (Senna with Docusate Sodium) thiamine HCl (vitamin B1) 100 mg 200 mg PO DAILY 12/07/21 05/04/23 tablet apixaban 5 mg tablet 5 mg PO BID #180 tabs 08/02/22 05/04/23 sertraline 25 mg tablet 25 mg PO DAILY #90 tab-caps 08/24/22 05/04/23 ferrous sulfate 325 mg (65 mg 325 mg PO Q OTHER DAY #45 tab-caps 09/06/22 05/04/23 iron) tablet pantoprazole 40 mg tablet,delayed See Rx Instructions .Route 09/06/22 05/04/23 release .COMPLEX #90 tabs cholecalciferol (vitamin D3) 25 25 mcg PO DAILY 01/01/23 05/04/23 mcg (1,000 unit) capsule furosemide 40 mg tablet 40 mg PO DAILY #90 tabs 01/01/23 05/04/23 spironolactone 25 mg tablet 25 mg PO DAILY #90 tabs 01/01/23 05/04/23 empagliflozin 10 mg tablet 10 mg PO DAILY 04/02/23 05/04/23 (Jardiance) gabapentin 300 mg capsule See Rx Instructions .Route 04/02/23 05/04/23 .COMPLEX #180 caps metoprolol succinate 50 mg 50 mg PO BID 04/10/23 05/04/23 tablet,extended release 24 hr sacubitril 49 mg-valsartan 51 mg 0.5 tab PO BID 04/10/23 05/04/23 tablet (Entresto) amiodarone 200 mg tablet 400 mg (2 x 200 mg) PO BID 60 days 05/04/23 #240 tabs Previous Rx's Medication Instructions Recorded apixaban 5 mg tablet 5 mg PO BID #180 tabs 08/02/22 sertraline 25 mg tablet 25 mg PO DAILY #90 tab-caps 08/24/22 ferrous sulfate 325 mg (65 mg 325 mg PO Q OTHER DAY #45 tab-caps 09/06/22 iron) tablet pantoprazole 40 mg tablet,delayed See Rx Instructions .Route 09/06/22 release .COMPLEX #90 tabs furosemide 40 mg tablet 40 mg PO DAILY #90 tabs 01/01/23 spironolactone 25 mg tablet 25 mg PO DAILY #90 tabs 01/01/23 gabapentin 300 mg capsule See Rx Instructions .Route 04/02/23 .COMPLEX #180 caps amiodarone 200 mg tablet 400 mg (2 x 200 mg) PO BID 60 days 05/04/23 #240 tabs Allergies Allergy/AdvReac Type Severity Reaction Status Date / Time heparin Allergy Severe thrombocytopenia, Verified 04/03/23 21:56 anaphylaxis dofetilide AdvReac Severe Prolonged Verified 04/03/23 21:56 QTc lisinopril AdvReac Cough Verified 04/03/23 21:56 General Stated Complaint: Palpitatns MARIS: 2 Review of Systems All systems reviewed & are unremarkable except as noted in HPI and below Exam Narrative Exam Narrative: 1.Const: Well-nourished, Well-developed, appearing stated age 2.Eyes: PERRL, no conjunctival injection, and symmetrical lids. 3.ENT: Atraumatic external nose and ears. Moist MM. Neck: Symmetric, trachea midline, No thyromegaly. 4.CVS: +S1/S2, No murmurs or gallops. Peripheral pulses 2+ and equal in all extremities. Brisk capillary refill in all extremities. 5.RESP: Unlabored respiratory effort. Clear to auscultation bilaterally. No wheezes rales or rhonchi 6.GI: Soft, Nontender/Nondistended, No hepatosplenomegaly. No guarding or rebound. 7.MSK: Normocephalic/Atraumatic, Extremities w/o deformity or ttp No cyanosis or clubbing, Normal movement of all extremities 8.Skin: Warm, Dry. No rashes or lesions. 9.Neuro: manager special events II-XII grossly intact. Sensation grossly intact, no focal neurologic deficits. 10.Psych: (AAO) x3. Appropriate mood and affect Course Vital Signs Vital signs: Vital Signs Temperature 36.4 C L 05/04/23 15:09 Pulse 139 H 05/04/23 15:09 Respiratory Rate 16 05/04/23 15:09 Blood Pressure 118/89 05/04/23 15:09 Pulse Oximetry 99 05/04/23 15:09 Temperature 36.4 C L 05/04/23 15:09 Temperature Source Oral 05/04/23 15:09 Pulse 140 H 05/04/23 15:31 Pulse 140 H 05/04/23 15:31 Respiratory Rate 23 05/04/23 15:31 Respiratory Effort Normal 05/04/23 15:15 Blood Pressure 103/89 05/04/23 15:31 Blood Pressure Mean 92 05/04/23 15:31 Blood Pressure Position Sitting 05/04/23 15:09 Pulse Oximetry 97 05/04/23 15:31 Oxygen Delivery Method Room Air 05/04/23 15:09 Oxygen Flow Rate 0 05/04/23 15:09 Pain Level 0 05/04/23 15:09 Lab/Test Results Lab/Test Results: Laboratory Tests Range/Units 05/04/23 15:16 WBC (4.4-10.8) 10^3/uL 10.63 RBC (3.93-5.22) 10^6/uL 4.50 Hgb (11.2-15.7) g/dL 13.3 Hct (36.0-46.0) % 42.4 MCV (80-95) fL 94 MCH (27.0-33.0) pg 29.6 MCHC (32.0-36.0) % 31.4 L RDW (11.7-14.6) % 13.4 Plt Count (130-400) 10^3/uL 255 MPV (8.0-11.0) fL 9.4 Immature Gran % 0.3 Neutrophils % 77.1 Lymphocytes % 15.4 Monocytes % 5.7 Eosinophils % 0.7 Basophils % 0.8 Nucleated RBC % (0.0-0.3) % 0.0 Absolute Neutrophils (1.2-6.7) 10^3/uL 8.20 H Absolute Lymphocytes (1.2-3.4) 10^3/uL 1.64 Absolute Monocytes (0.1-0.8) 10^3/uL 0.61 Absolute Eosinophils (0.0-0.7) 10^3/uL 0.07 Absolute Basophils (0.0-0.2) 10^3/uL 0.08 PT (9.1-11.1) sec 12.7 H INR (0.9-1.1) 1.3 H APTT (23.6-32.8) sec 27.3 Sodium (136-145) mmol/L 143 Potassium (3.5-5.1) mmol/L 4.6 Chloride (98-107) mmol/L 103 Carbon Dioxide (21.0-32.0) mmol/L 30.1 Anion Gap (3-11) mmol/L 9.9 BUN (7-18) mg/dL 32 H Creatinine (0.55-1.02) mg/dL 1.8 H Est GFR (CKD-EPI 2020) (mL/min/1.73m2) 29.02 Glucose (74-106) mg/dL 103 Calcium (8.5-10.1) mg/dL 9.3 Total Bilirubin (0.2-1.0) mg/dL 0.5 AST (15-37) U/L 19 ALT (14-59) U/L 24 Alkaline Phosphatase (46-116) U/L 83 Troponin I (< or =60) ng/L 72 H* NT-Pro-B Natriuret Pep (<300) pg/mL 4225 H Total Protein (6.4-8.2) g/dL 8.1 Albumin (3.4-5.0) g/dL 4.1 TSH (0.36-3.74) uIU/mL 5.03 H Free T4 (0.76-1.46) ng/dL 1.06 Medical Decision Making 77-year-old female with a past medical history of hypertension, high cholesterol, atrial fibrillation chronically anticoagulated with Eliquis, nonischemic cardiomyopathy, bioprosthetic aortic valve and bioprosthetic mitral valve replacement with subsequent revision in October 2021 secondary to bioprosthetic valve stenosis, who was recently admitted here on 04/02/2023 for multiple firings of her AICD with roughly 20 firings and a 48-hour period. She was admitted and started on amiodarone secondary to her chronic mild heart failure. She was transferred to [facility] and her episodes resolved. She was stopped on the amiodarone and increased to 50 mg metoprolol. She tolerated this well, and was discharged. No significant changes into the last week. This past week she noticed a very minimal increase in fatigue and shortness of breath. No chest pain or other complaints whatsoever. However today she checked her heart rate and blood pressure and noticed that her blood pressure was slightly soft in the low 100s to 90s for the systolic, and her heart rate was in the 140s. This was a new change, so she came to the ER for further assessment. She denies any other complaints whatsoever otherwise. She otherwise feels well. She has been taking all of her medications as directed. She denies any syncope. She denies any arm neck or shoulder pain. No other modifying factors. Daughter is at bedside, and confirms that she has not missed any of her medications. Exam demonstrates a well-appearing female. No calf tenderness, no crackles in the lungs. No other abnormalities on exam otherwise. Blood pressure is stable in the 100s. Heart rate is elevated. EKG appears to show sinus rhythm with an elevated rate concerning for SVT versus potential a flutter/A-fib. Symptoms inconsistent with PE as she has been taking her Eliquis and she has no chest pain whatsoever or pleuritic chest pain. We will interrogate her pacemaker, evaluate for electrolyte abnormality, monitor closely and reassess. 5 PM Laboratory workup has returned, troponin is 72 which is notably improved from the 1500 she was before. proBNP elevated at 4000, however she does not appear clinically overloaded. TSH slightly high at 5, but free T4 is normal at 1. Creatinine is slightly elevated at 1.8, but relatively stable considering her chronic levels. Heart rate remains consistent in the 140s. Blood pressure remained stable. Pacemaker was interrogated, it appears that she has had about 8 episodes of an elevated heart rate has been noted by her defibrillator. There is also been episodes of elevated ventricular rates in the past 12 to 24 days as well. 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 With the patient's renal function she would not be a good candidate for dig. With the patient's history of mild heart failure, I am concerned for adding additional Cardizem. Amiodarone would be reasonable candidate. Cardiology agrees. Will start with 150 mg bolus here, with plan for 400 mg twice daily x 10 days and then 200 mg daily after that. If the patient rate corrects then she will be a candidate for discharge/home therapy. However she does not rate correct she may need amiodarone drip and admission. Additionally because of the patient's age, cardiology risk factors, and her current stability, she would not be the ideal candidate for electrical cardioversion after review with therapist. 7:50 PM Unfortunately the patient's heart rate did not improve with the amiodarone bolus. Blood pressure remained stable. Will transition her to an amiodarone drip at 1 mg/min. Because of this drip she will require admission. Discussed the case with the hospitalist Dr. Torres, he agrees with the assessment and plan. I have extensively reviewed the treatment plan with the patient. I have addressed all patient concerns at this time. I have also discussed the plan with the admitting physician and they agree with the current assessment and plan and have agreed to assume responsibility for the patient. All parties demonstrate verbal understanding and agreement with our assessment and plan at this time. The documentation in this chart was dictated using [employer] dictation software. Please excuse any dictation errors. FINDINGS: MEDIASTINUM: Normal. HEART: Normal. Cardiac valve replacements. Cardiac device is in place.. PULMONARY VASCULATURE: Normal. LUNGS: Clear. PLEURAL SPACE: No pleural effusion or pneumothorax. BONE:Within normal limits for the patient's age. OTHER FINDINGS:Normal. IMPRESSION: No acute pulmonary findings. Quality:SDOH Health Related Social Needs: Health related social needs details none per pt Critical Care Time Critical Care Time Critical Care Time: Yes Total Critical Care Time: 90 Attestation: Upon my evaluation, this patient had a high probability of imminent or life- threatening deterioration, which required my direct attention, intervention, and personal management. I have personally provided 90 minutes of critical care time exclusive of time spent on separately billable procedures. Time includes review of laboratory data, radiology results, discussion with consultants, and monitoring for potential decompensation. Interventions were performed as documented. PFSH All Active Problems (Updated 05/04/23 @ 19:46 by Coy Light DO) Palpitation (Acute) SVT (supraventricular tachycardia) (Chronic) Ventricular tachycardia (Chronic) Cardiac defibrillator in place (Acute) A-fib (Chronic) Combined forms of age-related cataract, right eye (Acute) [facility] [place] [place] 01/10/2023 Cardiac resynchronization therapy defibrillator (ROPING MACHINE TENDER-D) in place (Acute) Nonischemic cardiomyopathy (Acute) S/P aortic valve and mitral valve replacement (Chronic 08/04/14) 2014 [facility]: bovine prosthetic valves + MAZE; 10/2021 [facility] repeat repair Subclinical hypothyroidism (Acute) Essential hypertension (Chronic) Hepatic steatosis (Acute) 05/2022 [place]; FIB-4 score = 2.74 (indeterminate) Hyperlipidemia (Acute 05/12/13) LDL 144 2012; Risk calculated 13.3% soft CV risk; CV risk 06/2014: 11.6% Elevated LFTs (Acute) Interstitial lung disease (Acute) Chronic kidney disease (Chronic) Anisocoria (Acute) Occipital stroke (Acute) Bilateral pleural effusion (Acute) Vascular dementia (Chronic) Right homonymous hemianopsia (Acute) Heart failure with reduced ejection fraction (Acute) Mediastinal lymphadenopathy (Acute) Pulmonary nodule (Acute) Mild obstructive sleep apnea (Chronic 05/12/20) severe in REM sleep, significan nocturnal hypoxemia, sleep fragmentation and increased airway resistance flow pattern. 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 Chiang) following hospitalization for GI bleed (no afib during cardiac monitoring during hospitalization) Rheumatic heart disease Aortic regurgitation a. moderate by echo 12/2011 S/p repair Mitral regurgitation Rheumatic; s/p repair Surgical History Status post cataract extraction and insertion of intraocular lens of left eye (~01/09/23) [facility] [place] Pac[place] History of cardiac cath (09/28/21) History of toe surgery (~2003) Removal of bone chip History of section (~1976) Radiofrequency Maze Procedure (08/04/14) done at [facility] EGD - MAC (08/28/17) Colonoscopy - MAC (08/28/17) Biopsy of breast (~2008) Left breast [facility] S/P aortic valve and mitral valve replacement (~07/2014) 2014 [facility]: bovine prosthetic valves + MAZE; 10/2021 [facility] repeat repair Family History Mother , Age 87, peritonitis Diabetes Essential hypertension Breast cancer Father , Age 45, colon cancer Colon cancer Sister Heart disease [place] at age 49 Brother Diabetes Colon cancer Brother No problems noted. Brother Heart disease CABG Other Family history of colon cancer Social History Smoking/Tobacco Use Status: Former Tobacco Use tobacco type: cigarettes Quit Date: 03/12/94 Smoking risk assessment performed?: Yes Alcohol Intake: former Drug use: Never Substance use type: does not use Counseling given: No Counseling provided: none Adopted: No Caregiver/Support person: No Foster care: No Household members: none Housing: house Number of Children: 1 number of grandchildren: 2 Communication Needs: None Education Level: high school Do you need help understanding health information?: Rarely current occupation: Retired Pets and animals: No Current gender identity: female What is your relationship status?: Panel score (0-1 are the most socially isolated patients): 0 What type of physical activity do you participate in: walking Duration: 60-90 minutes/day Frequency: daily Seatbelt use: always Helmet use: No Drive intox or ride w/intox company truck driver: No Water heater temp set <120 deg: Yes Working smoke detector in home: No Fire extinguisher in home: No Carbon monox detector in home: No Firearms in home: No Do you feel safe at home: Yes Do you feel safe in your relationship?: Yes POCUS Exam (ED) Limited Cardiac Exam DATE OF EXAM: 05/04/23 TIME OF EXAM: 18:58 PROVIDER THAT PERFORMED THE STUDY: Coy Light IS THIS A REPEAT EXAM DURING THIS ENCOUNTER: no REASON FOR EXAM: Dyspnea VISUALIZED STRUCTURES: Left ventricle VIEW OBTAINED: Parasternal long-axis and Parasternal short-axis PERTINENT FINDINGS/IMPRESSION: LV dysfunction :severe Exam complete
[2023-05-04] MEDS: Amiodarone in Dextrose 360 MG/200 ML BAG 33.333 MG IV (18:30)
[2023-05-04 19:39] LABS: Troponin I 68 ng/L (< or =60)
--- NOTE | 2023-05-04 22:21 | W.PM.HP.N ---
Date of service: 05/04/23 Time of Service: 22:21 Assessment and Plan Assessment and plan (1) SVT (supraventricular tachycardia): Status: Chronic Assessment and plan: Stable hemodynamically. Minimaly symptoms. This may be flutter with 2:1 block. Case and EKGs were reviewed from the ED with [facility] electrophysioloy campaign consultant. They recommended resuming amiodarone. Drip initiated for 24hr per routine protocol. I agree that with her heart rate that high with her heart failure history, it is prudent to hospitalize her with cardiac monitoring and amidarone loading IV. Her troponins are mildly elevated but much improved from recent hospitalization, not c/w acute ischemia She was not aware of any lung disease, but there was some very mild interstitial disease seen on previous lung CTs. If she stays on amiodarone this should be monitored with imaging and PFTs. (2) Chronic kidney disease: Status: Chronic Assessment and plan: CKD is near or just above her baseline at 1.8 up form 1.5 at [facility] this month. Will continue to monitor. Qualifiers: Chronic kidney disease stage: stage 3 (moderate) Qualified Code(s): N18.3 - Chronic kidney disease, stage 3 (moderate) (3) Heart failure with reduced ejection fraction: Status: Acute Assessment and plan: Her BNaP is back up from recent outpatient labs, I think related to her rate. Adding amiodarone as above and continue her GDMT. I do not not signs of active CHF, she is euvolemic. Per POCUS her LVEF may have gone back down from the 39% seen on 04/04 at [facility]. likely related to her rate. (4) A-fib: Status: Chronic Assessment and plan: Anticoagulated with apixaban, so safe to continue with amiodarone which should help control the rate and rhythm. (5) Subclinical hypothyroidism: Status: Acute Assessment and plan: TSH again in this range, follow as outpatient. (6) Essential hypertension: Status: Chronic Assessment and plan: BP running low on 06/13 GDMT including the recent increase in metoprolol with lowering of Entresto. She is not dizzy/orthostatic. I would not push these doses. (7) Discharge planning issues: Status: Acute Assessment and plan: She may be discharged when rate better controlled and she is returning to her previous functional status, to follow up as an outpatient with cardiology/EP. She will need monitoring for amiodarone toxicity if she stay on it this time. History of Present Illness History of Present Illness Chief Complaint: high heart rate Narrative: 77 yo F with history of non-ischemic cardiomyopathy, atrial fibrillation on apixaban, HFrEF, s/p bioprostetic mitral and aortic valve replacements, who was recently admitted 04/03/2023 with recurrent AICD firing, initially felt to be secondary to ventricular arrhythmia. She was started on an amiodarone drip and transferred to [facility]. There it was determined the ACID was picking up AFIB with RVR. Her metoprolol as increased and amiodarone was stopped. Her entresto was also halved due to hypotension. JASBIR on that hospitalization (04/04/23) showed LVEF 39%, which was an improvement, with functioning valves. Over the past week she has experienced a slight increase in shortness of breath and fatigue. She checked her vitals today and noted heart rate in the 140s and blood pressure running low in the 90s systolic. She otherwise feels well with no chest pain or palpitations. This pulse and blood pressure is not normal for her, so she presented to the ED. Review of Systems Constitutional Constitutional: Denies anorexia, Denies chills, Denies fever(s), Denies headache(s), Reports lethargy, Denies poor appetite, Denies weakness, Denies weight gain and Denies weight loss Eyes Eyes: Denies change in vision and Denies irritation ENT Ears, Nose, Mouth, and Throat: Denies dizziness, Denies headache(s), Denies nasal congestion, Denies nasal discharge and Denies sore throat Cardiovascular Cardiovascular: Denies chest pain, Denies chest pain with activity, Denies syncope, Denies leg edema, Denies lightheadedness, Denies palpitations and Denies orthopnea Respiratory Respiratory: Denies cough, Denies excessive phlegm production and Denies wheezing Gastrointestinal Gastrointestinal: Denies abdominal pain, Denies melena, Denies hematochezia, Denies constipation, Denies dyspepsia, Denies heartburn, Denies diarrhea, Denies nausea and Denies vomiting Genitourinary Genitourinary: Denies hematuria, Denies dysuria and Denies urinary incontinence Musculoskeletal Musculoskeletal: Denies arthralgias and Denies joint swelling Integumentary/Breasts Skin/Breast: Denies rash and Denies skin ulcer Neurologic Neurologic: Denies dizziness, Denies syncope, Denies headache(s), Denies sensory deficit and Denies weakness Psychiatric Psychiatric: Denies anxiety and Denies mood swings Endocrine Endocrine: Denies palpitations Hematologic/Lymphatic Hematologic/Lymphatic: Denies easy bleeding Allergic/Immunologic Allergic/Immunologic: Denies wheezing PFSH All Active Problems (Updated 05/04/23 @ 22:49 by Ted Nguyen) Discharge planning issues (Acute) Palpitation (Acute) SVT (supraventricular tachycardia) (Chronic) Ventricular tachycardia (Chronic) Cardiac defibrillator in place (Acute) A-fib (Chronic) Combined forms of age-related cataract, right eye (Acute) [facility] Ophthalmology Note 01/10/2023 Cardiac resynchronization therapy defibrillator (PRIMARY CARE COORDINATOR-D) in place (Acute) Nonischemic cardiomyopathy (Acute) S/P aortic valve and mitral valve replacement (Chronic 08/04/14) 2014 [facility]: bovine prosthetic valves + MAZE; 10/2021 [facility]: repeat repair Subclinical hypothyroidism (Acute) Essential hypertension (Chronic) Hepatic steatosis (Acute) 05/2022 [place]; FIB-4 score = 2.74 (indeterminate) Hyperlipidemia (Acute 05/12/13) LDL 144 2012; Risk calculated 13.3% soft CV risk; CV risk 06/2014: 11.6% Elevated LFTs (Acute) Interstitial lung disease (Acute) Chronic kidney disease (Chronic) Anisocoria (Acute) Occipital stroke (Acute) Bilateral pleural effusion (Acute) Vascular dementia (Chronic) Right homonymous hemianopsia (Acute) Heart failure with reduced ejection fraction (Acute) Mediastinal lymphadenopathy (Acute) Pulmonary nodule (Acute) Mild obstructive sleep apnea (Chronic 05/12/20) severe in REM sleep, significan nocturnal hypoxemia, sleep fragmentation and increased airway resistance flow pattern. 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 Chiang) following hospitalization for GI bleed (no afib during cardiac monitoring during hospitalization) Rheumatic heart disease Aortic regurgitation a. moderate by echo 12/2011 S/p repair Mitral regurgitation Rheumatic; s/p repair Surgical History Status post cataract extraction and insertion of intraocular lens of left eye (~01/09/23) [facility] Ophthalmology Pacemaker History of cardiac cath (09/28/21) History of toe surgery (~2003) Removal of bone chip History of section (~1976) Radiofrequency Maze Procedure (08/04/14) done at [facility] EGD - MAC (08/28/17) Colonoscopy - MAC (08/28/17) Biopsy of breast (~2008) Left breast [facility] S/P aortic valve and mitral valve replacement (~07/2014) 2014 [facility]: bovine prosthetic valves + MAZE; 10/2021 [facility]: repeat repair Family History Mother , Age 87, peritonitis Diabetes Essential hypertension Breast cancer Father , Age 45, colon cancer Colon cancer Sister Heart disease [place] at age 49 Brother Diabetes Colon cancer Brother No problems noted. Brother Heart disease CABG Other Family history of colon cancer Social History Smoking/Tobacco Use Status: Former Tobacco Use tobacco type: cigarettes Quit Date: 03/12/94 Smoking risk assessment performed?: Yes Alcohol Intake: former Drug use: Never Substance use type: does not use Counseling given: No Counseling provided: none Adopted: No Caregiver/Support person: No Foster care: No Household members: none Housing: house Number of Children: 1 number of grandchildren: 2 Communication Needs: None Education Level: high school Do you need help understanding health information?: Rarely current occupation: Retired Pets and animals: No Current gender identity: female What is your relationship status?: Panel score (0-1 are the most socially isolated patients): 0 What type of physical activity do you participate in: walking Duration: 60-90 minutes/day Frequency: daily Seatbelt use: always Helmet use: No Drive intox or ride w/intox cmv driver: No Water heater temp set <120 deg: Yes Working smoke detector in home: No Fire extinguisher in home: No Carbon monox detector in home: No Firearms in home: No Do you feel safe at home: Yes Do you feel safe in your relationship?: Yes Meds Allergies and Home Medications Allergies Allergy/AdvReac Type Severity Reaction Status Date / Time heparin Allergy Severe thrombocytopenia, Verified 04/03/23 21:56 anaphylaxis dofetilide AdvReac Severe Prolonged Verified 04/03/23 21:56 QTc lisinopril AdvReac Cough Verified 04/03/23 21:56 Home Medications Medication Instructions Recorded Confirmed Type ascorbate calcium (vitamin C) 500 500 mg PO DAILY 07/31/19 05/04/23 History mg tablet aspirin 81 mg chewable tablet 81 mg PO DAILY 12/07/21 05/04/23 History calcium citrate 200 mg 1 tab PO DAILY 12/07/21 05/04/23 History calcium-vitamin D3 6.25 mcg (250 unit) tablet melatonin 3 mg capsule 3 mg PO HS 12/07/21 05/04/23 History polyethylene glycol 3350 4.25 gram 4.25 g PO DAILY PRN constipation 12/07/21 05/04/23 History oral powder packet sennosides 8.6 mg-docusate sodium 1 tab-cap PO BID PRN constipation 12/07/21 05/04/23 History 50 mg tablet (Senna with Docusate Sodium) thiamine HCl (vitamin B1) 100 mg 200 mg PO DAILY 12/07/21 05/04/23 History tablet apixaban 5 mg tablet 5 mg PO BID #180 tabs 08/02/22 05/04/23 Rx sertraline 25 mg tablet 25 mg PO DAILY #90 tab-caps 08/24/22 05/04/23 Rx ferrous sulfate 325 mg (65 mg 325 mg PO Q OTHER DAY #45 tab-caps 09/06/22 05/04/23 Rx iron) tablet pantoprazole 40 mg tablet,delayed See Rx Instructions .Route 09/06/22 05/04/23 Rx release .COMPLEX #90 tabs cholecalciferol (vitamin D3) 25 25 mcg PO DAILY 01/01/23 05/04/23 History mcg (1,000 unit) capsule furosemide 40 mg tablet 40 mg PO DAILY #90 tabs 01/01/23 05/04/23 Rx spironolactone 25 mg tablet 25 mg PO DAILY #90 tabs 01/01/23 05/04/23 Rx empagliflozin 10 mg tablet 10 mg PO DAILY 04/02/23 05/04/23 History (Jardiance) gabapentin 300 mg capsule See Rx Instructions .Route 04/02/23 05/04/23 Rx .COMPLEX #180 caps metoprolol succinate 50 mg 50 mg PO BID 04/10/23 05/04/23 History tablet,extended release 24 hr sacubitril 49 mg-valsartan 51 mg 0.5 tab PO BID 04/10/23 05/04/23 History tablet (Entresto) amiodarone 200 mg tablet 400 mg (2 x 200 mg) PO BID 60 days 05/04/23 Rx #240 tabs Exam Narrative Exam Narrative: GEN: Alert and oriented, pleasant and cooperative, gives linear history. No acute distress at rest. HEENT: Head atraumatic. Conjunctiva clear, no icterus. PEERL, EOMI. no rhinorrhea. MMM, OP benign. Neck is supple with no masses or lymphadenopathy, trachea midline LUNGS: CTAB with normal effort, no wheezes or rales CV: regular and tachycardic with no murmurs, gallops, or rubs. no elevation JVP ABD: +BS, soft, NT/ND EXT: no cyanosis, clubbing, or edema MSK: No joint redness or swelling NEURO: CN 2-12 grossly intact. Normal movement of 4 extremities. Normal speech and coordination. no tremor SKIN: No rashes or open wounds. PSYCH: normal mood and affect Results Imaging Chest x-ray: report reviewed (No acute pulmonary findings. ) and image reviewed EKG: report reviewed and image reviewed (regular narrow complex tachycardia at 140 BPM. No pacer spikes. no STEMI, non-specific t abnormalities) Labs 05/04/23 15:16 05/04/23 15:16 Labs: Laboratory Results - last 24 hr 05/04/23 05/04/23 15:16 18:58 WBC 10.63 RBC 4.50 Hgb 13.3 Hct 42.4 MCV 94 MCH 29.6 MCHC 31.4 L RDW 13.4 Plt Count 255 MPV 9.4 Immature Gran % 0.3 Neutrophils % 77.1 Lymphocytes % 15.4 Monocytes % 5.7 Eosinophils % 0.7 Basophils % 0.8 Nucleated RBC % 0.0 Absolute Neutrophils 8.20 H Absolute Lymphocytes 1.64 Absolute Monocytes 0.61 Absolute Eosinophils 0.07 Absolute Basophils 0.08 PT 12.7 H INR 1.3 H APTT 27.3 Sodium 143 Potassium 4.6 Chloride 103 Carbon Dioxide 30.1 Anion Gap 9.9 BUN 32 H Creatinine 1.8 H Est GFR (CKD-EPI 2020) 29.02 Glucose 103 Calcium 9.3 Total Bilirubin 0.5 AST 19 ALT 24 Alkaline Phosphatase 83 Troponin I 72 H* 68 H* NT-Pro-B Natriuret Pep 4225 H Total Protein 8.1 Albumin 4.1 TSH 5.03 H Free T4 1.06 Last Vital Signs Temp 36.4 C L 05/04/23 15:09 Pulse 133 H 05/04/23 18:45 Resp 20 05/04/23 21:10 BP 94/73 L 05/04/23 18:45 Pulse Ox 94 05/04/23 21:10 Time Spent Time spent with Patient: >75 minutes Time was spent: preparing to see the patient(eg.review tests), obtaining and/or reviewing separately otained hiistory, ordering medications,tests, procedures, referring, communicating with other health manager medicare marketing, indepentently interpreting results and counseling the patient
[2023-05-04] MEDS: Metoprolol CR 50 MG TABCR PO (23:59)
[2023-05-04] MEDS: Gabapentin 300 MG CAP PO (23:59)
[2023-05-05] VITALS (84 sets, daily range): BP systolic 72–116; BP diastolic 42–99; PULSE 62–133; RESP 12–39; TEMP 36.2–36.8; O2SAT 89–100
[2023-05-05] MEDS: Amiodarone in Dextrose 360 MG/200 ML BAG 33.333 MG IV (00:14)
[2023-05-05] MEDS: Sacubitril/Valsartan 49 mg/51 mg TAB 0.5 EACH PO ×2 (00:24→19:54)
[2023-05-05] MEDS: Amiodarone in Dextrose 360 MG/200 ML BAG 16.667 MG IV ×2 (00:35→11:46)
[2023-05-05 01:00] LABS: Bilirubin Negative (Negative); Blood Trace-intact (Negative); Clarity Clear (Clear); Glucose 250 mg/dL (Negative); Ketones Negative (Negative); Leukocyte Esterase Negative (Negative); Nitrite Negative (Negative); Urobilinogen 0.2 mg/dL (Up to 0.2); pH 5.5 (5-8)
[2023-05-05 01:10] LABS: Bacteria Negative HPF (Negative); C & S Indicated? No; Casts Negative LPF (Negative); Crystals Negative HPF (Negative); Epithelial Cells Negative HPF (Negative); Mucus Negative (Negative); RBC 0-2 HPF (0-2); WBC Negative HPF (0-5)
[2023-05-05 05:55] LABS: Anion Gap 12.2 mmol/L (3-11); BUN 29 mg/dL (7-18); CO2 26.8 mmol/L (21.0-32.0); CREATININE 1.7 mg/dL (0.55-1.02); Calcium 8.9 mg/dL (8.5-10.1); Chloride 102 mmol/L (98-107); Estimated GFR 31.08 (mL/min/1.73m2); Glucose 116 mg/dL (74-106); Potassium 3.7 mmol/L (3.5-5.1); Sodium 141 mmol/L (136-145)
[2023-05-05] MEDS: Calcium 600mg/Vit D 200U TAB 1 TAB PO (08:08)
[2023-05-05] MEDS: Sertraline 25 MG TAB PO (08:09)
[2023-05-05] MEDS: Pantoprazole 40 MG TABCR PO (08:09)
[2023-05-05] MEDS: Cholecalciferol (Vitamin D3) 1,000 UNIT TAB 1000 UNITS PO (08:09)
[2023-05-05] MEDS: Ferrous Sulfate 325 MG TAB PO (08:09)
[2023-05-05] MEDS: Aspirin 81 MG CHEW PO (08:10)
[2023-05-05] MEDS: Ascorbic Acid 500 MG TAB PO (08:10)
[2023-05-05] MEDS: Normal Saline Flush 10 ML SYR IVP ×2 (08:11→20:36)
[2023-05-05] MEDS: Apixaban 5 MG TAB PO ×3 (08:12→19:53)
[2023-05-05] MEDS: Thiamine 100 MG TAB 200 MG PO (08:12)
--- NOTE | 2023-05-05 09:06 | INITIAL_ITS ---
Date of service: 05/05/23 Time of Service: 09:06 Care Management Initial Assmt Initial Assessment REASON FOR HOSPITALIZATION:: SVT PREVIOUS FUNCTIONAL STATUS/SOCIAL/FAMILY SUPPORTS:: Maira resides lives alone in [place], [place] Her daughter Lawanda resides locally, and is supportive. Maira is independent at baseline, but reports she has not driven in over a year because of cardiac issues. She reports having many friends and family members locally who take her shopping and to appointments. She reports enjoying reading and crossword puzzles, both of which she has in the room with her. CURRENT FUNCTIONAL STATUS:: Maira is sitting up on the side of her bed, eating lunch. She reports anticipating she will go [place] [facility] [place]. She is pleasant in interaction and forthcoming with information. ADVANCE DIRECTIVES:: On file. Lawanda Ortiz (daughter) HCA, Iris Grahamell (sister), alternate. Has patient been provided with info about the portal/API?: Yes Did the patient sign up for the portal?: Yes CODE STATUS:: Full Code INSURANCE COVERAGE / FINANCIAL ISSUES:: Medicare [employer] CURRENT HOME/COMMUNITY SERVICES/EQUIPMENT:: AICD, Life Alert. PRIMARY CARE PHYSICIAN:: Glendy Ye POTENTIAL DISCHARGE NEEDS:: Outpatient follow up. PATIENT/FAMILY EDUCATION NEEDS:: Review discharge instructions, discuss Ask Me Three. ANTICIPATED BARRIERS TO DISCHARGE:: None identified. TRANSPORTATION:: Via private vehicle with family. PLAN:: Anticipate Maira will return home when ready per MD; when heart rates are better controlled and she is returning to her previous functional status. She will have outpatient follow up with [facility] cardiology/[place]. She will need monitoring for amiodarone toxicity if she remains on the medicine post discharge, she will follow up with her PCP and plan of care as prescribed and transport via private vehicle with daughter, Lawanda. PFSH All Active Problems (Updated 05/06/23 @ 13:19 by Denita Pacheco MD) DVT prophylaxis (Acute) Muscle spasm (Acute) Discharge planning issues (Acute) Palpitation (Acute) SVT (supraventricular tachycardia) (Acute) Ventricular tachycardia (Chronic) Cardiac defibrillator in place (Acute) A-fib (Chronic) Combined forms of age-related cataract, right eye (Acute) [facility] [place] 01/10/2023 Cardiac resynchronization therapy defibrillator (FORGING ENGINEER-D) in place (Acute) Nonischemic cardiomyopathy (Acute) S/P aortic valve and mitral valve replacement (Chronic 08/04/14) 2014 [facility]: bovine prosthetic valves + MAZE; 10/2021 [facility]: repeat repair Subclinical hypothyroidism (Acute) Essential hypertension (Chronic) Hepatic steatosis (Acute) 05/2022 [place]; FIB-4 score = 2.74 (indeterminate) Hyperlipidemia (Acute 05/12/13) LDL 144 2012; Risk calculated 13.3% soft CV risk; CV risk 06/2014: 11.6% Elevated LFTs (Acute) Interstitial lung disease (Acute) Chronic kidney disease (Chronic) Anisocoria (Acute) Occipital stroke (Acute) Bilateral pleural effusion (Acute) Vascular dementia (Chronic) Right homonymous hemianopsia (Acute) Heart failure with reduced ejection fraction (Chronic) Mediastinal lymphadenopathy (Acute) Pulmonary nodule (Acute) Mild obstructive sleep apnea (Chronic 05/12/20) severe in REM sleep, significan nocturnal hypoxemia, sleep fragmentation and increased airway resistance flow pattern. 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 Chiang) following hospitalization for GI bleed (no afib during cardiac monitoring during hospitalization) Rheumatic heart disease Aortic regurgitation a. moderate by echo 12/2011 S/p repair Mitral regurgitation Rheumatic; s/p repair Surgical History Status post cataract extraction and insertion of intraocular lens of left eye (~01/09/23) [facility] [place] Pacemaker History of cardiac cath (09/28/21) History of toe surgery (~2003) Removal of bone chip History of section (~1976) Radiofrequency Maze Procedure (08/04/14) done at [facility] EGD - MAC (08/28/17) Colonoscopy - MAC (08/28/17) Biopsy of breast (~2008) Left breast [facility] S/P aortic valve and mitral valve replacement (~07/2014) 2014 [facility]: bovine prosthetic valves + MAZE; 10/2021 [facility]: repeat repair Family History Mother , Age 87, peritonitis Diabetes Essential hypertension Breast cancer Father , Age 45, colon cancer Colon cancer Sister Heart disease [place] at age 49 Brother Diabetes Colon cancer Brother No problems noted. Brother Heart disease CABG Other Family history of colon cancer Social History Smoking/Tobacco Use Status: Former Tobacco Use tobacco type: cigarettes Quit Date: 03/12/94 Smoking risk assessment performed?: Yes Alcohol Intake: former Drug use: Never Substance use type: does not use Counseling given: No Counseling provided: none Adopted: No Caregiver/Support person: No Foster care: No Household members: none Housing: house Number of Children: 1 number of grandchildren: 2 Communication Needs: None Education Level: high school Do you need help understanding health information?: Rarely current occupation: Retired Pets and animals: No Current gender identity: female What is your relationship status?: Panel score (0-1 are the most socially isolated patients): 0 What type of physical activity do you participate in: walking Duration: 60-90 minutes/day Frequency: daily Seatbelt use: always Helmet use: No Drive intox or ride w/intox auto transport driver: No Water heater temp set <120 deg: Yes Working smoke detector in home: No Fire extinguisher in home: No Carbon monox detector in home: No Firearms in home: No Do you feel safe at home: Yes Do you feel safe in your relationship?: Yes SDOH(Care Management) Screening Will the Patient Participate in the Screening?: Yes Do you worry about having a steady place to live?: no Problems where you live: no known problems In the past 12 months, have you had to go without electric, gas, oil or water in your home?: no Have you or anyone in your house had to go without enough food to eat?: no Has lack of transportation kept you from medical appointments or from doing things needed for daily living?: no Has anyone in your support network made you feel unsafe for any reason?: no
[2023-05-05] MEDS: Furosemide 40 MG TAB PO (10:12)
[2023-05-05] MEDS: Metoprolol CR 50 MG TABCR PO ×2 (10:13→20:34)
[2023-05-05 14:00] LABS: Magnesium 2.6 mg/dL (1.8-2.4)
[2023-05-05 14:29] LABS: Lab Add On Test DONE
--- NOTE | 2023-05-05 15:34 | PGE_ITS ---
Date of Service Date of service: 05/05/23 Time of Service: 13:10 Assessment and Plan Assessment and plan (1) SVT (supraventricular tachycardia): Status: Chronic Assessment and plan: Rates are now much better controlled. I agree that this was probably flutter. Continue amoidarone with plans to stop the drip at 1830 today and start oral amiodarone 400 BID. Continue monitoring in the ICU. Monitor lytes. Interrogate pacemaker. (2) Chronic kidney disease: Status: Chronic Assessment and plan: Cr is 1.7, which is her baseline. Continue to monitor. Qualifiers: Chronic kidney disease stage: stage 3 (moderate) Qualified Code(s): N18.3 - Chronic kidney disease, stage 3 (moderate) (3) Heart failure with reduced ejection fraction: Status: Chronic Assessment and plan: Euvolemic today. Received furosemide but not the spironolactone due to her soft BP. COntinue to monitor volume status. (4) A-fib: Status: Chronic Assessment and plan: Continue metoprolol, amiodarone, apixaban. (5) Subclinical hypothyroidism: Status: Acute Assessment and plan: Follow TFTs as outpatient as she is now on amiodarone. (6) Essential hypertension: Status: Chronic Assessment and plan: BPs remains in the 80s-90s systolic due to the patient's medications while she is actually asymptomatic. We did hold entresto and spironolactone today. Plan to resume these tomorrow BP permitting. (7) Muscle spasm: Status: Acute Assessment and plan: The patient was asked to notify us if it makes her feel uncomfortable. No evidence of hypokalemia or hypomagnesemia. This does not feel like an AICD firing, per patient. I did not see muscle spasms as a side effect of amiodarone on my research, but I will discuss this with pharmacy. (8) DVT prophylaxis: Status: Acute Assessment and plan: On therapeutic apixaban (9) Discharge planning issues: Status: Acute Assessment and plan: Full code ANticipate discharge home tomorrow. Until then, would keep in the ICU. Total Critical Care Time 30 minutes. Subjective Subjective Interval history since last seen: Ms Mcdermott states that she has been having twitching in the left side of her chest/abdomen. This is actually visible even through her clothes, per her visitor. It doesn't hurt, but it is concerning to Ms Baldemar. She otherwise denies dizziness, CP, SOB, n/v. Remains on the amiodarone drip. HR is now in the 80s. Exam Narrative Exam Narrative: General: a pleasant female who appears comfortable in bed, A&Ox3, on RA; I do not observe any of the twitches while I am in the room with her HEENT: EOMI, MMM Heart: RRR, no m/r/g Lungs: CTAB Abdomen: soft, nontender, nondistended Extremities: no edema BLEs Objective Last Vital Signs Temp 36.8 C 05/05/23 12:28 Pulse 85 05/05/23 14:13 Resp 21 05/05/23 14:13 BP 87/66 L 05/05/23 14:13 Pulse Ox 95 05/05/23 14:13 Laboratory Results - last 24 hr 05/04/23 05/04/23 05/05/23 15:16 18:58 00:51 WBC 10.63 RBC 4.50 Hgb 13.3 Hct 42.4 MCV 94 MCH 29.6 MCHC 31.4 L RDW 13.4 Plt Count 255 MPV 9.4 Immature Gran % 0.3 Neutrophils % 77.1 Lymphocytes % 15.4 Monocytes % 5.7 Eosinophils % 0.7 Basophils % 0.8 Nucleated RBC % 0.0 Absolute Neutrophils 8.20 H Absolute Lymphocytes 1.64 Absolute Monocytes 0.61 Absolute Eosinophils 0.07 Absolute Basophils 0.08 PT 12.7 H INR 1.3 H APTT 27.3 Sodium 143 Potassium 4.6 Chloride 103 Carbon Dioxide 30.1 Anion Gap 9.9 BUN 32 H Creatinine 1.8 H Est GFR (CKD-EPI 2020) 29.02 Glucose 103 Calcium 9.3 Magnesium Total Bilirubin 0.5 AST 19 ALT 24 Alkaline Phosphatase 83 Troponin I 72 H* 68 H* NT-Pro-B Natriuret Pep 4225 H Total Protein 8.1 Albumin 4.1 TSH 5.03 H Free T4 1.06 Urine Color Yellow Urine Clarity Clear Urine pH 5.5 Ur Specific [place] 1.020 Urine Protein Negative Urine Ketones Negative Urine Blood Trace-intact H Urine Nitrite Negative Urine Bilirubin Negative Urine Urobilinogen 0.2 Ur Leukocyte Esterase Negative Urine RBC 0-2 Urine WBC Negative Ur Epithelial Cells Negative Urine Crystals Negative Urine Bacteria Negative Urine Casts Negative Urine Mucus Negative Ur Culture Indicated? No Urine Glucose 250 H Add-On Test Request 05/05/23 05:25 WBC RBC Hgb Hct MCV MCH MCHC RDW Plt Count MPV Immature Gran % Neutrophils % Lymphocytes % Monocytes % Eosinophils % Basophils % Nucleated RBC % Absolute Neutrophils Absolute Lymphocytes Absolute Monocytes Absolute Eosinophils Absolute Basophils PT INR APTT Sodium 141 Potassium 3.7 Chloride 102 Carbon Dioxide 26.8 Anion Gap 12.2 H BUN 29 H Creatinine 1.7 H Est GFR (CKD-EPI 2020) 31.08 Glucose 116 H Calcium 8.9 Magnesium 2.6 H Total Bilirubin AST ALT Alkaline Phosphatase Troponin I NT-Pro-B Natriuret Pep Total Protein Albumin TSH Free T4 Urine Color Urine Clarity Urine pH Ur Specific [place] Urine Protein Urine Ketones Urine Blood Urine Nitrite Urine Bilirubin Urine Urobilinogen Ur Leukocyte Esterase Urine RBC Urine WBC Ur Epithelial Cells Urine Crystals Urine Bacteria Urine Casts Urine Mucus Ur Culture Indicated? Urine Glucose Add-On Test Request DONE Time Spent with Patient Time Spent with Patient: 35-49 minutes Time was spent: preparing to see the patient(eg.review tests), obtaining and/or reviewing separately otained hiistory, ordering medications,tests, procedures, referring, communicating with other health healthcare associate, indepentently interpreting results, counseling the patient and care coordination
--- NOTE | 2023-05-05 18:34 | NUR.NOTE ---
Received order to have pacemaker interrogation done. Call to Dr. Pacheco to let her know that it was done in the ED 05/04/23. She gave instructions to hold additional interrogation for now and she would assess in the morning if it still needed done.
[2023-05-05] MEDS: Gabapentin 300 MG CAP PO (19:53)
[2023-05-05] MEDS: Amiodarone 200 MG TAB 400 MG PO (19:57)
[2023-05-05] MEDS: Melatonin 3 MG TAB PO ×2 (21:57)
[2023-05-05] MEDS: Miconazole 2% Topical Powder 85 GM BTL (22:22)
--- NOTE | 2023-05-05 22:28 | NUR.NOTE ---
Nursing Note: Pt activated call light to alert nursing staff to sensation of palpitations. On assessment, visible muscle contractions of the L lower ribs and diaphragm became apparent. Twitching was significant enough to be apparent under clothing and blankets. Twitching appears to be in time with heart beat. Of note, pt has A-V pacer with AICD function in place. Twitching has been happening for past 36-48 hrs shortly after swallowing anything and continues for up to 30 min. This episode appeared to eventually resolve with reposition. Contractions are not painful and are not reflected in cardiac monitoring.
[2023-05-06] VITALS (60 sets, daily range): BP systolic 81–119; BP diastolic 53–89; PULSE 78–109; RESP 15–28; TEMP 36.4–36.8; O2SAT 89–96
--- NOTE | 2023-05-06 | DI.RAD_ITS ---
Exam(s) XR PORTABLE CHEST AP EXAM: XR PORTABLE CHEST AP CLINICAL HISTORY: misplaced AICD lead. TECHNIQUE: 2D digital imaging was performed. COMPARISON: CR XR CHEST 2V PA LATERAL from 04/02/2023 CR XR PORTABLE CHEST AP from 04/03/2023 CR XR PORTABLE CHEST AP from 05/04/2023 FINDINGS: Single AP portable view. Again noted are sternotomy wires and left subclavian pacemaker with lead tips in RA and right ventric le. Prosthetic cardiac valve again noted as is a clip device in left side of the heart. Heart size is upper normal. The mediastinum is not widened. Right lung is clear. There are mildly increased markings in the lingular segment of the left lung ad jacent to the left heart border, more so than previous. IMPRESSION: New mild increased markings in the lingular segment of the left lung, not previously evident on the m ost recent 3 chest radiographs. Right lung is clear. Cardiac findings as above. No pulmonary edema. No pleural effusions. DATA REPOSITORY: RADIATION DOSE DELIVERED:
[2023-05-06 06:11] LABS: Abs Immature Grans 0.03 10^3/uL (0.0-0.06); Absolute Eosinophil Count 0.11 10^3/uL (0.0-0.7); Absolute Lymphocyte Count 2.12 10^3/uL (1.2-3.4); Absolute Monocyte Count 0.62 10^3/uL (0.1-0.8); Absolute Neutrophil Count 6.19 10^3/uL (1.2-6.7); Basophils % 1.1; Eosinophils % 1.2; HCT 37.3 % (36.0-46.0); Immature Grans % 0.3; Lymphocytes % 23.1; MCHC 32.2 % (32.0-36.0); MCV 93 fL (80-95); MPV 9.7 fL (8.0-11.0); Monocytes % 6.8; Neutrophils % 67.5; Platelet Count 206 10^3/uL (130-400); RDW 13.3 % (11.7-14.6); RDW-SD 45.7 fL; WBC 9.17 10^3/uL (4.4-10.8)
[2023-05-06 06:33] LABS: Anion Gap 10.5 mmol/L (3-11); BUN 29 mg/dL (7-18); CO2 28.5 mmol/L (21.0-32.0); CREATININE 1.9 mg/dL (0.55-1.02); Calcium 9.1 mg/dL (8.5-10.1); Chloride 102 mmol/L (98-107); Glucose 105 mg/dL (74-106); Magnesium 2.5 mg/dL (1.8-2.4); Potassium 3.7 mmol/L (3.5-5.1); Sodium 141 mmol/L (136-145)
--- NOTE | 2023-05-06 08:30 | RT.EKG_ITS ---
APPROVED REPORT Exam: Resting ECG Reason for Exam: misplaced AICD lead Patient Location: I HR:80 bpm ECG Measurements Heart Rate 80 AXIS AR 174 P 82 QRSd 129 QRS -133 QT 467 T 61 QTc 539 Conclusion Sinus rhythm...normal P axis, V-rate 50- 99 Right bundle branch block...QRSd>120, terminal axis(90,270) Inferolateral infarct, age indeterminate...Q >30mS, T neg, inf-lat leads
[2023-05-06] MEDS: Amiodarone 200 MG TAB 400 MG PO ×2 (08:38→20:35)
[2023-05-06] MEDS: Apixaban 5 MG TAB PO ×2 (08:38→20:35)
[2023-05-06] MEDS: Spironolactone 25 MG TAB PO (08:39)
[2023-05-06] MEDS: Metoprolol CR 50 MG TABCR PO (08:40)
[2023-05-06] MEDS: Pantoprazole 40 MG TABCR PO (08:41)
[2023-05-06] MEDS: Gabapentin 300 MG CAP PO ×2 (08:42→20:35)
[2023-05-06] MEDS: Aspirin 81 MG CHEW PO (08:47)
[2023-05-06] MEDS: Calcium 600mg/Vit D 200U TAB 1 TAB PO (08:47)
[2023-05-06] MEDS: Cholecalciferol (Vitamin D3) 1,000 UNIT TAB 1000 UNITS PO (08:48)
[2023-05-06] MEDS: Sacubitril/Valsartan 49 mg/51 mg TAB 0.5 EACH PO ×2 (08:48→20:35)
[2023-05-06] MEDS: Sertraline 25 MG TAB PO (08:48)
[2023-05-06] MEDS: Thiamine 100 MG TAB 200 MG PO (08:48)
[2023-05-06] MEDS: Ascorbic Acid 500 MG TAB PO (08:48)
[2023-05-06] MEDS: Furosemide 40 MG TAB PO (08:55)
[2023-05-06] MEDS: Normal Saline Flush 10 ML SYR IVP ×2 (08:55→21:07)
[2023-05-06] MEDS: Empaglifozin 10 MG TAB PO (08:55)
--- NOTE | 2023-05-06 10:20 | DI.VRAD_ITS ---
PROCEDURE INFORMATION: Exam: XR Chest Exam date and time: 05/06/2023 9:09 AM Age: 77 years old Clinical indication: Other: Misplaced aicd lead TECHNIQUE: Imaging protocol: Radiologic exam of the chest. Views: 1 view. COMPARISON: CR XR PORTABLE CHEST AP 05/04/2023 3:39 PM FINDINGS: Tubes, catheters and devices: Implanted cardiac device again noted with leads stable in position. Lungs: Unremarkable. No consolidation. Pleural spaces: Unremarkable. No pleural effusion. No pneumothorax. Heart/Mediastinum: Cardiac silhouette normal. Valve replacements evident. Bones/joints: Median sternotomy wires. IMPRESSION: Implanted cardiac device again noted with leads stable in position. Dictated and Authenticated by: Denise Riojas MD. Ordering:JESI Barger MD
--- NOTE | 2023-05-06 11:27 | NUR.NOTE ---
Nursing Note: Patient states she has felt mild muscle contractions under left breast with drinking water, eating food and getting OOB so far today. No changes on die maker bench stamping noted during these activites are PVC's.
--- NOTE | 2023-05-06 12:30 | PHACLINREV_ITS ---
Pharmacy Admission Review Admission Clinical Review Admission Pharmacy Review: DVT prophylaxis (Acute) Muscle spasm (Acute) Discharge planning issues (Acute) Subclinical hypothyroidism (Acute) heparin Allergy (Severe, Verified 04/03/23 21:56) thrombocytopenia, anaphylaxis dofetilide Adverse Reaction (Severe, Verified 04/03/23 21:56) Prolonged QTc lisinopril Adverse Reaction (Verified 04/03/23 21:56) Cough Resuscitation Status Full Code Height 5 ft Weight 67.5 kg Pharmacy Admission Review Renal Dosing Renal Dosing: BUN 29 mg/dL (7-18) H 05/06/23 05:25 Creatinine 1.9 mg/dL (0.55-1.02) H 05/06/23 05:25 Medications needing adjustments: Reviewed (crcl ~21) List of meds needing interventions: current meds ok. monitor addition of new med s. Eliquis dosing is appropriate for age & wt Anticoagulation Anticoagulation: Hgb 12.0 g/dL (11.2-15.7) 05/06/23 05:25 Hct 37.3 % (36.0-46.0) 05/06/23 05:25 Plt Count 206 10^3/uL (130-400) 05/06/23 05:25 INR 1.3 (0.9-1.1) H 05/04/23 15:16 Creatinine 1.9 mg/dL (0.55-1.02) H 05/06/23 05:25 DVT Prophylaxis: Reviewed Medications: Apixaban Therapeutic Anticoagulation: Reviewed Medications: Apixaban (5 mg BID for Afib) Opiate Usage Evaluate Pain Scale/Pains Meds: N/A Relevant Labs Relevant Labs: Sodium 141 mmol/L (136-145) 05/06/23 05:25 Potassium 3.7 mmol/L (3.5-5.1) 05/06/23 05:25 Chloride 102 mmol/L (98-107) 05/06/23 05:25 Magnesium 2.5 mg/dL (1.8-2.4) H 05/06/23 05:25 Electrolytes, C-Reactive P, ESR: Reviewed DM Control DM Control: N/A Cardiac Review Cardiac Review: Troponin I 68 ng/L (< or =60) H* 05/04/23 18:58 NT-Pro-B Natriuret Pep 4225 pg/mL (<300) H 05/04/23 15:16 BP, HR, EF%: Reviewed List meds needing interventions: spironolactone and entresto held yesterday AM for hypotension. Amiodarone drip finished yesterday evening, transitioned to 400 mg PO BID. Pt has an AICD QTc Review QTc: Reviewed (QTc = 493 05/04/23, EKG from today pending) List meds needing interventions: Amiodarone can prolong QT but adjustments are not needed at this point (Of note pt has a listed adverse reaction to dofetilide for QT prolongation) IV to PO Switch IV Medications: Reviewed (amiodarone drip switched to PO. Does not have other IV meds ordered) Home Meds Home Med List reviewed: Reviewed Current Meds Current Medication Order Review: Reviewed
--- NOTE | 2023-05-06 13:10 | PGE_ITS ---
Date of Service Date of service: 05/06/23 Time of Service: 13:10 Assessment and Plan Assessment and plan (1) SVT (supraventricular tachycardia): Status: Acute Assessment and plan: Appears to have resolved. Atrial flutter was suspected. Rates are now in the 80s. She has been transition to amiodarone 400 p.o. BID yesterday. Given the issues with the AICD, keep in the ICU until it can be reprogrammed. Anticipate discharge home tomorrow Monitor lytes. (2) Muscle spasm: Status: Acute Assessment and plan: The concern is that this could be due to diaphragmatic contractions due to AICD activity. [employer] rep is supposed to be here between 3 and 4 PM today to rep rogram the AICD. (3) Chronic kidney disease: Status: Chronic Assessment and plan: Cr is 1.9 which is around her baseline Continue to monitor. Qualifiers: Chronic kidney disease stage: stage 3 (moderate) Qualified Code(s): N18.3 - Chronic kidney disease, stage 3 (moderate) (4) Heart failure with reduced ejection fraction: Status: Chronic Assessment and plan: Euvolemic today. Continue outpatient therapy Continue to monitor volume status. (5) A-fib: Status: Chronic Assessment and plan: Continue metoprolol, amiodarone, apixaban. (6) Subclinical hypothyroidism: Status: Acute Assessment and plan: Follow TFTs as outpatient as she is now on amiodarone. (7) Essential hypertension: Status: Chronic Assessment and plan: BPs remains in the 80s-90s systolic due to the patient's medications while she is actually asymptomatic. (8) DVT prophylaxis: Status: Acute Assessment and plan: On therapeutic apixaban (9) Discharge planning issues: Status: Acute Assessment and plan: Full code anticipate discharge home tomorrow. Keep in the ICU until the AICD is reprogrammed. Subjective Subjective Interval history since last seen: Ms. Mcdermott states that over the last 24 hours, the left upper quadrant abdominal contractions have intensified. They are to the point that you can see them even with the hospital gown on. They do not hurt. A concern was raised by nursing and the patient that the AICD might be causing these. This is especially intensified when she swallows or tries to walk. Her AICD was interrogated, and the case was discussed with [facility] cardiology. They do feel that it is possible that the patient is having diaphragmatic contractions due to AICD electrical activity. They recommend contacting [employer] rep to reprogram her AICD. According to nursing, the rep can be here between 3 and 4 PM today. No transfer is indicated for this as the leads appear to be in the proper location by chest x-ray. Exam Narrative Exam Narrative: General: a pleasant female who appears comfortable in bed, A&Ox3, on RA; today I do in fact observe the twitches after she swallows some pills with a drink of water. I am also shown a video on her phone of significantly more pronounced twitches. HEENT: EOMI, MMM Heart: RRR, no m/r/g Lungs: CTAB Abdomen: soft, nontender, nondistended Extremities: no edema BLEs Objective Last Vital Signs Temp 36.8 C 05/06/23 07:49 Pulse 79 05/06/23 11:01 Resp 20 05/06/23 11:01 BP 85/57 L 05/06/23 11:01 Pulse Ox 94 05/06/23 11:01 Laboratory Results - last 24 hr 05/05/23 05/06/23 05:25 05:25 WBC 9.17 RBC 4.00 Hgb 12.0 Hct 37.3 MCV 93 MCH 30.0 MCHC 32.2 RDW 13.3 Plt Count 206 MPV 9.7 Immature Gran % 0.3 Neutrophils % 67.5 Lymphocytes % 23.1 Monocytes % 6.8 Eosinophils % 1.2 Basophils % 1.1 Nucleated RBC % 0.0 Absolute Neutrophils 6.19 Absolute Lymphocytes 2.12 Absolute Monocytes 0.62 Absolute Eosinophils 0.11 Absolute Basophils 0.10 Sodium 141 Potassium 3.7 Chloride 102 Carbon Dioxide 28.5 Anion Gap 10.5 BUN 29 H Creatinine 1.9 H Est GFR (CKD-EPI 2020) 27.20 Glucose 105 Calcium 9.1 Magnesium 2.6 H 2.5 H Add-On Test Request DONE Objective Narrative Objective Narrative: CXR: New mild increased markings in the lingular segment of the left lung, not previously evident on the most recent 3 chest radiographs. Right lung is clear. Cardiac findings as above. No pulmonary edema. No pleural effusions. EKG: AV paced rhythm, sinus vs Aflutter, HR 80, RBBB, no acute ischemia. Time Spent with Patient Time Spent with Patient: 35-49 minutes Time was spent: preparing to see the patient(eg.review tests), obtaining and/or reviewing separately otained hiistory, ordering medications,tests, procedures, referring, communicating with other health care connector, indepentently interpreting results, counseling the patient and care coordination
[2023-05-06] MEDS: Potassium Chloride 20 MEQ TABCR 40 MEQ PO (13:16)
[2023-05-06] MEDS: Melatonin 3 MG TAB PO (22:11)
--- NOTE | 2023-05-06 22:16 | NUR.NOTE ---
Nursing Note: Pt placed on 1.5L O2 via NC for desat below 88 during sleep.
[2023-05-07] VITALS (15 sets, daily range): BP systolic 68–111; BP diastolic 54–72; PULSE 77–81; RESP 15–19; TEMP 36.4–36.6; O2SAT 90–98
[2023-05-07 06:35] LABS: Abs Immature Grans 0.03 10^3/uL (0.0-0.06); Absolute Basophil Count 0.07 10^3/uL (0.0-0.2); Absolute Eosinophil Count 0.13 10^3/uL (0.0-0.7); Absolute Lymphocyte Count 1.63 10^3/uL (1.2-3.4); Absolute Monocyte Count 0.53 10^3/uL (0.1-0.8); Basophils % 0.9; Eosinophils % 1.7; HCT 37.5 % (36.0-46.0); HGB 11.8 g/dL (11.2-15.7); Immature Grans % 0.4; Lymphocytes % 21.5; MCH 29.4 pg (27.0-33.0); MCHC 31.5 % (32.0-36.0); MCV 93 fL (80-95); MPV 9.8 fL (8.0-11.0); Neutrophils % 68.5; Platelet Count 205 10^3/uL (130-400); RBC 4.02 10^6/uL (3.93-5.22); RDW 13.2 % (11.7-14.6); WBC 7.59 10^3/uL (4.4-10.8)
[2023-05-07 06:52] LABS: Anion Gap 9.5 mmol/L (3-11); BUN 29 mg/dL (7-18); CO2 27.5 mmol/L (21.0-32.0); CREATININE 1.9 mg/dL (0.55-1.02); Calcium 8.9 mg/dL (8.5-10.1); Chloride 104 mmol/L (98-107); Glucose 110 mg/dL (74-106); Magnesium 2.5 mg/dL (1.8-2.4); Potassium 4.3 mmol/L (3.5-5.1); Sodium 141 mmol/L (136-145)
[2023-05-07] MEDS: Thiamine 100 MG TAB 200 MG PO (08:01)
[2023-05-07] MEDS: Calcium 600mg/Vit D 200U TAB 1 TAB PO (08:01)
[2023-05-07] MEDS: Amiodarone 200 MG TAB 400 MG PO (08:01)
[2023-05-07] MEDS: Aspirin 81 MG CHEW PO (08:01)
[2023-05-07] MEDS: Normal Saline Flush 10 ML SYR IVP (08:01)
[2023-05-07] MEDS: Empaglifozin 10 MG TAB PO (08:02)
[2023-05-07] MEDS: Gabapentin 300 MG CAP PO (08:02)
[2023-05-07] MEDS: Ascorbic Acid 500 MG TAB PO (08:02)
[2023-05-07] MEDS: Cholecalciferol (Vitamin D3) 1,000 UNIT TAB 1000 UNITS PO (08:02)
[2023-05-07] MEDS: Apixaban 5 MG TAB PO (08:02)
[2023-05-07] MEDS: Sacubitril/Valsartan 49 mg/51 mg TAB 0.5 EACH PO (08:02)
[2023-05-07] MEDS: Pantoprazole 40 MG TABCR PO (08:02)
[2023-05-07] MEDS: Spironolactone 25 MG TAB PO (08:02)
[2023-05-07] MEDS: Metoprolol CR 50 MG TABCR PO (08:03)
[2023-05-07] MEDS: Ferrous Sulfate 325 MG TAB PO (08:03)
[2023-05-07] MEDS: Furosemide 40 MG TAB PO (08:03)
[2023-05-07] MEDS: Sertraline 25 MG TAB PO (08:06)
--- NOTE | 2023-05-07 12:00 | W.PM.DS.N ---
Date of service: 05/07/23 Time of Service: 12:00 DS: Diagnosis Discharge Diagnosis (1) SVT (supraventricular tachycardia): Status: Acute (2) A-fib: Status: Chronic (3) Muscle spasm: Status: Acute (4) Chronic kidney disease: Status: Chronic (5) Heart failure with reduced ejection fraction: Status: Chronic (6) Subclinical hypothyroidism: Status: Acute (7) Essential hypertension: Status: Chronic (8) Discharge planning issues: Status: Acute Discharge Plan Disposition Patient Disposition: Home Condition: Improving Condition: Improving Discharge Details Reason For Visit: SVT Admit Date/Time: 05/04/23 19:42 Admit Provider: Ted Nguyen Attending Provider: Ted Nguyen Primary Care Provider: Glendy Ye [facility] Hospital Course: Maira RyanElvaYumiko is a 77-year-old female with a past history of hypertension, hypercholesterolemia, atrial fibrillation, chronically anticoagulated with Eliquis, nonischemic cardiomyopathy, bioprosthetic aortic valve and bioprosthetic mitral valve with subsequent revision in October 2021 secondary to bioprosthetic valve stenosis who was recently hospitalized at [facility] from 04/02/2023 for multiple firings of her AICD and was started on amiodarone. She was subsequently transferred to [facility] where her amiodarone was discontinued and her metoprolol was increased. The past week prior to admission she has had mild fatigue mild increased dyspnea but symptoms of palpitations without syncope she was found to have heart rates in the 140s. She was found to be PSVT [facility] cardiology was consulted by [facility] ED personnel they advised admission and reinitiation of amiodarone with a continuous amiodarone drip and transition over to oral amiodarone. Serial troponin levels were monitored were minimally elevated at 72 and subsequent level was 68. Electrolytes and renal function were monitored she was found to be stable with chronic renal insufficiency with a BUN 29 creatinine 1.9. TSH was mildly elevated at 5.0 but normal free T41.0. Patient subsequently complained of abdominal spasms. It was noted that she was having diaphragmatic spasms from her pacemaker. Pacemaker front desk representative was called and reprogrammed her pacer, however, this was done prior to my assumption of the patient's care and no copy of her current setting were saved to her chart. Patient was seen by Dr. Naidu, hr systems analyst, on the day of the patient's discharge and she agreed w/ current amiodarone treament of 400 mg po bid x 10 days then 200 mg daily thereafter. Patient has a follow up w/ EP cardiology at [facility] on June 06 and w/ Dr. Naidu on July 01. Echocardiogram was not performed this admisison as she had one done recently as 04/04/23 and she did not present w/ acute CHF findings. Last echo 04/04/23 demonstrates moderatel;y reduced LV function w/ LVEF 39%, mildly decreased RV function. Bioprosthetic AVR and MVR w/ no increased gradients across the AVR and no residual MR. Home Meds and New Rx's Prescriptions: New amiodarone 200 mg tablet 400 mg PO BID 60 Days Qty: 240 0RF Rx Instructions: 400 mg twice daily for 10 days then 200 mg daily after that No Action ascorbate calcium (vitamin C) 500 mg tablet 500 mg PO DAILY cholecalciferol (vitamin D3) 25 mcg (1,000 unit) capsule 25 mcg PO DAILY furosemide 40 mg tablet 40 mg PO DAILY Qty: 90 3RF spironolactone 25 mg tablet 25 mg PO DAILY Qty: 90 3RF apixaban 5 mg tablet 5 mg PO BID Qty: 180 3RF aspirin 81 mg tablet,chewable 81 mg PO DAILY thiamine HCl (vitamin B1) 100 mg tablet 200 mg PO DAILY calcium citrate-vitamin D3 200 mg-6.25 mcg (250 unit) tablet 1 tab PO DAILY melatonin 3 mg capsule 3 mg PO HS sennosides-docusate sodium [Senna with Docusate Sodium] 8.6-50 mg tablet 1 tab-cap PO BID PRN (Reason: constipation) polyethylene glycol 3350 4.25 gram powder in packet 4.25 g PO DAILY PRN (Reason: constipation) sertraline 25 mg tablet 25 mg PO DAILY Qty: 90 3RF ferrous sulfate 325 mg (65 mg iron) tablet 325 mg PO Q OTHER DAY Qty: 45 3RF Rx Instructions: Take with water or juice on an empty stomach pantoprazole 40 mg tablet,delayed release (DR/EC) See Rx Instructions .ROUTE .COMPLEX Qty: 90 3RF Dose Instruction: TAKE 1 TABLET ONCE DAILY IN THE MORNING AT LEAST 30 TO 60 MINUTES BEFORE FIRST MEAL OF THE DAY Rx Instructions: TAKE 1 TABLET ONCE DAILY IN THE MORNING AT LEAST 30 TO 60 MINUTES BEFORE FIRST MEAL OF THE DAY gabapentin 300 mg capsule See Rx Instructions .ROUTE .COMPLEX Qty: 180 1RF Dose Instruction: TAKE ONE CAPSULE BY MOUTH TWICE A DAY Rx Instructions: TAKE ONE CAPSULE BY MOUTH TWICE A DAY Entresto 49-51 mg tablet 0.5 tab PO BID metoprolol succinate 50 mg tablet extended release 24 hr 50 mg PO BID Jardiance 10 mg tablet 10 mg PO DAILY Patient Comments: TAKE ONE TABLET BY MOUTH EVERY DAY Discharge Instructions Instructions: Amiodarone (By mouth), Supraventricular Tachycardia (DC) Activity:: Activity as Tolerated Activity:: Activity as Tolerated Equipment/Supplies:: No Equipment Needed Diet:: Low Sodium DS: Summary Time Spent with Patient providing and/or coordinating discharge services: Greater than 30 minutes Specific discharge activities: Interview/exam of patient; review of discharge instructions, completion of prescriptions/discharge instructions; discussion w/ nursing and CM; documentation of hospital visit Status at Discharge Functional status at discharge: independent ambulation Overall status at discharge: patient is back to baseline Mental Status: mental status grossly normal Speech and Movement: speech and movement normal Mood: congruent mood Affect: normal affect Quality:SDOH Health Related Social Needs: Health related social needs details none per pt Exam Narrative Exam Narrative: Elderly white female sitting up in a chair no acute distress denies any chest pain pressure or palpitations. Lungs are clear to auscultation Heart is regular rhythm appears to be AV paced Abdomen soft nontender nondistended Extremities without peripheral cyanosis or edema Psych Mental Status: mental status grossly normal Speech and Movement: speech and movement normal Mood: congruent mood Affect: normal affect DS: Data Vitals/I&O Vitals and I&O: Vital Signs Temperature 36.4 C L 05/07/23 11:55 Temperature Source Tympanic 05/07/23 11:55 Pulse 77 05/07/23 09:01 Pulse 80 05/07/23 09:01 Respiratory Rate 18 05/07/23 09:01 Respiratory Effort Normal, Non-Labored 05/07/23 08:08 Respiratory Depth Normal 05/07/23 08:08 Respiratory Pattern Normal 05/07/23 08:08 Blood Pressure 88/62 L 05/07/23 09:01 Blood Pressure Mean 71 05/07/23 09:01 Blood Pressure Position Sitting 02/26/24 08:08 Pulse Oximetry 96 05/07/23 07:59 Oxygen Delivery Method Room Air 05/07/23 11:55 Oxygen Flow Rate 0 05/07/23 11:55 Pain Level 0 05/07/23 08:08 Comment Ambulation trial 05/06/23 20:27 Intake & Output 05/06/23 05/07/23 05/07/23 23:59 11:59 23:59 Intake Total 920 / 1120 1310 / 1310 Output Total 275 / 725 1400 / 1400 Balance 645 / 395 -90 / -90 Intake: IV Oral 910 / 1110 1310 / 1310 Output: Urine 275 / 725 1400 / 1400 Other: Urine Color Pale Yellow Yellow Urine Appearance Clear Clear Urine Odor None Voiding Methods Bedside Commode Data Completed and Pending Labs on day of discharge: Labs from last 24 hours 05/07/23 05:44 WBC 7.59 RBC 4.02 Hgb 11.8 Hct 37.5 MCV 93 MCH 29.4 MCHC 31.5 L RDW 13.2 Plt Count 205 MPV 9.8 Immature Gran % 0.4 Neutrophils % 68.5 Lymphocytes % 21.5 Monocytes % 7.0 Eosinophils % 1.7 Basophils % 0.9 Nucleated RBC % 0.0 Absolute Neutrophils 5.20 Absolute Lymphocytes 1.63 Absolute Monocytes 0.53 Absolute Eosinophils 0.13 Absolute Basophils 0.07 Sodium 141 Potassium 4.3 Chloride 104 Carbon Dioxide 27.5 Anion Gap 9.5 BUN 29 H Creatinine 1.9 H Est GFR (CKD-EPI 2020) 27.20 Glucose 110 H Calcium 8.9 Magnesium 2.5 H PFSH All Active Problems (Updated 05/07/23 @ 12:10 by Char Naidu MD) DVT prophylaxis (Acute) Muscle spasm (Acute) Discharge planning issues (Acute) Palpitation (Acute) SVT (supraventricular tachycardia) (Acute) Ventricular tachycardia (Chronic) Cardiac defibrillator in place (Acute) A-fib (Chronic) Combined forms of age-related cataract, right eye (Acute) [facility] Ophthalmology Note 01/10/2023 Cardiac resynchronization therapy defibrillator (ELEMENTARY ASSISTANT TEACHER-D) in place (Acute) Nonischemic cardiomyopathy (Acute) S/P aortic valve and mitral valve replacement (Chronic 08/04/14) [facility] bovine prosthetic valves + MAZE; 10/2021 [facility]: repeat repair Subclinical hypothyroidism (Acute) Essential hypertension (Chronic) Hepatic steatosis (Acute) 05/2022 [place]; FIB-4 score = 2.74 (indeterminate) Hyperlipidemia (Acute 05/12/13) LDL 144 2012; Risk calculated 13.3% soft CV risk; CV risk 06/2014: 11.6% Elevated LFTs (Acute) Interstitial lung disease (Acute) Chronic kidney disease (Chronic) Anisocoria (Acute) Occipital stroke (Acute) Bilateral pleural effusion (Acute) Vascular dementia (Chronic) Right homonymous hemianopsia (Acute) Heart failure with reduced ejection fraction (Chronic) Mediastinal lymphadenopathy (Acute) Pulmonary nodule (Acute) Mild obstructive sleep apnea (Chronic 05/12/20) severe in REM sleep, significan nocturnal hypoxemia, sleep fragmentation and increased airway resistance flow pattern. 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 Chiang) following hospitalization for GI bleed (no afib during cardiac monitoring during hospitalization) Rheumatic heart disease Aortic regurgitation a. moderate by echo 12/2011 S/p repair Mitral regurgitation Rheumatic; s/p repair Surgical History Status post cataract extraction and insertion of intraocular lens of left eye (~01/09/23) [facility] Ophthalmology Pacemaker History of cardiac cath (09/28/21) History of toe surgery (~2003) Removal of bone chip History of section (~1976) Radiofrequency Maze Procedure (08/04/14) done at [facility] EGD - MAC (08/28/17) Colonoscopy - MAC (08/28/17) Biopsy of breast (~2008) Left breast [facility] S/P aortic valve and mitral valve replacement (~07/2014) 2014 [facility]: bovine prosthetic valves + MAZE; 10/2021 [facility]: repeat repair Family History Mother , Age 87, peritonitis Diabetes Essential hypertension Breast cancer Father , Age 45, colon cancer Colon cancer Sister Heart disease [place] at age 49 Brother Diabetes Colon cancer Brother No problems noted. Brother Heart disease CABG Other Family history of colon cancer Social History Smoking/Tobacco Use Status: Former Tobacco Use tobacco type: cigarettes Quit Date: 03/12/94 Smoking risk assessment performed?: Yes Alcohol Intake: former Drug use: Never Substance use type: does not use Counseling given: No Counseling provided: none Adopted: No Caregiver/Support person: No Foster care: No Household members: none Housing: house Number of Children: 1 number of grandchildren: 2 Communication Needs: None Education Level: high school Do you need help understanding health information?: Rarely current occupation: Retired Pets and animals: No Current gender identity: female What is your relationship status?: Panel score (0-1 are the most socially isolated patients): 0 What type of physical activity do you participate in: walking Duration: 60-90 minutes/day Frequency: daily Seatbelt use: always Helmet use: No Drive intox or ride w/intox wedding transportation driver: No Water heater temp set <120 deg: Yes Working smoke detector in home: No Fire extinguisher in home: No Carbon monox detector in home: No Firearms in home: No Do you feel safe at home: Yes Do you feel safe in your relationship?: Yes Time Spent with Patient Time Spent with Patient: <45 minutes Time was spent: preparing to see the patient(eg.review tests), ordering medications,tests, procedures, referring, communicating with other health continuum of care manager (Discussion with Dr. Naidu), indepentently interpreting results, counseling the patient and care coordination
--- NOTE | 2023-05-07 12:07 | CCONE_ITS ---
Date of service: 05/07/23 Time of Service: 12:07 Assessment and Plan Assessment and plan (1) A-fib: Status: Chronic Assessment and plan: Patient currently is in predominantly a paced rhythm, occasionally with atrial sensing. I recommended she continue with amiodarone 400 mg twice a day for a week, 200 mg twice a day for 2 weeks then 200 mg daily. She has follow-up scheduled at [facility] with electrophysiology. she can also do downloads from home using her equipment She is chronically anticoagulated with Eliquis Qualifiers: Atrial fibrillation type: paroxysmal Qualified Code(s): I48.0 - Paroxysmal atrial fibrillation (2) S/P aortic valve and mitral valve replacement: Status: Chronic (3) Cardiac resynchronization therapy defibrillator (TRAFFIC ENUMERATOR-D) in place: Status: Acute Assessment and plan: Device was interrogated and reprogrammed yesterday. She can do remote downloads to as instructed (4) Cardiac defibrillator in place: Status: Acute History of Present Illness Narrative: This is a 77-year-old woman with a longstanding and significant cardiac history which includes left ventricular dysfunction, aortic mitral valve replacement, paroxysmal atrial fibrillation, nonsustained ventricular tachycardia and an implanted defibrillator. Patient was seen again in March with ICD discharges that were felt to be due to supraventricular tachycardia. She was initially and briefly treated with amiodarone, transferred to [facility] where her beta-sanjay was adjusted. Amiodarone was discontinued and she was discharged. She presented here to the hospital with heart rates of 140 and relative blood pressure reduction. She was felt to have paroxysmal atrial fibrillation, was restarted on amiodarone and has improved. Over the weekend she required reprogramming of her Medtronic device due to diaphragmatic pacing. That issue has resolved. Currently she feels well. It appears cardiac evaluation was requested due to 2 brief episodes of nonsustained ventricular tachycardia seen while being monitored in ICU. These were asymptomatic Review of Systems Cardiovascular Cardiovascular: Reports as per HPI and Reports system reviewed and no additional complaints, except as documented PFSH All Active Problems (Updated 05/07/23 @ 12:10 by Char Naidu MD) DVT prophylaxis (Acute) Muscle spasm (Acute) Discharge planning issues (Acute) Palpitation (Acute) SVT (supraventricular tachycardia) (Acute) Ventricular tachycardia (Chronic) Cardiac defibrillator in place (Acute) A-fib (Chronic) Combined forms of age-related cataract, right eye (Acute) [facility] Ophthalmology Note 01/10/2023 Cardiac resynchronization therapy defibrillator (TRAFFIC ENUMERATOR-D) in place (Acute) Nonischemic cardiomyopathy (Acute) S/P aortic valve and mitral valve replacement (Chronic 08/04/14) 2014 [facility]: bovine prosthetic valves + MAZE; 10/2021 [facility]: repeat repair Subclinical hypothyroidism (Acute) Essential hypertension (Chronic) Hepatic steatosis (Acute) 05/2022 [place]; FIB-4 score = 2.74 (indeterminate) Hyperlipidemia (Acute 05/12/13) LDL 144 2012; Risk calculated 13.3% soft CV risk; CV risk 06/2014: 11.6% Elevated LFTs (Acute) Interstitial lung disease (Acute) Chronic kidney disease (Chronic) Anisocoria (Acute) Occipital stroke (Acute) Bilateral pleural effusion (Acute) Vascular dementia (Chronic) Right homonymous hemianopsia (Acute) Heart failure with reduced ejection fraction (Chronic) Mediastinal lymphadenopathy (Acute) Pulmonary nodule (Acute) Mild obstructive sleep apnea (Chronic 05/12/20) severe in REM sleep, significan nocturnal hypoxemia, sleep fragmentation and increased airway resistance flow pattern. 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 Chiang) following hospitalization for GI bleed (no afib during cardiac monitoring during hospitalization) Rheumatic heart disease Aortic regurgitation a. moderate by echo 12/2011 S/p repair Mitral regurgitation Rheumatic; s/p repair Surgical History Status post cataract extraction and insertion of intraocular lens of left eye (~01/09/23) [facility] Ophthalmology Pacemaker History of cardiac cath (09/28/21) History of toe surgery (~2003) Removal of bone chip History of section (~1976) Radiofrequency Maze Procedure (08/04/14) done at [facility] EGD - MAC (08/28/17) Colonoscopy - MAC (08/28/17) Biopsy of breast (~2008) Left breast [facility] S/P aortic valve and mitral valve replacement (~07/2014) 2014 [facility]: bovine prosthetic valves + MAZE; 10/2021 [facility]: repeat repair Family History Mother , Age 87, peritonitis Diabetes Essential hypertension Breast cancer Father , Age 45, colon cancer Colon cancer Sister Heart disease [place] at age 49 Brother Diabetes Colon cancer Brother No problems noted. Brother Heart disease CABG Other Family history of colon cancer Social History Smoking/Tobacco Use Status: Former Tobacco Use tobacco type: cigarettes Quit Date: 03/12/94 Smoking risk assessment performed?: Yes Alcohol Intake: former Drug use: Never Substance use type: does not use Counseling given: No Counseling provided: none Adopted: No Caregiver/Support person: No Foster care: No Household members: none Housing: house Number of Children: 1 number of grandchildren: 2 Communication Needs: None Education Level: high school Do you need help understanding health information?: Rarely current occupation: Retired Pets and animals: No Current gender identity: female What is your relationship status?: Panel score (0-1 are the most socially isolated patients): 0 What type of physical activity do you participate in: walking Duration: 60-90 minutes/day Frequency: daily Seatbelt use: always Helmet use: No Drive intox or ride w/intox trolley coach driver: No Water heater temp set <120 deg: Yes Working smoke detector in home: No Fire extinguisher in home: No Carbon monox detector in home: No Firearms in home: No Do you feel safe at home: Yes Do you feel safe in your relationship?: Yes Exam Const Other: Well-developed well-nourished sitting in chair no acute distress Neck Other: Neck veins are flat carotid pulsations are normal there are no bruits Resp Auscultation: clear to auscultation bilaterally Cardio Other: Heart is regular there is a brief systolic ejection quality murmur S2 is paradoxic Extrem Other: No significant edema Results Last Vital Signs Temp 36.4 C L 05/07/23 11:55 Pulse 77 05/07/23 09:01 Resp 18 05/07/23 09:01 BP 88/62 L 05/07/23 09:01 Pulse Ox 96 05/07/23 07:59 Labs 05/07/23 05:44 05/07/23 05:44 Labs: Laboratory Results - last 24 hr 05/07/23 05:44 WBC 7.59 RBC 4.02 Hgb 11.8 Hct 37.5 MCV 93 MCH 29.4 MCHC 31.5 L RDW 13.2 Plt Count 205 MPV 9.8 Immature Gran % 0.4 Neutrophils % 68.5 Lymphocytes % 21.5 Monocytes % 7.0 Eosinophils % 1.7 Basophils % 0.9 Nucleated RBC % 0.0 Absolute Neutrophils 5.20 Absolute Lymphocytes 1.63 Absolute Monocytes 0.53 Absolute Eosinophils 0.13 Absolute Basophils 0.07 Sodium 141 Potassium 4.3 Chloride 104 Carbon Dioxide 27.5 Anion Gap 9.5 BUN 29 H Creatinine 1.9 H Est GFR (CKD-EPI 2020) 27.20 Glucose 110 H Calcium 8.9 Magnesium 2.5 H
--- NOTE | 2023-05-07 15:56 | PDOC.CMDIS ---
Date of service: 05/07/23 Time of Service: 15:56 LACE Index Scoring Tool Questions: Length of Stay (in days): 2 Was the patient admitted via the E.D.?: Yes Comorbidities: Congestive Heart Failure, Dementia and Liver or Renal Disease E.D. Visits: 3 Answers: Total Score: 13 Risk of Readmission: High Risk Care Management Discharge Plan Reason for Hospitalization: SVT Discharge Plan: Maira will return home when ready per MD with outpatient follow up with [facility] cardiology/EP. She will follow up with her PCP and plan of care as prescribed and transport via private vehicle with daughterLawanda. Patient/Family Education Needs: Review discharge instructions, discuss Ask Me Three. SDOH Health Related Social Needs: Health related social needs details none per pt
== END 2023-05-07 13:45 | disposition home or self-care (01) | DRG 309 ==
LOC: ER 20:41 → ICU 22:32
PROVIDERS: Internal Medicine; Admitting Provider Family Medicine; Emergency Provider Student in an Organized Health Care Education/Training Program; PCP Nurse Practitioner; Visit Provider Family Medicine
DX: I47.10 Supraventricular tachycardia, unspecified (principal); I13.0 Hypertensive heart and chronic kidney disease with heart failure and stage 1 through stage 4 chronic kidney disease, or unspecified chronic kidney disease; I50.20 Unspecified systolic (congestive) heart failure; I42.8 Other cardiomyopathies; J84.9 Interstitial pulmonary disease, unspecified; T82.897A Other specified complication of cardiac prosthetic devices, implants and grafts, initial encounter; Z95.810 Presence of automatic (implantable) cardiac defibrillator; N18.30 Chronic kidney disease, stage 3 unspecified; I48.20 Chronic atrial fibrillation, unspecified; Z79.899 Other long term (current) drug therapy; Z79.01 Long term (current) use of anticoagulants; Z95.3 Presence of xenogenic heart valve; I47.20 Ventricular tachycardia, unspecified; E03.9 Hypothyroidism, unspecified; K76.0 Fatty (change of) liver, not elsewhere classified; E78.5 Hyperlipidemia, unspecified; Z86.73 Personal history of transient ischemic attack (TIA), and cerebral infarction without residual deficits; F01.50 Vascular dementia, unspecified severity, without behavioral disturbance, psychotic disturbance, mood disturbance, and anxiety; G47.33 Obstructive sleep apnea (adult) (pediatric); G25.81 Restless legs syndrome; I27.20 Pulmonary hypertension, unspecified; I44.7 Left bundle-branch block, unspecified; M85.80 Other specified disorders of bone density and structure, unspecified site; R73.01 Impaired fasting glucose; I25.2 Old myocardial infarction; Z87.891 Personal history of nicotine dependence; Z87.11 Personal history of peptic ulcer disease; M62.838 Other muscle spasm; I48.92 Unspecified atrial flutter; Y71.1 Therapeutic (nonsurgical) and rehabilitative cardiovascular devices associated with adverse incidents
CPT/HCPCS: 00123; 36415; 80048; 80053; 93005; 93308; 96374; 99222; 99291; 71045; 81003; 81015; 83735; 83880; 84439; 84443; 84484; 85025; 85610; 85730; 93010; 99232; 99238; J0282; J0283

== ENCOUNTER → 2023-05-07 10:19 | Outpatient (BNVA) | payer MEDICARE, OTHER, SELFPAY | PROVIDERS: PCP Nurse Practitioner; Referring Provider Nurse Practitioner; Visit Provider Internal Medicine Cardiovascular Disease ==

== ENCOUNTER 2023-07-02 08:29 | Outpatient (CLI) | payer MEDICARE, OTHER, SELFPAY ==
--- NOTE | 2023-07-02 08:15 | RT.EKG_ITS ---
APPROVED REPORT Exam: Resting ECG Reason for Exam: afib Patient Location: O HR:84 bpm ECG Measurements Heart Rate 84 AXIS KS 178 P 16 QRSd 108 QRS 30 QT 436 T 241 QTc 516 Conclusion A-V dual-paced complexes w/ some inhibition...other complexes also detected No further analysis attempted due to paced rhythm
== END 2023-07-02 08:30 | disposition home or self-care (01) ==
LOC: DI.CARD 08:30
PROVIDERS: PCP Nurse Practitioner; Visit Provider Internal Medicine Cardiovascular Disease
DX: I44.7 Left bundle-branch block, unspecified (principal); Z95.810 Presence of automatic (implantable) cardiac defibrillator; I48.0 Paroxysmal atrial fibrillation
CPT/HCPCS: 93010

== ENCOUNTER → 2023-07-02 09:20 | Outpatient (BNVA) | payer MEDICARE, OTHER, SELFPAY | PROVIDERS: PCP Nurse Practitioner; Visit Provider Internal Medicine Cardiovascular Disease | DX: Z95.810 Presence of automatic (implantable) cardiac defibrillator (principal); Z95.2 Presence of prosthetic heart valve; I42.8 Other cardiomyopathies; I44.7 Left bundle-branch block, unspecified; I48.0 Paroxysmal atrial fibrillation | CPT/HCPCS: 93005; 99213 ==

== ENCOUNTER 2023-07-10 15:49 | Emergency (ER) | payer MEDICARE, OTHER, SELFPAY ==
[2023-07-10] VITALS (11 sets, daily range): BP systolic 119–137; BP diastolic 70–86; PULSE 79–84; RESP 11–20; TEMP 36.5; O2SAT 100
--- NOTE | 2023-07-10 16:00 | DI.RAD_ITS ---
Exam(s) XR KNEE RT 4V AP,LAT,JORGE,PAT EXAM: XR KNEE RT 4V AP,LAT,JORGE,PAT CLINICAL HISTORY: kneecap injury, bruising, fall. TECHNIQUE: 2D digital imaging was performed. COMPARISON: No exams were available for comparison FINDINGS: Four views. No evidence of acute fracture or joint effusion. Medial and lateral compartments appear unremarkable . Some degenerative changes noted in the lateral aspect of the patellofemoral compartment related to bony excrescence off the anterior aspect of the lateral femoral condyle. IMPRESSION: No fractures. No joint effusion. Patellofemoral compartment finding as above. DATA REPOSITORY: RADIATION DOSE DELIVERED:
--- NOTE | 2023-07-10 16:00 | DI.RAD_ITS ---
Exam(s) XR HIP LT AP LAT ONLY EXAM: XR HIP LT AP LAT ONLY CLINICAL HISTORY: L hip pain. TECHNIQUE: 2D digital imaging was performed. COMPARISON: No exams were available for comparison FINDINGS: Two views. No evidence of hip fracture or dislocation. No hip joint space narrowing. Mild degenerative changes noted. No osseous lesions. IMPRESSION: Mild degenerative change. No fractures. DATA REPOSITORY: RADIATION DOSE DELIVERED:
--- NOTE | 2023-07-10 16:02 | W.ED.GENAD ---
Discharge Plan Disposition Patient Disposition: Home Condition: Stable Discharge Details Clinical Impression: Sprain of left hip, Contusion of right knee Primary Care Provider: Glendy Ye ED Provider: Coy Alvarez Home Meds and New Rx's Prescriptions: Continued ascorbate calcium (vitamin C) 500 mg tablet 500 mg PO DAILY cholecalciferol (vitamin D3) 25 mcg (1,000 unit) capsule 25 mcg PO DAILY furosemide 40 mg tablet 40 mg PO DAILY Qty: 90 3RF spironolactone 25 mg tablet 25 mg PO DAILY Qty: 90 3RF apixaban 5 mg tablet 5 mg PO BID Qty: 180 3RF aspirin 81 mg tablet,chewable 81 mg PO DAILY thiamine HCl (vitamin B1) 100 mg tablet 200 mg PO DAILY calcium citrate-vitamin D3 200 mg-6.25 mcg (250 unit) tablet 1 tab PO DAILY melatonin 3 mg capsule 3 mg PO HS sertraline 25 mg tablet 25 mg PO DAILY Qty: 90 3RF ferrous sulfate 325 mg (65 mg iron) tablet 325 mg PO Q OTHER DAY Qty: 45 3RF Rx Instructions: Take with water or juice on an empty stomach pantoprazole 40 mg tablet,delayed release (DR/EC) See Rx Instructions .ROUTE .COMPLEX Qty: 90 3RF Dose Instruction: TAKE 1 TABLET ONCE DAILY IN THE MORNING AT LEAST 30 TO 60 MINUTES BEFORE FIRST MEAL OF THE DAY Rx Instructions: TAKE 1 TABLET ONCE DAILY IN THE MORNING AT LEAST 30 TO 60 MINUTES BEFORE FIRST MEAL OF THE DAY gabapentin 300 mg capsule See Rx Instructions .ROUTE .COMPLEX Qty: 180 1RF Dose Instruction: TAKE ONE CAPSULE BY MOUTH TWICE A DAY Rx Instructions: TAKE ONE CAPSULE BY MOUTH TWICE A DAY Entresto 49-51 mg tablet 0.5 tab PO BID metoprolol succinate 50 mg tablet extended release 24 hr 50 mg PO BID amiodarone 200 mg tablet 200 mg PO DAILY Jardiance 10 mg tablet 10 mg PO DAILY Patient Comments: TAKE ONE TABLET BY MOUTH EVERY DAY Discharge Instructions Instructions: Contusion in Adults (ED), Hip Sprain (ED) Additional Instructions: You were seen in the emergency department for the contusion and minor abrasion on your right knee as well as a sprain of your left hip, you suffered a minor fall on Sunday. You are able to ambulate, there is no fracture seen on x-ray. Please rest, ice the areas of pain, take Tylenol and ibuprofen as needed for pain. Follow-up with orthopedics for pain persisting past 2 weeks, return to the emergency room at once for any signs of neurovascular compromise like inability to ambulate, complete numbness to either leg, severe worsening of pain or redness to the joint. Referrals: [facility] [Provider Group] Glendy Ye NP [Primary Care Provider] - Discharge Data Discharge Date/Time-TO BE ENTERED AT DEPARTURE: 07/10/23 17:38 HPI General Date/Time Provider Initiated Documentation: 07/10/23 16:02. HPI Narrative: 77 year-old female presents to ED today by POV/ambulating with a chief complaint of fall on Sunday (3 days ago), while shopping for plants. Quality described as R knee abrasion/contusion, and L hip pain, no radiation to inability to walk/weight-bear, numbness/tingling, purulence around the R knee abrasion. Severity is described as 1/10 for L hip, 3/10 for R knee. Palliating factors include nothing specific needed. Provoking factors include nothing specific. Patient not anticoagulated. Related Data Home Medications Medication Instructions Recorded Confirmed ascorbate calcium (vitamin C) 500 500 mg PO DAILY 07/31/19 07/10/23 mg tablet aspirin 81 mg chewable tablet 81 mg PO DAILY 12/07/21 07/10/23 calcium citrate 200 mg 1 tab PO DAILY 12/07/21 07/10/23 calcium-vitamin D3 6.25 mcg (250 unit) tablet melatonin 3 mg capsule 3 mg PO HS 12/07/21 07/10/23 thiamine HCl (vitamin B1) 100 mg 200 mg PO DAILY 12/07/21 07/10/23 tablet apixaban 5 mg tablet 5 mg PO BID #180 tabs 08/02/22 07/10/23 sertraline 25 mg tablet 25 mg PO DAILY #90 tab-caps 08/24/22 07/10/23 ferrous sulfate 325 mg (65 mg 325 mg PO Q OTHER DAY #45 tab-caps 09/06/22 07/10/23 iron) tablet pantoprazole 40 mg tablet,delayed See Rx Instructions .Route 09/06/22 07/10/23 release .COMPLEX #90 tabs cholecalciferol (vitamin D3) 25 25 mcg PO DAILY 01/01/23 07/10/23 mcg (1,000 unit) capsule furosemide 40 mg tablet 40 mg PO DAILY #90 tabs 01/01/23 07/10/23 spironolactone 25 mg tablet 25 mg PO DAILY #90 tabs 01/01/23 07/10/23 empagliflozin 10 mg tablet 10 mg PO DAILY 04/02/23 07/10/23 (Jardiance) gabapentin 300 mg capsule See Rx Instructions .Route 04/02/23 07/10/23 .COMPLEX #180 caps metoprolol succinate 50 mg 50 mg PO BID 04/10/23 07/10/23 tablet,extended release 24 hr sacubitril 49 mg-valsartan 51 mg 0.5 tab PO BID 04/10/23 07/10/23 tablet (Entresto) amiodarone 200 mg tablet 200 mg PO DAILY 06/08/23 07/10/23 Previous Rx's Medication Instructions Recorded apixaban 5 mg tablet 5 mg PO BID #180 tabs 08/02/22 sertraline 25 mg tablet 25 mg PO DAILY #90 tab-caps 08/24/22 ferrous sulfate 325 mg (65 mg 325 mg PO Q OTHER DAY #45 tab-caps 09/06/22 iron) tablet pantoprazole 40 mg tablet,delayed See Rx Instructions .Route 09/06/22 release .COMPLEX #90 tabs furosemide 40 mg tablet 40 mg PO DAILY #90 tabs 01/01/23 spironolactone 25 mg tablet 25 mg PO DAILY #90 tabs 01/01/23 gabapentin 300 mg capsule See Rx Instructions .Route 04/02/23 .COMPLEX #180 caps Allergies Allergy/AdvReac Type Severity Reaction Status Date / Time heparin Allergy Severe thrombocytopenia, Verified 07/02/23 09:50 anaphylaxis dofetilide AdvReac Severe Prolonged Verified 07/02/23 09:50 QTc lisinopril AdvReac Cough Verified 07/02/23 09:50 General Stated Complaint: Orthopedic MARIS: 3 Review of Systems All systems reviewed & are unremarkable except as noted in HPI and below Exam Narrative Exam Narrative: GENERAL APPEARANCE: Well-nourished, non-toxic, awake and alert, atraumatic, no acute distress. SKIN: Warm, pink, dry, minor contusion/abrasion to inferior R knee, no active drainage/bleeding, scabbing over, mild ecchymosis. HEAD: Normocephalic, atraumatic, normal hair distribution for gender/age. EYES: Pupils PERRLA, EOMs intact without nystagmus, normal conjunctiva, no exudates on lids/lashes. ENT: Nares patent, no circumoral cyanosis, no facial swelling NECK: Supple, trachea midline, painless cervical ROM. LUNGS/CHEST: Lungs CTA bilaterally, non-labored respirations, normal A/P diameter, symmetrical expansion, no chest wall deformity HEART (CV/PV): Regular rate and rhythm without murmur, no peripheral edema, no JVD. ABDOMEN: Soft, non-distended, no guarding. MSK: Normal ROM, no swelling/deformity to bilateral UEs or LEs, moving all extremities without weakness, no cyanosis, spine midline without tenderness, normal curvature. R Knee: No crepitus to the right knee, no ligamentous laxity with varus valgus forces, no laxity with anterior drawer, Jairon negative L Hip: Mild tenderness to the left hip joint around the area of the acetabulum, no ischial crest tenderness, femur stable, no ecchymosis, no crepitus, able to straight leg raise with no strength or range of motion deficits NEURO: Mental Status AAOx4 - alert to person, place, time, events No facial droop, no forehead involvement. Motor: No focal weakness - strength 5/5 in bilateral UEs and LEs, proximal and distal, symmetric. Sensory: sensation intact to light touch globally. Gait normal: patient ambulated without ataxia into ED room. PSYCH: euthymic, cooperative, pleasant, appropriate speech Course Vital Signs Vital signs: Vital Signs Temperature 36.5 C 07/10/23 15:53 Pulse 82 07/10/23 15:53 Respiratory Rate 15 07/10/23 15:53 Blood Pressure 119/86 07/10/23 15:53 Pulse Oximetry 100 07/10/23 15:53 Temperature 36.5 C 07/10/23 15:53 Temperature Source Tympanic 07/10/23 15:53 Pulse 82 07/10/23 15:53 Respiratory Rate 15 07/10/23 15:53 Blood Pressure 119/86 07/10/23 15:53 Blood Pressure Position Sitting 07/10/23 15:53 Pulse Oximetry 100 07/10/23 15:53 Oxygen Delivery Method Room Air 04/30/24 15:53 Oxygen Flow Rate 0 07/10/23 15:53 Pain Level 1 07/10/23 15:53 Medical Decision Making This dictation utilizes [id number]-[id number] dictation software and may contain unedited grammatical errors. 77 y/o F presents to ED today with a chief complaint of minor fall while shopping for plants on Sunday, has minor abrasion and contusion below the R knee and having mild L hip pain, rated between 1-3/10 here for fracture check. Patient denies purulent drainage from abrasion, no fevers, no red streaking up the leg. Patients' medical history: History of CVA, history of NSTEMI, atrial fibrillation, pacemaker, hypertension, interstitial lung disease, chronic kidney disease, posterior stroke, CHF. Family and social history: noncontributory. Pertinent exam findings / vital signs include R Knee: No crepitus to the right knee, no ligamentous laxity with varus valgus forces, no laxity with anterior drawer, Jairon negative L Hip: Mild tenderness to the left hip joint around the area of the acetabulum, no ischial crest tenderness, femur stable, no ecchymosis, no crepitus, able to straight leg raise with no strength or range of motion deficits. Differential / pathologies of concern include fracture, contusion, cellulitis, abrasion, sprain/strain. Diagnostic studies of: -XR R Knee, XR L Hip. -no acute fractures seen Interventions of: -simple bandage on R knee contusion/abrasion. ED Course/Assessment/Plan: 77-year-old female was shopping for plants on Sunday, approximately 5 days ago had a minor fall with some right knee swelling and an abrasion as well as left hip pain, is able to ambulate, rates the pain very mild. Counseled on no acute fractures on x-rays, provided simple bandage for the patient's abrasion and recommended follow-up with orthopedics for any persistent hip pain. Recommend Tylenol and ibuprofen, return criteria for inability to ambulate, signs of infection like redness, warmth, fever, red streaking up the leg. Findings not consistent with fracture, neurovascular compromise, cellulitis. Disposition of Contusion of Right Knee, Sprain of Left Hip. Patient verbalized understanding of the plan and return to ED criteria and engaged in shared decision making. Medical Records Medical records reviewed: Yes I reviewed the patient's medical records. Imaging Data Radiologic Study: Attestation: I personally reviewed and interpreted this imaging study as follows: Imaging: X-Ray Radiologist's impression: EXAM: XR KNEE RT 4V AP,LAT,JORGE,PAT CLINICAL HISTORY: kneecap injury, bruising, fall. TECHNIQUE: 2D digital imaging was performed. COMPARISON: No exams were available for comparison FINDINGS: Four views. No evidence of acute fracture or joint effusion. Medial and lateral compartments appear unremarkable. Some degenerative changes noted in the lateral aspect of the patellofemoral compartment related to bony excrescence off the anterior aspect of the lateral femoral condyle. IMPRESSION: No fractures. No joint effusion. Patellofemoral compartment finding as above. Radiologic Study #2: Attestation: I personally reviewed and interpreted this imaging study as follows: Imaging: X-Ray Radiologist's impression: EXAM: XR HIP LT AP LAT ONLY CLINICAL HISTORY: L hip pain. TECHNIQUE: 2D digital imaging was performed. COMPARISON: No exams were available for comparison FINDINGS: Two views. No evidence of hip fracture or dislocation. No hip joint space narrowing. Mild degenerative changes noted. No osseous lesions. IMPRESSION: Mild degenerative change. No fractures. Quality:SDOH Health Related Social Needs: Health related social needs details none per pt PFSH All Active Problems (Updated 07/10/23 @ 17:22 by TAVIA Razo) Contusion of right knee (Acute) Sprain of left hip (Acute) SVT (supraventricular tachycardia) (Acute) Ventricular tachycardia (Chronic) Cardiac defibrillator in place (Acute) A-fib (Chronic) Combined forms of age-related cataract, right eye (Acute) [facility] [place] Ophthalmology Note 01/10/2023 Cardiac resynchronization therapy defibrillator (FLAKE DRIER-D) in place (Acute) Nonischemic cardiomyopathy (Acute) S/P aortic valve and mitral valve replacement (Chronic 08/04/14) 2014 [facility]: bovine prosthetic valves + MAZE; 10/2021 [facility] [place]: repeat repair Subclinical hypothyroidism (Acute) Essential hypertension (Chronic) Hepatic steatosis (Acute) 05/2022 [place]; FIB-4 score = 2.74 (indeterminate) Hyperlipidemia (Acute 05/12/13) LDL 144 2012; Risk calculated 13.3% soft CV risk; CV risk 06/2014: 11.6% Elevated LFTs (Acute) Interstitial lung disease (Acute) Chronic kidney disease (Chronic) Anisocoria (Acute) Occipital stroke (Acute) Bilateral pleural effusion (Acute) Vascular dementia (Chronic) Right homonymous hemianopsia (Acute) Heart failure with reduced ejection fraction (Chronic) Mediastinal lymphadenopathy (Acute) Pulmonary nodule (Acute) Mild obstructive sleep apnea (Chronic 05/12/20) severe in REM sleep, significan nocturnal hypoxemia, sleep fragmentation and increased airway resistance flow pattern. 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 Chiang) following hospitalization for GI bleed (no afib during cardiac monitoring during hospitalization) Rheumatic heart disease Aortic regurgitation a. moderate by echo 12/2011 S/p repair Mitral regurgitation Rheumatic; s/p repair Surgical History Status post cataract extraction and insertion of intraocular lens of left eye (~01/09/23) [facility] [place] Ophthalmology Pacemaker History of cardiac cath (09/28/21) History of toe surgery (~2003) Removal of bone chip History of section (~1976) Radiofrequency Maze Procedure (08/04/14) done at [facility] EGD - MAC (08/28/17) Colonoscopy - MAC (08/28/17) Biopsy of breast (~2008) Left breast [facility] [place] S/P aortic valve and mitral valve replacement (~07/2014) 2014 [facility]: bovine prosthetic valves + MAZE; 10/2021 [facility] [place]: repeat repair Family History Mother , Age 87, peritonitis Diabetes Essential hypertension Breast cancer Father , Age 45, colon cancer Colon cancer Sister Heart disease [place] at age 49 Brother Diabetes Colon cancer Brother No problems noted. Brother Heart disease CABG Other Family history of colon cancer Social History Smoking/Tobacco Use Status: Former Tobacco Use tobacco type: cigarettes Quit Date: 03/12/94 Smoking risk assessment performed?: Yes Alcohol Intake: former Drug use: Never Substance use type: does not use Counseling given: No Counseling provided: none Adopted: No Caregiver/Support person: No Foster care: No Household members: none Housing: house Number of Children: 1 number of grandchildren: 2 Communication Needs: None Education Level: high school Do you need help understanding health information?: Rarely current occupation: Retired Pets and animals: No Current gender identity: female What is your relationship status?: Panel score (0-1 are the most socially isolated patients): 0 What type of physical activity do you participate in: walking Duration: 60-90 minutes/day Frequency: daily Seatbelt use: always Helmet use: No Drive intox or ride w/intox clark driver: No Water heater temp set <120 deg: Yes Working smoke detector in home: No Fire extinguisher in home: No Carbon monox detector in home: No Firearms in home: No Do you feel safe at home: Yes Do you feel safe in your relationship?: Yes
== END 2023-07-10 17:38 | disposition home or self-care (01) ==
PROVIDERS: Emergency Provider Physician Assistant; PCP Nurse Practitioner
DX: S73.101A Unspecified sprain of right hip, initial encounter (principal); S80.01XA Contusion of right knee, initial encounter; W01.0XXA Fall on same level from slipping, tripping and stumbling without subsequent striking against object, initial encounter; Y93.01 Activity, walking, marching and hiking; Z95.810 Presence of automatic (implantable) cardiac defibrillator; Z95.2 Presence of prosthetic heart valve; I10 Essential (primary) hypertension; E78.5 Hyperlipidemia, unspecified; Z79.82 Long term (current) use of aspirin; Z87.891 Personal history of nicotine dependence
CPT/HCPCS: 99283; 73502; 73564

== ENCOUNTER 2023-08-17 16:21 | Emergency (ER) | payer MEDICARE, OTHER, SELFPAY ==
--- NOTE | 2023-08-17 16:15 | RT.EKG_ITS ---
APPROVED REPORT Exam: Resting ECG Reason for Exam: Dyspnea Patient Location: E HR:82 bpm ECG Measurements Heart Rate 82 AXIS ID 72 P 0 QRSd 139 QRS 257 QT 444 T 83 QTc 519 Conclusion A-V dual-paced rhythm with some inhibition...atrial and/or vent inhibition
[2023-08-17 16:26] VITALS: BP 113/81; PULSE 82; RESP 16; TEMP 36.8; O2SAT 97
--- NOTE | 2023-08-17 16:37 | W.ED.GENAD ---
Discharge Plan Disposition Patient Disposition: Home Condition: Stable Discharge Details Clinical Impression: Dizziness, Dehydration Primary Care Provider: Glendy Ye ED Provider: Aurelia Gooden Home Meds and New Rx's Prescriptions: Continued ascorbate calcium (vitamin C) 500 mg tablet 500 mg PO DAILY cholecalciferol (vitamin D3) 25 mcg (1,000 unit) capsule 25 mcg PO DAILY furosemide 40 mg tablet 40 mg PO DAILY Qty: 90 3RF spironolactone 25 mg tablet 25 mg PO DAILY Qty: 90 3RF apixaban 5 mg tablet 5 mg PO BID Qty: 180 3RF aspirin 81 mg tablet,chewable 81 mg PO DAILY thiamine HCl (vitamin B1) 100 mg tablet 200 mg PO DAILY calcium citrate-vitamin D3 200 mg-6.25 mcg (250 unit) tablet 1 tab PO DAILY melatonin 3 mg capsule 3 mg PO HS sertraline 25 mg tablet 25 mg PO DAILY Qty: 90 3RF ferrous sulfate 325 mg (65 mg iron) tablet 325 mg PO Q OTHER DAY Qty: 45 3RF Rx Instructions: Take with water or juice on an empty stomach pantoprazole 40 mg tablet,delayed release (DR/EC) See Rx Instructions .ROUTE .COMPLEX Qty: 90 3RF Dose Instruction: TAKE 1 TABLET ONCE DAILY IN THE MORNING AT LEAST 30 TO 60 MINUTES BEFORE FIRST MEAL OF THE DAY Rx Instructions: TAKE 1 TABLET ONCE DAILY IN THE MORNING AT LEAST 30 TO 60 MINUTES BEFORE FIRST MEAL OF THE DAY gabapentin 300 mg capsule See Rx Instructions .ROUTE .COMPLEX Qty: 180 1RF Dose Instruction: TAKE ONE CAPSULE BY MOUTH TWICE A DAY Rx Instructions: TAKE ONE CAPSULE BY MOUTH TWICE A DAY Entresto 49-51 mg tablet 0.5 tab PO BID amiodarone 200 mg tablet 200 mg PO DAILY metoprolol succinate 50 mg tablet extended release 24 hr 50 mg PO BID Qty: 180 3RF Jardiance 10 mg tablet 10 mg PO DAILY Patient Comments: TAKE ONE TABLET BY MOUTH EVERY DAY Discharge Instructions Instructions: Dehydration (ED), Dizziness (ED) Additional Instructions: At this time no evidence for acute NC or heart attack, no evidence for pneumonia. COVID flu and RSV are negative. Initial troponin was within normal limits. Your kidney functions are slightly elevated which could be due to dehydration. 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 Follow up with primary care provider in 3-5 days. Return to ED sooner if any worsening chest pain shortness of breath worsening dizziness or concerns. Referrals: Char Naidu MD [ [facility] STAFF PHYSICIAN] - Return if symptoms worsen (Or as previously scheduled) Glendy Ye NP [Primary Care Provider] - 1 week Discharge Data Discharge Date/Time-TO BE ENTERED AT DEPARTURE: 08/17/23 18:46 HPI General Mode of arrival: ambulatory. Date/Time Provider Initiated Documentation: 08/17/23 16:29. Limitations to Documentation: no limitations. Information obtained by: patient, RN notes reviewed and old records reviewed. HPI Narrative: 27-year-old female presents to the ER with a chief complaint of episode of shortness of breath while she was rushing around to get ready she reports that she started wheezing which lasted approximately 5 to 10 minutes and and then resolved. She denies any nausea vomiting diarrhea. She denies any new swelling in her lower extremities. She reports that she does get wheezing and shortness of breath time to time as she does have a history of NSTEMI, CVA, former smoker, atrial fibrillation aortic regurgitation mitral regurgitation with valve replacement. In atrial fibrillation she does take apixaban on a daily basis. She also takes furosemide and amiodarone. She does not have any inhalers or breathing treatments at home. She reports mild cough nonproductive denies any fever or chills. On initial exam she has no pitting edema, she is alert and oriented x 4 conversive and pleasant. Related Data Home Medications Medication Instructions Recorded Confirmed ascorbate calcium (vitamin C) 500 500 mg PO DAILY 07/31/19 08/17/23 mg tablet aspirin 81 mg chewable tablet 81 mg PO DAILY 12/07/21 08/17/23 calcium citrate 200 mg 1 tab PO DAILY 12/07/21 08/17/23 calcium-vitamin D3 6.25 mcg (250 unit) tablet melatonin 3 mg capsule 3 mg PO HS 12/07/21 08/17/23 thiamine HCl (vitamin B1) 100 mg 200 mg PO DAILY 12/07/21 08/17/23 tablet apixaban 5 mg tablet 5 mg PO BID #180 tabs 08/02/22 08/17/23 sertraline 25 mg tablet 25 mg PO DAILY #90 tab-caps 08/24/22 08/17/23 ferrous sulfate 325 mg (65 mg 325 mg PO Q OTHER DAY #45 tab-caps 09/06/22 08/17/23 iron) tablet pantoprazole 40 mg tablet,delayed See Rx Instructions .Route 09/06/22 08/17/23 release .COMPLEX #90 tabs cholecalciferol (vitamin D3) 25 25 mcg PO DAILY 01/01/23 08/17/23 mcg (1,000 unit) capsule furosemide 40 mg tablet 40 mg PO DAILY #90 tabs 01/01/23 08/17/23 spironolactone 25 mg tablet 25 mg PO DAILY #90 tabs 01/01/23 08/17/23 empagliflozin 10 mg tablet 10 mg PO DAILY 04/02/23 08/17/23 (Jardiance) gabapentin 300 mg capsule See Rx Instructions .Route 04/02/23 08/17/23 .COMPLEX #180 caps sacubitril 49 mg-valsartan 51 mg 0.5 tab PO BID 04/10/23 08/17/23 tablet (Entresto) amiodarone 200 mg tablet 200 mg PO DAILY 06/08/23 08/17/23 metoprolol succinate 50 mg 50 mg PO BID #180 tabs 07/17/23 08/17/23 tablet,extended release 24 hr Previous Rx's Medication Instructions Recorded apixaban 5 mg tablet 5 mg PO BID #180 tabs 08/02/22 sertraline 25 mg tablet 25 mg PO DAILY #90 tab-caps 08/24/22 ferrous sulfate 325 mg (65 mg 325 mg PO Q OTHER DAY #45 tab-caps 09/06/22 iron) tablet pantoprazole 40 mg tablet,delayed See Rx Instructions .Route 09/06/22 release .COMPLEX #90 tabs furosemide 40 mg tablet 40 mg PO DAILY #90 tabs 01/01/23 spironolactone 25 mg tablet 25 mg PO DAILY #90 tabs 01/01/23 gabapentin 300 mg capsule See Rx Instructions .Route 04/02/23 .COMPLEX #180 caps metoprolol succinate 50 mg 50 mg PO BID #180 tabs 07/17/23 tablet,extended release 24 hr Allergies Allergy/AdvReac Type Severity Reaction Status Date / Time heparin Allergy Severe thrombocytopenia, Verified 07/02/23 09:50 anaphylaxis dofetilide AdvReac Severe Prolonged Verified 07/02/23 09:50 QTc lisinopril AdvReac Cough Verified 07/02/23 09:50 General Stated Complaint: RespSymp MARIS: 4 Review of Systems All systems reviewed & are unremarkable except as noted in HPI and below Cardiovascular Cardiovascular: Reports dyspnea Respiratory Respiratory: Reports as per HPI, Reports dyspnea and Reports wheezing Gastrointestinal Gastrointestinal: Denies diarrhea, Denies nausea and Denies vomiting Allergic/Immunologic Allergic/Immunologic: Reports wheezing Exam Narrative Exam Narrative: Constitutional: Alert and oriented x3. Appears stated age. Normal body habitus. Head: Normocephalic, no trauma. Eyes: Pupils PERRL, Red reflex noted, EOM's intact. Eyelids symmetrical without lesions, discharge, or swelling. Chest: RRR, Normal S1, S2, distal pulses intact. Resp: Lungs clear to auscultation bilaterally, no wheezes, rales, or rhonchi. Diminished in the bases, no expiratory wheezes noted bilaterally. She does have prolonged expiration. Abdomen: Soft, non-distended, Normoactive bowel sounds all 4 quads. Musculoskeletal: Normal gait, Moves all 4 extremities without difficulty. No bilateral lower extremity edema. Skin: No suspicious rashes or lesions. Capillary refill less than 2 sec. Neurologic: Cranial nerves II-XII intact. Alert and oriented x 3. Motor: No deficits noted. Sensory: Intact bilaterally all 4 extremities. Hematologic/Lymphatic: No ecchymosis, no lymphadenopathy. Course Vital Signs Vital signs: Vital Signs Temperature 36.8 C 08/17/23 16:26 Pulse 82 08/17/23 16:26 Respiratory Rate 16 08/17/23 16:26 Blood Pressure 113/81 08/17/23 16:26 Pulse Oximetry 97 08/17/23 16:26 Temperature 36.8 C 08/17/23 16:26 Temperature Source Tympanic 08/17/23 16:26 Pulse 82 08/17/23 16:26 Respiratory Rate 16 08/17/23 16:26 Blood Pressure 113/81 08/17/23 16:26 Pulse Oximetry 97 08/17/23 16:26 Oxygen Delivery Method Room Air 08/17/23 16:26 Oxygen Flow Rate 0 08/17/23 16:26 Pain Level 0 08/17/23 16:26 Medical Decision Making 27-year-old female presents to the ER with a chief complaint of episode of shortness of breath while she was rushing around to get ready she reports that she started wheezing which lasted approximately 5 to 10 minutes and and then resolved. She denies any nausea vomiting diarrhea. She denies any new swelling in her lower extremities. She reports that she does get wheezing and shortness of breath time to time as she does have a history of NSTEMI, CVA, former smoker, atrial fibrillation aortic regurgitation mitral regurgitation with valve replacement. In atrial fibrillation she does take apixaban on a daily basis. She also takes furosemide and amiodarone. She does not have any inhalers or breathing treatments at home. She reports mild cough nonproductive denies any fever or chills. On initial exam she has no pitting edema, she is alert and oriented x 4 conversive and pleasant. Cardiac workup ordered including CBC CMP, serial troponins, PT/INR chest x-ray and Fluvid swab. Discussed length of stay and plan of care patient verbalized understanding is in agreement with plan. If initial labs are within normal limits will consider cancel second troponin due to no symptoms of chest pain at this time. Initial labs are largely within normal limits, absolute neutrophils 7.14, PT INR at baseline, BUN is 45 creatinine 2.2 GFR is 22.8 which is slightly elevated from patient's previous however she reports that she has not been drinking much water she normally does I do suspect this is to dehydration. Magnesium is high at 2.7 glucose 110 proBNP is 2087 initial troponin within normal limits COVID flu and RSV is negative. I did give the option for patient to stay for a 3-hour serial troponin which they declined at this time. She is not having any chest pain currently has not had any more episodes of shortness of breath or dizziness. Chest x-ray is also within normal limits. All their questions were answered to the best my ability. Patient to be discharged home with follow-up with her PCP and cardiology as directed. Informed of elevated BUN/creatinine which I believe is due to dehydration at this time. Discussed return instructions. This text was generated using Evrentation system, please disregard any oddities of phrase or misspellings. Medical Records Medical records reviewed: Yes I reviewed the patient's medical records. Lab Data Lab results reviewed: Yes I reviewed the patient's lab results. Labs: Laboratory Tests Range/Units 08/17/23 08/17/23 08/17/23 17:10 17:20 19:37 WBC (4.4-10.8) 10^3/uL 9.46 RBC (3.93-5.22) 10^6/uL 4.64 Hgb (11.2-15.7) g/dL 13.8 Hct (36.0-46.0) % 43.6 MCV (80-95) fL 94 MCH (27.0-33.0) pg 29.7 MCHC (32.0-36.0) % 31.7 L RDW (11.7-14.6) % 15.6 H Plt Count (130-400) 10^3/uL 239 MPV (8.0-11.0) fL 9.4 Immature Gran % % 0.3 Neutrophils % % 75.4 Lymphocytes % % 16.0 Monocytes % % 6.7 Eosinophils % % 1.0 Basophils % % 0.6 Nucleated RBC % (0.0-0.3) % 0.0 Absolute Neutrophils (1.2-6.7) 10^3/uL 7.14 H Absolute Lymphocytes (1.2-3.4) 10^3/uL 1.51 Absolute Monocytes (0.1-0.8) 10^3/uL 0.63 Absolute Eosinophils (0.0-0.7) 10^3/uL 0.09 Absolute Basophils (0.0-0.2) 10^3/uL 0.06 PT (9.1-11.1) sec 11.9 H INR (0.9-1.1) 1.2 H Sodium (136-145) mmol/L 140 Potassium (3.5-5.1) mmol/L 5.1 Chloride (98-107) mmol/L 101 Carbon Dioxide (21.0-32.0) mmol/L 27.7 Anion Gap (3-11) mmol/L 11.3 H BUN (7-18) mg/dL 45 H Creatinine (0.55-1.02) mg/dL 2.2 H Est GFR (CKD-EPI 2020) (mL/min/1.73m2) 22.81 Glucose (74-106) mg/dL 110 H Calcium (8.5-10.1) mg/dL 8.7 Magnesium (1.8-2.4) mg/dL 2.7 H Total Bilirubin (0.2-1.0) mg/dL 0.3 AST (15-37) U/L 30 ALT (14-59) U/L 36 Alkaline Phosphatase (46-116) U/L 74 Troponin I (< or =60) ng/L < 50 Cancelled NT-Pro-B Natriuret Pep (<300) pg/mL 2087 H Total Protein (6.4-8.2) g/dL 8.1 Albumin (3.4-5.0) g/dL 4.3 COVID-19 Source Nasopharynx SARS-CoV-2 (PCR) (Negative) Negative Influenza Type A (PCR) (Negative) Negative Influenza Type B (PCR) (Negative) Negative RSV (PCR) (Negative) Negative Quality:SDOH Health Related Social Needs: Health related social needs details none per pt PFSH All Active Problems (Updated 08/17/23 @ 18:26 by Aurelia Gooden NP) Dehydration (Acute) Dizziness (Acute) SVT (supraventricular tachycardia) (Acute) Ventricular tachycardia (Chronic) Cardiac defibrillator in place (Acute) A-fib (Chronic) Combined forms of age-related cataract, right eye (Acute) [facility] Ophthalmology Note 01/10/2023 Cardiac resynchronization therapy defibrillator (BAGGAGE CHECKER-D) in place (Acute) Nonischemic cardiomyopathy (Acute) S/P aortic valve and mitral valve replacement (Chronic 08/04/14) 2014 [facility]: bovine prosthetic valves + MAZE; 10/2021 [facility]: repeat repair Subclinical hypothyroidism (Acute) Essential hypertension (Chronic) Hepatic steatosis (Acute) 05/2022 [place]; FIB-4 score = 2.74 (indeterminate) Hyperlipidemia (Acute 05/12/13) LDL 144 2012; Risk calculated 13.3% soft CV risk; CV risk 06/2014: 11.6% Elevated LFTs (Acute) Interstitial lung disease (Acute) Chronic kidney disease (Chronic) Anisocoria (Acute) Occipital stroke (Acute) Bilateral pleural effusion (Acute) Vascular dementia (Chronic) Right homonymous hemianopsia (Acute) Heart failure with reduced ejection fraction (Chronic) Mediastinal lymphadenopathy (Acute) Pulmonary nodule (Acute) Mild obstructive sleep apnea (Chronic 05/12/20) severe in REM sleep, significan nocturnal hypoxemia, sleep fragmentation and increased airway resistance flow pattern. 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 Chiang) following hospitalization for GI bleed (no afib during cardiac monitoring during hospitalization) Rheumatic heart disease Aortic regurgitation a. moderate by echo 12/2011 S/p repair Mitral regurgitation Rheumatic; s/p repair Surgical History Status post cataract extraction and insertion of intraocular lens of left eye (~01/09/23) [facility] Ophthalmology Pacemaker History of cardiac cath (09/28/21) History of toe surgery (~2003) Removal of bone chip History of section (~1976) Radiofrequency Maze Procedure (08/04/14) done at [facility] EGD - MAC (08/28/17) Colonoscopy - MAC (08/28/17) Biopsy of breast (~2008) Left breast [facility] S/P aortic valve and mitral valve replacement (~07/2014) 2014 [facility]: bovine prosthetic valves + MAZE; 10/2021 [facility]: repeat repair Family History Mother , Age 87, peritonitis Diabetes Essential hypertension Breast cancer Father , Age 45, colon cancer Colon cancer Sister Heart disease NC at age 49 Brother Diabetes Colon cancer Brother No problems noted. Brother Heart disease CABG Other Family history of colon cancer Social History Smoking/Tobacco Use Status: Former Tobacco Use tobacco type: cigarettes Quit Date: 03/12/94 Smoking risk assessment performed?: Yes Alcohol Intake: former Drug use: Never Substance use type: does not use Counseling given: No Counseling provided: none Adopted: No Caregiver/Support person: No Foster care: No Household members: none Housing: house Number of Children: 1 number of grandchildren: 2 Communication Needs: None Education Level: high school Do you need help understanding health information?: Rarely current occupation: Retired Pets and animals: No Current gender identity: female What is your relationship status?: Panel score (0-1 are the most socially isolated patients): 0 What type of physical activity do you participate in: walking Duration: 60-90 minutes/day Frequency: daily Seatbelt use: always Helmet use: No Drive intox or ride w/intox 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 Water heater temp set <120 deg: Yes Working smoke detector in home: No Fire extinguisher in home: No Carbon monox detector in home: No Firearms in home: No Do you feel safe at home: Yes Do you feel safe in your relationship?: Yes
--- NOTE | 2023-08-17 17:10 | DI.RAD_ITS ---
Exam(s) XR PORTABLE CHEST AP EXAM: XR PORTABLE CHEST AP CLINICAL HISTORY: CP, SOB. TECHNIQUE: 2D digital imaging was performed. COMPARISON: CR,XR XR PORTABLE CHEST AP from 05/06/2023 FINDINGS: Single AP portable view. Again noted are sternotomy wires, prosthetic cardiac valve, and bipolar left subclavian pacemaker wit h lead tips in RA and right ventricle. Heart size is upper normal. The mediastinum is not widened. Lungs are clear. No infiltrates nor obvious pleural effusions. There is no evidence of pulmonary edema. There is no pneumothorax. IMPRESSION: No acute pulmonary findings on this single AP portable view of the chest. Sternotomy wires. Cardiac valve. Mitral valve clip. Bipolar pacemaker. No CHF. DATA REPOSITORY: RADIATION DOSE DELIVERED:
[2023-08-17 17:25] LABS: Abs Immature Grans 0.03 10^3/uL (0.0-0.06); Absolute Basophil Count 0.06 10^3/uL (0.0-0.2); Absolute Eosinophil Count 0.09 10^3/uL (0.0-0.7); Absolute Lymphocyte Count 1.51 10^3/uL (1.2-3.4); Absolute Monocyte Count 0.63 10^3/uL (0.1-0.8); Absolute Neutrophil Count 7.14 10^3/uL (1.2-6.7); Basophils % 0.6 %; HCT 43.6 % (36.0-46.0); HGB 13.8 g/dL (11.2-15.7); Immature Grans % 0.3 %; MCH 29.7 pg (27.0-33.0); MCHC 31.7 % (32.0-36.0); MCV 94 fL (80-95); MPV 9.4 fL (8.0-11.0); Monocytes % 6.7 %; Neutrophils % 75.4 %; Platelet Count 239 10^3/uL (130-400); RBC 4.64 10^6/uL (3.93-5.22); RDW 15.6 % (11.7-14.6); WBC 9.46 10^3/uL (4.4-10.8)
[2023-08-17 17:36] LABS: INR 1.2 (0.9-1.1); Prothrombin Time 11.9 sec (9.1-11.1)
[2023-08-17 17:53] LABS: ALT 36 U/L (14-59); AST 30 U/L (15-37); Albumin 4.3 g/dL (3.4-5.0); Alkaline Phosphatase 74 U/L (46-116); Anion Gap 11.3 mmol/L (3-11); BUN 45 mg/dL (7-18); Bilirubin, Total 0.3 mg/dL (0.2-1.0); CO2 27.7 mmol/L (21.0-32.0); CREATININE 2.2 mg/dL (0.55-1.02); Calcium 8.7 mg/dL (8.5-10.1); Chloride 101 mmol/L (98-107); Estimated GFR 22.81 (mL/min/1.73m2); Glucose 110 mg/dL (74-106); Magnesium 2.7 mg/dL (1.8-2.4); NT-proBNP 2087 pg/mL (<300); Potassium 5.1 mmol/L (3.5-5.1); Sodium 140 mmol/L (136-145); Total Protein 8.1 g/dL (6.4-8.2); Troponin I < 50 ng/L (< or =60)
[2023-08-17 18:03] LABS: COVID-19 PCR Negative (Negative); Influenza A PCR Negative (Negative); Influenza B PCR Negative (Negative); RSV PCR Negative (Negative); Source Nasopharynx
[2023-08-17 18:37] VITALS: BP 142/74; PULSE 88; RESP 16; TEMP 36.4; O2SAT 96
== END 2023-08-17 18:46 | disposition home or self-care (01) ==
PROVIDERS: Emergency Provider Registered Nurse Emergency; PCP Nurse Practitioner
DX: R06.02 Shortness of breath (principal); E86.0 Dehydration; R05.1 Acute cough; Z86.79 Personal history of other diseases of the circulatory system
CPT/HCPCS: 36415; 80053; 87637; 90471; 93005; 99283; 99284; 71045; 83735; 83880; 84484; 85025; 85610; 93010

== ENCOUNTER 2023-10-22 10:42 | Observation (INO) | payer MEDICARE, OTHER, SELFPAY ==
[2023-10-22] VITALS (105 sets, daily range): BP systolic 75–115; BP diastolic 43–67; PULSE 78–88; RESP 9–27; TEMP 36.4–36.7; O2SAT 95–100
--- NOTE | 2023-10-22 10:45 | RT.EKG_ITS ---
APPROVED REPORT Exam: Resting ECG Reason for Exam: sob Patient Location: E HR:81 bpm ECG Measurements Heart Rate 81 AXIS AL 200 P [id number] QRSd 137 QRS 258 QT 454 T -90 QTc 527 Conclusion Atrial-paced complexes...other complexes also detected ST elevation secondary to IVCD...Multiple VCG criteria
[2023-10-22 11:23] LABS: Lactate 1.8 mmol/L (0.6-1.4)
[2023-10-22 11:25] LABS: Abs Immature Grans 0.07 10^3/uL (0.0-0.06); Absolute Basophil Count 0.05 10^3/uL (0.0-0.2); Absolute Eosinophil Count 0.14 10^3/uL (0.0-0.7); Absolute Monocyte Count 0.54 10^3/uL (0.1-0.8); Absolute Neutrophil Count 10.31 10^3/uL (1.2-6.7); Basophils % 0.4 %; Eosinophils % 1.2 %; HCT 42.1 % (36.0-46.0); HGB 13.1 g/dL (11.2-15.7); Immature Grans % 0.6 %; Lymphocytes % 7.6 %; MCHC 31.1 % (32.0-36.0); MCV 96 fL (80-95); MPV 9.9 fL (8.0-11.0); Monocytes % 4.5 %; Neutrophils % 85.7 %; Platelet Count 182 10^3/uL (130-400); RBC 4.37 10^6/uL (3.93-5.22); RDW 13.9 % (11.7-14.6); RDW-SD 49.3 fL; WBC 12.03 10^3/uL (4.4-10.8)
[2023-10-22 11:26] LABS: Absolute Lymphocyte Count 0.91 10^3/uL (1.2-3.4)
[2023-10-22 11:37] LABS: PTT Activated 34.4 sec (23.6-32.8); Prothrombin Time 13.2 sec (9.1-11.1)
[2023-10-22 11:48] LABS: ALT 33 U/L (14-59); AST 18 U/L (15-37); Albumin 3.3 g/dL (3.4-5.0); Alkaline Phosphatase 62 U/L (46-116); Anion Gap 7.3 mmol/L (3-11); BUN 38 mg/dL (7-18); Bilirubin, Total 0.46 mg/dL (0.2-1.0); CO2 26.7 mmol/L (21.0-32.0); CREATININE 2.1 mg/dL (0.55-1.02); Calcium 8.7 mg/dL (8.5-10.1); Chloride 106 mmol/L (98-107); Estimated GFR 23.97 (mL/min/1.73m2); Glucose 132 mg/dL (74-106); INR 1.3 (0.9-1.1); Magnesium 2.2 mg/dL (1.8-2.4); NT-proBNP 5741 pg/mL (<300); Potassium 4.3 mmol/L (3.5-5.1); Sodium 140 mmol/L (136-145); Total Protein 7.1 g/dL (6.4-8.2); Troponin I < 50 ng/L (< or =60)
[2023-10-22] MEDS: Lactated Ringers 500 ML 1000 ML IV (11:50)
[2023-10-22 12:16] LABS: Lipase 33 U/L (16-77)
--- NOTE | 2023-10-22 12:19 | DI.RAD_ITS ---
Exam(s) XR CHEST 2V PA LATERAL EXAM: XR CHEST 2V PA LATERAL CLINICAL HISTORY: shortness of breath TECHNIQUE: 2D digital imaging was performed of the chest. Two images were obtained. PA and lateral views were obtained. COMPARISON: CR XR CHEST 2V PA LATERAL from 04/02/2023 CR XR PORTABLE CHEST AP from 08/17/2023 FINDINGS: MEDIASTINUM: Normal. HEART: Normal. There cardiac valve replacements in place. The cardiac monitoring device is stable. PULMONARY VASCULATURE: Normal. LUNGS: Clear. PLEURAL SPACE: No pleural effusion or pneumothorax. BONE:Within normal limits for the patient's age. OTHER FINDINGS:Normal. IMPRESSION: No acute pulmonary findings. DATA REPOSITORY: RADIATION DOSE DELIVERED:
[2023-10-22 12:43] LABS: COVID-19 PCR Negative (Negative); Influenza A PCR Negative (Negative); Influenza B PCR Negative (Negative); RSV PCR Negative (Negative)
[2023-10-22 12:45] LABS: Source Nasopharynx
[2023-10-22 13:32] LABS: Bilirubin Negative (Negative); Blood Negative (Negative); Clarity Clear (Clear); Glucose 250 mg/dL (Negative); Ketones Negative (Negative); Leukocyte Esterase Negative (Negative); Nitrite Negative (Negative); Urobilinogen 0.2 mg/dL (Up to 0.2)
--- NOTE | 2023-10-22 13:38 | W.ED.GENAD ---
Discharge Plan Disposition Patient Disposition: Admit to [facility] Discharge Details Clinical Impression: Cellulitis of foot, Hypotension Admit Date/Time: 10/22/23 17:23 Admit Provider: Ted Nguyen Attending Provider: Ted Nguyen Primary Care Provider: Glendy Ye ED Provider: Iam Youssef Discharge Data Discharge Date/Time-TO BE ENTERED AT DEPARTURE: 10/22/23 18:17 HPI General Mode of arrival: ambulatory. Date/Time Provider Initiated Documentation: 10/22/23 10:48. Limitations to Documentation: no limitations. Information obtained by: patient. HPI Narrative: 78-year-old female with multiple medical problems including history of nonischemic cardiomyopathy with CHF in the past, status post AVR, MVR, hypertension, pulmonary hypertension, mild obstructive sleep apnea, SVT, A-fib, hyperlipidemia, fatty liver, chronic kidney disease, ILD, vascular dementia, followed by [facility] cardiology, [facility] pulmonology, here today with chief complaint of dyspnea on exertion. Patient notes dyspnea on exertion since yesterday. No shortness of breath at rest. No chest pain. She does note some associated bilateral feet swelling and pain. She states her feet were inflamed, right foot now improved but left foot has persisted. She also notes generalized itching of her arms and torso. She states she recently had hive-like rash of unknown etiology that was treated with 2 burst courses of prednisone which improved her rash. She has no associated fever. Related Data Home Medications ?Medication ?Instructions ?Recorded ?Confirmed ascorbate calcium (vitamin C) 500 500 mg PO DAILY 07/31/19 10/24/23 mg tablet aspirin 81 mg chewable tablet 81 mg PO DAILY 12/07/21 10/24/23 calcium citrate 200 mg 1 tab PO DAILY 12/07/21 10/24/23 calcium-vitamin D3 6.25 mcg (250 unit) tablet melatonin 3 mg capsule 3 mg PO HS 12/07/21 10/24/23 thiamine HCl (vitamin B1) 100 mg 200 mg PO DAILY 12/07/21 10/24/23 tablet cholecalciferol (vitamin D3) 25 25 mcg PO DAILY 01/01/23 10/24/23 mcg (1,000 unit) capsule spironolactone 25 mg tablet 25 mg PO DAILY #90 tabs 01/01/23 10/24/23 empagliflozin 10 mg tablet 10 mg PO DAILY 04/02/23 10/24/23 (Jardiance) sacubitril 49 mg-valsartan 51 mg 0.5 tab PO BID 04/10/23 10/24/23 tablet (Entresto) amiodarone 200 mg tablet 200 mg PO DAILY 06/08/23 10/24/23 sertraline 25 mg tablet 25 mg PO DAILY #90 tab-caps 08/24/23 10/24/23 apixaban 5 mg tablet 5 mg PO BID #180 tabs 09/12/23 10/24/23 ferrous sulfate 325 mg (65 mg 325 mg PO Q OTHER DAY #45 tab-caps 09/12/23 10/24/23 iron) tablet pantoprazole 40 mg tablet,delayed See Rx Instructions .Route 09/12/23 10/24/23 release .COMPLEX #90 tabs furosemide 20 mg tablet (Lasix) 20 mg PO DAILY 10/15/23 10/24/23 gabapentin 300 mg capsule See Rx Instructions .Route 10/15/23 10/24/23 .COMPLEX #180 caps metoprolol succinate 50 mg 50 mg PO DAILY 10/15/23 10/24/23 tablet,extended release 24 hr cetirizine 10 mg tablet 10 mg PO DAILY #30 tabs 10/23/23 10/24/23 prednisone 20 mg tablet See Taper PO DAILY #60 tabs 10/23/23 10/24/23 Previous Rx's ?Medication ?Instructions ?Recorded spironolactone 25 mg tablet 25 mg PO DAILY #90 tabs 01/01/23 sertraline 25 mg tablet 25 mg PO DAILY #90 tab-caps 08/24/23 apixaban 5 mg tablet 5 mg PO BID #180 tabs 09/12/23 ferrous sulfate 325 mg (65 mg 325 mg PO Q OTHER DAY #45 tab-caps 09/12/23 iron) tablet pantoprazole 40 mg tablet,delayed See Rx Instructions .Route 09/12/23 release .COMPLEX #90 tabs gabapentin 300 mg capsule See Rx Instructions .Route 10/15/23 .COMPLEX #180 caps cetirizine 10 mg tablet 10 mg PO DAILY #30 tabs 10/23/23 prednisone 20 mg tablet See Taper PO DAILY #60 tabs 10/23/23 Allergies Allergy/AdvReac Type Severity Reaction Status Date / Time heparin Allergy Severe thrombocytopenia, Verified 10/24/23 08:39 anaphylaxis dofetilide AdvReac Severe Prolonged Verified 10/24/23 08:39 QTc lisinopril AdvReac Cough Verified 10/24/23 08:39 General Stated Complaint: GenMedical MARIS: 2 Review of Systems All systems reviewed & are unremarkable except as noted in HPI and below Constitutional Constitutional: Denies fever(s) and Reports weakness Integumentary/Breasts Skin/Breast: Reports as per HPI Neurologic Neurologic: Reports weakness Exam Const General: cooperative and no acute distress [facility] Mouth: moist mucous membranes Eyes Conjunctivae: normal conjunctivae Sclera: normal sclerae Neck Neck: trachea midline and supple Resp Auscultation: clear to auscultation bilaterally, no rales, no rhonchi and no wheezes Cardio Rate: regular rate and not tachycardic Rhythm: regular rhythm GI Palpation: soft, not firm, no guarding, no masses, not rigid and nontender Skin Rashes: rashes noted (Erythema sole of left foot with some swelling and desquamation) Neuro General: patient alert, patient awake, patient oriented x3 and tone normal Extrem General: no calf tenderness and pedal edema bilaterally Psych Appearance: grossly normal Mental Status: mental status grossly normal Course Vital Signs Vital signs: Vital Signs Temperature 36.6 C 10/22/23 10:47 Pulse 87 10/22/23 10:47 Respiratory Rate 16 10/22/23 10:47 Blood Pressure 75/43 L 10/22/23 10:47 Pulse Oximetry 97 10/22/23 10:47 Temperature 36.6 C 10/22/23 10:47 Pulse 87 10/22/23 10:47 Respiratory Rate 16 10/22/23 13:35 Respiratory Effort Normal 10/22/23 13:35 Respiratory Depth Normal 10/22/23 13:35 Respiratory Pattern Normal 10/22/23 13:35 Blood Pressure 75/43 L 10/22/23 10:47 Blood Pressure Position Sitting 10/22/23 10:47 Pulse Oximetry 97 10/22/23 10:47 Lab/Test Results Lab/Test Results: Laboratory Tests Range/Units 10/22/23 10/22/23 10/22/23 11:12 11:45 13:18 WBC (4.4-10.8) 10^3/uL 12.03 H RBC (3.93-5.22) 10^6/uL 4.37 Hgb (11.2-15.7) g/dL 13.1 Hct (36.0-46.0) % 42.1 MCV (80-95) fL 96 H MCH (27.0-33.0) pg 30.0 MCHC (32.0-36.0) % 31.1 L RDW (11.7-14.6) % 13.9 Plt Count (130-400) 10^3/uL 182 MPV (8.0-11.0) fL 9.9 Immature Gran % % 0.6 Neutrophils % % 85.7 Lymphocytes % % 7.6 Monocytes % % 4.5 Eosinophils % % 1.2 Basophils % % 0.4 Nucleated RBC % (0.0-0.3) % 0.0 Absolute Neutrophils (1.2-6.7) 10^3/uL 10.31 H Absolute Lymphocytes (1.2-3.4) 10^3/uL 0.91 L Absolute Monocytes (0.1-0.8) 10^3/uL 0.54 Absolute Eosinophils (0.0-0.7) 10^3/uL 0.14 Absolute Basophils (0.0-0.2) 10^3/uL 0.05 PT (9.1-11.1) sec 13.2 H INR (0.9-1.1) 1.3 H APTT (23.6-32.8) sec 34.4 H VBG Lactate (0.6-1.4) mmol/L 1.8 H Sodium (136-145) mmol/L 140 Potassium (3.5-5.1) mmol/L 4.3 Chloride (98-107) mmol/L 106 Carbon Dioxide (21.0-32.0) mmol/L 26.7 Anion Gap (3-11) mmol/L 7.3 BUN (7-18) mg/dL 38 H Creatinine (0.55-1.02) mg/dL 2.1 H Est GFR (CKD-EPI 2020) (mL/min/1.73m2) 23.97 Glucose (74-106) mg/dL 132 H Calcium (8.5-10.1) mg/dL 8.7 Magnesium (1.8-2.4) mg/dL 2.2 Total Bilirubin (0.2-1.0) mg/dL 0.46 AST (15-37) U/L 18 ALT (14-59) U/L 33 Alkaline Phosphatase (46-116) U/L 62 Troponin I (< or =60) ng/L < 50 NT-Pro-B Natriuret Pep (<300) pg/mL 5741 H Total Protein (6.4-8.2) g/dL 7.1 Albumin (3.4-5.0) g/dL 3.3 L Lipase (16-77) U/L 33 Urine Color (Yellow) Straw Urine Clarity (Clear) Clear Urine pH (5-8) 5.0 Ur Specific Nue[place] (1.005-1.025) 1.010 Urine Protein (Neg-Trace) mg/dL Negative Urine Ketones (Negative) mg/dL Negative Urine Blood (Negative) Negative Urine Nitrite (Negative) Negative Urine Bilirubin (Negative) Negative Urine Urobilinogen (Up to 0.2) mg/dL 0.2 Ur Leukocyte Esterase (Negative) Negative Urine Glucose (Negative) mg/dL 250 H COVID-19 Source Nasopharynx SARS-CoV-2 (PCR) (Negative) Negative Influenza Type A (PCR) (Negative) Negative Influenza Type B (PCR) (Negative) Negative RSV (PCR) (Negative) Negative Medical Decision Making [id number] -- 78-year-old female with multiple medical problems including history of nonischemic cardiomyopathy, status post AVR, MVR, hypertension, pulmonary hypertension, CHF, A-fib, SVT, hyperlipidemia, fatty liver, chronic kidney disease, here with dyspnea on exertion since yesterday and diffuse body itching. Patient is saturating well in no respiratory distress. Patient is hypotensive on arrival, not tachycardic. Afebrile. Patient does have pedal edema bilaterally with erythema of the sole of her left foot, recently had erythema of her right foot that has improved. Patient was given crystalloid fluid bolus 500 mL and reassess. Blood pressure did improve with this fluid bolus but remains hypotensive. I will give another 500 mL crystalloid bolus. Unclear etiology for hypotension, consider cardiogenic. Screening EKG was reviewed interpreted by me: Please report: A paced rhythm at 81 bpm, ST depressions with T wave inversions noted lead II, 3, aVF, V2-V5. Considered acute CHF exacerbation. BNP is elevated. Initial troponin normal. Considered sepsis. Patient is afebrile. She does have a elevation of her white blood cell count which may be related to recent prednisone use. Lactate is elevated at 1.8. Patient has chronic kidney disease with his creatinine at baseline 2.1. Chest x-ray reviewed and interpreted by radiology: No acute pulmonary findings. Urinalysis is not consistent with UTI. I will cover with cefazolin for potential cellulitis of the left foot. 1615 --patient reassessed and blood pressure improved after second 500 ml bolus. Delta troponin negative. Echocardiogram draft reviewed: The left ventricle is normal size. Left ventricular systolic function is mildly decreased. There is normal left ventricular wall thickness. There is global hypokinesis of the left ventricle. There is no ventricular septal defect visualized. LVEF is 40 - 42%. Plan to hospitalize for further diagnostic workup and treatment. Lab Data Lab results reviewed: Yes I reviewed the patient's lab results. Labs: 10/22/23 14:20 Blood Blood Culture - Pending 10/22/23 13:49 Blood Blood Culture - Pending Laboratory Tests Range/Units 10/22/23 10/22/23 10/22/23 11:12 11:45 13:18 WBC (4.4-10.8) 10^3/uL 12.03 H RBC (3.93-5.22) 10^6/uL 4.37 Hgb (11.2-15.7) g/dL 13.1 Hct (36.0-46.0) % 42.1 MCV (80-95) fL 96 H MCH (27.0-33.0) pg 30.0 MCHC (32.0-36.0) % 31.1 L RDW (11.7-14.6) % 13.9 Plt Count (130-400) 10^3/uL 182 MPV (8.0-11.0) fL 9.9 Immature Gran % % 0.6 Neutrophils % % 85.7 Lymphocytes % % 7.6 Monocytes % % 4.5 Eosinophils % % 1.2 Basophils % % 0.4 Nucleated RBC % (0.0-0.3) % 0.0 Absolute Neutrophils (1.2-6.7) 10^3/uL 10.31 H Absolute Lymphocytes (1.2-3.4) 10^3/uL 0.91 L Absolute Monocytes (0.1-0.8) 10^3/uL 0.54 Absolute Eosinophils (0.0-0.7) 10^3/uL 0.14 Absolute Basophils (0.0-0.2) 10^3/uL 0.05 PT (9.1-11.1) sec 13.2 H INR (0.9-1.1) 1.3 H APTT (23.6-32.8) sec 34.4 H VBG Lactate (0.6-1.4) mmol/L 1.8 H Sodium (136-145) mmol/L 140 Potassium (3.5-5.1) mmol/L 4.3 Chloride (98-107) mmol/L 106 Carbon Dioxide (21.0-32.0) mmol/L 26.7 Anion Gap (3-11) mmol/L 7.3 BUN (7-18) mg/dL 38 H Creatinine (0.55-1.02) mg/dL 2.1 H Est GFR (CKD-EPI 2020) (mL/min/1.73m2) 23.97 Glucose (74-106) mg/dL 132 H Calcium (8.5-10.1) mg/dL 8.7 Magnesium (1.8-2.4) mg/dL 2.2 Total Bilirubin (0.2-1.0) mg/dL 0.46 AST (15-37) U/L 18 ALT (14-59) U/L 33 Alkaline Phosphatase (46-116) U/L 62 Troponin I (< or =60) ng/L < 50 NT-Pro-B Natriuret Pep (<300) pg/mL 5741 H Total Protein (6.4-8.2) g/dL 7.1 Albumin (3.4-5.0) g/dL 3.3 L Lipase (16-77) U/L 33 TSH (0.36-3.74) uIU/mL Urine Color (Yellow) Straw Urine Clarity (Clear) Clear Urine pH (5-8) 5.0 Ur Specific N[place]vo (1.005-1.025) 1.010 Urine Protein (Neg-Trace) mg/dL Negative Urine Ketones (Negative) mg/dL Negative Urine Blood (Negative) Negative Urine Nitrite (Negative) Negative Urine Bilirubin (Negative) Negative Urine Urobilinogen (Up to 0.2) mg/dL 0.2 Ur Leukocyte Esterase (Negative) Negative Urine Glucose (Negative) mg/dL 250 H COVID-19 Source Nasopharynx SARS-CoV-2 (PCR) (Negative) Negative Influenza Type A (PCR) (Negative) Negative Influenza Type B (PCR) (Negative) Negative RSV (PCR) (Negative) Negative Range/Units 10/22/23 10/22/23 14:20 15:15 WBC (4.4-10.8) 10^3/uL RBC (3.93-5.22) 10^6/uL Hgb (11.2-15.7) g/dL Hct (36.0-46.0) % MCV (80-95) fL MCH (27.0-33.0) pg MCHC (32.0-36.0) % RDW (11.7-14.6) % Plt Count (130-400) 10^3/uL MPV (8.0-11.0) fL Immature Gran % % Neutrophils % % Lymphocytes % % Monocytes % % Eosinophils % % Basophils % % Nucleated RBC % (0.0-0.3) % Absolute Neutrophils (1.2-6.7) 10^3/uL Absolute Lymphocytes (1.2-3.4) 10^3/uL Absolute Monocytes (0.1-0.8) 10^3/uL Absolute Eosinophils (0.0-0.7) 10^3/uL Absolute Basophils (0.0-0.2) 10^3/uL PT (9.1-11.1) sec INR (0.9-1.1) APTT (23.6-32.8) sec VBG Lactate (0.6-1.4) mmol/L 0.9 Sodium (136-145) mmol/L Potassium (3.5-5.1) mmol/L Chloride (98-107) mmol/L Carbon Dioxide (21.0-32.0) mmol/L Anion Gap (3-11) mmol/L BUN (7-18) mg/dL Creatinine (0.55-1.02) mg/dL Est GFR (CKD-EPI 2020) (mL/min/1.73m2) Glucose (74-106) mg/dL Calcium (8.5-10.1) mg/dL Magnesium (1.8-2.4) mg/dL Total Bilirubin (0.2-1.0) mg/dL AST (15-37) U/L ALT (14-59) U/L Alkaline Phosphatase (46-116) U/L Troponin I (< or =60) ng/L < 50 NT-Pro-B Natriuret Pep (<300) pg/mL Total Protein (6.4-8.2) g/dL Albumin (3.4-5.0) g/dL Lipase (16-77) U/L TSH (0.36-3.74) uIU/mL 6.11 H Urine Color (Yellow) Urine Clarity (Clear) Urine pH (5-8) Ur Specific [place] (1.005-1.025) Urine Protein (Neg-Trace) mg/dL Urine Ketones (Negative) mg/dL Urine Blood (Negative) Urine Nitrite (Negative) Urine Bilirubin (Negative) Urine Urobilinogen (Up to 0.2) mg/dL Ur Leukocyte Esterase (Negative) Urine Glucose (Negative) mg/dL COVID-19 Source SARS-CoV-2 (PCR) (Negative) Influenza Type A (PCR) (Negative) Influenza Type B (PCR) (Negative) RSV (PCR) (Negative) Quality:SDOH Health Related Social Needs: Health related social needs details none per pt Critical Care Time Critical Care Time Critical Care Time: Yes Total Critical Care Time: 45 Attestation: I spent 45 minutes addressing potential life threatening conditions - see [facility] PFS All Active Problems (Updated 11/05/23 @ 17:37 by Iam Youssef MD) Hypotension (Acute) Cellulitis of foot (Acute) Bilateral foot pain (Acute) Rash (Acute) Leukocytosis (Acute) Hypotension (Acute) SVT (supraventricular tachycardia) (Acute) Ventricular tachycardia (Chronic) Cardiac defibrillator in place (Acute) A-fib (Chronic) Combined forms of age-related cataract, right eye (Acute) [facility] Ophthalmology Note 01/10/2023 Cardiac resynchronization therapy defibrillator ([employer]LE[employer]OR-D) in place (Acute) Nonischemic cardiomyopathy (Acute) S/P aortic valve and mitral valve replacement (Chronic 08/04/14) 2014 [facility]: bovine prosthetic valves + MAZE; 10/2021 [facility]: repeat repair Subclinical hypothyroidism (Acute) Essential hypertension (Chronic) Hepatic steatosis (Acute) 05/2022 [place]; FIB-4 score = 2.74 (indeterminate) Hyperlipidemia (Acute 05/12/13) LDL 144 2012; Risk calculated 13.3% soft CV risk; CV risk 06/2014: 11.6% Elevated LFTs (Acute) Interstitial lung disease (Acute) Chronic kidney disease (Chronic) Anisocoria (Acute) Occipital stroke (Acute) Bilateral pleural effusion (Acute) Vascular dementia (Chronic) Right homonymous hemianopsia (Acute) Heart failure with reduced ejection fraction (Chronic) Mediastinal lymphadenopathy (Acute) Pulmonary nodule (Acute) Mild obstructive sleep apnea (Chronic 05/12/20) severe in REM sleep, significan nocturnal hypoxemia, sleep fragmentation and increased airway resistance flow pattern. 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 Chiang) following hospitalization for GI bleed (no afib during cardiac monitoring during hospitalization) Rheumatic heart disease Aortic regurgitation a. moderate by echo 12/2011 S/p repair Mitral regurgitation Rheumatic; s/p repair Surgical History Status post cataract extraction and insertion of intraocular lens of left eye (~01/09/23) [facility] Ophthalmology Pacemaker History of cardiac cath (09/28/21) History of toe surgery (~2003) Removal of bone chip History of section (~1976) Radiofrequency Maze Procedure (08/04/14) done at [facility] EGD - MAC (08/28/17) Colonoscopy - MAC (08/28/17) Biopsy of breast (~2008) Left breast [facility] S/P aortic valve and mitral valve replacement (~07/2014) 2014 [facility]: bovine prosthetic valves + MAZE; 10/2021 [facility]: repeat repair Family History Mother , Age 87, peritonitis Diabetes Essential hypertension Breast cancer Father , Age 45, colon cancer Colon cancer Sister Heart disease [place] at age 49 Brother Diabetes Colon cancer Brother No problems noted. Brother Heart disease CABG Other Family history of colon cancer Social History Smoking/Tobacco Use Status: Former Tobacco Use tobacco type: cigarettes Quit Date: 03/12/94 Smoking risk assessment performed?: Yes Alcohol Intake: former Drug use: Never Substance use type: does not use Counseling given: No Counseling provided: none Adopted: No Caregiver/Support person: No Foster care: No Household members: none Housing: house Number of Children: 1 number of grandchildren: 2 Communication Needs: None Education Level: high school Do you need help understanding health information?: Rarely current occupation: Retired Pets and animals: No Current gender identity: female What is your relationship status?: Panel score (0-1 are the most socially isolated patients): 0 What type of physical activity do you participate in: walking Duration: 60-90 minutes/day Frequency: daily Seatbelt use: always Helmet use: No 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
[2023-10-22] MEDS: Lactated Ringers 500 ML IV (14:25)
[2023-10-22 14:53] LABS: TSH (W/Ref FT4) 6.11 uIU/mL (0.36-3.74)
[2023-10-22] MEDS: ceFAZolin 2 GM/50 ML BAG IVPB (15:09)
[2023-10-22 15:21] LABS: Lactate 0.9 mmol/L (0.6-1.4)
--- NOTE | 2023-10-22 15:30 | DI.US_ITS ---
APPROVED REPORT EXAM: Comprehensive 2D, Doppler, and color-flow Echocardiogram Patient Location: ER Room/Bed: 8 Turn Machine Operator: Jhonny Burden RDCS (AE) Indications: Dyspnea on exertion Conclusion Normal left ventricular wall thickness and chamber size. Ejection fraction is 40%. There is global hypokinesis Normal right ventricular size and function Both atria are normal in size Device lead noted in the right heart There is a bioprosthetic aortic valve There is a bioprosthetic mitral valve There is mild tricuspid regurgitation. Estimated right ventricular systolic pressure is 34 mmHg Overall the study appears similar to one from March 2023 Wall motion Left Ventricle The left ventricle is normal size. Left ventricular systolic function is decreased. There is normal l eft ventricular wall thickness. There is global hypokinesis of the left ventricle. There is no ventri cular septal defect visualized. LVEF is 40%. Right Ventricle The right ventricle is normal size. The right ventricular systolic function is normal. Device lead is present in the right ventricle. Atria The left atrium size is normal. The right atrium size is normal. The interatrial septum is intact wit h no evidence for an atrial septal defect. Aortic Valve Bioprosthetic aortic valve is present. No aortic regurgitation is present. Mitral Valve Bioprosthetic mitral valve is present. Trace mitral regurgitation. Tricuspid Valve The tricuspid valve is normal in structure. There is no tricuspid valve stenosis. Mild tricuspid regu rgitation. The RVSP is 34.1 mmHg. Pulmonic Valve The pulmonary valve is normal in structure. There is no pulmonic valvular stenosis. Trace pulmonic re gurgitation. Great Vessels The aortic root is normal in size. Ascending aorta is not well visualized. Aortic arch is not well vi sualized. IVC is normal in size and collapses >50% with inspiration. Pericardium There is no pericardial effusion. 2D Dimensions IVSD d PLAX 0.69 cm F: 0.6-1.0 LVPW d PLAX 0.70 cm F: 0.6 - 1.0 LVID d PLAX 4.47 cm F: 3.8 - 5.2 LVDs 3.60 cm F: 2.2 - 3.5 LV EF Teichholz 40.2 % FS 19.45 % LV EDV (Teich) 91.1 mL LV ESV (Teich) 54.5 mL Stroke Vol Index (Teich) 22.04 M-Mode TAPSE 1.25 cm (M/F) >1.7 Auto EF LV EDV A4C 90.1 mL LV EDV A2C 128.8 mL LV EDV BP 109.4 mL LV ESV A4C 54.1 mL LV ESV A2C 75.0 mL LV ESV BP 64.4 mL LVEF(%) A4C 39.9 % LVEF(%) A2C 41.8 % LVEF(%) BP 41.1 % LV SV A4C 36.0 ml LV SV A2C 53.8 ml LV SV BP 45.0 ml LV CO A4C 2.9 L/min LV CO A2C 4.3 L/min LV CO BP 3.6 L/min HR A4C 80.00 BPM HR A2C 79.83 BPM LV EDV Index (BP) LA Volume LA Length A4C 4.1 cm LA Length A2C 4.5 cm LA Area A4C s 16.36 cm2 LA Area A2C s 12.42 cm2 LA Vol A4C A-L 55.11 mL LA Vol A2C A-L 28.88 mL LA Vol Biplane A-L 41.9 mL LA Vol/BSA A4C A-L LA Vol/BSA A2C A-L LA Vol/BSA BP A-L 25.2 mL/m2 LA Vol A4C MOD 49.6 mL LA Vol A2C MOD 27.5 mL LA Vol BP MOD 38.0 mL RA Volume RA Area A4C 10.8 cm2 RA ESV A4C (A-L) 25.7mL RA Vol/BSA A4C A-L RA Length A4C 3.8 cm RA ESV A4C (MOD) 22.9mL LV Diastology MV E' medial 0.057 (>0.07 m/s) MV E Vmax 1.26 (0.4-1.3 m/s) MV E/E' MED 22.03 (<14) MV E' lateral 0.048 (>0.1 m/s) MV E/E' LAT 26.36 (<14) MV E' Average 0.052 m/s MV E/E'(average) 24.00 Aortic Valve AoV Vmax 1.65 m/s LVOT Vmax 0.50 m/s AoV Peak Grad 10.9 mmHg LVOT Peak Grad 1.0 mmHg AoV VTI 0.400 m LVOT VTI 0.116 m AoV Mean Johnny. 1.16 m/s LVOT Mean Grad 0.5 mmHg AoV Mean Grad 6.3 mmHg AV Regurg Peak Gr. 10.94 mmHg Velocity Ratio 0.30 Mitral Valve MV DT 213 (160-240 msec) MV Vmax TIPS 1.32 m/s MV Mean Grad 3.6 (<2mmHg) MV VTI 0.294 m Pulmonary Valve PV Vmax 0.81 (0.5-1.5 m/s) RVOT Vmax 0.56 m/s PV Peak Grad 2.6 mmHg RVOT Peak Gr. 1.2 mmHg PV Mean Johnny 0.57 m/s RVOT VTI 0.120 m PV Mean Grad 1.5 mmHg RVOT Mean Gr. 0.7 mmHg Tricuspid Valve RA Pressure 3.00 mmHg TR Vmax 2.79 m/s TR Peak Grad 31.1 mmHg RVSP (TR) 34.1 mmHg
[2023-10-22 15:59] LABS: Troponin I < 50 ng/L (< or =60)
--- NOTE | 2023-10-22 17:34 | W.PM.HP.N ---
Date of service: 10/22/23 Time of Service: 17:34 Assessment and Plan Assessment and plan (1) Hypotension: Status: Acute Assessment and plan: Cortisol level added and pending will provide stress dose steroids Suspect possible adrenal insufficiency secondary to recent steroid burst (2) Leukocytosis: Status: Acute Assessment and plan: Suspect secondary to recent steroid use Blood cultures are pending Procalcitonin added Does not meet criteria for SIRS or sepsis (3) A-fib: Status: Chronic Assessment and plan: Followed by cardiology heart rate controlled continue amiodarone and metoprolol Fully anticoagulated on apixaban Qualifiers: Atrial fibrillation type: paroxysmal Qualified Code(s): I48.0 - Paroxysmal atrial fibrillation (4) Heart failure with reduced ejection fraction: Status: Chronic Assessment and plan: Continue goal-directed therapy with Entresto Jardiance spironolactone with parameters to hold if systolic less than 100 No oxygen requirements or evidence of clinical decompensation or exacerbation Monitor intake and output and daily weights Monitor fluid volume status closely has not made med administration error to account for low BP (5) Rash: Status: Acute Assessment and plan: Unknown etiology. Was provided multiple steroid bursts outpatient with reported improvement/resolution of rash, area still pruritic add zyretc. (6) Bilateral foot pain: Status: Acute Assessment and plan: Check ABIs Hemoglobin A1c 5.9 in March 2023, will recheck. ? claudication/neuropathy. discussed with Dr Nguyen History of Present Illness History of Present Illness Chief Complaint: bilateral feet pain Narrative: This is a 78-year-old female patient past medical history of atrial fibrillation SVT, cardiac resynchronization therapy defibrillator in situ, subclinical hypothyroidism, hyper tension, status post aortic and mitral valve replacement, nonischemic cardiomyopathy, heart failure with reduced ejection fraction who presented to the emergency department with complaints of bilateral feet pain. She reports it as a burning sensation. She reports some minimal edema. She was noted in the emergency department to have some mild erythema to the sole of her left foot with flaking skin. She has had no fever no chills no chest pain no shortness of breath over the past 3 weeks she has been placed on 2 steroid burst for an urticarial rash on her upper body. She feels this rash has improved but still remains very pruritic. She denies any similar history. Workup in the emergency department was most significant for hypotension. She had a mildly elevated white count at 12, no other significant lab findings and not meeting any sirs or sepsis criteria. She was given cefazolin and hospitalist services was contacted to admit to the medical surgical unit for further evaluation. Review of Systems All systems reviewed & are unremarkable except as noted in HPI and below PFSH All Active Problems (Updated 10/22/23 @ 18:03 by Veronique Puentes NP) Bilateral foot pain (Acute) Rash (Acute) Leukocytosis (Acute) Hypotension (Acute) SVT (supraventricular tachycardia) (Acute) Ventricular tachycardia (Chronic) Cardiac defibrillator in place (Acute) A-fib (Chronic) Combined forms of age-related cataract, right eye (Acute) [facility] Ophthalmology Note 01/10/2023 Cardiac resynchronization therapy defibrillator ([employer]-D) in place (Acute) Nonischemic cardiomyopathy (Acute) S/P aortic valve and mitral valve replacement (Chronic 08/04/14) 2014 [facility]: bovine prosthetic valves + MAZE; 10/2021 [facility]: repeat repair Subclinical hypothyroidism (Acute) Essential hypertension (Chronic) Hepatic steatosis (Acute) 05/2022 [place]; FIB-4 score = 2.74 (indeterminate) Hyperlipidemia (Acute 05/12/13) LDL 144 2012; Risk calculated 13.3% soft CV risk; CV risk 06/2014: 11.6% Elevated LFTs (Acute) Interstitial lung disease (Acute) Chronic kidney disease (Chronic) Anisocoria (Acute) Occipital stroke (Acute) Bilateral pleural effusion (Acute) Vascular dementia (Chronic) Right homonymous hemianopsia (Acute) Heart failure with reduced ejection fraction (Chronic) Mediastinal lymphadenopathy (Acute) Pulmonary nodule (Acute) Mild obstructive sleep apnea (Chronic 05/12/20) severe in REM sleep, significan nocturnal hypoxemia, sleep fragmentation and increased airway resistance flow pattern. 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 Chiang) following hospitalization for GI bleed (no afib during cardiac monitoring during hospitalization) Rheumatic heart disease Aortic regurgitation a. moderate by echo 12/2011 S/p repair Mitral regurgitation Rheumatic; s/p repair Surgical History Status post cataract extraction and insertion of intraocular lens of left eye (~01/09/23) [facility] Ophthalmology Pacemaker History of cardiac cath (09/28/21) History of toe surgery (~2003) Removal of bone chip History of section (~1976) Radiofrequency Maze Procedure (08/04/14) done at [facility] EGD - MAC (08/28/17) Colonoscopy - MAC (08/28/17) Biopsy of breast (~2008) Left breast [facility] S/P aortic valve and mitral valve replacement (~07/2014) 2014 [facility]: bovine prosthetic valves + MAZE; 10/2021 [facility]: repeat repair Family History Mother , Age 87, peritonitis Diabetes Essential hypertension Breast cancer Father , Age 45, colon cancer Colon cancer Sister Heart disease [place] at age 49 Brother Diabetes Colon cancer Brother No problems noted. Brother Heart disease CABG Other Family history of colon cancer Social History Smoking/Tobacco Use Status: Former Tobacco Use tobacco type: cigarettes Quit Date: 03/12/94 Smoking risk assessment performed?: Yes Alcohol Intake: former Drug use: Never Substance use type: does not use Counseling given: No Counseling provided: none Adopted: No Caregiver/Support person: No Foster care: No Household members: none Housing: house Number of Children: 1 number of grandchildren: 2 Communication Needs: None Education Level: high school Do you need help understanding health information?: Rarely current occupation: Retired Pets and animals: No Current gender identity: female What is your relationship status?: Panel score (0-1 are the most socially isolated patients): 0 What type of physical activity do you participate in: walking Duration: 60-90 minutes/day Frequency: daily Seatbelt use: always Helmet use: No Drive intox or ride w/intox transit mixer driver: No Water heater temp set <120 deg: Yes Working smoke detector in home: No Fire extinguisher in home: No Carbon monox detector in home: No Firearms in home: No Do you feel safe at home: Yes Do you feel safe in your relationship?: Yes Meds Allergies and Home Medications Allergies Allergy/AdvReac Type Severity Reaction Status Date / Time heparin Allergy Severe thrombocytopenia, Verified 10/02/23 15:40 anaphylaxis dofetilide AdvReac Severe Prolonged Verified 10/02/23 15:40 QTc lisinopril AdvReac Cough Verified 10/02/23 15:40 Home Medications ?Medication ?Instructions ?Recorded ?Confirmed ?Type ascorbate calcium (vitamin C) 500 500 mg PO DAILY 07/31/19 10/22/23 History mg tablet aspirin 81 mg chewable tablet 81 mg PO DAILY 12/07/21 10/22/23 History calcium citrate 200 mg 1 tab PO DAILY 12/07/21 10/22/23 History calcium-vitamin D3 6.25 mcg (250 unit) tablet melatonin 3 mg capsule 3 mg PO HS 12/07/21 10/22/23 History thiamine HCl (vitamin B1) 100 mg 200 mg PO DAILY 12/07/21 10/22/23 History tablet cholecalciferol (vitamin D3) 25 25 mcg PO DAILY 01/01/23 10/22/23 History mcg (1,000 unit) capsule furosemide 40 mg tablet 40 mg PO DAILY #90 tabs 01/01/23 10/22/23 Rx spironolactone 25 mg tablet 25 mg PO DAILY #90 tabs 01/01/23 10/22/23 Rx empagliflozin 10 mg tablet 10 mg PO DAILY 04/02/23 10/22/23 History (Jardiance) sacubitril 49 mg-valsartan 51 mg 0.5 tab PO BID 04/10/23 10/22/23 History tablet (Entresto) amiodarone 200 mg tablet 200 mg PO DAILY 06/08/23 10/22/23 History metoprolol succinate 50 mg 50 mg PO BID #180 tabs 07/17/23 10/22/23 Rx tablet,extended release 24 hr sertraline 25 mg tablet 25 mg PO DAILY #90 tab-caps 08/24/23 10/22/23 Rx apixaban 5 mg tablet 5 mg PO BID #180 tabs 09/12/23 10/22/23 Rx ferrous sulfate 325 mg (65 mg 325 mg PO Q OTHER DAY #45 tab-caps 09/12/23 10/22/23 Rx iron) tablet pantoprazole 40 mg tablet,delayed See Rx Instructions .Route 09/12/23 10/22/23 Rx release .COMPLEX #90 tabs prednisone 20 mg tablet 40 mg (2 x 20 mg) PO DAILY #10 tabs 10/11/23 10/22/23 Rx furosemide 20 mg tablet (Lasix) 20 mg PO DAILY 10/15/23 10/22/23 History gabapentin 300 mg capsule See Rx Instructions .Route 10/15/23 10/22/23 Rx .COMPLEX #180 caps metoprolol succinate 50 mg 50 mg PO DAILY 10/15/23 10/22/23 History tablet,extended release 24 hr Exam Narrative Exam Narrative: Elderly female of stated age in no acute distress sitting on the stretcher her head is atraumatic normal facial appearance eyes nonicteric noninjected neck is supple with no JVD full range of motion cardiovascular regular rate and rhythm her respirations are even and unlabored her abdomen is soft nontender skin with no rashes or lesions moves all extremities. Trace edema to her feet no other lower extremity edema. Pulses are very faint feet are warm I do not appreciate any erythema or appearance of cellulitis, does have some flaking of her skin on the sole of her left foot. Neurologic she is awake alert oriented no focal deficits psychiatric normal mood and affect Results Labs 10/22/23 11:12 10/22/23 11:12 Labs: Laboratory Results - last 24 hr 10/22/23 10/22/23 10/22/23 11:12 11:45 13:18 WBC 12.03 H RBC 4.37 Hgb 13.1 Hct 42.1 MCV 96 H MCH 30.0 MCHC 31.1 L RDW 13.9 Plt Count 182 MPV 9.9 Immature Gran % 0.6 Neutrophils % 85.7 Lymphocytes % 7.6 Monocytes % 4.5 Eosinophils % 1.2 Basophils % 0.4 Nucleated RBC % 0.0 Absolute Neutrophils 10.31 H Absolute Lymphocytes 0.91 L Absolute Monocytes 0.54 Absolute Eosinophils 0.14 Absolute Basophils 0.05 PT 13.2 H INR 1.3 H APTT 34.4 H VBG Lactate 1.8 H Sodium 140 Potassium 4.3 Chloride 106 Carbon Dioxide 26.7 Anion Gap 7.3 BUN 38 H Creatinine 2.1 H Est GFR (CKD-EPI 2020) 23.97 Glucose 132 H Calcium 8.7 Magnesium 2.2 Total Bilirubin 0.46 AST 18 ALT 33 Alkaline Phosphatase 62 Troponin I < 50 NT-Pro-B Natriuret Pep 5741 H Total Protein 7.1 Albumin 3.3 L Lipase 33 TSH Free T4 Urine Color Straw Urine Clarity Clear Urine pH 5.0 Ur Specific [place] 1.010 Urine Protein Negative Urine Ketones Negative Urine Blood Negative Urine Nitrite Negative Urine Bilirubin Negative Urine Urobilinogen 0.2 Ur Leukocyte Esterase Negative Urine Glucose 250 H COVID-19 Source Nasopharynx SARS-CoV-2 (PCR) Negative Influenza Type A (PCR) Negative Influenza Type B (PCR) Negative RSV (PCR) Negative 10/22/23 10/22/23 14:20 15:15 WBC RBC Hgb Hct MCV MCH MCHC RDW Plt Count MPV Immature Gran % Neutrophils % Lymphocytes % Monocytes % Eosinophils % Basophils % Nucleated RBC % Absolute Neutrophils Absolute Lymphocytes Absolute Monocytes Absolute Eosinophils Absolute Basophils PT INR APTT VBG Lactate 0.9 Sodium Potassium Chloride Carbon Dioxide Anion Gap BUN Creatinine Est GFR (CKD-EPI 2020) Glucose Calcium Magnesium Total Bilirubin AST ALT Alkaline Phosphatase Troponin I < 50 NT-Pro-B Natriuret Pep Total Protein Albumin Lipase TSH 6.11 H Free T4 1.20 Urine Color Urine Clarity Urine pH Ur Specific [place] Urine Protein Urine Ketones Urine Blood Urine Nitrite Urine Bilirubin Urine Urobilinogen Ur Leukocyte Esterase Urine Glucose COVID-19 Source SARS-CoV-2 (PCR) Influenza Type A (PCR) Influenza Type B (PCR) RSV (PCR) Last Vital Signs Temp 36.6 C 10/22/23 10:47 Pulse 81 10/22/23 15:01 Resp 17 10/22/23 15:08 BP 103/58 L 10/22/23 15:01 Pulse Ox 97 10/22/23 15:08 Time Spent Time spent with Patient: 55-74 minutes Time was spent: preparing to see the patient(eg.review tests), obtaining and/or reviewing separately otained hiistory, ordering medications,tests, procedures and indepentently interpreting results
[2023-10-22 17:37] LABS: Lab Add On Test DONE
[2023-10-22 18:10] LABS: Procalcitonin < 0.1 ng/mL
[2023-10-22 18:45] LABS: Hemoglobin A1C 6.4 % (<5.7)
[2023-10-22] MEDS: Gabapentin 300 MG CAP PO (20:37)
[2023-10-22] MEDS: Melatonin 3 MG TAB PO (20:37)
[2023-10-22] MEDS: Apixaban 5 MG TAB PO (20:37)
[2023-10-22] MEDS: Normal Saline Flush 10 ML SYR IVP (20:37)
[2023-10-22] MEDS: Hydrocortisone SOD SUC. 100 MG VIAL IVP (22:27)
--- NOTE | 2023-10-23 | DI.US_ITS ---
Exam(s) US THYROID EXAM: US THYROID CLINICAL HISTORY: subclincial hypothyroidism. TECHNIQUE: Ultrasound thyroid performed using standard protocol. COMPARISON: No exams were available for comparison FINDINGS: ISTHMUS: 2 mm RIGHT LOBE: Size: 3.1 x 1.8 x 1.6 cm Echogenicity: Normal. Vascularity: Normal. Nodules: None. LEFT LOBE: Size: 3.1 x 1.0 x 2.0 cm Echogenicity: Normal. Vascularity: Normal. Nodules: None. OTHER FINDINGS: None. IMPRESSION: Normal sonographic appearance of the thyroid gland. No thyroid nodules are present. DATA REPOSITORY:
[2023-10-23] MEDS: Hydrocortisone SOD SUC. 100 MG VIAL 50 MG IVP ×2 (05:49→12:45)
[2023-10-23 07:01] LABS: Abs Immature Grans 0.04 10^3/uL (0.0-0.06); Absolute Basophil Count 0.02 10^3/uL (0.0-0.2); Absolute Eosinophil Count 0.01 10^3/uL (0.0-0.7); Absolute Lymphocyte Count 0.53 10^3/uL (1.2-3.4); Absolute Monocyte Count 0.28 10^3/uL (0.1-0.8); Absolute Neutrophil Count 8.62 10^3/uL (1.2-6.7); Basophils % 0.2 %; Eosinophils % 0.1 %; HCT 38.9 % (36.0-46.0); Immature Grans % 0.4 %; Lymphocytes % 5.6 %; MCH 29.5 pg (27.0-33.0); MCHC 30.8 % (32.0-36.0); MCV 96 fL (80-95); MPV 9.5 fL (8.0-11.0); Monocytes % 2.9 %; Neutrophils % 90.8 %; Platelet Count 170 10^3/uL (130-400); RBC 4.07 10^6/uL (3.93-5.22); RDW-SD 49.1 fL
[2023-10-23 07:22] LABS: ALT 24 U/L (14-59); AST 17 U/L (15-37); Albumin 2.9 g/dL (3.4-5.0); Alkaline Phosphatase 57 U/L (46-116); Anion Gap 9.3 mmol/L (3-11); BUN 31 mg/dL (7-18); Bilirubin, Total 0.38 mg/dL (0.2-1.0); CO2 24.7 mmol/L (21.0-32.0); CREATININE 1.6 mg/dL (0.55-1.02); Calcium 8.4 mg/dL (8.5-10.1); Chloride 108 mmol/L (98-107); Estimated GFR 33.22 (mL/min/1.73m2); Glucose 128 mg/dL (74-106); Potassium 4.6 mmol/L (3.5-5.1); Sodium 142 mmol/L (136-145); Total Protein 6.5 g/dL (6.4-8.2)
[2023-10-23] MEDS: Thiamine 100 MG TAB 200 MG PO (07:49)
[2023-10-23] MEDS: Metoprolol CR 50 MG TABCR PO (07:50)
[2023-10-23] MEDS: Amiodarone 200 MG TAB PO (07:50)
[2023-10-23] MEDS: Pantoprazole 40 MG TABCR PO (07:51)
[2023-10-23] MEDS: Furosemide 20 MG TAB PO (07:51)
[2023-10-23] MEDS: Ascorbic Acid 500 MG TAB PO (07:51)
[2023-10-23] MEDS: Calcium 600mg/Vit D 200U TAB 1 TAB PO (07:51)
[2023-10-23] MEDS: Sertraline 25 MG TAB PO (07:51)
[2023-10-23] MEDS: Cholecalciferol (Vitamin D3) 1,000 UNIT TAB 1000 UNITS PO (07:52)
[2023-10-23] MEDS: Spironolactone 25 MG TAB PO (07:52)
[2023-10-23] MEDS: Cetirizine 10 MG TAB PO (07:52)
[2023-10-23] MEDS: Apixaban 5 MG TAB PO (07:53)
[2023-10-23] MEDS: Aspirin 81 MG CHEW PO (07:53)
[2023-10-23] MEDS: Empaglifozin 10 MG TAB PO (07:53)
[2023-10-23] MEDS: Gabapentin 300 MG CAP PO (07:54)
--- NOTE | 2023-10-23 08:12 | INITIAL_ITS ---
Date of service: 10/23/23 Time of Service: 08:12 Care Management Initial Assmt Initial Assessment Reason for Hospitalization: Hypotension Functional Status/Living Situation Patient Presentation: Maira was sitting up in bed visiting with her daughter. She appeared to be in good spirits and was agreeable to conversation. Maira informed CM that she believes she may be able to be discharged later today, which she is pleased about. Maira was admitted with hypotension which resolved shortly after admission. She is independent at baseline and does not receive any community services. Town of Residence: [facility] Resides with: Alone Significant Other/Family: Local (has one supportive daughter,Lawanda) Employment Status: Retired Instrumental Activities of Daily Living (ADLs): Independent Physical Functioning/Mobility Assistive Device: none Advance Directives Advance Directives: Do you have an Advance Directive: Y 10/02/17 08:00 AD On File at [facility]: Y 08/29/17 15:51 Date Asked 10/22/23 10/22/23 10:49 AD Date Reviewed 10/22/23 10/22/23 17:44 COLST On File at [facility] Yes 12/28/21 03:51 COLST Date Scanned 12/12/21 12/28/21 03:51 Code Status Resuscitation Status Full Code Insurance Coverage/Financial Issues Insurance: Medicare [employer] Care Team Visit Care Team Role Provider Type Glendy Ye NP Primary Care Provider NURSE PRACTITIONER Iam Youssef MD Emergency Provider [facility] STAFF PHYSICIAN Ted Nguyen Admit Provider [facility] STAFF PHYSICIAN Attending Provider Discharge Potential Discharge Needs: PCP F/U Appt Anticipated Barriers to Discharge: Medical Status Patient/Family Education Needs: Review discharge instructions, discuss Ask Me Three Transportation: Private vehicle Plan: Anticipate Maira will be discharged home with no new services when medically stable. She will follow up with her community providers and plan of care and transport with family. CM will follow and continue to assess for discharge needs. PFSH All Active Problems (Updated 10/22/23 @ 18:03 by Veronique Puentes NP) Bilateral foot pain (Acute) Rash (Acute) Leukocytosis (Acute) Hypotension (Acute) SVT (supraventricular tachycardia) (Acute) Ventricular tachycardia (Chronic) Cardiac defibrillator in place (Acute) A-fib (Chronic) Combined forms of age-related cataract, right eye (Acute) [facility] [place]mology [place] 01/10/2023 Cardiac resynchronization therapy defibrillator ([employer]-D) in place (Acute) Nonischemic cardiomyopathy (Acute) S/P aortic valve and mitral valve replacement (Chronic 08/04/14) 2014 [facility]: bovine prosthetic valves + MAZE; 10/2021 [facility]: repeat repair Subclinical hypothyroidism (Acute) Essential hypertension (Chronic) Hepatic steatosis (Acute) 05/2022 [place]; FIB-4 score = 2.74 (indeterminate) Hyperlipidemia (Acute 05/12/13) LDL 144 2012; Risk calculated 13.3% soft CV risk; CV risk 06/2014: 11.6% Elevated LFTs (Acute) Interstitial lung disease (Acute) Chronic kidney disease (Chronic) Anisocoria (Acute) Occipital stroke (Acute) Bilateral pleural effusion (Acute) Vascular dementia (Chronic) Right homonymous hemianopsia (Acute) Heart failure with reduced ejection fraction (Chronic) Mediastinal lymphadenopathy (Acute) Pulmonary nodule (Acute) Mild obstructive sleep apnea (Chronic 05/12/20) severe in REM sleep, significan nocturnal hypoxemia, sleep fragmentation and increased airway resistance flow pattern. 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 Chiang) following hospitalization for GI bleed (no afib during cardiac monitoring during hospitalization) Rheumatic heart disease Aortic regurgitation a. moderate by echo 12/2011 S/p repair Mitral regurgitation Rheumatic; s/p repair Surgical History Status post cataract extraction and insertion of intraocular lens of left eye (~01/09/23) [facility] [place]mology Pacemaker History of cardiac cath (09/28/21) History of toe surgery (~2003) Removal of bone chip History of section (~1976) Radiofrequency Maze Procedure (08/04/14) done at [facility] EGD - MAC (08/28/17) Colonoscopy - MAC (08/28/17) Biopsy of breast (~2008) Left breast [facility] S/P aortic valve and mitral valve replacement (~07/2014) 2014 [facility]: bovine prosthetic valves + MAZE; 10/2021 [facility]: repeat repair Family History Mother , Age 87, peritonitis Diabetes Essential hypertension Breast cancer Father , Age 45, colon cancer Colon cancer Sister Heart disease [place] at age 49 Brother Diabetes Colon cancer Brother No problems noted. Brother Heart disease CABG Other Family history of colon cancer Social History Smoking/Tobacco Use Status: Former Tobacco Use tobacco type: cigarettes Quit Date: 03/12/94 Smoking risk assessment performed?: Yes Alcohol Intake: former Drug use: Never Substance use type: does not use Counseling given: No Counseling provided: none Adopted: No Caregiver/Support person: No Foster care: No Household members: none Housing: house Number of Children: 1 number of grandchildren: 2 Communication Needs: None Education Level: high school Do you need help understanding health information?: Rarely current occupation: Retired Pets and animals: No Current gender identity: female What is your relationship status?: Panel score (0-1 are the most socially isolated patients): 0 What type of physical activity do you participate in: walking Duration: 60-90 minutes/day Frequency: daily Seatbelt use: always Helmet use: No Drive intox or ride w/intox industrial tractor driver: No Water heater temp set <120 deg: Yes Working smoke detector in home: No Fire extinguisher in home: No Carbon monox detector in home: No Firearms in home: No Do you feel safe at home: Yes Do you feel safe in your relationship?: Yes SDOH(Care Management) Screening Will the Patient Participate in the Screening?: Unable to obtain Do you worry about having a steady place to live?: no In the past 12 months, have you had to go without electric, gas, oil or water in your home?: no Have you or anyone in your house had to go without enough food to eat?: no Has lack of transportation kept you from medical appointments or from doing things needed for daily living?: no Has anyone in your support network made you feel unsafe for any reason?: no
[2023-10-23 08:19] VITALS: BP 105/69; PULSE 80; RESP 16; TEMP 36.6; O2SAT 94
[2023-10-23] MEDS: Sacubitril/Valsartan 49 mg/51 mg TAB 0.5 EACH PO (09:04)
[2023-10-23] MEDS: Ferrous Sulfate 325 MG TAB PO (09:05)
[2023-10-23] MEDS: Normal Saline Flush 10 ML SYR IVP ×2 (09:40→12:46)
--- NOTE | 2023-10-23 11:30 | CHAPLAIN ---
Maira was out of the room for tests when I stopped in. I visited with Maira's daughter. She said Maira was feeling better and they were hoping to get some answers from test results.
--- NOTE | 2023-10-23 13:11 | W.PM.DS.N ---
Date of service: 10/23/23 Time of Service: 13:11 DS: Diagnosis Discharge Diagnosis (1) Hypotension: Status: Acute (2) Leukocytosis: Status: Acute (3) A-fib: Status: Chronic (4) Heart failure with reduced ejection fraction: Status: Chronic (5) Rash: Status: Acute (6) Bilateral foot pain: Status: Acute Discharge Plan Disposition Patient Disposition: Home Condition: Stable Discharge Details Reason For Visit: hypotension Admit Date/Time: 10/22/23 17:23 Admit Provider: Ted Nguyen Attending Provider: Ted Nguyen Primary Care Provider: Glendy Ye [facility] Course Hospital Course: This is a 78-year-old female patient past medical history significant for nonischemic cardiomyopathy, status post aortic valve and mitral valve replacement, hypertension, subclinical hypothyroidism who presented to the emergency department with complaints of bilateral feet pain and some swelling. She also has been recently treated for an urticarial rash on her upper torso with a couple rounds of oral steroids. She states that the rash has improved but the area remains pruritic. Her workup in the emergency department did show a blood pressure of 73 systolic. Rest of her workup showed no SIRS or sepsis. She was given cefazolin in the emergency department for suspected left foot cellulitis but this was not appreciated on exam. She was afebrile and hemodynamically improved after receiving stress dose steroids. Cortisol level is pending at time of discharge. She was also started on Zyrtec in addition to the stress dose steroids and feels closer to her baseline today. She is being discharged to home on a slow steroid taper and advised to continue Zyrtec. She will continue to closely monitor her symptoms and follow-up closely with her primary care provider for further workup or recommendations. We did obtain a thyroid ultrasound which was unremarkable. She is being discharged to home with no new services discharge is discussed with Dr. Nguyen Home Meds and New Rx's Prescriptions: New cetirizine 10 mg Tablet 10 mg PO DAILY Qty: 30 0RF Continued ascorbate calcium (vitamin C) 500 mg tablet 500 mg PO DAILY cholecalciferol (vitamin D3) 25 mcg (1,000 unit) capsule 25 mcg PO DAILY spironolactone 25 mg tablet 25 mg PO DAILY Qty: 90 3RF apixaban 5 mg tablet 5 mg PO BID Qty: 180 3RF ferrous sulfate 325 mg (65 mg iron) tablet 325 mg PO Q OTHER DAY Qty: 45 3RF Rx Instructions: Take with water or juice on an empty stomach pantoprazole 40 mg tablet,delayed release (DR/EC) See Rx Instructions .ROUTE .COMPLEX Qty: 90 3RF Dose Instruction: TAKE 1 TABLET ONCE DAILY IN THE MORNING AT LEAST 30 TO 60 MINUTES BEFORE FIRST MEAL OF THE DAY Rx Instructions: TAKE 1 TABLET ONCE DAILY IN THE MORNING AT LEAST 30 TO 60 MINUTES BEFORE FIRST MEAL OF THE DAY aspirin 81 mg tablet,chewable 81 mg PO DAILY thiamine HCl (vitamin B1) 100 mg tablet 200 mg PO DAILY calcium citrate-vitamin D3 200 mg-6.25 mcg (250 unit) tablet 1 tab PO DAILY melatonin 3 mg capsule 3 mg PO HS Entresto 49-51 mg tablet 0.5 tab PO BID amiodarone 200 mg tablet 200 mg PO DAILY sertraline 25 mg tablet 25 mg PO DAILY Qty: 90 3RF gabapentin 300 mg capsule See Rx Instructions .ROUTE .COMPLEX Qty: 180 1RF Dose Instruction: TAKE ONE CAPSULE BY MOUTH TWICE DAILY Rx Instructions: TAKE ONE CAPSULE BY MOUTH TWICE DAILY furosemide [Lasix] 20 mg tablet 20 mg PO DAILY Patient Comments: 10/08/23 Appointment metoprolol succinate 50 mg tablet extended release 24 hr 50 mg PO DAILY Patient Comments: 10/08/23 appointment Jardiance 10 mg tablet 10 mg PO DAILY Patient Comments: TAKE ONE TABLET BY MOUTH EVERY DAY Changed prednisone 20 mg tablet See Taper PO DAILY Qty: 60 0RF Taper: Prednisone 20mg taper 40 mg Daily for 4 Days and 0 Hour 20 mg Daily for 4 Days and 0 Hour 10 mg Daily for 4 Days and 0 Hour 5 mg Daily for 4 Days Discontinued furosemide 40 mg tablet 40 mg PO DAILY Qty: 90 3RF metoprolol succinate 50 mg tablet extended release 24 hr 50 mg PO BID Qty: 180 3RF Discharge Instructions Instructions: Dealing with Low Blood Pressure from the Drugs You Take Additional Instructions: taper steroids slowly as directed take the rest of your medications as previously directed. We have not made any adjustments but some medications appeared as duplicate, those have been discontinued. continue zyrtec see pcp if rash returns your thyroid ultrasound showed Normal sonographic appearance of the thyroid gland. No thyroid nodules are present.. Stand Alone Forms: Nursing Discharge Form Referrals: Glendy Ye NP [Primary Care Provider] - 10/24/23 8:30 am Activity:: Activity as Tolerated Equipment/Supplies:: No Equipment Needed Diet:: As Tolerated Discharge Orders Discharge Orders: Discharge Order (Routine); Ordered 10/23/23 Ordered By: Veronique Puentes Discharge Data Discharge Date/Time-TO BE ENTERED AT DEPARTURE: 10/23/23 14:24 DS: Summary Time Spent with Patient providing and/or coordinating discharge services: Greater than 30 minutes Status at Discharge Functional status at discharge: independent ambulation Overall status at discharge: patient is progressing back to baseline Mental Status: mental status grossly normal Speech and Movement: speech and movement normal Mood: congruent mood Affect: normal affect Quality:SDOH Health Related Social Needs: Health related social needs details none per pt Exam Narrative Exam Narrative: Elderly female of stated age in no acute distress sitting on the stretcher her head is atraumatic normal facial appearance eyes nonicteric noninjected neck is supple with no JVD full range of motion cardiovascular regular rate and rhythm her respirations are even and unlabored her abdomen is soft nontender skin with no rashes or lesions moves all extremities. Trace edema to her feet no other lower extremity edema. Pulses are very faint feet are warm I do not appreciate any erythema or appearance of cellulitis, does have some flaking of her skin on the sole of her left foot. Neurologic she is awake alert oriented no focal deficits psychiatric normal mood and affect Psych Mental Status: mental status grossly normal Speech and Movement: speech and movement normal Mood: congruent mood Affect: normal affect DS: Data Vitals/I&O Vitals and I&O: Vital Signs Temperature 36.6 C 10/23/23 08:19 Temperature Source Skin 10/23/23 08:19 Pulse 80 10/23/23 08:19 Pulse Rhythm Regular 10/23/23 10:52 Respiratory Rate 16 10/23/23 08:19 Respiratory Effort Normal, Non-Labored 10/23/23 10:52 Respiratory Depth Normal 10/23/23 10:52 Respiratory Pattern Normal 10/23/23 10:52 Blood Pressure 105/69 10/23/23 08:19 Blood Pressure Position Sitting 10/22/23 10:47 Pulse Oximetry 94 10/23/23 08:19 Oxygen Delivery Method Room Air 10/23/23 08:19 Oxygen Flow Rate 0 10/23/23 08:19 Pain Level 0 10/23/23 08:19 Intake & Output 10/22/23 10/23/23 10/23/23 23:59 11:59 23:59 Intake Total 1050.000 / 1050.000 Output Total 500 / 500 Balance 1050.000 / 1050.000 -500 / -500 Weight 68.946 kg 70.76 kg Intake: IV 1050.000 / 1050.000 Output: Urine 500 / 500 Other: Urine Color Pale Yellow Urine Appearance Clear Clear Voiding Methods Toilet Data Completed and Pending Labs on day of discharge: Labs from last 24 hours 10/23/23 10/22/23 10/22/23 06:45 17:41 15:15 WBC 9.50 RBC 4.07 Hgb 12.0 Hct 38.9 MCV 96 H MCH 29.5 MCHC 30.8 L RDW 14.0 Plt Count 170 MPV 9.5 Immature Gran % 0.4 Neutrophils % 90.8 Lymphocytes % 5.6 Monocytes % 2.9 Eosinophils % 0.1 Basophils % 0.2 Nucleated RBC % 0.0 Absolute Neutrophils 8.62 H Absolute Lymphocytes 0.53 L Absolute Monocytes 0.28 Absolute Eosinophils 0.01 Absolute Basophils 0.02 VBG Lactate 0.9 Sodium 142 Potassium 4.6 Chloride 108 H Carbon Dioxide 24.7 Anion Gap 9.3 BUN 31 H Creatinine 1.6 H Est GFR (CKD-EPI 2020) 33.22 Glucose 128 H Hemoglobin A1c Calcium 8.4 L Total Bilirubin 0.38 AST 17 ALT 24 Alkaline Phosphatase 57 Troponin I < 50 Total Protein 6.5 Albumin 2.9 L Procalcitonin TSH Free T4 Cortisol Baseline Pending Urine Color Urine Clarity Urine pH Ur Specific [place] Urine Protein Urine Ketones Urine Blood Urine Nitrite Urine Bilirubin Urine Urobilinogen Ur Leukocyte Esterase Urine Glucose Add-On Test Request 10/22/23 10/22/23 10/22/23 14:25 14:20 13:18 WBC RBC Hgb Hct MCV MCH MCHC RDW Plt Count MPV Immature Gran % Neutrophils % Lymphocytes % Monocytes % Eosinophils % Basophils % Nucleated RBC % Absolute Neutrophils Absolute Lymphocytes Absolute Monocytes Absolute Eosinophils Absolute Basophils VBG Lactate Sodium Potassium Chloride Carbon Dioxide Anion Gap BUN Creatinine Est GFR (CKD-EPI 2020) Glucose Hemoglobin A1c Calcium Total Bilirubin AST ALT Alkaline Phosphatase Troponin I Total Protein Albumin Procalcitonin < 0.1 TSH 6.11 H Free T4 1.20 Cortisol Baseline Urine Color Straw Urine Clarity Clear Urine pH 5.0 Ur Specific [place] 1.010 Urine Protein Negative Urine Ketones Negative Urine Blood Negative Urine Nitrite Negative Urine Bilirubin Negative Urine Urobilinogen 0.2 Ur Leukocyte Esterase Negative Urine Glucose 250 H Add-On Test Request DONE 10/22/23 11:12 WBC RBC Hgb Hct MCV MCH MCHC RDW Plt Count MPV Immature Gran % Neutrophils % Lymphocytes % Monocytes % Eosinophils % Basophils % Nucleated RBC % Absolute Neutrophils Absolute Lymphocytes Absolute Monocytes Absolute Eosinophils Absolute Basophils VBG Lactate Sodium Potassium Chloride Carbon Dioxide Anion Gap BUN Creatinine Est GFR (CKD-EPI 2020) Glucose Hemoglobin A1c 6.4 H Calcium Total Bilirubin AST ALT Alkaline Phosphatase Troponin I Total Protein Albumin Procalcitonin TSH Free T4 Cortisol Baseline Urine Color Urine Clarity Urine pH Ur Specific [place] Urine Protein Urine Ketones Urine Blood Urine Nitrite Urine Bilirubin Urine Urobilinogen Ur Leukocyte Esterase Urine Glucose Add-On Test Request 10/22/23 16:12 Blood Blood Culture - Pending 10/22/23 14:20 Blood Blood Culture - Pending Preliminary micro results at discharge 10/22/23 16:12 Blood Culture - Pending Blood 10/22/23 14:20 Blood Culture - Pending Blood PFSH All Active Problems (Updated 10/22/23 @ 18:03 by Veronique Puentes NP) Bilateral foot pain (Acute) Rash (Acute) Leukocytosis (Acute) Hypotension (Acute) SVT (supraventricular tachycardia) (Acute) Ventricular tachycardia (Chronic) Cardiac defibrillator in place (Acute) A-fib (Chronic) Combined forms of age-related cataract, right eye (Acute) [facility] Ophthalmology Note 01/10/2023 Cardiac resynchronization therapy defibrillator ([employer]-D) in place (Acute) Nonischemic cardiomyopathy (Acute) S/P aortic valve and mitral valve replacement (Chronic 08/04/14) 2014 [facility]: bovine prosthetic valves + MAZE; 10/2021 [facility]: repeat repair Subclinical hypothyroidism (Acute) Essential hypertension (Chronic) Hepatic steatosis (Acute) 05/2022 [place]; FIB-4 score = 2.74 (indeterminate) Hyperlipidemia (Acute 05/12/13) LDL 144 2012; Risk calculated 13.3% soft CV risk; CV risk 06/2014: 11.6% Elevated LFTs (Acute) Interstitial lung disease (Acute) Chronic kidney disease (Chronic) Anisocoria (Acute) Occipital stroke (Acute) Bilateral pleural effusion (Acute) Vascular dementia (Chronic) Right homonymous hemianopsia (Acute) Heart failure with reduced ejection fraction (Chronic) Mediastinal lymphadenopathy (Acute) Pulmonary nodule (Acute) Mild obstructive sleep apnea (Chronic 05/12/20) severe in REM sleep, significan nocturnal hypoxemia, sleep fragmentation and increased airway resistance flow pattern. 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 Chiang) following hospitalization for GI bleed (no afib during cardiac monitoring during hospitalization) Rheumatic heart disease Aortic regurgitation a. moderate by echo 12/2011 S/p repair Mitral regurgitation Rheumatic; s/p repair Surgical History Status post cataract extraction and insertion of intraocular lens of left eye (~01/09/23) [facility] Ophthalmology Pacemaker History of cardiac cath (09/28/21) History of toe surgery (~2003) Removal of bone chip History of section (~1976) Radiofrequency Maze Procedure (08/04/14) done at [facility] EGD - MAC (08/28/17) Colonoscopy - MAC (08/28/17) Biopsy of breast (~2008) Left breast [facility] S/P aortic valve and mitral valve replacement (~07/2014) 2014 [facility]: bovine prosthetic valves + MAZE; 10/2021 [facility]: repeat repair Family History Mother , Age 87, peritonitis Diabetes Essential hypertension Breast cancer Father , Age 45, colon cancer Colon cancer Sister Heart disease ME at age 49 Brother Diabetes Colon cancer Brother No problems noted. Brother Heart disease CABG Other Family history of colon cancer Social History Smoking/Tobacco Use Status: Former Tobacco Use tobacco type: cigarettes Quit Date: 03/12/94 Smoking risk assessment performed?: Yes Alcohol Intake: former Drug use: Never Substance use type: does not use Counseling given: No Counseling provided: none Adopted: No Caregiver/Support person: No Foster care: No Household members: none Housing: house Number of Children: 1 number of grandchildren: 2 Communication Needs: None Education Level: high school Do you need help understanding health information?: Rarely current occupation: Retired Pets and animals: No Current gender identity: female What is your relationship status?: Panel score (0-1 are the most socially isolated patients): 0 What type of physical activity do you participate in: walking Duration: 60-90 minutes/day Frequency: daily Seatbelt use: always Helmet use: No Drive intox or ride w/intox truck driver helper: No Water heater temp set <120 deg: Yes Working smoke detector in home: No Fire extinguisher in home: No Carbon monox detector in home: No Firearms in home: No Do you feel safe at home: Yes Do you feel safe in your relationship?: Yes Time Spent with Patient Time Spent with Patient: 45-69 minutes Time was spent: preparing to see the patient(eg.review tests), obtaining and/or reviewing separately destiney dc ordering medications,tests, procedures, indepentently interpreting results and counseling the patient
[2023-10-23 21:28] LABS: Cortisol (Baseline) 47 ug/dL (4-23)
== END 2023-10-23 14:24 | disposition home or self-care (01) ==
LOC: ER 17:44 → MS 18:15
PROVIDERS: Nurse Practitioner Acute Care; Registered Nurse Emergency; Admitting Provider Family Medicine; Emergency Provider Student in an Organized Health Care Education/Training Program; PCP Nurse Practitioner; Visit Provider Family Medicine
DX: I95.9 Hypotension, unspecified (principal); I48.0 Paroxysmal atrial fibrillation; D72.829 Elevated white blood cell count, unspecified; I50.20 Unspecified systolic (congestive) heart failure; R21 Rash and other nonspecific skin eruption; M79.671 Pain in right foot; M79.672 Pain in left foot; Z79.899 Other long term (current) drug therapy; Z95.810 Presence of automatic (implantable) cardiac defibrillator; E03.9 Hypothyroidism, unspecified; I42.8 Other cardiomyopathies; I47.10 Supraventricular tachycardia, unspecified; I47.20 Ventricular tachycardia, unspecified; Z95.3 Presence of xenogenic heart valve; K76.0 Fatty (change of) liver, not elsewhere classified; E78.5 Hyperlipidemia, unspecified; N18.9 Chronic kidney disease, unspecified; Z86.73 Personal history of transient ischemic attack (TIA), and cerebral infarction without residual deficits; I13.0 Hypertensive heart and chronic kidney disease with heart failure and stage 1 through stage 4 chronic kidney disease, or unspecified chronic kidney disease; J84.9 Interstitial pulmonary disease, unspecified; G47.33 Obstructive sleep apnea (adult) (pediatric); I44.7 Left bundle-branch block, unspecified; G47.00 Insomnia, unspecified; R73.01 Impaired fasting glucose; I25.2 Old myocardial infarction
CPT/HCPCS: 00123; 36415; 80053; 80400; 83690; 84145; 87040; 87637; 93005; 93306; 96361; 96365; 96366; 96375; 96376; 99291; 71046; 76536; 81003; 83036; 83605; 83735; 83880; 84439; 84443; 84484; 85025; 85610; 85730; 93010; 99222; 99239; G0378; J0690; J1720

== ENCOUNTER → 2023-12-31 09:47 | Outpatient (BNVA) | payer MEDICARE, OTHER, SELFPAY | PROVIDERS: PCP Nurse Practitioner; Visit Provider Internal Medicine Cardiovascular Disease | DX: I48.0 Paroxysmal atrial fibrillation (principal); Z95.2 Presence of prosthetic heart valve | CPT/HCPCS: 99213 ==

== ENCOUNTER → 2024-01-21 09:02 | Outpatient (BNVA) | payer MEDICARE, OTHER, SELFPAY | PROVIDERS: PCP Nurse Practitioner; Referring Provider Nurse Practitioner Family; Visit Provider Physician Assistant Surgical | DX: J84.9 Interstitial pulmonary disease, unspecified (principal); I50.9 Heart failure, unspecified; I27.20 Pulmonary hypertension, unspecified; G47.33 Obstructive sleep apnea (adult) (pediatric); R91.1 Solitary pulmonary nodule; R59.0 Localized enlarged lymph nodes | CPT/HCPCS: 94618; 99214 ==

== ENCOUNTER 2024-01-24 02:11 | Outpatient (CLI) | payer MEDICARE, OTHER, SELFPAY ==
[2024-01-24] MEDS: Levalbuterol HFA 15 GM INH 4 PUFF IH (09:13)
[2024-01-24] MEDS: Inhaler, Assist Device 1 EACH MC (09:13)
--- NOTE | 2024-01-25 09:44 | W.PFT ---
Date of service: 01/24/24 Time of Service: 07:58 Pulmonary Function Test Result Indications: ILD Interpretation Spirometry: There is no airflow limitation. No bronchodilator response. Lung Volumes: Normal lung volumes Diffusion Capacity: Diminished diffusion Airway Pressure: Normal airways resistance Impression Decreased diffusion which could represent emphysema, ILD or pulmonary vascular disease. Clinical Correlation therefore is recommended.
== END 2024-01-24 02:12 | disposition home or self-care (01) ==
LOC: RT 02:12
PROVIDERS: PCP Nurse Practitioner; Visit Provider Physician Assistant Surgical
DX: J84.9 Interstitial pulmonary disease, unspecified (principal)
CPT/HCPCS: 94060; 94726; 94729

== ENCOUNTER 2024-02-14 01:24 | Outpatient (CLI) | payer MEDICARE, OTHER, SELFPAY ==
--- NOTE | 2024-02-14 07:15 | DI.NM_ITS ---
APPROVED REPORT Exam: Pharmacologic Patient Location: Out-Patient Room/Bed: Stress Nurse: Marino Little RN and Eduardo Riojas RN Ordering Provider:DOMINIQUE JOHANSEN, Contact Number: [phone] BMI: 29.87 Baseline Rhythm: AV Paced Rhythm w/ baseline LBBB. Indications: Elevated HR Response to Ambulation; Heart Failure. Medical History Medical History: Coronary Artery Disease; Hypotension; Supraventricular Tachycardia; Ventricular Tach ycardia; Cardiac Defibrillator in Place; Atrial Fibrillation; Cardiac Resynchronization Therapy Defib rillator (DRUG PURCHASER-D) in Place; Nonischemic Cardiomyopathy; s/p Aortic Valve and Mitral Valve Replacements ; MAZE; Subclinical Hypothyroidism; Essential Hypertension; Hyperlipidemia; Interstitial Lung Disease ; Chronic Kidney Disease; Occipital Stroke; Vascular Dementia; Heart Failure w/ Reduced Ejection Frac tion; Mild Obstructive Sleep Apnea; Left Bundle Branch Block; Congestive Heart Failure; NSTEMI; Tobac co Use Disorder; Rheumatic Heart Disease; Pacemaker; Hx of Cardiac Cath (09/30). Cardiac Medications: Albuterol Sulfate; Amiodarone; Apixaban; Aspirin; Jardiance; Furosemide; Gabapen tin; Metoprolol Succinate; Pantoprazole; Entresto; Sertraline; Spironolactone; Thiamine. Allergies: Dofetilide; Heparin; Lisinopril; Losartan. Cardiac Risk Factors: Family Hx; Hypertension; Hyperlipidemia; CVD; COPD (pt. denies having this); Fo rmer Smoker. Previous Cardiac Procedures: s/p Aortic Valve and Mitral Valve Replacements; MAZE; Defibrillator/Pace r. Pretest Chest Pain Characteristics: None. Exercise History: None. Physical Disabilities: None. Lung Sounds: Fine crackles noted in pt.'s bilateral posterior bases. Clear bilaterally throughout oth erwise, anterior and posterior. Heart Sounds: S1 and S2 auscultated. Stress Test Details Test: Pharmacologic stress testing performed using 0.4 mg of regadenoson per 5 mL given IV over 10 s econds. Reason for pharmacologic stress test: LBBB. Nuclear Acquisition: Rest Tc-99m/Stress Tc-99m 1 day Rest Isotope: Tc-99m Sestamibi. Dose: 10.6 Date: 02/14/2024 Injection Time: 0835 Stress Isotope: Tc-99m Sestamibi. Dose: 33.0 Date: 02/14/2024 Injection Time: 1010 HR Resting HR Supine: 81 bpm Max Heart Rate (APMHR): 144 bpm Target HR (85% APMHR): 122 bpm Max HR Achieved: 92 bpm % of APMHR: 64 Recovery HR: 80 bpm BP Resting BP Supine: 100/68 mmHg Max BP: 113/63 mmHg Recovery BP: 113/63 mmHg ECG Resting ECG: AV Paced Rhythm w/ baseline LBBB. Ectopy: None. Stress ECG: AV Paced Rhythm w/ baseline LBBB. ST Change: Nondiagnostic low heart rate; Nondiagnostic AV-pacing and LBBB. Arrhythmia: Rare PVC's. Recovery ECG: AV Paced Rhythm w/ baseline LBBB. Recovery ST Change: Nondiagnostic low heart rate; Nondiagnostic AV-pacing and LBBB. Recovery Arrhythmia: None. Clinical Stress Symptoms: None. Angina Score: None Rate Pressure Product: [id number] Stress ECG Conclusion 1. Resting EKG showed atrial and ventricular pacing 2. Patient underwent testing using pharmacologic stress with regadenoson 3. Peak heart rate achieved was 64% of maximal predicted for age 4. The electrocardiographic portion of the test was nondiagnostic 5. See MPI report Stress Test Summary STAGE HR BP SpO2 Symptoms NOTES Supine 81 100/68 93 Pt. denied any s/s. 1 min post Lexiscan injection 85 102/80 95 Pt. denied any s/s. 3 min post Lexiscan injection 81 95 Pt. denied any s/s. 6 min post Lexiscan injection 80 90/58 Pt. denied any s/s. 9 min post Lexiscan injection 83 78/48 90 Pt. denied any s/s. 12 min post Lexiscan injection 81 90 Pt. denied any s/s. Pt.'s BP difficult to auscultate. Both RN 's attempted to auscultate pt.'s BP. Pt. completely asymptomatic. 15 min post Lexiscan injection 80 91 Pt. denied any s/s. One RN called up to Cardiac Rehab to requ est that another staff member come down with an automatic BP cuff. 18 min post Lexiscan injection 80 113/63 90 Pt. denied any s/s. Cardiac Rehab staff member came amanda n with an automatic BP cuff; BP documented was obtained. Pt. noted to have fine crackles in her bilateral posterior bases, but was clear bilaterally throughou t otherwise, anterior and posterior. Pt. denied any shortness of breath or chest pain/pressure. Dr. Judah fox was notified. Per Dr. Naidu, nursing staff to proceed with a laying lexiscan stress test, which wa s performed. Pt. noted to have a hypotensive BP before, during, and after lexiscan administration. Pt .'s BP difficult to auscultate. Both RN's attempted to auscultate pt.'s BP. Pt. completely asymptomat ic. One RN called up to Cardiac Rehab to request that another staff member come down with an automati c BP cuff. Cardiac Rehab staff member came down with an automatic BP cuff; BP obtained was 113/63. Pt . was completely asymptomatic before, during, and after lexiscan administration. Pt. was conversing p leasantly with nursing staff upon leaving the Stress Lab to head back to Diagnostic Imaging for after stress imaging. Pt. left ambulatory in no apparent distress. MPI Conclusion Myocardial perfusion is normal. There is no ischemia or evidence of prior infarction Ejection fraction is 30% with global hypokinesis
[2024-02-14] MEDS: Regadenoson 0.4 MG/5 ML SYR IVP (10:09)
== END 2024-02-14 01:44 ==
LOC: DI 01:25
PROVIDERS: PCP Nurse Practitioner; Visit Provider Physician Assistant Surgical
DX: I50.9 Heart failure, unspecified (principal)
CPT/HCPCS: 78452; 93016; 93018; 93017; J2785

== ENCOUNTER 2024-03-17 03:44 | Outpatient (CLI) | payer MEDICARE, OTHER, SELFPAY ==
[2024-03-17 09:25] LABS: Hemoglobin A1C 6.1 % (<5.7)
[2024-03-17 09:36] LABS: ALT 35 U/L (14-59); AST 27 U/L (15-37); Albumin 4.1 g/dL (3.4-5.0); Alkaline Phosphatase 91 U/L (46-116); Anion Gap 7.5 mmol/L (3-11); BUN 50 mg/dL (7-18); Bilirubin, Total 0.49 mg/dL (0.2-1.0); CO2 31.5 mmol/L (21.0-32.0); CREATININE 2.9 mg/dL (0.55-1.02); Calcium 9.3 mg/dL (8.5-10.1); Chloride 102 mmol/L (98-107); Estimated GFR 16.27 (mL/min/1.73m2); Glucose 108 mg/dL (74-106); Magnesium 2.7 mg/dL (1.8-2.4); Potassium 4.9 mmol/L (3.5-5.1); Sodium 141 mmol/L (136-145); Total Protein 8.2 g/dL (6.4-8.2)
== END 2024-03-17 03:45 | disposition home or self-care (01) ==
LOC: LBO 03:44
PROVIDERS: Absent Provider Nurse Practitioner; PCP Nurse Practitioner; Referring Provider Nurse Practitioner; Visit Provider Nurse Practitioner
DX: R73.03 Prediabetes (principal); N18.9 Chronic kidney disease, unspecified; R79.9 Abnormal finding of blood chemistry, unspecified
CPT/HCPCS: 36415; 80053; 83036; 83735

== ENCOUNTER 2024-03-19 10:47 | Outpatient (CLI) | payer MEDICARE, OTHER, SELFPAY ==
--- NOTE | 2024-03-19 10:00 | DI.RAD_ITS ---
Exam(s) XR RIBS RT W PA LAT CHEST EXAM: XR RIBS RT W PA LAT CHEST CLINICAL HISTORY: right flank pain after fall, W19.XXXA, R10.9 TECHNIQUE: 2D digital imaging was performed.Seven images were obtained. COMPARISON: CR XR CHEST 2V PA LATERAL from 10/22/2023 FINDINGS: MEDIASTINUM: Normal. HEART: There again seen prosthetic heart valves. Cardiac pacing device is in place. PULMONARY VASCULATURE: Normal. LUNGS: Clear. PLEURAL SPACE: No pleural effusion or pneumothorax. BONE:Within normal limits for the patient's age. Sternal wires are in place. RIGHT RIBS: There are nondisplaced fractures involving the lateral aspects of the right 5th and 6th r ibs. OTHER FINDINGS:Normal. IMPRESSION: 1. No acute pulmonary findings. 2. Acute nondisplaced fractures of the lateral aspects of the right 5th and 6th ribs. 3. No pleural effusion or pneumothorax. DATA REPOSITORY: RADIATION DOSE DELIVERED:
== END 2024-03-19 11:07 ==
PROVIDERS: PCP Nurse Practitioner; Visit Provider Nurse Practitioner
DX: W19.XXXA Unspecified fall, initial encounter (principal); R10.9 Unspecified abdominal pain
CPT/HCPCS: 71046; 71100

== ENCOUNTER 2024-04-13 07:50 | Emergency (ER) | payer MEDICARE, OTHER, SELFPAY ==
[2024-04-13 07:52] VITALS: BP 126/60; PULSE 95; RESP 15; TEMP 36.7; O2SAT 92
[2024-04-13 07:59] VITALS: BP 126/60; PULSE 95; RESP 15; O2SAT 92
--- NOTE | 2024-04-13 08:00 | DI.RAD_ITS ---
Exam(s) XR CHEST 2V PA LATERAL EXAM: XR CHEST 2V PA LATERAL CLINICAL HISTORY: cough TECHNIQUE: 2D digital imaging was performed of the chest. Two images were obtained. PA and lateral views were obtained. COMPARISON: CR XR RIBS RT W PA LAT CHEST from 03/19/2024 FINDINGS: MEDIASTINUM: Normal. HEART: There is a cardiac pacing device in place. Heart size is within normal limits. There are tracey ral and aortic valve replacements. PULMONARY VASCULATURE: Normal. LUNGS: Clear. PLEURAL SPACE: No pleural effusion or pneumothorax. BONE:Within normal limits for the patient's age. OTHER FINDINGS:Normal. IMPRESSION: No acute pulmonary findings. DATA REPOSITORY: RADIATION DOSE DELIVERED:
--- NOTE | 2024-04-13 08:07 | ED.GENADUL_ITS ---
Discharge Plan Disposition Patient Disposition: Home Condition: Stable Discharge Details Clinical Impression: Respiratory infection Primary Care Provider: Glendy Ye ED Provider: Erik Adam Home Meds and New Rx's Prescriptions: New amoxicillin-pot clavulanate 875-125 mg tablet 1 tab PO BID Qty: 14 0RF prednisone 20 mg tablet 60 mg PO DAILY 4 Days Qty: 12 0RF Continued ascorbate calcium (vitamin C) 500 mg tablet 500 mg PO DAILY albuterol sulfate 90 mcg/actuation HFA aerosol inhaler 2 puff inhalation Q4H PRN (Reason: shortness of breath or wheezing) Qty: 8.5 0RF apixaban 5 mg tablet 5 mg PO BID Qty: 180 3RF ferrous sulfate 325 mg (65 mg iron) tablet 325 mg PO Q OTHER DAY Qty: 45 3RF Rx Instructions: Take with water or juice on an empty stomach pantoprazole 40 mg tablet,delayed release (DR/EC) See Rx Instructions .ROUTE .COMPLEX Qty: 90 3RF Dose Instruction: TAKE 1 TABLET ONCE DAILY IN THE MORNING AT LEAST 30 TO 60 MINUTES BEFORE FIRST MEAL OF THE DAY Rx Instructions: TAKE 1 TABLET ONCE DAILY IN THE MORNING AT LEAST 30 TO 60 MINUTES BEFORE FIRST MEAL OF THE DAY aspirin 81 mg tablet,chewable 81 mg PO DAILY sacubitril-valsartan [Entresto] 49-51 mg tablet 0.5 tab PO BID amiodarone 200 mg tablet 200 mg PO DAILY sertraline 25 mg tablet 25 mg PO DAILY Qty: 90 3RF metoprolol succinate 50 mg tablet extended release 24 hr 50 mg PO DAILY Patient Comments: 10/08/23 appointment spironolactone 25 mg tablet 25 mg PO DAILY Qty: 90 3RF furosemide [Lasix] 20 mg tablet 20 mg PO DAILY Patient Comments: 10/08/23 Appointment Rx Instructions: 03/26/24- pt and [facility] nurse Suri, called. discrepancy with this 20mg daily vs pt reporting shes takin 30mg at home.10/08/23 [facility] [place] 20mg daily and they sent a rx in for #90 w/ 3 rf's. Pt is going to call [facility] to update them shes been taking 30mg. and get back to us to let us know what dose they want her to continue with so we can update this on her med list accurately. NC melatonin 10 mg capsule 10 mg PO HS PRN Patient Comments: 03/26/24- pt and [facility] nurse called to report she takes 10mg nightly as an OTC med thiamine HCl (vitamin B1) 100 mg capsule 100 mg PO DAILY Patient Comments: 03/26/24-pt and [facility] nurse called to report pt takes 100mg daily. NC biotin 5,000 mcg tablet,chewable PO Patient Comments: 03/26/24-pt and [facility] nurse called to report she takes this daily for her hair NC cholecalciferol (vitamin D3) 50 mcg (2,000 unit) capsule 50 mcg PO DAILY Patient Comments: 03/26/24- Pt and [facility] nurse called to report pt take 50mcg daily. NC gabapentin 300 mg capsule See Rx Instructions .ROUTE .COMPLEX Qty: 180 1RF Dose Instruction: TAKE ONE CAPSULE BY MOUTH TWICE DAILY Rx Instructions: TAKE ONE CAPSULE BY MOUTH TWICE DAILY Jardiance 10 mg tablet 10 mg PO DAILY Patient Comments: TAKE ONE TABLET BY MOUTH EVERY DAY Discharge Instructions Additional Instructions: Your blood work and x-ray did not show any concerning findings. Your flu, RSV, COVID test were all negative. Continue to use your albuterol inhaler as needed If you are not improving this week follow-up with your primary care provider If you feel more ill, have severe worsening shortness of breath or new symptoms such as persistent vomiting return to the emergency department for reevaluation HPI General Mode of arrival: ambulatory . Date/Time Provider Initiated Documentation: 04/13/24 07:52 . Limitations to Documentation: no limitations . Information obtained by: patient . History of Present Illness 78 year old F presents to the emergency department with the chief complaint of cough, dyspnea, described as moderate, Patient started experiencing this day(s) (4) and it has been intermittent. No relieving factors improve symptom(s), No exacerbating factors reported . Patient notes denies chest pain, fever/chills and nausea/vomiting. Related Data Home Medications ?Medication ?Instructions ?Recorded ?Confirmed ascorbate calcium (vitamin C) 500 500 mg PO DAILY 07/31/19 04/13/24 mg tablet aspirin 81 mg chewable tablet 81 mg PO DAILY 12/07/21 04/13/24 empagliflozin 10 mg tablet 10 mg PO DAILY 04/02/23 04/13/24 (Jardiance) sacubitril 49 mg-valsartan 51 mg 0.5 tab PO BID 04/10/23 04/13/24 tablet (Entresto) amiodarone 200 mg tablet 200 mg PO DAILY 06/08/23 04/13/24 sertraline 25 mg tablet 25 mg PO DAILY #90 tab-caps 08/24/23 04/13/24 apixaban 5 mg tablet 5 mg PO BID #180 tabs 09/12/23 04/13/24 ferrous sulfate 325 mg (65 mg 325 mg PO Q OTHER DAY #45 tab-caps 09/12/23 04/13/24 iron) tablet pantoprazole 40 mg tablet,delayed See Rx Instructions .Route 09/12/23 04/13/24 release .COMPLEX #90 tabs metoprolol succinate 50 mg 50 mg PO DAILY 10/15/23 04/13/24 tablet,extended release 24 hr spironolactone 25 mg tablet 25 mg PO DAILY #90 tabs 12/28/23 04/13/24 albuterol sulfate 90 mcg/actuation 2 puff inhalation Q4H PRN 01/21/24 04/13/24 aerosol inhaler shortness of breath or wheezing #8.5 grams biotin 5,000 mcg chewable tablet mcg PO 03/26/24 cholecalciferol (vitamin D3) 50 50 mcg PO DAILY 03/26/24 04/13/24 mcg (2,000 unit) capsule furosemide 20 mg tablet (Lasix) 20 mg PO DAILY 03/26/24 04/13/24 melatonin 10 mg capsule 10 mg PO HS PRN 03/26/24 04/13/24 thiamine HCl (vitamin B1) 100 mg 100 mg PO DAILY 03/26/24 04/13/24 capsule gabapentin 300 mg capsule See Rx Instructions .Route 04/07/24 04/13/24 .COMPLEX #180 caps amoxicillin 875 mg-potassium 1 tab PO BID #14 tabs 04/13/24 clavulanate 125 mg tablet prednisone 20 mg tablet 60 mg (3 x 20 mg) PO DAILY 4 days 04/13/24 #12 tabs Previous Rx's ?Medication ?Instructions ?Recorded sertraline 25 mg tablet 25 mg PO DAILY #90 tab-caps 08/24/23 apixaban 5 mg tablet 5 mg PO BID #180 tabs 09/12/23 ferrous sulfate 325 mg (65 mg 325 mg PO Q OTHER DAY #45 tab-caps 09/12/23 iron) tablet pantoprazole 40 mg tablet,delayed See Rx Instructions .Route 09/12/23 release .COMPLEX #90 tabs spironolactone 25 mg tablet 25 mg PO DAILY #90 tabs 12/28/23 albuterol sulfate 90 mcg/actuation 2 puff inhalation Q4H PRN 01/21/24 aerosol inhaler shortness of breath or wheezing #8.5 grams gabapentin 300 mg capsule See Rx Instructions .Route 04/07/24 .COMPLEX #180 caps amoxicillin 875 mg-potassium 1 tab PO BID #14 tabs 04/13/24 clavulanate 125 mg tablet prednisone 20 mg tablet 60 mg (3 x 20 mg) PO DAILY 4 days 04/13/24 #12 tabs Allergies Allergy/AdvReac Type Severity Reaction Status Date / Time heparin Allergy Severe thrombocytopenia, Verified 04/13/24 07:59 anaphylaxis dofetilide AdvReac Severe Prolonged Verified 04/13/24 07:59 QTc lisinopril AdvReac Cough Verified 04/13/24 07:59 General Stated Complaint: RespSymp MARIS: 4 Review of Systems All systems reviewed & are unremarkable except as noted in HPI and below Constitutional Constitutional: Denies chills, Denies fever(s) and Denies weakness Cardiovascular Cardiovascular: Denies chest pain and Reports dyspnea Respiratory Respiratory: Reports cough and Reports dyspnea Gastrointestinal Gastrointestinal: Denies abdominal pain, Denies nausea and Denies vomiting Neurologic Neurologic: Denies weakness Exam Const General: no acute distress Orientation: alert HENMT Head: normal to inspection Ears: external ears normal General nose exam: external nose normal Mouth: moist mucous membranes Eyes General: appearance normal, both eyes and all related structures Neck Neck: normal visual inspection Resp Effort & Inspection: normal respiratory effort and able to speak in complete sentences Auscultation: rhonchi and wheezes Cardio Rate: regular rate Skin General skin exam: no rashes or lesions noted Neuro General: patient alert and patient oriented x3 Extrem General: normal to inspection Psych Mental Status: mental status grossly normal Course Vital Signs Vital signs: Vital Signs Temperature 36.7 C 04/13/24 07:52 Pulse 95 H 04/13/24 07:52 Respiratory Rate 15 04/13/24 07:52 Blood Pressure 126/60 04/13/24 07:52 Pulse Oximetry 92 04/13/24 07:52 Temperature 36.7 C 04/13/24 07:52 Temperature Source Oral 04/13/24 07:52 Pulse 95 H 04/13/24 07:59 Respiratory Rate 15 04/13/24 07:59 Respiratory Effort Normal 04/13/24 08:01 Respiratory Depth Normal 04/13/24 08:01 Blood Pressure 126/60 04/13/24 07:59 Blood Pressure Position Sitting 04/13/24 07:59 Pulse Oximetry 92 04/13/24 07:59 Oxygen Delivery Method Room Air 04/13/24 07:59 Oxygen Flow Rate 0 04/13/24 07:59 Pain Level 8 04/13/24 07:59 Medical Decision Making 78-year-old female with a history of heart failure with reduced ejection fraction with ICD in place, interstitial lung disease, hypertension, who comes in with chief complaint of 4 days of intermittent productive cough. She also notes some shortness of breath. Denies any chest pain or chest pressure, no high fevers. She is well-appearing on exam. She does have rhonchi at the bases bilaterally with apical wheezing. No JVD or leg swelling or calf tenderness. Given her cough and shortness of breath over the lung exam findings we will proceed with CBC, CMP, Fluvid and chest x-ray. Will treat her symptoms with a DuoNeb and Solu-Medrol. Her symptoms seem infectious in with her lung exam findings along with not having any chest pain or chest pressure I do not feel likely that this is ACS, PE, dissection for workup for these are indicated at this time. Labs and imaging unremarkable. Patient feels better, lung sounds are clear. Given the negative Fluvid and her history of interstitial lung disease I am g oing to put her on Augmentin. She is stable for discharge and will follow-up with her PCP if not improving and return precautions given Differential Diagnosis Differential Diagnosis: Asthma, interstitial lung disease, pneumonia, URI Quality:SDOH Health Related Social Needs: 2 Health related social needs details none per pt PFSH All Active Problems (Updated 04/13/24 @ 10:15 by Erik Adam MD) Respiratory infection (Acute) Hypotension (Acute) Cellulitis of foot (Acute) Bilateral foot pain (Acute) Rash (Acute) Leukocytosis (Acute) Hypotension (Acute) SVT (supraventricular tachycardia) (Acute) Ventricular tachycardia (Chronic) Cardiac defibrillator in place (Acute) A-fib (Chronic) Combined forms of age-related cataract, right eye (Acute) [facility] Ophthalmology Note 01/10/2023 Cardiac resynchronization therapy defibrillator (SETTLEMENT TECHNICIAN-D) in place (Acute) Nonischemic cardiomyopathy (Acute) S/P aortic valve and mitral valve replacement (Chronic 08/04/14) 2014 [facility]: bovine prosthetic valves + MAZE; 10/2021 [facility]: repeat repair Subclinical hypothyroidism (Acute) Essential hypertension (Chronic) Hepatic steatosis (Acute) 05/2022 [place]; FIB-4 score = 2.74 (indeterminate) Hyperlipidemia (Acute 05/12/13) LDL 144 2012; Risk calculated 13.3% soft CV risk; CV risk 06/2014: 11.6% Elevated LFTs (Acute) Interstitial lung disease (Acute) Chronic kidney disease (Chronic) Anisocoria (Acute) Occipital stroke (Acute) Bilateral pleural effusion (Acute) Vascular dementia (Chronic) Right homonymous hemianopsia (Acute) Heart failure with reduced ejection fraction (Chronic) Mediastinal lymphadenopathy (Acute) Pulmonary nodule (Acute) Mild obstructive sleep apnea (Chronic 05/12/20) severe in REM sleep, significan nocturnal hypoxemia, sleep fragmentation and increased airway resistance flow pattern. 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 Chiang) following hospitalization for GI bleed (no afib during cardiac monitoring during hospitalization) Rheumatic heart disease Aortic regurgitation a. moderate by echo 12/2011 S/p repair Mitral regurgitation Rheumatic; s/p repair Surgical History Status post cataract extraction and insertion of intraocular lens of left eye (~01/09/23) [facility] Ophthalmology Pacemaker History of cardiac cath (09/28/21) History of toe surgery (~2003) Removal of bone chip History of section (~1976) Radiofrequency Maze Procedure (08/04/14) done at [facility] EGD - MAC (08/28/17) Colonoscopy - MAC (08/28/17) Biopsy of breast (~2008) Left breast [facility] S/P aortic valve and mitral valve replacement (~07/2014) 2014 [facility]: bovine prosthetic valves + MAZE; 10/2021 [facility]: repeat repair Family History Mother , Age 87, peritonitis Diabetes Essential hypertension Breast cancer Father , Age 45, colon cancer Colon cancer Sister Heart disease ID at age 49 Brother Diabetes Colon cancer Brother No problems noted. Brother Heart disease CABG Other Family history of colon cancer Social History Smoking/Tobacco Use Status: Former Tobacco Use tobacco type: cigarettes Quit Date: 03/12/94 Smoking risk assessment performed?: Yes Alcohol Intake: former Drug use: Never Substance use type: does not use Counseling given: No Counseling provided: none Adopted: No Caregiver/Support person: No Foster care: No Household members: none Housing: house Number of Children: 1 number of grandchildren: 2 Communication Needs: None Education Level: high school Do you need help understanding health information?: Rarely current occupation: Retired Pets and animals: No Current gender identity: female What is your relationship status?: Panel score (0-1 are the most socially isolated patients): 0 What type of physical activity do you participate in: walking Duration: 60-90 minutes/day Frequency: daily Seatbelt use: always Helmet use: No Drive intox or ride w/intox wrecker driver: No Water heater temp set <120 deg: Yes Working smoke detector in home: No Fire extinguisher in home: No Carbon monox detector in home: No Firearms in home: No Do you feel safe at home: Yes Do you feel safe in your relationship?: Yes
[2024-04-13 08:39] VITALS: RESP 5
[2024-04-13] MEDS: methylPREDNISolone SUCC 125 MG VIAL IVP (08:39)
[2024-04-13] MEDS: Albuterol/Ipratropium 3 ML UPD VIAL UPD (08:39)
[2024-04-13 08:43] LABS: Abs Immature Grans 0.04 10^3/uL (0.0-0.06); Absolute Basophil Count 0.04 10^3/uL (0.0-0.2); Absolute Eosinophil Count 0.07 10^3/uL (0.0-0.7); Absolute Lymphocyte Count 0.68 10^3/uL (1.2-3.4); Absolute Monocyte Count 0.58 10^3/uL (0.1-0.8); Absolute Neutrophil Count 8.34 10^3/uL (1.2-6.7); Basophils % 0.4 %; Eosinophils % 0.7 %; HCT 42.9 % (36.0-46.0); HGB 13.3 g/dL (11.2-15.7); Immature Grans % 0.4 %; MCH 29.4 pg (27.0-33.0); MCV 95 fL (80-95); MPV 9.5 fL (8.0-11.0); Monocytes % 5.9 %; Neutrophils % 85.6 %; Platelet Count 228 10^3/uL (130-400); RBC 4.52 10^6/uL (3.93-5.22); RDW 15.9 % (11.7-14.6); WBC 9.75 10^3/uL (4.4-10.8)
[2024-04-13 08:50] LABS: COVID-19 PCR Negative (Negative); Influenza A PCR Negative (Negative); Influenza B PCR Negative (Negative); RSV PCR Negative (Negative)
[2024-04-13 08:52] LABS: Source Nasopharynx
[2024-04-13 08:58] LABS: INR 1.3 (0.9-1.1); PTT Activated 32.4 sec (20.6-30.2); Prothrombin Time 13.2 sec (9.1-11.1)
[2024-04-13 08:59] LABS: ALT 34 U/L (14-59); AST 28 U/L (15-37); Alkaline Phosphatase 114 U/L (46-116); Anion Gap 11.4 mmol/L (3-11); BUN 31 mg/dL (7-18); Bilirubin, Total 0.48 mg/dL (0.2-1.0); CO2 24.6 mmol/L (21.0-32.0); CREATININE 2.1 mg/dL (0.55-1.02); Calcium 9.2 mg/dL (8.5-10.1); Chloride 106 mmol/L (98-107); Estimated GFR 23.97 (mL/min/1.73m2); Glucose 109 mg/dL (74-106); Potassium 4.7 mmol/L (3.5-5.1); Sodium 142 mmol/L (136-145); Total Protein 8.1 g/dL (6.4-8.2)
[2024-04-13 09:08] LABS: Magnesium 2.1 mg/dL (1.8-2.4)
[2024-04-13 09:24] LABS: Procalcitonin < 0.10 ng/mL
[2024-04-13] MEDS: Amoxicillin 875/Clav. 125 TAB PO (10:30)
[2024-04-13 10:31] VITALS: BP 93/47; PULSE 67; RESP 18; O2SAT 92
== END 2024-04-13 10:32 | disposition home or self-care (01) ==
PROVIDERS: Emergency Provider Emergency Medicine; PCP Nurse Practitioner
DX: J06.9 Acute upper respiratory infection, unspecified (principal); I48.91 Unspecified atrial fibrillation; I10 Essential (primary) hypertension; E78.5 Hyperlipidemia, unspecified; I25.2 Old myocardial infarction; Z86.73 Personal history of transient ischemic attack (TIA), and cerebral infarction without residual deficits; Z95.810 Presence of automatic (implantable) cardiac defibrillator; Z79.01 Long term (current) use of anticoagulants; Z95.2 Presence of prosthetic heart valve; Z79.82 Long term (current) use of aspirin; Z87.891 Personal history of nicotine dependence
CPT/HCPCS: 36415; 80053; 84145; 87637; 94640; 96374; 99285; 71046; 83735; 85025; 85610; 85730; 99284; J2919; J7620

== ENCOUNTER 2024-04-22 03:22 | Outpatient (CLI) | payer MEDICARE, OTHER, SELFPAY ==
[2024-04-22 08:51] LABS: Anion Gap 8.2 mmol/L (3-11); BUN 39 mg/dL (7-18); CO2 27.8 mmol/L (21.0-32.0); CREATININE 2.1 mg/dL (0.55-1.02); Chloride 107 mmol/L (98-107); Estimated GFR 23.97 (mL/min/1.73m2); Glucose 133 mg/dL (74-106); Magnesium 2.3 mg/dL (1.8-2.4); Potassium 3.7 mmol/L (3.5-5.1); Sodium 143 mmol/L (136-145)
== END 2024-04-22 03:23 | disposition home or self-care (01) ==
LOC: LBO 03:22
PROVIDERS: PCP Nurse Practitioner; Referring Provider Nurse Practitioner; Visit Provider Nurse Practitioner
DX: R79.9 Abnormal finding of blood chemistry, unspecified (principal); R10.9 Unspecified abdominal pain; N18.9 Chronic kidney disease, unspecified
CPT/HCPCS: 36415; 80048; 83735

== ENCOUNTER → 2024-05-22 14:49 | Outpatient (BNVA) | payer MEDICARE, OTHER, SELFPAY | PROVIDERS: PCP Nurse Practitioner; Referring Provider Nurse Practitioner; Visit Provider Physician Assistant Surgical | DX: I27.20 Pulmonary hypertension, unspecified (principal); G47.33 Obstructive sleep apnea (adult) (pediatric); R91.1 Solitary pulmonary nodule; R59.0 Localized enlarged lymph nodes; J84.9 Interstitial pulmonary disease, unspecified | CPT/HCPCS: 99214 ==

== ENCOUNTER 2024-07-21 08:01 | Outpatient (CLI) | payer MEDICARE, OTHER, SELFPAY ==
--- NOTE | 2024-07-21 08:00 | RT.EKG_ITS ---
APPROVED REPORT Exam: Resting ECG Reason for Exam: evaluation of amiodorone on EKG Patient Location: O HR:83 bpm ECG Measurements Heart Rate 83 AXIS ME 55 P 72 QRSd 138 QRS 257 QT 463 T 79 QTc 545 Conclusion Atrial-ventricular dual-paced rhythm No further analysis attempted due to paced rhythm
== END 2024-07-21 08:02 | disposition home or self-care (01) ==
LOC: DI.CARD 08:04
PROVIDERS: PCP Nurse Practitioner; Visit Provider Registered Nurse
DX: Z79.899 Other long term (current) drug therapy (principal); I35.1 Nonrheumatic aortic (valve) insufficiency; I34.0 Nonrheumatic mitral (valve) insufficiency; I49.8 Other specified cardiac arrhythmias
CPT/HCPCS: 93010

== ENCOUNTER → 2024-07-21 09:30 | Outpatient (BNVA) | payer MEDICARE, OTHER, SELFPAY | PROVIDERS: PCP Nurse Practitioner; Visit Provider Registered Nurse | DX: I50.9 Heart failure, unspecified (principal); Z95.810 Presence of automatic (implantable) cardiac defibrillator; I48.0 Paroxysmal atrial fibrillation; I34.0 Nonrheumatic mitral (valve) insufficiency; I35.1 Nonrheumatic aortic (valve) insufficiency; Z79.899 Other long term (current) drug therapy | CPT/HCPCS: 93005; 99214 ==

== ENCOUNTER 2024-07-21 12:49 | Outpatient (CLI) | payer MEDICARE, OTHER, SELFPAY ==
[2024-07-21 11:02] LABS: Anion Gap 7.6 mmol/L (3-11); BUN 52 mg/dL (7-18); CO2 29.4 mmol/L (21.0-32.0); CREATININE 2.8 mg/dL (0.55-1.02); Calcium 9.3 mg/dL (8.5-10.1); Chloride 103 mmol/L (98-107); Estimated GFR 16.97 (mL/min/1.73m2); Glucose 92 mg/dL (74-106); NT-proBNP 5505 pg/mL (<300); Potassium 4.7 mmol/L (3.5-5.1); Sodium 140 mmol/L (136-145)
== END 2024-07-21 12:50 | disposition home or self-care (01) ==
LOC: LBO 12:51
PROVIDERS: PCP Nurse Practitioner; Visit Provider Physician Assistant
DX: I50.20 Unspecified systolic (congestive) heart failure (principal)
CPT/HCPCS: 36415; 80048; 93005; 99214; 83880

== ENCOUNTER 2024-08-18 02:39 | Outpatient (CLI) | payer MEDICARE, OTHER, SELFPAY ==
[2024-08-18 11:18] LABS: Anion Gap 9.4 mmol/L (3-11); BUN 44 mg/dL (7-18); CO2 28.6 mmol/L (21.0-32.0); CREATININE 2.3 mg/dL (0.55-1.02); Calcium 9.1 mg/dL (8.5-10.1); Chloride 103 mmol/L (98-107); Estimated GFR 21.49 (mL/min/1.73m2); Glucose 103 mg/dL (74-106); Potassium 5.9 mmol/L (3.5-5.1); Sodium 141 mmol/L (136-145)
== END 2024-08-18 02:40 | disposition home or self-care (01) ==
LOC: LBO 02:39
PROVIDERS: PCP Nurse Practitioner; Visit Provider Nurse Practitioner Family
DX: N18.30 Chronic kidney disease, stage 3 unspecified (principal)
CPT/HCPCS: 36415; 80048

== ENCOUNTER 2024-08-21 01:58 | Outpatient (CLI) | payer MEDICARE, OTHER, SELFPAY ==
[2024-08-21 12:16] LABS: Potassium 5.2 mmol/L (3.5-5.1)
== END 2024-08-21 01:59 | disposition home or self-care (01) ==
PROVIDERS: PCP Nurse Practitioner; Visit Provider Nurse Practitioner Family
DX: R89.9 Unspecified abnormal finding in specimens from other organs, systems and tissues (principal)
CPT/HCPCS: 36415; 84132

== ENCOUNTER 2024-09-11 02:36 | Outpatient (CLI) | payer MEDICARE, OTHER, SELFPAY ==
[2024-09-11 09:08] LABS: Potassium 4.2 mmol/L (3.5-5.1)
== END 2024-09-11 02:37 | disposition home or self-care (01) ==
PROVIDERS: PCP Nurse Practitioner; Visit Provider Nurse Practitioner Family
DX: I50.9 Heart failure, unspecified (principal)
CPT/HCPCS: 36415; 84132

== ENCOUNTER 2024-09-15 02:56 | Outpatient (CLI) | payer MEDICARE, OTHER, SELFPAY ==
--- NOTE | 2024-09-15 06:30 | DI.DEXA_ITS ---
Exam(s) XR DEXA BONE DENSITY W/WO QI EXAM: XR DEXA BONE DENSITY W/WO QI CLINICAL HISTORY: elevated pth, hx osteopenia,asymptomatic postmenopausal state,z78.0 TECHNIQUE: EDUS C densitometer analysis of left hip, lumbar spine and right forearm. Lateral survey image of the thoracic and lumbar spine. COMPARISON: DX QI from 11/25/2007 DX DEXA BONE DENSITY WITH QI from 06/14/2017 CR XR HIP LT AP LAT ONLY from 07/10/2023 FINDINGS: Lateral view of the thoracic and lumbar spine shows no evidence of compression fractures. Bone mineral density measurements of the lumbar spine correspond to a total T- score of -0.3, in the normal range. This represents a 2.9 percent decrease from 2017 and a 7.4 percent decrease from 2007. Bone mineral density measurements of the left hip correspond to a total T-score of -1.1. This represents a 6.7 percent decrease from 2018 and 14.8 percent decrease compared to 2007. The femoral neck T-score is -1.8, in the osteopenic range. Theright forearm bone mineral density measurements correspond to a T-score of the distal 3rd of -2.3, in the osteopenic range. This represents a 9.1 percent decrease from 2018. The forearm was not analyzed in 2007. IMPRESSION: Normal bone mineral density of the lumbar spine. Osteopenia of the the hip and forearm.
== END 2024-09-15 03:16 ==
PROVIDERS: PCP Nurse Practitioner Family; Visit Provider Nurse Practitioner Family
DX: M81.0 Age-related osteoporosis without current pathological fracture (principal); Z78.0 Asymptomatic menopausal state
CPT/HCPCS: 77080

== ENCOUNTER 2024-09-23 03:45 | Outpatient (CLI) | payer MEDICARE, OTHER, SELFPAY ==
[2024-09-23 12:06] LABS: Potassium 4.5 mmol/L (3.5-5.1)
== END 2024-09-23 03:46 | disposition home or self-care (01) ==
PROVIDERS: PCP Nurse Practitioner Family; Visit Provider Nurse Practitioner Family
DX: N18.4 Chronic kidney disease, stage 4 (severe) (principal); E87.5 Hyperkalemia
CPT/HCPCS: 36415; 84132

== ENCOUNTER → 2024-11-19 10:36 | Outpatient (BNVA) | payer MEDICARE, OTHER, SELFPAY | PROVIDERS: PCP Nurse Practitioner Family; Referring Provider Nurse Practitioner; Visit Provider Physician Assistant Surgical | DX: J84.9 Interstitial pulmonary disease, unspecified (principal); I27.20 Pulmonary hypertension, unspecified; G47.33 Obstructive sleep apnea (adult) (pediatric); R91.1 Solitary pulmonary nodule; R59.0 Localized enlarged lymph nodes; Z87.891 Personal history of nicotine dependence; Z23 Encounter for immunization | CPT/HCPCS: 36415; 90471; 90679; 90684; 99214 ==

== ENCOUNTER 2024-11-19 17:47 | Outpatient (REF) | payer MEDICARE, OTHER, SELFPAY ==
[2024-11-20 11:11] LABS: Ro60 Ab, IgG <7.0 CU (<20.0); SS-A/Ro, IgG <2.3 CU (<20.0); SS-B (La) Ab, IgG <3.3 CU (<20.0)
[2024-11-21 17:16] LABS: Scl 70 Antibodies, IgG <0.2 U; Sm (Smith) Ab, IgG <0.2 U
[2024-12-17 13:37] LABS: Anti-Jo-1 Ab <20 Units (<20)
[2024-12-17 13:42] LABS: Anti-TIF-1gamma Ab <20 Units (<20)
[2024-12-17 13:43] LABS: Anti-Ku Ab Negative (Negative); Anti-MDA-5 Ab (CADM-140) <20 Units (<20); Anti-NXP-2 (P140) Ab <20 Units (<20); Anti-PM/Scl-100 Ab <20 Units (<20)
[2024-12-17 13:44] LABS: Anti-SS-A 52kD Ab, IgG <20 Units (<20); Anti-U2 RNP Ab Negative (Negative)
[2024-12-17 13:48] LABS: Anti-U3 RNP (Fibrillarin) Negative (Negative)
== END 2024-11-19 17:48 | disposition home or self-care (01) ==
LOC: LBN 17:47
PROVIDERS: PCP Nurse Practitioner Family; Visit Provider Physician Assistant Surgical
DX: J84.9 Interstitial pulmonary disease, unspecified (principal)
CPT/HCPCS: 83516; 86200; 86235; 86038; 86225; 86431

== ENCOUNTER 2024-12-11 04:00 | Outpatient (CLI) | payer MEDICARE, OTHER, SELFPAY ==
[2024-12-11 09:01] LABS: Abs Immature Grans 0.02 10^3/uL (0.0-0.06); HCT 43.0 % (36.0-46.0); HGB 13.3 g/dL (11.2-15.7); Immature Grans % 0.2 %; MCH 28.7 pg (27.0-33.0); MCHC 30.9 % (32.0-36.0); MCV 93 fL (80-95); MPV 9.5 fL (8.0-11.0); Platelet Count 239 10^3/uL (130-400); RBC 4.64 10^6/uL (3.93-5.22); RDW 14.2 % (11.7-14.6); RDW-SD 47.8 fL; WBC 8.06 10^3/uL (4.4-10.8)
[2024-12-11 09:32] LABS: Albumin 4.1 g/dL (3.4-5.0); Anion Gap 11.8 mmol/L (3-11); BUN 51 mg/dL (7-18); CO2 27.2 mmol/L (21.0-32.0); Calcium 9.4 mg/dL (8.5-10.1); Chloride 100 mmol/L (98-107); Estimated GFR 20.29 (mL/min/1.73m2); Glucose 115 mg/dL (74-106); Potassium 4.3 mmol/L (3.5-5.1); Sodium 139 mmol/L (136-145); Uric Acid 8.3 mg/dL (2.6-6.0)
[2024-12-11 10:42] LABS: PROTEIN 8.4 mg/dL; Prot/Crea Ur Ratio 0.54
== END 2024-12-11 04:01 | disposition home or self-care (01) ==
PROVIDERS: PCP Nurse Practitioner Family; Visit Provider Student in an Organized Health Care Education/Training Program
DX: N18.4 Chronic kidney disease, stage 4 (severe) (principal)
CPT/HCPCS: 36415; 80048; 82040; 82565; 83970; 84100; 84156; 84550; 85025

== ENCOUNTER 2024-12-25 05:37 | Outpatient (CLI) | payer MEDICARE, OTHER, SELFPAY ==
--- NOTE | 2024-12-25 07:30 | DI.US_ITS ---
APPROVED REPORT EXAM: Comprehensive 2D, Doppler, and color-flow Echocardiogram Patient Location: Out-Patient Record Maker: Amie Salazar RDCS (AE) Indications: HFrEF Other Information Study Quality: Adequate Conclusion Normal left ventricular wall thickness and chamber size. There is severe global left ventricular dysfunction with an ejection fraction of approximately 20%. Right ventricle appears normal in size and systolic function Both atria are normal in size Bioprosthetic aortic valve, trace aortic regurgitation. Mean gradient is 7 mmHg Bioprosthetic mitral valve with trace regurgitation Moderate to severe tricuspid regurgitation. Estimated right ventricular systolic pressure is 43 mmHg Device lead noted in the right heart Wall motion Left Ventricle The left ventricle is normal size. Left ventricular systolic function is severely decreased. There is normal left ventricular wall thickness. There is global hypokinesis of the left ventricle. There is no ventricular septal defect visualized. LVEF is 28%. Right Ventricle The right ventricle is normal size. Right ventricular systolic function is probably normal Device lead is present in the right ventricle. Atria The left atrium size is normal. The right atrium size is normal. The interatrial septum is intact with no evidence for an atrial septal defect. Aortic Valve Trace aortic regurgitation. Bioprosthetic aortic valve is present. Mitral Valve No evidence of mitral valve stenosis. Trace mitral regurgitation. Bioprosthetic mitral valve is present. Tricuspid Valve The tricuspid valve is normal in structure. There is no tricuspid valve stenosis. Moderate to severe tricuspid regurgitation. The RVSP is 43.1 mmHg. Pulmonic Valve The pulmonary valve is normal in structure. There is no pulmonic valvular stenosis. Trace pulmonic regurgitation. Great Vessels The aortic root is normal in size. The ascending aorta is normal in size. Aortic arch is not well visualized. IVC is normal in size and collapses >50% with inspiration. Pericardium There is no pericardial effusion. 2D Dimensions IVSD d PLAX 0.80 cm F: 0.6-1.0 Ao Root d 2.59 cm F: 2.7 - 3.3 LVPW d PLAX 0.73 cm F: 0.6 - 1.0 Ao Asc Diam d 3.03 cm F: 2.3 - 3.1 LVID d PLAX 4.73 cm F: 3.8 - 5.2 LVDs 4.20 cm F: 2.2 - 3.5 LV EF Teichholz 24.9 % FS 11.47 % LV EDV (Teich) 104.1 mL LV ESV (Teich) 78.2 mL M-Mode TAPSE 1.32 cm (M/F) >1.7 Auto EF LV EDV A4C 102.4 mL LV EDV A2C 112.1 mL LV EDV BP 108.8 mL LV ESV A4C 74.0 mL LV ESV A2C 80.0 mL LV ESV BP 78.2 mL LVEF(%) A4C 27.7 % LVEF(%) A2C 28.6 % LVEF(%) BP 28.1 % LV SV A4C 28.4 ml LV SV A2C 32.1 ml LV SV BP 30.6 ml LV CO A4C 2.3 L/min LV CO A2C 2.6 L/min LV CO BP 2.4 L/min HR A4C 79.82 BPM HR A2C 80.00 BPM LV EDV Index (BP) LV Strain Long Pk Overal Avg (s) 4.86 LA Volume LA Length A4C 4.3 cm LA Length A2C 4.4 cm LA Area A4C s 16.43 cm2 LA Area A2C s 14.88 cm2 LA Vol A4C A-L 52.72 mL LA Vol A2C A-L 42.78 mL LA Vol Biplane A-L 47.8 mL LA Vol/BSA A4C A-L LA Vol/BSA A2C A-L LA Vol/BSA BP A-L 29.8 mL/m2 LA Vol A4C MOD 49.4 mL LA Vol A2C MOD 39.6 mL LA Vol BP MOD 44.3 mL RA Volume RA Area A4C 11.5 cm2 RA ESV A4C (A-L) 30.2mL RA Vol/BSA A4C A-L RA Length A4C 3.7 cm RA ESV A4C (MOD) 27.5mL LV Diastology MV E Vmax 1.17 (0.4-1.3 m/s) Aortic Valve AoV Vmax 1.58 m/s LVOT Vmax 1.16 m/s AoV Peak Grad 10.0 mmHg LVOT Peak Grad 5.4 mmHg AoV Area (Vmax) 1.82 cm2 LVOT VTI 0.212 m AoV VTI 0.278 m LVOT Mean Grad 3.3 mmHg AoV Mean Johnny. 1.24 m/s LVOT SV 52.67 mL AoV Mean Grad 6.6 mmHg LVOT Diam s 1.75 cm AoV Area (VTI) 1.89 cm2 AV Regurg Peak Gr. 10.04 mmHg Velocity Ratio 0.73 Mitral Valve MV DT 191 (160-240 msec) MV Vmax TIPS 1.23 m/s MV Mean Grad 1.7 (<2mmHg) MV VTI 0.186 m Pulmonary Valve PV Vmax 0.65 (0.5-1.5 m/s) RVOT Vmax 0.57 m/s PV Peak Grad 1.7 mmHg RVOT Peak Gr. 1.3 mmHg PV Mean Johnny 0.50 m/s RVOT VTI 0.132 m PV Mean Grad 1.1 mmHg RVOT Mean Gr. 0.7 mmHg Tricuspid Valve RA Pressure 3.00 mmHg TR Vmax 3.17 m/s TR Peak Grad 40.1 mmHg RVSP (TR) 43.1 mmHg
== END 2024-12-25 05:57 ==
LOC: DI 05:37
PROVIDERS: PCP Nurse Practitioner Family; Visit Provider Physician Assistant
DX: I50.20 Unspecified systolic (congestive) heart failure (principal); Z95.2 Presence of prosthetic heart valve; I36.0 Nonrheumatic tricuspid (valve) stenosis
CPT/HCPCS: 93306

== ENCOUNTER 2025-01-19 08:40 | Outpatient (CLI) | payer MEDICARE, OTHER, SELFPAY ==
--- NOTE | 2025-01-19 08:30 | RT.EKG_ITS ---
APPROVED REPORT Exam: Resting ECG Reason for Exam: PAFIB Patient Location: O HR:87 bpm ECG Measurements Heart Rate 87 AXIS WV 158 P 80 QRSd 150 QRS 250 QT 469 T 85 QTc 565 Conclusion Atrial-ventricular dual-paced complexes...other complexes also detected No further analysis attempted due to paced rhythm
== END 2025-01-19 08:41 | disposition home or self-care (01) ==
LOC: DI.CARD 08:41
PROVIDERS: PCP Nurse Practitioner Family; Visit Provider Registered Nurse
DX: I44.7 Left bundle-branch block, unspecified (principal); I48.0 Paroxysmal atrial fibrillation; I47.20 Ventricular tachycardia, unspecified; I47.10 Supraventricular tachycardia, unspecified
CPT/HCPCS: 93010

== ENCOUNTER → 2025-01-19 09:29 | Outpatient (BNVA) | payer MEDICARE, OTHER, SELFPAY | PROVIDERS: PCP Nurse Practitioner Family; Visit Provider Registered Nurse | DX: I50.9 Heart failure, unspecified (principal); I48.0 Paroxysmal atrial fibrillation; I44.7 Left bundle-branch block, unspecified; I47.10 Supraventricular tachycardia, unspecified; Z95.2 Presence of prosthetic heart valve; I47.20 Ventricular tachycardia, unspecified; Z95.810 Presence of automatic (implantable) cardiac defibrillator; Z79.01 Long term (current) use of anticoagulants | CPT/HCPCS: 99214; 93005 ==